=== PATIENT | female | born 1945 | race Caucasian/White ===

== ENCOUNTER 2016-01-20 15:14 | Outpatient (RCR) | payer BC, MEDICARE ==
--- OUTSIDE RECORDS SUMMARY | 2015-11-11 10:53 | XMS REPORT | Continuity of Care Document ---
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 Medications Medication Dose Route Sig Days/Qty Instructions Order Date Discontinued Date Status HCTZ/Lisinopril (Zestoretic) 1 Each PO DAILY 01/23/11 01/23/11 Discontinued [lisinopril] 01/23/11 01/23/11 Discontinued [lisinopril] 01/23/11 01/23/11 Discontinued Ranitidine Hcl 300 Mg PO TWICE A DAY 01/23/11 02/03/11 Discontinued Multivitamins 1 Each PO DAILY 01/23/11 Active [Calcium +D] DAILY 01/23/11 02/01/11 Discontinued [Vitamin B 6] 100 DAILY 01/23/11 02/01/11 Discontinued Aspirin 81 Mg PO DAILY 01/23/11 02/03/11 Discontinued Amlodipine Besylate (Norvasc 5 Mg) 5 Mg PO DAILY 01/23/11 11/16/11 Discontinued Meloxicam (Mobic) 15 Mg PO DAILY 01/23/11 11/16/11 Discontinued Azithromycin 200 Mg PO DAILY 4 Days 01/23/11 02/01/11 Discontinued HCTZ/Lisinopril (Zestoretic) 2 Each PO DAILY 01/23/11 11/16/11 Discontinued Calcium Carbonate/Vitamin D3 1 Each PO DAILY 02/01/11 Active Cholecalciferol (Vitamin D3) 2,000 Unit PO DAILY 02/01/11 02/03/11 Discontinued Pyridoxine HCl 100 Mg PO DAILY 02/01/11 02/03/11 Discontinued Pantoprazole Sodium 40 Mg PO DAILY 02/03/11 Active Atorvastatin Calcium 40 Mg PO DAILY 02/03/11 Active Clopidogrel Bisulfate 75 Mg PO DAILY 02/03/11 Active Aspirin 81 Mg PO DAILY 02/03/11 Active Meloxicam (Mobic) 15 Mg PO DAILY 11/16/11 Active Acetaminophen 325 Mg PO NEEDED 11/16/11 Active [retuxin infusion] Q8Week 11/16/11 Active Nebivolol Hcl 20 Mg PO DAILY 11/16/11 Active Levothyroxine Sodium 50 Mcg PO DAILY 11/16/11 Active Hydrochlorothiazide 25 Mg PO DAILY 11/16/11 Active Lisinopril 40 Mg PO DAILY 11/16/11 Active Amlodipine Besylate (Norvasc 10 Mg) 10 Mg PO DAILY 11/16/11 Discontinued Social History Social History Problem Response Recorded Date/Time Smoking Status Former Smoker 10/01/2013 6:52am Do you dip or chew tobacco? No 10/01/2013 6:52am Query Response Start Date Stop Date Smoking Status Former Smoker 10/06/2009 Hospital Discharge Instructions No hospital discharge instructions. Plan of Care No plan of care. Functional Status Query Response Date Recorded Patient Orientation Person Place Time Situation Normal For Age October 01, 2013 3:30pm Allergies, Adverse Reactions, Alerts Allergen Type Severity Reaction Status Last Updated Penicillins ([id number]) Allergy Unknown Active 09/16/08 Immunizations Name Given Type Date of Pneumonia Vaccine 10/12/04 Historical Date of Influenza Vaccine 11/05/10 Historical Vital Signs Acute Vital Signs Vital Response Date/Time Temperature (Fahrenheit) 96.3 degrees F (97.6 - 99.5) Temperature (Calculated Celsius) 35.47198 degrees C (36.4 - 37.5) Temperature Source Tympanic Pulse Rate (adult) 61 bpm (60 - 90) Respiratory Rate 18 bpm (12 - 24) O2 Sat by Pulse Oximetry 91 % (88 - 100) Blood Pressure 128/82 mm Hg Pain Pain Intensity 0 Height (Feet) 5 feet Height (Inches) 3.00 inches Height (Calculated Centimeters) 160.812277 cm Weight (Pounds) 216 pounds Weight (Calculated Grams) 48673.953 gm Weight (Calculated Kilograms) 97.995256 kilograms Calculated BMI 38.26 Results Test Source Date Result Interp. Ref. Range Comments Absolute Reticulocyte Count September 02, 2013 7:55am 52 10^3/uL N 22-82 SPE[facility]IMEN DRAWN AT [facility] Activated Partial Thromboplast Time November 28, 2011 11:20am 44 SEC H 24 -35 Alanine Aminotransferase (ALT/SGPT) September 02, 2013 7:55am 15 U/L N 0-55 SPE[facility]IMEN DRAWN AT [facility] Albumin September 02, 2013 7:55am 3.4 G/DL N 3.2-4.5 SPECIMEN DRAWN AT [facility] Alkaline Phosphatase September 02, 2013 7:55am 76 U/L N 40-136 SPECIMEN DRAWN AT [facility] Anti-Nuclear Antibody Screen September 02, 2008 2:40pm <1:80 - INTERPRETIVE DATAIF ABIGAIL SCREEN POSITIVE TITER AND PATTERN WILL FOLLOW. NORMAL RANGE FOR CHILDREN AGE 0 - 12 <1:20 NORMAL RANGE FOR ADULTS AGE 13 - 150 <1:80 Aspartate Amino Transf (AST/SGOT) September 02, 2013 7:55am 22 U/L N 5-34 SPECIMEN DRAWN AT [facility] BUN/Creatinine Ratio September 02, 2013 7:55am 25 - SPECIMEN DRAWN AT [facility] Basophils # (Auto) September 02, 2013 7:55am 0.0 10^3/uL N 0.0-0.1 SPECIMEN DRAWN AT [facility] Basophils (%) (Auto) September 02, 2013 7:55am 0 % N 0-10 SPE[facility]IMEN DRAWN AT [facility] Blood Urea Nitrogen September 02, 2013 7:55am 25 MG/DL H 7-18 SPECIMEN DRAWN AT [facility] Calcium Level September 02, 2013 7:55am 9.4 MG/DL N 8.5-10.1 SPECIMEN DRAWN AT [facility] Carbon Dioxide Level September 02, 2013 7:55am 29 MMOL/L N 21-32 SPE[facility]IMEN DRAWN AT [facility] Chloride Level September 02, 2013 7:55am 100 MMOL/L N 98-107 SPE[facility]IMEN DRAWN AT [facility] Cholesterol Level March 20, 2013 9:30am 139 MG/DL N -200 Creatinine September 02, 2013 7:55am 1.01 MG/DL N 0.60-1.30 SPECIMEN DRAWN AT [facility] Direct Bilirubin March 20, 2013 9:30am 0.1 MG/DL N 0.0-0.30 Eosinophils # (Auto) September 02, 2013 7:55am 0.4 10^3/uL H 0.0-0.3 SPE[facility]IMEN DRAWN AT [facility] Eosinophils (%) (Auto) September 02, 2013 7:55am 4 % N 0-10 SPE[facility]IMEN DRAWN AT [facility] Ferritin September 02, 2013 7:55am 50 NG/ML - SPECIMEN DRAWN AT [facility] Glucose Level September 02, 2013 7:55am 101 MG/DL N 70-105 SPECIMEN DRAWN AT [facility] HDL Cholesterol March 20, 2013 9:30am 54 MG/DL N 35-60 Hematocrit September 02, 2013 7:55am 38 % N 35-52 SPE[facility]IMEN DRAWN AT [facility] Hemoglobin September 02, 2013 7:55am 11.9 G/DL N 11.5-16.0 SPECIMEN DRAWN AT [facility] Hepatitis A IgM Antibody September 02, 2008 2:40pm NR - Hepatitis B Core IgM Antibody September 02, 2008 2:40pm NR - Hepatitis B Surface Antigen September 02, 2008 2:40pm NR - Hepatitis C Antibody September 02, 2008 2:40pm NR - Immunoglobulin A February 13, 2011 1:55pm 92 MG/DL - SPECIMEN DRAWN AT [facility] Immunoglobulin G February 13, 2011 1:55pm 682 MG/DL - SPECIMEN DRAWN AT [facility] Immunoglobulin M February 13, 2011 1:55pm 51 MG/DL - SPECIMEN DRAWN AT [facility] Indirect Bilirubin March 20, 2013 9:30am 0.2 MG/DL - Iron Level September 02, 2013 7:55am 86 UG/DL - SPECIMEN DRAWN AT [facility] LDL Cholesterol March 20, 2013 9:30am 72 MG/DL N 0-129 Lactate Dehydrogenase September 02, 2013 7:55am 257 U/L H 125-220 SPECIMEN DRAWN AT [facility] Lymphocytes # (Auto) September 02, 2013 7:55am 1.7 X 10^3 N 1.0-4.0 SPECIMEN DRAWN AT [facility] Lymphocytes (%) (Auto) September 02, 2013 7:55am 15 % N 12-44 SPE[facility]IMEN DRAWN AT [facility] Mean Corpuscular Hemoglobin September 02, 2013 7:55am 31 PG N 25-34 SPE[facility]IMEN DRAWN AT [facility] Mean Corpuscular Hemoglobin Concent September 02, 2013 7:55am 32 G/DL N 32- 36 SPE[facility]IMEN DRAWN AT [facility] Mean Corpuscular Volume September 02, 2013 7:55am 97 FL N 80-99 SPE[facility]IMEN DRAWN AT [facility] Mean Platelet Volume September 02, 2013 7:55am 11.0 FL H 7.4-10.4 SPECIMEN DRAWN AT [facility] Monocytes # (Auto) September 02, 2013 7:55am 1.5 X 10^3 H 0.0-1.0 SPECIMEN DRAWN AT [facility] Monocytes (%) (Auto) September 02, 2013 7:55am 14 % H 0-12 SPE[facility]IMEN DRAWN AT [facility] Neutrophils # (Auto) September 02, 2013 7:55am 7.2 X 10^3 N 1.8-7.8 SPECIMEN DRAWN AT [facility] Neutrophils (%) (Auto) September 02, 2013 7:55am 66 % N 42-75 SPECIMEN DRAWN AT [facility] Percent Reticulocyte Count September 02, 2013 7:55am 1.33 % N 0.50-2.40 SPECIMEN DRAWN AT [facility] Platelet Count September 02, 2013 7:55am 289 10^3/uL N 130-400 SPECIMEN DRAWN AT [facility] Potassium Level September 02, 2013 7:55am 3.9 MMOL/L N 3.6-5.0 SPECIMEN DRAWN AT [facility] Prothromb Time International Ratio November 28, 2011 11:20am 0.9 N 0.8- 1.4 INTERPRETIVE DATASUGGESTED THERAPEUTIC RANGE FOR INR'S : VENOUS THROMBOSIS, PULMONARY EMBOLISM, OR PREVENTION OF SYSTEMIC EMBOLISM (EG. IN ATRIAL FIBRILLATION): 2.0 - 3.0 MECHANICAL PROSTHETIC HEART VALVES: 2.5 - 3.5* *NOTE: INR'S UP TO 4.5 MAY BE NECESSARY IN SELECTED GROUPS OF HIGH RISK PATIENTS. [employer] CONSENSUS CONFERENCE ON ANTITHROMBOTIC THERAPY (2000). Prothrombin Time November 28, 2011 11:20am 12.1 SEC L 12.2-14.7 Red Blood Count September 02, 2013 7:55am 3.87 10^6/uL L 4.35-5.85 SPECIMEN DRAWN AT [facility] Red Cell Distribution Width September 02, 2013 7:55am 14.9 % H 10.0-14.5 SPECIMEN DRAWN AT [facility] Rheumatoid Factor September 02, 2008 2:40pm NEGATIVE - Sodium Level September 02, 2013 7:55am 140 MMOL/L N 135-145 SPECIMEN DRAWN AT [facility] TSH Vermilion Testing May 17, 2009 8:45am 4.03 UIU/ML N 0.34-5.60 SPECIMEN DRAWN AT [facility] Thyroid Stimulating Hormone (TSH) September 04, 2013 10:30am 1.40 UIU/ML N 0.35-4.94 SPECIMEN DRAWN AT [facility] Thyroxine (T4) March 14, 2012 10:08am 10.1 UG/DL - SPECIMEN DRAWN AT [facility] Total Bilirubin September 02, 2013 7:55am 0.3 MG/DL N 0.1-1.0 SPECIMEN DRAWN AT [facility] Total Iron Binding Capacity September 02, 2013 7:55am 349 UG/DL - TESTING PERFORMED BY:[facility] [id number] [place] [address] Total Protein September 02, 2013 7:55am 6.5 G/DL N 6.4-8.2 SPECIMEN DRAWN AT [facility] Transferrin % Saturation September 02, 2013 7:55am 25 % - SPECIMEN DRAWN AT [facility] Triglycerides Level March 20, 2013 9:30am 67 MG/DL N 30.0-150.0 Urine Bacteria May 27, 2009 11:45am TRACE - SPECIMEN COLLECTED AT [facility] Urine Bilirubin May 27, 2009 11:45am NEGATIVE - SPECIMEN COLLECTED AT [facility] Urine Casts May 27, 2009 11:45am NONE - SPECIMEN COLLECTED AT [facility] Urine Clarity May 27, 2009 11:45am SLIGHTLY CLOUDY - SPECIMEN COLLECTED AT [facility] Urine Color May 27, 2009 11:45am YELLOW - SPECIMEN COLLECTED AT [facility] Urine Crystals May 27, 2009 11:45am NONE - SPECIMEN COLLECTED AT [facility] Urine Culture Indicated May 27, 2009 11:45am NO - SPECIMEN COLLECTED AT [facility] Urine Glucose (UA) May 27, 2009 11:45am NEGATIVE - SPECIMEN COLLECTED AT [facility] Urine Ketones May 27, 2009 11:45am NEGATIVE - SPECIMEN COLLECTED AT [facility] Urine Leukocyte Esterase May 27, 2009 11:45am 1+ H - SPECIMEN COLLECTED AT [facility] Urine Mucus May 27, 2009 11:45am NEGATIVE - SPECIMEN COLLECTED AT [facility] Urine Nitrite May 27, 2009 11:45am NEGATIVE - SPECIMEN COLLECTED AT [facility] Urine Protein May 27, 2009 11:45am NEGATIVE - SPECIMEN COLLECTED AT [facility] Urine RBC May 27, 2009 11:45am 0-2 /HPF - SPECIMEN COLLECTED AT [facility] Urine Specific [place] May 27, 2009 11:45am 1.005 L - SPECIMEN COLLECTED AT [facility] Urine Squamous Epithelial Cells May 27, 2009 11:45am 2-5 - SPECIMEN COLLECTED AT [facility] Urine Urobilinogen May 27, 2009 11:45am NORMAL MG/DL - SPECIMEN COLLECTED AT [facility] Urine WBC May 27, 2009 11:45am 2-5 /HPF - SPECIMEN COLLECTED AT [facility] Urine pH May 27, 2009 11:45am 6.5 - SPECIMEN COLLECTED AT [facility] VLDL Cholesterol March 20, 2013 9:30am 13 MG/DL N 5-40 White Blood Count September 02, 2013 7:55am 10.8 10^3/uL N 4.3-11.0 SPECIMEN DRAWN AT [facility] Estimat Glomerular Filtration Rate September 02, 2013 7:55am 54 - GFR INTERPRETIVE DATA UNITS FOR ESTIMATED GFR (eGFR): mL/min/1.73 M2 REFERENCE RANGE FOR ESTIMATED GFR (eGFR) eGFR NORMAL eGFR >60 MODERATELY DECREASED eGFR 30-59 SEVERLY DECREASED eGFR 15-29 KIDNEY FAILURE <15 (OR DIALYSIS) Urine RBC (Auto) May 27, 2009 11:45am NEGATIVE - SPECIMEN COLLECTED AT [facility] MRSA Screen Nasal November 28, 2011 11:20am MRSA not isolated Procedures Procedure Status Date Provider(s) Color Doppler echocardiography completed 09/18/13 LENNY JEWELL MD Tracing only of electrocardiogram completed 10/01/13 LENNY JEWELL MD Encounters Encounter Location Date/Time Registered Clinic [facility] 09/24/13 7:53am Registered Clinic [facility] 09/18/13 10:00am Registered Recurring [facility] 09/04/13 9:39am
[2015-12-16 16:28] LABS: BASOPHILS # (AUTO) 0.1 10^3/uL (0.0-0.1); BASOPHILS % (AUTO) 1 % (0-10); EOSINOPHILS # (AUTO) 0.6 10^3/uL (0.0-0.3); EOSINOPHILS % (AUTO) 5 % (0-10); LYMPHOCYTES # (AUTO) 1.9 X 10^3 (1.0-4.0); LYMPHOCYTES % (AUTO) 17 % (12-44); MEAN CORPUSCULAR HEMOGLOBIN 32 PG (25-34); MEAN CORPUSCULAR HGB CONC 32 G/DL (32-36); MEAN CORPUSCULAR VOLUME 102 FL (80-99); MEAN PLATELET VOLUME 11.1 FL (7.4-10.4); MONOCYTES # (AUTO) 1.2 X 10^3 (0.0-1.0); MONOCYTES % (AUTO) 11 % (0-12); NEUTROPHILS % (AUTO) 65 % (42-75); PLATELET COUNT 328 10^3/uL (130-400); RED BLOOD COUNT 3.44 10^6/uL (4.35-5.85); RED CELL DISTRIBUTION WIDTH 13.9 % (10.0-14.5); WHITE BLOOD COUNT 10.7 10^3/uL (4.3-11.0)
[2015-12-16 17:02] LABS: ALANINE AMINOTRANSFERASE 43 U/L (0-55); ALBUMIN 3.8 G/DL (3.2-4.5); ANION GAP 8 MMOL/L (5-14); ASPARTATE AMINO TRANSFERASE 25 U/L (5-34); BILIRUBIN,TOTAL 0.3 MG/DL (0.1-1.0); BLOOD UREA NITROGEN 15 MG/DL (7-18); BUN/CREATININE RATIO 17; CALCIUM 9.3 MG/DL (8.5-10.1); CARBON DIOXIDE 30 MMOL/L (21-32); CHLORIDE 102 MMOL/L (98-107); CREATININE SERUM 0.88 MG/DL (0.60-1.30); GFR ESTIMATED > 60; GLUCOSE 97 MG/DL (70-105); POTASSIUM 4.4 MMOL/L (3.6-5.0); SODIUM 140 MMOL/L (135-145)
[2015-12-16 17:25] LABS: THYROID STIMULATING HORMONE 2.85 UIU/ML (0.35-4.94)
[2015-12-17 11:57] LABS: %SAT TOTAL IRON BINDING CAPIC 21 % (15-50); TIBC 310 ug/dL (280-380)
[2015-12-18 01:40] LABS: IMMUNOGLOBULIN IGA 61 mg/dL (71-263); IMMUNOGLOBULIN IGG 623 mg/dL (672-1680)
[2015-12-20 11:51] LABS: UIBC 245 ug/dL (55-450)
[2015-12-20 11:52] LABS: FERRITIN 133 ng/mL (15-150)
[2015-12-20 11:58] LABS: IMMUNOGLOBULIN IGM 27 mg/dL (47-209)
[~2016-01-20] VITALS: Ht 160 cm; Wt 106.6 kg
[~2016-01-20 15:14] MED LIST: AC325T PO; ACETAMINOPHEN 325 MG TABLET/CAPLET (TYLENOL) PO SCH; AMLO10TA82 PO; AMLO5TAB2 PO; ASP81CT PO; ASP81TEC PO; ATOR40TA70 PO; ATOR80TA PO; AZIT200S47 PO; CALC-656 PO; CALC-80 PO; CALCIUM +D; CHOL200018 PO; CLOP75TA28 PO; CLPD75T PO; CYAN100053 IJ; CYANOCOBALAMIN INJ 1000 MCG/ML INJ SCH; EZET10TA23 PO; FERR-57 PO; FLUT1DIS26 PO; HCT25T PO; HEParin (CENTRAL IV FLUSH) 500 UNIT/5 ML SYR INJ SCH; HYDR25TA4 PO; LISI1TAB10 PO; LISI40TA PO; LVT.05T PO; MELO-195 PO; MULT1CAP27 PO; NEBI5TAB8 PO; NFNEB10T PO; NS IV 500 ML 500 ML IV SCH; OLME20TA21 PO; PANT40TA PO; PNT40TEC PO; PYRI100T2 PO; RANI300T4 PO; RANO500T3 PO; VITAMIN B 6; [UNRECOGNIZED DRUG - OTHER]; [UNRECOGNIZED DRUG - OTHER] IV; diphenhydrAMINE 25 MG TAB (BENADRYL) PO SCH; lisinopril; riTUXimab 500 MG, riTUXimab FOR IV INJ CONC 200 MG in NS (IVPB) CANCER CENTER ONLY 150 ML IV SCH
== END 2016-02-09 | disposition home or self-care (01) ==
LOC: PAR 15:14
PROVIDERS: ATTEND Internal Medicine Hematology & Oncology
DX: C83.18 Mantle cell lymphoma, lymph nodes of multiple sites (principal); D50.9 Iron deficiency anemia, unspecified; I10 Essential (primary) hypertension; E78.5 Hyperlipidemia, unspecified; M89.9 Disorder of bone, unspecified; Z79.899 Other long term (current) drug therapy
CPT/HCPCS: 36591; 80053; 82728; 82784; 83540; 84443; 85025; 96372; 96413; 99213

== ENCOUNTER 2016-05-11 13:28 | Outpatient (RCR) | payer BC, MEDICARE ==
--- OUTSIDE RECORDS SUMMARY | 2016-02-17 14:32 | XMS REPORT | Continuity of Care Document ---
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 Name Role Phone BRITTANY CRAVEN MD PCP Insurance Providers Payer Name Policy Number Subscriber Name Relationship [facility] [id number] Rosey Gil C 01 Wps Medicare [id number] Kelsy Gil 18 Self / Same As Patient Advance Directives Directive Response Recorded Date/Time Advance Directives No 10/01/13 6:52am Health Care Power of Operations Manager/Coordinator No 10/01/13 6:52am Organ Donor No 10/01/13 [...] Type Severity Reaction Status Last Updated Penicillins ([id number]) Allergy Unknown Active 09/16/08 Immunizations Name Given Type Date of Pneumonia Vaccine 10/12/04 Historical Date of Influenza Vaccine 11/05/10 Historical Vital Signs Acute Vital Signs Vital Response Date/Time Temperature (Fahrenheit) 96.3 degrees F (97.6 - 99.5) Temperature (Calculated Celsius) 35.29587 degrees C (36.4 - 37.5) Temperature Source Tympanic Pulse Rate (adult) 61 bpm (60 - 90) Respiratory Rate 18 bpm (12 - 24) O2 Sat by Pulse Oximetry 91 % (88 - 100) Blood Pressure 128/82 mm Hg Pain Pain Intensity 0 Height (Feet) 5 feet Height (Inches) 3.00 inches Height (Calculated Centimeters) 160.091276 cm Weight (Pounds) 216 pounds Weight (Calculated Grams) 49027.953 gm Weight (Calculated Kilograms) 97.764018 kilograms Calculated BMI 38.26 Results Test Source Date Result Interp. Ref. Range Comments Absolute Reticulocyte Count September 02, 2013 7:55am 52 10^3/uL N 22-82 [facility] Activated Partial Thromboplast Time November 28, 2011 11:20am 44 SEC H 24 -35 Alanine Aminotransferase (ALT/SGPT) September 02, 2013 7:55am 15 U/L N 0-55 [facility] Albumin September 02, 2013 7:55am 3.4 G/DL N 3.2-4.5 [facility] Alkaline Phosphatase September 02, 2013 7:55am 76 U/L N 40-136 [facility] Anti-Nuclear Antibody Screen September 02, 2008 2:40pm <1:80 - INTERPRETIVE DATAIF ABIGAIL SCREEN POSITIVE TITER AND PATTERN WILL FOLLOW. NORMAL RANGE FOR CHILDREN AGE 0 - 12 <1:20 NORMAL RANGE FOR ADULTS AGE 13 - 150 <1:80 Aspartate Amino Transf (AST/SGOT) September 02, 2013 7:55am 22 U/L N 5-34 [facility] BUN/Creatinine Ratio September 02, 2013 7:55am 25 - [facility] Basophils # (Auto) September 02, 2013 7:55am 0.0 10^3/uL N 0.0-0.1 [facility] Basophils (%) (Auto) September 02, 2013 7:55am 0 % N 0-10 [facility] Blood Urea Nitrogen September 02, 2013 7:55am 25 MG/DL H 7-18 [facility] Calcium Level September 02, 2013 7:55am 9.4 MG/DL N 8.5-10.1 [facility] Carbon Dioxide Level September 02, 2013 7:55am 29 MMOL/L N 21-32 [facility] Chloride Level September 02, 2013 7:55am 100 MMOL/L N 98-107 [facility] Cholesterol Level March 20, 2013 9:30am 139 MG/DL N -200 Creatinine September 02, 2013 7:55am 1.01 MG/DL N 0.60-1.30 [facility] Direct Bilirubin March 20, 2013 9:30am 0.1 MG/DL N 0.0-0.30 Eosinophils # (Auto) September 02, 2013 7:55am 0.4 10^3/uL H 0.0-0.3 [facility] Eosinophils (%) (Auto) September 02, 2013 7:55am 4 % N 0-10 [facility] Ferritin September 02, 2013 7:55am 50 NG/ML - [facility] Glucose Level September 02, 2013 7:55am 101 MG/DL N 70-105 [facility] HDL Cholesterol March 20, 2013 9:30am 54 MG/DL N 35-60 Hematocrit September 02, 2013 7:55am 38 % N 35-52 [facility] Hemoglobin September 02, 2013 7:55am 11.9 G/DL N 11.5-16.0 [facility] Hepatitis A IgM Antibody September 02, 2008 2:40pm NR - Hepatitis B Core IgM Antibody September 02, 2008 2:40pm NR - Hepatitis B Surface Antigen September 02, 2008 2:40pm NR - Hepatitis C Antibody September 02, 2008 2:40pm NR - Immunoglobulin A February 13, 2011 1:55pm 92 MG/DL - [facility] Immunoglobulin G February 13, 2011 1:55pm 682 MG/DL - [facility] Immunoglobulin M February 13, 2011 1:55pm 51 MG/DL - [facility] Indirect Bilirubin March 20, 2013 9:30am 0.2 MG/DL - Iron Level September 02, 2013 7:55am 86 UG/DL - [facility] LDL Cholesterol March 20, 2013 9:30am 72 MG/DL N 0-129 Lactate Dehydrogenase September 02, 2013 7:55am 257 U/L H 125-220 [facility] Lymphocytes # (Auto) September 02, 2013 7:55am 1.7 X 10^3 N 1.0-4.0 [facility] Lymphocytes (%) (Auto) September 02, 2013 7:55am 15 % N 12-44 [facility] Mean Corpuscular Hemoglobin September 02, 2013 7:55am 31 PG N 25-34 [facility] Mean Corpuscular Hemoglobin Concent September 02, 2013 7:55am 32 G/DL N 32- 36 [facility] Mean Corpuscular Volume September 02, 2013 7:55am 97 FL N 80-99 [facility] Mean Platelet Volume September 02, 2013 7:55am 11.0 FL H 7.4-10.4 [facility] Monocytes # (Auto) September 02, 2013 7:55am 1.5 X 10^3 H 0.0-1.0 [facility] Monocytes (%) (Auto) September 02, 2013 7:55am 14 % H 0-12 [facility] Neutrophils # (Auto) September 02, 2013 7:55am 7.2 X 10^3 N 1.8-7.8 [facility] Neutrophils (%) (Auto) September 02, 2013 7:55am 66 % N 42-75 [facility] Percent Reticulocyte Count September 02, 2013 7:55am 1.33 % N 0.50-2.40 [facility] Platelet Count September 02, 2013 7:55am 289 10^3/uL N 130-400 [facility] Potassium Level September 02, 2013 7:55am 3.9 MMOL/L N 3.6-5.0 [facility] Prothromb Time International Ratio November 28, 2011 11:20am 0.9 N 0.8- 1.4 INTERPRETIVE DATASUGGESTED THERAPEUTIC RANGE FOR INR'S : VENOUS THROMBOSIS, PULMONARY EMBOLISM, OR PREVENTION OF SYSTEMIC EMBOLISM (EG. IN ATRIAL FIBRILLATION): 2.0 - 3.0 MECHANICAL PROSTHETIC HEART VALVES: 2.5 - 3.5* *NOTE: INR'S UP TO 4.5 MAY BE NECESSARY IN SELECTED GROUPS OF HIGH RISK PATIENTS. [employer] CONSENSUS CONFERENCE ON ANTITHROMBOTIC THERAPY (2000). Prothrombin Time November 28, 2011 11:20am 12.1 SEC L 12.2-14.7 Red Blood Count September 02, 2013 7:55am 3.87 10^6/uL L 4.35-5.85 [facility] Red Cell Distribution Width September 02, 2013 7:55am 14.9 % H 10.0-14.5 [facility] Rheumatoid Factor September 02, 2008 2:40pm NEGATIVE - Sodium Level September 02, 2013 7:55am 140 MMOL/L N 135-145 [facility] TSH [place] Testing May 17, 2009 8:45am 4.03 UIU/ML N 0.34-5.60 [facility] Thyroid Stimulating Hormone (TSH) September 04, 2013 10:30am 1.40 UIU/ML N 0.35-4.94 [facility] Thyroxine (T4) March 14, 2012 10:08am 10.1 UG/DL - [facility] Total Bilirubin September 02, 2013 7:55am 0.3 MG/DL N 0.1-1.0 [facility] Total Iron Binding Capacity September 02, 2013 7:55am 349 UG/DL - TESTING PERFORMED BY:[facility] [id number] [place] [address] Total Protein September 02, 2013 7:55am 6.5 G/DL N 6.4-8.2 [facility] Transferrin % Saturation September 02, 2013 7:55am 25 % - [facility] Triglycerides Level March 20, 2013 9:30am 67 MG/DL N 30.0-150.0 Urine Bacteria May 27, 2009 11:45am TRACE - [facility] Urine Bilirubin May 27, 2009 11:45am NEGATIVE - [facility] Urine Casts May 27, 2009 11:45am NONE - [facility] Urine Clarity May 27, 2009 11:45am SLIGHTLY CLOUDY - [facility] Urine Color May 27, 2009 11:45am YELLOW - [facility] Urine Crystals May 27, 2009 11:45am NONE - [facility] Urine Culture Indicated May 27, 2009 11:45am NO - [facility] Urine Glucose (UA) May 27, 2009 11:45am NEGATIVE - [facility] Urine Ketones May 27, 2009 11:45am NEGATIVE - [facility] Urine Leukocyte Esterase May 27, 2009 11:45am 1+ H - [facility] Urine Mucus May 27, 2009 11:45am NEGATIVE - [facility] Urine Nitrite May 27, 2009 11:45am NEGATIVE - [facility] Urine Protein May 27, 2009 11:45am NEGATIVE - [facility] Urine RBC May 27, 2009 11:45am 0-2 /HPF - [facility] Urine Specific [place] May 27, 2009 11:45am 1.005 L - [facility] Urine Squamous Epithelial Cells May 27, 2009 11:45am 2-5 - [facility] Urine Urobilinogen May 27, 2009 11:45am NORMAL MG/DL - [facility] Urine WBC May 27, 2009 11:45am 2-5 /HPF - [facility] Urine pH May 27, 2009 11:45am 6.5 - [facility] VLDL Cholesterol March 20, 2013 9:30am 13 MG/DL N 5-40 White Blood Count September 02, 2013 7:55am 10.8 10^3/uL N 4.3-11.0 [facility] Estimat Glomerular Filtration Rate September 02, 2013 7:55am 54 - GFR INTERPRETIVE DATA UNITS FOR ESTIMATED GFR (eGFR): mL/min/1.73 M2 REFERENCE RANGE FOR ESTIMATED GFR (eGFR) eGFR NORMAL eGFR >60 MODERATELY DECREASED eGFR 30-59 SEVERLY DECREASED eGFR 15-29 KIDNEY FAILURE <15 (OR DIALYSIS) Urine RBC (Auto) May 27, 2009 11:45am NEGATIVE - [facility] MRSA Screen Nasal November 28, 2011 11:20am MRSA not isolated Procedures Procedure Status Date Provider(s) Color Doppler echocardiography completed 09/18/13 LENNY JEWELL MD Tracing only of electrocardiogram completed 10/01/13 LENNY JEWELL MD Encounters Encounter Location Date/Time Registered Clinic Via [facility] 09/24/13 7:53am Registered Clinic [facility] 09/18/13 10:00am Registered Recurring [facility] 09/04/13 9:39am
[2016-03-09 15:57] LABS: BASOPHILS % (AUTO) 0 % (0-10); EOSINOPHILS # (AUTO) 0.5 10^3/uL (0.0-0.3); EOSINOPHILS % (AUTO) 4 % (0-10); LYMPHOCYTES # (AUTO) 1.9 X 10^3 (1.0-4.0); LYMPHOCYTES % (AUTO) 15 % (12-44); MEAN CORPUSCULAR HEMOGLOBIN 32 PG (25-34); MEAN CORPUSCULAR HGB CONC 32 G/DL (32-36); MEAN CORPUSCULAR VOLUME 102 FL (80-99); MEAN PLATELET VOLUME 10.9 FL (7.4-10.4); MONOCYTES # (AUTO) 1.3 X 10^3 (0.0-1.0); MONOCYTES % (AUTO) 10 % (0-12); NEUTROPHILS # (AUTO) 9.4 X 10^3 (1.8-7.8); NEUTROPHILS % (AUTO) 71 % (42-75); PLATELET COUNT 333 10^3/uL (130-400); RED BLOOD COUNT 3.39 10^6/uL (4.35-5.85); RED CELL DISTRIBUTION WIDTH 14.6 % (10.0-14.5); WHITE BLOOD COUNT 13.1 10^3/uL (4.3-11.0)
[2016-03-09 16:55] LABS: ALANINE AMINOTRANSFERASE 39 U/L (0-55); ALBUMIN 3.8 G/DL (3.2-4.5); ANION GAP 7 MMOL/L (5-14); ASPARTATE AMINO TRANSFERASE 30 U/L (5-34); BILIRUBIN,TOTAL 0.3 MG/DL (0.1-1.0); BLOOD UREA NITROGEN 20 MG/DL (7-18); BUN/CREATININE RATIO 23; CARBON DIOXIDE 30 MMOL/L (21-32); CHLORIDE 103 MMOL/L (98-107); CREATININE SERUM 0.87 MG/DL (0.60-1.30); GFR ESTIMATED > 60; GLUCOSE 88 MG/DL (70-105); LACTATE DEHYDROGENASE 272 U/L (125-220); POTASSIUM 4.2 MMOL/L (3.6-5.0); SODIUM 140 MMOL/L (135-145); TOTAL PROTEIN 6.1 G/DL (6.4-8.2)
[2016-03-09 17:16] LABS: THYROID STIMULATING HORMONE 5.39 UIU/ML (0.35-4.94)
[2016-04-06 16:20] LABS: BASOPHILS % (AUTO) 0 % (0-10); EOSINOPHILS # (AUTO) 0.6 10^3/uL (0.0-0.3); EOSINOPHILS % (AUTO) 5 % (0-10); LYMPHOCYTES # (AUTO) 1.7 X 10^3 (1.0-4.0); LYMPHOCYTES % (AUTO) 15 % (12-44); MEAN CORPUSCULAR HEMOGLOBIN 32 PG (25-34); MEAN CORPUSCULAR HGB CONC 31 G/DL (32-36); MEAN CORPUSCULAR VOLUME 103 FL (80-99); MONOCYTES # (AUTO) 1.3 X 10^3 (0.0-1.0); MONOCYTES % (AUTO) 11 % (0-12); NEUTROPHILS # (AUTO) 7.8 X 10^3 (1.8-7.8); NEUTROPHILS % (AUTO) 69 % (42-75); PLATELET COUNT 340 10^3/uL (130-400); RED BLOOD COUNT 3.35 10^6/uL (4.35-5.85); RED CELL DISTRIBUTION WIDTH 14.5 % (10.0-14.5); WHITE BLOOD COUNT 11.3 10^3/uL (4.3-11.0)
[2016-04-06 16:49] LABS: ALBUMIN 3.6 G/DL (3.2-4.5); BILIRUBIN,TOTAL 0.2 MG/DL (0.1-1.0); CALCIUM 8.9 MG/DL (8.5-10.1); CREATININE SERUM 1.02 MG/DL (0.60-1.30); TOTAL PROTEIN 5.8 G/DL (6.4-8.2)
[2016-04-06 17:16] LABS: THYROID STIMULATING HORMONE 2.45 UIU/ML (0.35-4.94)
[~2016-05-11] VITALS: Ht 160 cm; Wt 102.5 kg
[~2016-05-11 13:28] MED LIST changes: +ACETAMINOPHEN 325 MG TAB (TYLENOL) CANCER CTR PO SCH; -ACETAMINOPHEN 325 MG TABLET/CAPLET (TYLENOL) PO SCH; -HEParin (CENTRAL IV FLUSH) 500 UNIT/5 ML SYR INJ SCH; +NS IV 500 ML (CANCER CENTER) IV SCH; -NS IV 500 ML 500 ML IV SCH; +diphenhydrAMINE 25 MG TAB (BENADRYL) CANCER CENTER PO SCH; -diphenhydrAMINE 25 MG TAB (BENADRYL) PO SCH
== END 2016-05-17 | disposition home or self-care (01) ==
LOC: PAR 13:28
PROVIDERS: ATTEND Internal Medicine Hematology & Oncology
DX: C83.18 Mantle cell lymphoma, lymph nodes of multiple sites (principal); D50.9 Iron deficiency anemia, unspecified; I10 Essential (primary) hypertension; E78.5 Hyperlipidemia, unspecified; M89.9 Disorder of bone, unspecified; Z79.899 Other long term (current) drug therapy; Z45.2 Encounter for adjustment and management of vascular access device
CPT/HCPCS: 36591; 80053; 82728; 82784; 83540; 83615; 84443; 85025; 96372; 96413; 96523; 99213

== ENCOUNTER → 2016-05-29 | Outpatient (CLI) | payer BC, MEDICARE ==
[~2016-05-29] MED LIST changes: -ACETAMINOPHEN 325 MG TAB (TYLENOL) CANCER CTR PO SCH; +CATHETER FLUSH 10 ML SYR IV PRN; -CYANOCOBALAMIN INJ 1000 MCG/ML INJ SCH; +IOHEXOL 350 MG/ML 100 ML (OMNIPAQUE 350) VIAL IV ONE; +NS 100 ML (IVPB) BAG IV ONE; -NS IV 500 ML (CANCER CENTER) IV SCH; -diphenhydrAMINE 25 MG TAB (BENADRYL) CANCER CENTER PO SCH; -riTUXimab 500 MG, riTUXimab FOR IV INJ CONC 200 MG in NS (IVPB) CANCER CENTER ONLY 150 ML IV SCH
[2016-05-29 10:55] LABS: CREATININE SERUM 1.03 MG/DL (0.60-1.30)
--- NOTE | 2016-05-29 13:44 | Diagnostic Imaging Report ---
CLINICAL INDICATION: Followup aneurysm. EXAMS: 1: Head CT with and without IV contrast. 2: CT angiogram of the head and neck performed with 100 cc of Omnipaque 350 IV contrast. Sagittal and coronal MIP reformations were created for better visualization of vascular anatomy. COMPARISON: CT angiogram of the head/neck dated 05/17/2015. FINDINGS: Head CT: There is stable size and configuration of the area of high density within the posterior aspect of left thalamus which appears to have minimal adjacent enhancement. Remainder of the brain parenchyma is stable with patchy and confluent areas of low attenuation white matter changes throughout both cerebral hemispheres, likely representing chronic small vessel ischemic disease. The brain parenchymal volume appears appropriate for patient's age. There is no evidence of hydrocephalus. Besides the left thalamic lesion, there is no abnormal IV contrast enhancement. The extracranial soft tissue, skull, and orbits are unremarkable. There is a moderate to large size mucus retention cyst in left maxillary sinus which has slightly decreased. CT angiogram: Bovine arch is again seen. 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 This aneurysm is directed laterally and inferiorly. There is no other evidence of aneurysm or concern for dissection on this exam. There is stable severe, roughly 70% stenosis of the left ICA bulb. There is stable roughly 40% stenosis of the cavernous right ICA. There is dense atherosclerotic plaque involving the origin of the right subclavian artery with mild stenosis seen. Remainder of the [place] and neck vascular structures show no other significant abnormality and is stable. Dural venous sinuses show no significant abnormality. Cqupcu-t-[id number] is seen overlying the right chest. There is emphysematous lung disease seen bilaterally. There is cervical spine degenerative disease again seen. 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 2: Stable severe stenosis of the left ICA bulb. 3: The remainder of the [place] and neck arteriovascular structures have not significantly changed in the interim. 4: Stable age-related brain parenchymal changes. Dictated by: Dictated on workstation # [id number]
== END ==
LOC: RAD 10:10
PROVIDERS: ATTEND Internal Medicine Cardiovascular Disease
DX: I25.10 Atherosclerotic heart disease of native coronary artery without angina pectoris (principal); R07.9 Chest pain, unspecified; R06.00 Dyspnea, unspecified; E78.2 Mixed hyperlipidemia; I10 Essential (primary) hypertension; J44.9 Chronic obstructive pulmonary disease, unspecified
CPT/HCPCS: 36415; 70496; 70498; 82565; 84520

== ENCOUNTER → 2016-08-09 | Outpatient (CLI) | payer BC, MEDICARE ==
[~2016-08-09] MED LIST changes: +ATOR80TA76 PO; -CATHETER FLUSH 10 ML SYR IV PRN; +DICL75TA2 PO; -IOHEXOL 350 MG/ML 100 ML (OMNIPAQUE 350) VIAL IV ONE; +LEVO50TA6 PO; +MONT10TA24 PO; -NS 100 ML (IVPB) BAG IV ONE; +OLME20TA24 PO; +TIOT18CA2 IH
--- NOTE | 2016-08-09 15:27 | Diagnostic Imaging Report ---
PROCEDURE: Lung cancer screening CT chest without contrast. TECHNIQUE: Multiple contiguous axial images were obtained through the chest without the use of intravenous contrast. This is performed with a low-dose protocol. INDICATION: Currently asymptomatic patient with 50 pack years history of smoking COMPARISON: 07/08/2014. FINDINGS: There is a mild upper lobe predominant emphysema changes. There is no significant consolidation, mass or suspicious nodule seen. A 4 mm right upper lobe nodule stable from the 07/08/2014 exam is suggestive of a focal scar. There is interstitial scarring in the left lung base laterally along the region of prior thoracotomy and partial rib resection seen with the minimal bulge of the lung relative to the contour of the left hemithorax. The heart size is normal. Coronary artery calcifications are seen. The thoracic aorta is normal in caliber. The mediastinum demonstrate no mass or significantly enlarged lymph nodes. The axilla demonstrate no significantly enlarged nodes. There is right subclavian venous line with the tip at SVC level. IMPRESSION: Mild upper lobe predominant emphysema changes. Postoperative changes and areas of scarring seen as described. No suspicious lung nodule or mass. Lung Rads Category 2. Benign findings. Recommendations: Annual screening low-dose CT scan. Dictated by: Dictated on workstation # [id number]
== END ==
LOC: RAD 11:18
PROVIDERS: ATTEND Nurse Practitioner Family
DX: Z98.890 Other specified postprocedural states (principal); R09.02 Hypoxemia; Z87.891 Personal history of nicotine dependence

== ENCOUNTER 2016-08-24 11:59 | Outpatient (RCR) | payer BC, MEDICARE ==
[2016-06-01 16:11] LABS: BASOPHILS # (AUTO) 0.1 10^3/uL (0.0-0.1); BASOPHILS % (AUTO) 0 % (0-10); EOSINOPHILS # (AUTO) 0.7 10^3/uL (0.0-0.3); EOSINOPHILS % (AUTO) 5 % (0-10); LYMPHOCYTES # (AUTO) 1.7 X 10^3 (1.0-4.0); LYMPHOCYTES % (AUTO) 14 % (12-44); MEAN CORPUSCULAR HEMOGLOBIN 32 PG (25-34); MEAN CORPUSCULAR HGB CONC 31 G/DL (32-36); MEAN CORPUSCULAR VOLUME 101 FL (80-99); MEAN PLATELET VOLUME 11.2 FL (7.4-10.4); MONOCYTES # (AUTO) 1.4 X 10^3 (0.0-1.0); MONOCYTES % (AUTO) 11 % (0-12); NEUTROPHILS # (AUTO) 8.8 X 10^3 (1.8-7.8); NEUTROPHILS % (AUTO) 70 % (42-75); PLATELET COUNT 330 10^3/uL (130-400); RED BLOOD COUNT 3.34 10^6/uL (4.35-5.85); RED CELL DISTRIBUTION WIDTH 13.6 % (10.0-14.5); WHITE BLOOD COUNT 12.6 10^3/uL (4.3-11.0)
[2016-06-01 16:28] LABS: ALBUMIN 3.7 G/DL (3.2-4.5); BILIRUBIN,TOTAL 0.3 MG/DL (0.1-1.0); CALCIUM 9.2 MG/DL (8.5-10.1); CREATININE SERUM 0.93 MG/DL (0.60-1.30); POTASSIUM 4.3 MMOL/L (3.6-5.0); TOTAL PROTEIN 5.9 G/DL (6.4-8.2)
[2016-06-01 16:56] LABS: THYROID STIMULATING HORMONE 1.6 UIU/ML (0.35-4.94)
[2016-07-06 16:22] LABS: BASOPHILS % (AUTO) 0 % (0-10); EOSINOPHILS # (AUTO) 0.7 10^3/uL (0.0-0.3); EOSINOPHILS % (AUTO) 7 % (0-10); LYMPHOCYTES # (AUTO) 1.7 X 10^3 (1.0-4.0); LYMPHOCYTES % (AUTO) 16 % (12-44); MEAN CORPUSCULAR HEMOGLOBIN 31 PG (25-34); MEAN CORPUSCULAR HGB CONC 31 G/DL (32-36); MEAN CORPUSCULAR VOLUME 103 FL (80-99); MEAN PLATELET VOLUME 11.3 FL (7.4-10.4); MONOCYTES # (AUTO) 1.2 X 10^3 (0.0-1.0); MONOCYTES % (AUTO) 11 % (0-12); NEUTROPHILS # (AUTO) 6.8 X 10^3 (1.8-7.8); NEUTROPHILS % (AUTO) 65 % (42-75); PLATELET COUNT 289 10^3/uL (130-400); RED BLOOD COUNT 3.29 10^6/uL (4.35-5.85); RED CELL DISTRIBUTION WIDTH 13.6 % (10.0-14.5); WHITE BLOOD COUNT 10.4 10^3/uL (4.3-11.0)
[2016-07-06 17:05] LABS: ALANINE AMINOTRANSFERASE 21 U/L (0-55); ALBUMIN 3.6 G/DL (3.2-4.5); ANION GAP 10 MMOL/L (5-14); ASPARTATE AMINO TRANSFERASE 18 U/L (5-34); BILIRUBIN,TOTAL 0.3 MG/DL (0.1-1.0); BLOOD UREA NITROGEN 15 MG/DL (7-18); BUN/CREATININE RATIO 18; CARBON DIOXIDE 28 MMOL/L (21-32); CHLORIDE 102 MMOL/L (98-107); CREATININE SERUM 0.85 MG/DL (0.60-1.30); GFR ESTIMATED > 60; GLUCOSE 125 MG/DL (70-105); LACTATE DEHYDROGENASE 213 U/L (125-220); POTASSIUM 4.3 MMOL/L (3.6-5.0); SODIUM 140 MMOL/L (135-145); TOTAL PROTEIN 5.8 G/DL (6.4-8.2)
[2016-07-06 17:27] LABS: THYROID STIMULATING HORMONE 1.95 UIU/ML (0.35-4.94)
[~2016-08-24] VITALS: Ht 160 cm; Wt 104.8 kg
[~2016-08-24 11:59] MED LIST changes: +ACETAMINOPHEN 325 MG TAB (TYLENOL) CANCER CTR PO SCH; -ATOR80TA76 PO; +CYANOCOBALAMIN INJ 1000 MCG/ML INJ SCH; -DICL75TA2 PO; -LEVO50TA6 PO; -MONT10TA24 PO; +NS IV 500 ML (CANCER CENTER) IV SCH; -OLME20TA24 PO; -TIOT18CA2 IH; +diphenhydrAMINE 25 MG TAB (BENADRYL) CANCER CENTER PO SCH; +riTUXimab 500 MG, riTUXimab FOR IV INJ CONC 200 MG in NS (IVPB) CANCER CENTER ONLY 150 ML IV SCH
[2016-08-24 16:07] LABS: BASOPHILS % (AUTO) 0 % (0-10); EOSINOPHILS # (AUTO) 0.7 10^3/uL (0.0-0.3); EOSINOPHILS % (AUTO) 6 % (0-10); LYMPHOCYTES % (AUTO) 16 % (12-44); MEAN CORPUSCULAR HEMOGLOBIN 31 PG (25-34); MEAN CORPUSCULAR HGB CONC 31 G/DL (32-36); MEAN CORPUSCULAR VOLUME 102 FL (80-99); MONOCYTES # (AUTO) 1.3 X 10^3 (0.0-1.0); MONOCYTES % (AUTO) 11 % (0-12); NEUTROPHILS # (AUTO) 8.1 X 10^3 (1.8-7.8); NEUTROPHILS % (AUTO) 67 % (42-75); PLATELET COUNT 309 10^3/uL (130-400); RED CELL DISTRIBUTION WIDTH 14.9 % (10.0-14.5)
[2016-08-24 16:34] LABS: ALBUMIN 3.6 GM/DL (3.2-4.5); BILIRUBIN,TOTAL 0.4 MG/DL (0.1-1.0); CALCIUM 9.1 MG/DL (8.5-10.1); CREATININE SERUM 0.93 MG/DL (0.60-1.30); TOTAL PROTEIN 5.9 GM/DL (6.4-8.2)
[2016-08-24 16:56] LABS: THYROID STIMULATING HORMONE 1.72 UIU/ML (0.35-4.94)
[2016-08-30] MEDS ORDERED: ACETAMINOPHEN 500 MG TAB (TYLENOL) CANCER CTR PO PRN (14:30)
== END 2016-08-30 | disposition home or self-care (01) ==
LOC: PAR 11:59
PROVIDERS: ATTEND Internal Medicine Hematology & Oncology
DX: C83.18 Mantle cell lymphoma, lymph nodes of multiple sites (principal); D50.9 Iron deficiency anemia, unspecified; I10 Essential (primary) hypertension; E78.5 Hyperlipidemia, unspecified; M89.9 Disorder of bone, unspecified; Z79.899 Other long term (current) drug therapy; Z45.2 Encounter for adjustment and management of vascular access device
CPT/HCPCS: 36591; 80053; 82728; 82784; 83540; 83615; 84443; 85025; 96372; 96413; 96523; 99213

== ENCOUNTER 2016-09-28 10:27 | Outpatient (RCR) | payer BC, MEDICARE ==
[2016-08-31 16:23] LABS: BILIRUBIN,URINE NEGATIVE (NEGATIVE); KETONES,URINE NEGATIVE (NEGATIVE); LEUKOCYTE ESTERASE ,URINE 3+ (NEGATIVE); NITRITE,URINE NEGATIVE (NEGATIVE); PH,URINE 8 (5-9); PROTEIN,URINE NEGATIVE (NEGATIVE); UROBILINOGEN,URINE NORMAL (NORMAL)
[2016-08-31 16:32] LABS: WBC,URINE 25-50 /HPF
[~2016-09-28 10:27] MED LIST changes: -ACETAMINOPHEN 325 MG TAB (TYLENOL) CANCER CTR PO SCH; +ACETAMINOPHEN 500 MG TAB (TYLENOL) CANCER CTR PO PRN
== END 2016-10-17 15:12 | disposition home or self-care (01) ==
LOC: PAR 10:27
PROVIDERS: ATTEND Internal Medicine Hematology & Oncology
DX: Z51.11 Encounter for antineoplastic chemotherapy (principal); C83.18 Mantle cell lymphoma, lymph nodes of multiple sites; D50.9 Iron deficiency anemia, unspecified; R35.0 Frequency of micturition; I10 Essential (primary) hypertension; E78.5 Hyperlipidemia, unspecified; M89.9 Disorder of bone, unspecified; Z79.899 Other long term (current) drug therapy
CPT/HCPCS: 81000; 87088; 87186; 96372; 96413; 99213

== ENCOUNTER → 2016-10-10 | Outpatient (CLI) | payer BC, MEDICARE ==
[~2016-10-10] MED LIST changes: -ACETAMINOPHEN 500 MG TAB (TYLENOL) CANCER CTR PO PRN; -CYANOCOBALAMIN INJ 1000 MCG/ML INJ SCH; -NS IV 500 ML (CANCER CENTER) IV SCH; -diphenhydrAMINE 25 MG TAB (BENADRYL) CANCER CENTER PO SCH; -riTUXimab 500 MG, riTUXimab FOR IV INJ CONC 200 MG in NS (IVPB) CANCER CENTER ONLY 150 ML IV SCH
== END ==
LOC: CARD 08:45
PROVIDERS: ATTEND Physician Assistant
DX: I25.10 Atherosclerotic heart disease of native coronary artery without angina pectoris (principal); E78.2 Mixed hyperlipidemia; I10 Essential (primary) hypertension; C83.10 Mantle cell lymphoma, unspecified site
CPT/HCPCS: 93306

== ENCOUNTER 2016-10-26 11:10 | Outpatient (RCR) | payer BC, MEDICARE ==
[2016-10-26] MEDS ORDERED: CYANOCOBALAMIN INJ 1000 MCG/ML (CANCER CENTER) ONE (11:46)
== END 2016-11-04 | disposition home or self-care (01) ==
LOC: ONC 11:10
PROVIDERS: ATTEND Internal Medicine Hematology & Oncology
DX: C83.18 Mantle cell lymphoma, lymph nodes of multiple sites (principal); D50.9 Iron deficiency anemia, unspecified; I10 Essential (primary) hypertension; E78.5 Hyperlipidemia, unspecified; M89.9 Disorder of bone, unspecified; Z79.899 Other long term (current) drug therapy; Z45.2 Encounter for adjustment and management of vascular access device
CPT/HCPCS: 96372; 96523

== ENCOUNTER → 2016-11-08 | Outpatient (CLI) | payer BC, MEDICARE ==
[~2016-11-08] MED LIST changes: +REGADENOSON 0.4 MG/5 ML SYR (LEXISCAN) IV ONE
[2016-11-08] MEDS: CATHETER FLUSH 10 ML SYR IV PRN ×2 (08:10→08:11)
[2016-11-08 09:38] VITALS: BP 159/70
[2016-11-08 09:51] VITALS: BP 162/66
--- NOTE | 2016-11-09 09:20 | STRESS TEST ---
DATE OF SERVICE: 11/08/2016 LEXISCAN MYOVIEW REFERRING PHYSICIAN: PRERNA Razo Baseline heart rate is 70. Baseline blood pressure 155/70. Baseline EKG is sinus rhythm with no ischemic changes. IN SUMMARY: The patient was initially scheduled for an exercise stress test. She was unable to exercise beyond 3 minutes on standard Kai protocol. Test was terminated and converted to Lexiscan Myoview stress test. She received 0.4 mg of Lexiscan followed by 31.8 mCi of technetium-99 Myoview. Throughout the test, there were no EKG changes. The resting and stress images were reviewed and compared in the short axis, horizontal long axis, and vertical long axis views. Review of the images showed breast attenuation with reversible ischemia involving the whole inferior wall, inferolateral wall. SSS is 8, SDS 7, TID value 1.0. On the gated images, the left ventricle appeared to be normal size with normal contractility. Calculated ejection fraction 56% mild hypokinesia of the inferior wall. CONCLUSION: 1. The patient was unable to exercise, test was converted to Lexiscan Myoview stress test. 2. Breast attenuation affecting the quality of the anterior wall images, there is reversible ischemia involving the inferior wall and inferolateral wall. 3. Normal left ventricular size with mild hypokinesia at the inferior wall, calculated ejection fraction 56%. Job ID: [id number] DocumentID: [id number] Dictated Date: 11/08/2016 15:30:27 [employer] Date: 11/09/2016 07:59:49 Dictated By: LENNY JEWELL MD
== END ==
LOC: CARD 07:50
PROVIDERS: ATTEND Physician Assistant
DX: I10 Essential (primary) hypertension; E78.2 Mixed hyperlipidemia; C83.10 Mantle cell lymphoma, unspecified site; I25.10 Atherosclerotic heart disease of native coronary artery without angina pectoris
CPT/HCPCS: 78452; 93017

== ENCOUNTER 2016-11-22 06:50 | Day surgery (SDC) | payer BC, MEDICARE ==
[~2016-11-22] VITALS: Ht 162.6 cm; Wt 102.1 kg
[2016-11-22] VITALS (9 sets, daily range): BP systolic 119–169; BP diastolic 62–76
[~2016-11-22 06:50] MED LIST changes: +HEParin (CATH LAB) 2,000 ML IV ONE; +NS IV 1000 ML 1,000 ML ONE; -REGADENOSON 0.4 MG/5 ML SYR (LEXISCAN) IV ONE
--- OUTSIDE RECORDS SUMMARY | 2016-11-22 07:04 | XMS REPORT ---
Author Author [facility] Medical Staff Organization [facility] Address [address] [place] [id number] Phone [phone] Care Team Providers Care Gate Services Supervisor Name Role Phone STELLA MOSER, EDIE PP [phone] Summary purpose TRANSITION OF CARE AUTO GENERATION Chief Complaint and Reason for Visit No authorized Reason for Visit (Admitting Diagnosis) is available for this visit. Problem list No authorized problems tracked for continuity of care are available for this visit. Encounters No authorized problems tracked for encounter diagnoses are available for this visit. Medications No medications recorded for this patient visit Allergies, adverse reactions, alerts Allergen Category Ingredient Status Reaction Severity Onset Penicillins Drug Allergy Penicillins Confirmed or Verified Immunizations No immunizations recorded for this patient visit Relevant diagnostic tests and/or laboratory data RESULTS Radiology Results [id number] WRIST XRAY - 3 VIEW PACs Image DATE OF EXAM: Aug 16 2015 RAD 1704-WRIST XRAY-3 VIEWS- LEFT: RADIOLOGY REPORT DATE OF SERVICE: 08/16/15 HISTORY: Left wrist pain LEFT WRIST 3 [id number] HOURS There is no fracture or dislocation. The scapholunate space is mildly prominent measuring 3.5 mm. There is minimal narrowing and spurring at the first carpal-metacarpal joint. IMPRESSION: Mild CMC joint osteoarthritis. Borderline scapholunate widening. No acute abnormality. MD KATERIN Huang/sc08/16/2015 09:56:00 / 08/16/2015 09:59:51 cc:Edie Green APRN This document has been electronically Signed by: On: DATE OF EXAM: Aug 16 2015 RAD 1704-WRIST XRAY-3 VIEWS- LEFT: RADIOLOGY REPORT DATE OF SERVICE: 08/16/15 HISTORY: Left wrist pain LEFT WRIST 3 [id number] HOURS There is no fracture or dislocation. The scapholunate space is mildly prominent measuring 3.5 mm. There is minimal narrowing and spurring at the first carpal-metacarpal joint. IMPRESSION: Mild CMC joint osteoarthritis. Borderline scapholunate widening. No acute abnormality. Scott Warner MD MWD/nh08/16/2015 09:56:00 / 08/16/2015 09:59:51 cc:Edie Green APRN This document has been electronically Signed by: SCOTT WARNER MD On: Aug 16 20154:30P Result Amended on 2015-08-16 at 16:31:06. Previous status was [place]. History of procedures Procedure Code Code Type Description Date Performed Performing Physician [id number] CPT-4 X-RAY EXAM OF WRIST 08-16-2015 EDIE GREEN Functional status No functional or cognitive status observations are available for this visit. Vital signs No authorized vital signs are available for this visit. Social history No Social History or smoking status observations were recorded for this visit. ( Unknown if ever smoked.) Treatment Plan No treatment plan text is available for this visit. Hospital discharge instructions No discharge instruction text is available for this visit.
--- OUTSIDE RECORDS SUMMARY | 2016-11-22 07:04 | XMS REPORT ---
Author Author [facility] Medical Staff Organization [facility] Address [address] [place], [place] [address] Phone [phone] Summary purpose TRANSITION OF CARE AUTO GENERATION [...] visit Relevant diagnostic tests and/or laboratory data No authorized results are available for this patient visit History of procedures No procedures recorded for this patient visit. Functional status No functional or cognitive status [...]
--- OUTSIDE RECORDS SUMMARY | 2016-11-22 07:05 | XMS REPORT ---
Author Author [facility] Medical Staff Organization [place] [email or web address] [facility] Address [address] [place], [place] [address] Phone [phone] Summary purpose TRANSITION OF CARE AUTO GENERATION [...] tests and/or laboratory data RESULTS Radiology Results [id number] Bilateral Screen Digital Mammo PACs Image DATE OF EXAM: 2014 [facility] 0845-BILAT SCREEN DIG MAMMO : RADIOLOGY REPORT DATE OF SERVICE: December 11, 2014 HISTORY: Screening for possible malignant neoplasm. Patient states she has lymphoma BILATERAL SCREENING DIGITAL MAMMOGRAMOGRAPY WITH iCAD SecondLook 7.2-H+ 1508 HOURS Breast parenchyma is almost entirely fatty. However, there are scattered small benign minimal nodules in each breast. Minimal calcification of benign nature is seen in the left breast. There is no architecture distortion or mass. IMPRESSION:Benign BI-RADS II study. DO CHRISTY Lange/cdj102/13/2014 17:47:00 / 12/14/2014 17:52:03 cc:Edie Green APRN This document has been electronically Signed by: On: DATE OF EXAM: 2014 [facility] 0845-BILAT SCREEN DIG MAMMO : RADIOLOGY REPORT DATE OF SERVICE: December 11, 2014 HISTORY: Screening for possible malignant neoplasm. Patient states she has lymphoma BILATERAL SCREENING DIGITAL MAMMOGRAMOGRAPY WITH iCAD SecondLook 7.2-H+ 1508 HOURS Breast parenchyma is almost entirely fatty. However, there are scattered small benign minimal nodules in each breast. Minimal calcification of benign nature is seen in the left breast. There is no architecture distortion or mass. IMPRESSION:Benign BI-RADS II study. Donal Reyes DO MW/cdj102/13/2014 17:47:00 / 12/14/2014 17:52:03 cc:Edie Green APRN This document has been electronically Signed by: DONAL REYES DO On: Dec 16 2014 12:40P Result Amended on 2014-12-16 at 12:40:48. Previous status was [place]. History of procedures Procedure Code Code Type Description Date Performed Performing Physician [id number] CPT-4 MAMMOGRAM, SCREENING 12-11-2014 EDIE GREEN [id number] CPT-4 COMP SCREEN MAMMOGRAM ADD-ON 12-11-2014 EDIE GREEN Functional status No functional or [...]
--- OUTSIDE RECORDS SUMMARY | 2016-11-22 07:05 | XMS REPORT ---
Author Author [facility] Medical Staff Organization [facility] Address [address] [id number] Phone [phone] Care Team Providers Care Outpatient Program Coordinator Name Role Phone STELLA MOSER, EDIE PP [phone] Summary purpose TRANSITION OF CARE AUTO GENERATION [...] tests and/or laboratory data RESULTS Radiology Results [id number]:00 WRIST XRAY - 3 VIEW PACs Image DATE OF EXAM: Aug 16 2015 RAD 1704-WRIST XRAY-3 VIEWS- LEFT: RADIOLOGY REPORT DATE OF SERVICE: 08/16/15 HISTORY: Left wrist pain LEFT WRIST 3 [id number] HOURS There is no fracture or dislocation. The scapholunate space is mildly prominent measuring 3.5 mm. There is minimal narrowing and spurring at the first carpal-metacarpal joint. IMPRESSION: Mild CMC joint osteoarthritis. Borderline scapholunate widening. No acute abnormality. MD KATERIN Huang/ny08/16/2015 09:56:00 / 08/16/2015 09:59:51 cc:Edie Green APRN This document has been electronically Signed by: On: DATE OF EXAM: Aug 16 2015 RAD 1704-WRIST XRAY-3 VIEWS- LEFT: RADIOLOGY REPORT DATE OF SERVICE: 08/16/15 HISTORY: Left wrist pain LEFT WRIST 3 [id number] HOURS There is no fracture or dislocation. [...] on 2015-08-16 at 16:31:06. Previous status was [place]. History of procedures No procedures recorded for [...]
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
[2016-11-22] MEDS ORDERED: NS IV 1000 ML 1,000 ML IV SCH ×2 (07:30→09:14)
--- NOTE | 2016-11-22 07:39 | Diagnostic Imaging Report ---
EXAM: CHEST 1 VIEW, AP/PA ONLY INDICATION: ABN STRESS, CAD, HTN COMPARISON: CT chest without contrast 08/09/2016. FINDINGS: Normal heart size and pulmonary vascularity. Surgical clips overlying the left lung base. Tunneled port, right subclavian CVC tip mid SVC. No dense consolidation, pleural effusion or pneumothorax. Calcified aorta. Left thoracotomy. No acute osseous findings. IMPRESSION: No acute cardiopulmonary findings. Dictated by: Dictated on workstation # [id number]
[2016-11-22 07:48] LABS: MEAN PLATELET VOLUME 10.5 FL (7.4-10.4); RED BLOOD COUNT 3.36 10^6/uL (4.35-5.85); RED CELL DISTRIBUTION WIDTH 14.7 % (10.0-14.5); WHITE BLOOD COUNT 10.7 10^3/uL (4.3-11.0)
[2016-11-22 07:49] LABS: BILIRUBIN,URINE NEGATIVE (NEGATIVE); KETONES,URINE NEGATIVE (NEGATIVE); LEUKOCYTE ESTERASE ,URINE 1+ (NEGATIVE); NITRITE,URINE NEGATIVE (NEGATIVE); PH,URINE 7 (5-9); PROTEIN,URINE NEGATIVE (NEGATIVE); UROBILINOGEN,URINE NORMAL (NORMAL)
[2016-11-22 07:59] LABS: PROTHROMBIN TIME PATIENT 12.9 SEC (12.2-14.7)
[2016-11-22] MEDS ORDERED: INFLUENZA TRIvalent 2017-2018 0.5 ML/45 MCG SYR IM ONE (08:00)
--- NOTE | 2016-11-22 08:02 | Cardiac Procedure Note-CS/ASA ---
Pre-Procedure Note Pre-Op Procedure Note H&P Reviewed The H&P was reviewed, patient examined and no changes noted. Date H&P Reviewed: Nov 22, 2016 Time H&P Reviewed: 08:02 Conscious Sedation Pre-Proced Time Reviewed: 08:02 ASA Class: 3 Airway Mallampati Classification: (chicken ranch appropriate class) I. II. III, IV Lungs Heart ASA score ASA 1: a normal healthy patient ASA 2: a patient with a mild systemic disease (mid diabetes, controlled hypertension, obesity x ASA 3: a patient with a severe systemic disease that limits activity (angina , COPD, prior Myocardial infarction) ASA 4: a patient with an incapacitating disease that is a constant threat to life (CHF, renal failure) ASA 5: a moribund patient not expected to survive 24 hrs. (ruptured aneurysm) ASA 6: a declared brain patient whose organs are being harvested. For emergent operations, add the letter E after the classification Grade 3 Sedation Plan: Analgesia, Amnesia, Plan communicated to team members, Discussed options with patient/fam, Discussed risks with patient/fam Note The patient is an appropriate candidate to undergo the planned procedure, sedation, and anesthesia. The patient immediately re-assessed prior to indication. LENNY JEWELL MD Nov 22, 2016 08:02
[2016-11-22 08:03] LABS: WBC,URINE 0-2 /HPF
[2016-11-22 08:08] LABS: ALANINE AMINOTRANSFERASE 24 U/L (0-55); ALBUMIN 3.6 GM/DL (3.2-4.5); ANION GAP 9 MMOL/L (5-14); ASPARTATE AMINO TRANSFERASE 17 U/L (5-34); BILIRUBIN,TOTAL 0.5 MG/DL (0.1-1.0); BLOOD UREA NITROGEN 17 MG/DL (7-18); BUN/CREATININE RATIO 22; CARBON DIOXIDE 28 MMOL/L (21-32); CHLORIDE 102 MMOL/L (98-107); CREATININE SERUM 0.79 MG/DL (0.60-1.30); GFR ESTIMATED > 60; GLUCOSE 106 MG/DL (70-105); SODIUM 139 MMOL/L (135-145); TOTAL PROTEIN 5.9 GM/DL (6.4-8.2)
[2016-11-22] MEDS ORDERED: fentaNYL INJECTION 100 MCG/2 ML AMP ONE (08:30)
[2016-11-22] MEDS ORDERED: MIDAZOLAM 5 MG/5 ML (VERSED) VIAL ONE (08:30)
[2016-11-22] MEDS ORDERED: ATOR80TA76 PO (08:32)
[2016-11-22] MEDS ORDERED: LEVO50TA6 PO ×2 (08:34→08:35)
[2016-11-22] MEDS ORDERED: NFNEB10T PO (08:36)
[2016-11-22] MEDS ORDERED: TIOT18CA2 IH (08:41)
[2016-11-22] MEDS ORDERED: AMLO5TAB2 PO (08:41)
[2016-11-22] MEDS ORDERED: MONT10TA24 PO (08:41)
[2016-11-22] MEDS ORDERED: OLME20TA24 PO (08:42)
[2016-11-22] MEDS ORDERED: DICL75TA2 PO (08:42)
[2016-11-22] MEDS ORDERED: PATIENT MAY USE OWN MEDS, ALL PO SCH (09:15)
--- NOTE | 2016-11-22 09:17 | Discharge Inst-Post CATH ---
Discharge Inst-CATH Post Cardiac Cath D/C Inst Follow Up/Plan Appointment with Dr Rojas's office in 2-4 weeks CARDIAC CATH DISCHARGE INSTRUCTIONS *Hold Metformin for 48 hours post heart cath. ACTIVITY * Go Home directly and rest. * Limit activity of the leg (or wrist if it was used) for 7 days including aerobics, swimming, jogging, bicycling, etc. * Restrict stair-climbing for 7 days if possible, if not, climb up with your non -cath leg, then bring together on the same step. * Avoid lifting, pushing, pulling or excessive movement of the affected extremity for 7 days. * Customary sexual activity may be resumed after 2 days-use caution not to use a position that strains or causes pain to the affected extremity. * No driving for 24 hours. * NO SMOKING. * Avoid straining for bowel movements for 7 days. * Gentle walking on level ground is allowed. * Returning to work will depend on the type of procedure and the results. Your doctor will discuss this with you. CALL YOUR DOCTOR FOR ANY OF THE FOLLOWING: *If bleeding from the puncture site occurs- Apply gentle pressure to site with clean cloth and call your doctor or EMS. * If a knot or lump forms under the skin, increases in size, or causes pain. * If bruising appears to be worsening or moving further down your leg instead of disappearing. * Temperature above 101 F. CARE OF YOUR GROIN INCISION; * Bruising or purple discoloration of the skin near the puncture site is common. * You may shower only, no bathtub bathing for 5 days. Be careful to avoid slipping as your leg may feel stiff. * If a closure device was used on your femoral artery, please see the attached guide regarding care of the device and your leg. * REMOVE the dressing from your groin the next day after your procedure in the shower. CARE OF YOUR WRIST INCISION; * Bruising or purple discoloration of the skin near the puncture site is common. * You may shower. * DO NOT submerge wrist. * Remove dressing in 24 hours. LENNY ROJAS MD Nov 22, 2016 09:16
--- NOTE | 2016-11-22 09:20 | Cardiac Cath Report ---
Cardiac Cath Report Physician (s)/Log Data Technician (s) Physician LENNY JEWELL MD Pre-Procedure Diagnosis Pre-Procedure Diagnosis: coronary artery disease Post-Procedure Note Procedure Start Date: Nov 22, 2016 Procedure Start Time: 09:17 Name of Procedure: left heart catheterization Aortic arch angiogram Findings/Procedure Note PROCEDURE NOTE: After explaining the procedure to the patient, all pros and cons were explained, all questions were answered. The patient signed the consent and then she was placed on the cardiac catheterization laboratory. The patient was placed on the cardiac catheterization laboratory. Groin was prepped SL fashion local anesthesia was used. Sheath placed in the artery. Vicky right and left catheter were used to access the coronary system. Pigtail was used to access the left ventricular cavity. Left ventriculogram was not done Aortic arch angiogram was done At the end of the procedure the sheath was removed. Closure device was used FINDINGS: Hemodynamics LV 139/10, end-diastolic pressure of 10 Aorta 130/49 mean of 80 ANATOMY: Left Main history of obstructive disease Left Anterior Descending is calcified proximally with 40-50 percent stenosis, nonobstructive disease Left Circumflex has mild disease nonobstructive disease Right Coronory Artery has a patent stent proximally, the midportion has 40-50 percent stenosis nonobstructive disease LV Gram was not done Aorta evaluation done with aortic arch angiogram with 2 injection, patient has a bovine arch, common origin of the left carotid and right innominate artery, calcified artery with mild disease nonobstructive disease CONCLUSION: 1. Patent stent in the proximal right coronary artery with 40-50 percent stenosis in the midright coronary artery 2. Calcified ostial and proximal LAD with 40-50 percent stenosis nonobstructive disease 3. Bovine aortic arch, calcified origin of the innominate artery and right carotid artery, nonobstructive disease DISCUSSION AND RECOMMENDATION: medical therapy is recommended no intervention is warranted Anesthesia Type: Conscious Sedation Estimated blood loss (mL): 10 ml Contrast Amount: 80 ml Total Radiation Dose: 560 mGy Post-Procedure Diagnosis Post-operative diagnosis: Coronary artery disease Peripheral arterial disease Hypertension Hyperlipidemia LENYN JEWELL MD Nov 22, 2016 09:20
== END 2016-11-22 13:50 | disposition home or self-care (01) ==
LOC: CATH 06:50 → SURG 09:31 → CATH 13:50
PROVIDERS: ATTEND Internal Medicine Cardiovascular Disease
DX: R94.39 Abnormal result of other cardiovascular function study (principal); I25.10 Atherosclerotic heart disease of native coronary artery without angina pectoris; I25.84 Coronary atherosclerosis due to calcified coronary lesion; J44.9 Chronic obstructive pulmonary disease, unspecified; I10 Essential (primary) hypertension; C83.10 Mantle cell lymphoma, unspecified site; E78.2 Mixed hyperlipidemia; D50.9 Iron deficiency anemia, unspecified; E03.9 Hypothyroidism, unspecified; Z79.899 Other long term (current) drug therapy; Z87.891 Personal history of nicotine dependence; Z95.5 Presence of coronary angioplasty implant and graft; Z99.81 Dependence on supplemental oxygen; R60.9 Edema, unspecified; Z92.21 Personal history of antineoplastic chemotherapy
CPT/HCPCS: 36221; 36415; 71010; 80053; 81000; 85027; 85610; 85730; 87081; 93005; 93458

== ENCOUNTER → 2016-12-27 | Outpatient (CLI) | payer BC, MEDICARE ==
[~2016-12-27] MED LIST changes: +ATOR80TA76 PO; +DICL75TA2 PO; -HEParin (CATH LAB) 2,000 ML IV ONE; +LEVO50TA6 PO; +MONT10TA24 PO; -NS IV 1000 ML 1,000 ML ONE; +OLME20TA24 PO; +TIOT18CA2 IH
--- NOTE | 2016-12-27 19:13 | Diagnostic Imaging Report ---
EXAMINATION: Renal vascular duplex ultrasound. INDICATION: Hypertension. FINDINGS: The right kidney is 8.9 cm and the left kidney is 9.2 cm in length. No hydronephrosis or focal lesion. The right artery proximally is obscured by bowel gas. Velocity in the mid segment of the right renal artery is 94 cm/s and distally is 56 cm/s. Resistive index is in the range of 0.63-0.73. The left renal artery velocities are 65, 91, and 64 cm/s from proximal to distal. Resistive index is 0.70-0.76. IMPRESSION: The proximal right renal artery is obscured. Velocities distally in the right renal artery and left renal artery velocities are within normal limits. Dictated on workstation # [id number]
== END ==
LOC: RAD 10:32
PROVIDERS: ATTEND Physician Assistant
DX: I25.10 Atherosclerotic heart disease of native coronary artery without angina pectoris (principal); I10 Essential (primary) hypertension; E78.2 Mixed hyperlipidemia
CPT/HCPCS: 93975

== ENCOUNTER 2017-01-15 11:51 | Outpatient (RCR) | payer MEDICARE, OTHER ==
[2016-11-23 09:10] LABS: BASOPHILS % (AUTO) 0 % (0-10); EOSINOPHILS # (AUTO) 0.5 10^3/uL (0.0-0.3); EOSINOPHILS % (AUTO) 5 % (0-10); HEMATOCRIT 34 % (35-52); HEMOGLOBIN 10.3 G/DL (11.5-16.0); LYMPHOCYTES # (AUTO) 2.2 X 10^3 (1.0-4.0); LYMPHOCYTES % (AUTO) 23 % (12-44); MEAN CORPUSCULAR HEMOGLOBIN 31 PG (25-34); MEAN CORPUSCULAR HGB CONC 31 G/DL (32-36); MEAN CORPUSCULAR VOLUME 102 FL (80-99); MEAN PLATELET VOLUME 10.5 FL (7.4-10.4); MONOCYTES # (AUTO) 1.1 X 10^3 (0.0-1.0); MONOCYTES % (AUTO) 12 % (0-12); NEUTROPHILS % (AUTO) 61 % (42-75); PLATELET COUNT 343 10^3/uL (130-400); RED BLOOD COUNT 3.28 10^6/uL (4.35-5.85); RED CELL DISTRIBUTION WIDTH 14.9 % (10.0-14.5); WHITE BLOOD COUNT 9.8 10^3/uL (4.3-11.0)
[2016-11-23 09:32] LABS: ALANINE AMINOTRANSFERASE 23 U/L (0-55); ALBUMIN 3.6 GM/DL (3.2-4.5); ALKALINE PHOSPHATASE 87 U/L (40-136); BILIRUBIN,TOTAL 0.4 MG/DL (0.1-1.0); BUN/CREATININE RATIO 17; CALCIUM 9.2 MG/DL (8.5-10.1); CARBON DIOXIDE 31 MMOL/L (21-32); CHLORIDE 103 MMOL/L (98-107); CREATININE SERUM 0.75 MG/DL (0.60-1.30); GFR ESTIMATED > 60; GLUCOSE 103 MG/DL (70-105); SODIUM 140 MMOL/L (135-145)
[~2017-01-15 11:51] MED LIST changes: +ACETAMINOPHEN 500 MG TAB (TYLENOL) CANCER CTR PO PRN; +CYANOCOBALAMIN INJ 1000 MCG/ML (CANCER CENTER) ONE; +CYANOCOBALAMIN INJ 1000 MCG/ML INJ SCH; +NS IV 500 ML (CANCER CENTER) IV SCH; +diphenhydrAMINE 25 MG TAB (BENADRYL) CANCER CENTER PO SCH; +riTUXimab 500 MG, riTUXimab FOR IV INJ CONC 200 MG in NS (IVPB) CANCER CENTER ONLY 150 ML IV SCH
[2017-01-15] MEDS ORDERED: CYANOCOBALAMIN INJ 1000 MCG/ML (CANCER CENTER) ONE (11:58)
== END 2017-02-15 10:05 | disposition home or self-care (01) ==
LOC: ONC 11:51
PROVIDERS: ATTEND Internal Medicine Hematology & Oncology
DX: Z51.11 Encounter for antineoplastic chemotherapy (principal); C83.18 Mantle cell lymphoma, lymph nodes of multiple sites; D50.9 Iron deficiency anemia, unspecified; I10 Essential (primary) hypertension; E78.5 Hyperlipidemia, unspecified; M89.9 Disorder of bone, unspecified; Z79.899 Other long term (current) drug therapy
CPT/HCPCS: 36591; 80053; 82784; 83615; 85025; 96372; 96413; 96523

== ENCOUNTER 2017-05-10 12:14 | Outpatient (RCR) | payer OTHER, MEDICARE ==
[2017-02-15 10:11] LABS: BASOPHILS % (AUTO) 0 % (0-10); EOSINOPHILS # (AUTO) 0.5 10^3/uL (0.0-0.3); EOSINOPHILS % (AUTO) 4 % (0-10); HEMATOCRIT 34 % (35-52); HEMOGLOBIN 10.7 G/DL (11.5-16.0); LYMPHOCYTES # (AUTO) 2.2 X 10^3 (1.0-4.0); LYMPHOCYTES % (AUTO) 15 % (12-44); MEAN CORPUSCULAR HEMOGLOBIN 32 PG (25-34); MEAN CORPUSCULAR HGB CONC 32 G/DL (32-36); MEAN CORPUSCULAR VOLUME 102 FL (80-99); MEAN PLATELET VOLUME 10.6 FL (7.4-10.4); MONOCYTES # (AUTO) 1.4 X 10^3 (0.0-1.0); MONOCYTES % (AUTO) 10 % (0-12); NEUTROPHILS % (AUTO) 71 % (42-75); PLATELET COUNT 301 10^3/uL (130-400); RED CELL DISTRIBUTION WIDTH 14.1 % (10.0-14.5); WHITE BLOOD COUNT 14.1 10^3/uL (4.3-11.0)
[2017-02-15 10:30] LABS: ALANINE AMINOTRANSFERASE 23 U/L (0-55); ALBUMIN 3.7 GM/DL (3.2-4.5); ALKALINE PHOSPHATASE 75 U/L (40-136); BILIRUBIN,TOTAL 0.4 MG/DL (0.1-1.0); BUN/CREATININE RATIO 25; CALCIUM 9.2 MG/DL (8.5-10.1); CARBON DIOXIDE 29 MMOL/L (21-32); CHLORIDE 100 MMOL/L (98-107); CREATININE SERUM 0.81 MG/DL (0.60-1.30); GFR ESTIMATED > 60; GLUCOSE 93 MG/DL (70-105); POTASSIUM 4.1 MMOL/L (3.6-5.0); SODIUM 138 MMOL/L (135-145)
[~2017-05-10] VITALS: Ht 160 cm; Wt 104.8 kg
[~2017-05-10 12:14] MED LIST changes: +ACETAMINOPHEN 500 MG TAB (TYLENOL) CANCER CTR ONE; +CYANOCOBALAMIN INJ 1000 MCG/ML (CANCER CENTER) IM SCH; +diphenhydrAMINE 25 MG TAB (BENADRYL) CANCER CENTER PO ONE
[2017-05-10 12:50] LABS: BASOPHILS # (AUTO) 0.1 10^3/uL (0.0-0.1); BASOPHILS % (AUTO) 0 % (0-10); EOSINOPHILS # (AUTO) 0.6 10^3/uL (0.0-0.3); EOSINOPHILS % (AUTO) 5 % (0-10); HEMATOCRIT 33 % (35-52); HEMOGLOBIN 10.5 G/DL (11.5-16.0); LYMPHOCYTES # (AUTO) 1.8 X 10^3 (1.0-4.0); LYMPHOCYTES % (AUTO) 13 % (12-44); MEAN CORPUSCULAR HEMOGLOBIN 32 PG (25-34); MEAN CORPUSCULAR HGB CONC 32 G/DL (32-36); MEAN CORPUSCULAR VOLUME 102 FL (80-99); MEAN PLATELET VOLUME 10.7 FL (7.4-10.4); MONOCYTES # (AUTO) 1.3 X 10^3 (0.0-1.0); MONOCYTES % (AUTO) 10 % (0-12); NEUTROPHILS # (AUTO) 9.5 X 10^3 (1.8-7.8); NEUTROPHILS % (AUTO) 72 % (42-75); PLATELET COUNT 301 10^3/uL (130-400); RED BLOOD COUNT 3.27 10^6/uL (4.35-5.85); RED CELL DISTRIBUTION WIDTH 14.6 % (10.0-14.5); WHITE BLOOD COUNT 13.3 10^3/uL (4.3-11.0)
[2017-05-10 13:08] LABS: ALANINE AMINOTRANSFERASE 27 U/L (0-55); ALBUMIN 3.7 GM/DL (3.2-4.5); ALKALINE PHOSPHATASE 72 U/L (40-136); BILIRUBIN,TOTAL 0.4 MG/DL (0.1-1.0); BUN/CREATININE RATIO 20; CARBON DIOXIDE 28 MMOL/L (21-32); CHLORIDE 102 MMOL/L (98-107); CREATININE SERUM 0.85 MG/DL (0.60-1.30); GFR ESTIMATED > 60; GLUCOSE 96 MG/DL (70-105); POTASSIUM 4.3 MMOL/L (3.6-5.0); SODIUM 140 MMOL/L (135-145); TOTAL PROTEIN 5.8 GM/DL (6.4-8.2)
[2017-05-10] MEDS ORDERED: CYANOCOBALAMIN INJ 1000 MCG/ML (CANCER CENTER) ONE (14:43)
== END 2017-05-16 | disposition home or self-care (01) ==
LOC: ONC 12:14
PROVIDERS: ATTEND Internal Medicine Hematology & Oncology
DX: Z51.11 Encounter for antineoplastic chemotherapy (principal); C83.18 Mantle cell lymphoma, lymph nodes of multiple sites; D50.9 Iron deficiency anemia, unspecified; I10 Essential (primary) hypertension; E78.5 Hyperlipidemia, unspecified; M89.9 Disorder of bone, unspecified; Z79.899 Other long term (current) drug therapy
CPT/HCPCS: 36415; 36591; 80053; 82784; 85025; 96372; 96413; 96523

== ENCOUNTER → 2017-08-03 | Outpatient (CLI) | payer MEDICARE, OTHER ==
[~2017-08-03] MED LIST changes: -ACETAMINOPHEN 500 MG TAB (TYLENOL) CANCER CTR ONE; -ACETAMINOPHEN 500 MG TAB (TYLENOL) CANCER CTR PO PRN; +CATHETER FLUSH 10 ML SYR IV PRN; -CYANOCOBALAMIN INJ 1000 MCG/ML (CANCER CENTER) IM SCH; -CYANOCOBALAMIN INJ 1000 MCG/ML (CANCER CENTER) ONE; -CYANOCOBALAMIN INJ 1000 MCG/ML INJ SCH; +IOHEXOL 350 MG/ML 100 ML (OMNIPAQUE 350) VIAL IV ONE; +NS 250 ML (IVPB) BAG IV ONE; -NS IV 500 ML (CANCER CENTER) IV SCH; +RECEIVED CONTRAST (Hold Metformin) IV SCH; -diphenhydrAMINE 25 MG TAB (BENADRYL) CANCER CENTER PO ONE; -diphenhydrAMINE 25 MG TAB (BENADRYL) CANCER CENTER PO SCH; -riTUXimab 500 MG, riTUXimab FOR IV INJ CONC 200 MG in NS (IVPB) CANCER CENTER ONLY 150 ML IV SCH
--- NOTE | 2017-08-03 12:36 | Diagnostic Imaging Report ---
PROCEDURE: CT angiography of the head and CT angiography of the neck with and without contrast. TECHNIQUE: Contiguous noncontrast images were obtained from the skull base through the vertex. After intravenous contrast administration, helical CT angiography of the neck was performed. Source data was reformatted into multiple MIP projections. Delayed post contrast acquisition was also obtained. INDICATION: Intracranial aneurysm, followup. COMPARISON: Comparison is made with prior CT angiogram of the head and neck performed 05/29/2016. FINDINGS: The ventricular size and sulcal pattern are stable. Moderate periventricular hypodensity is noted consistent with chronic microvascular ischemia. The area of higher density in the posterior aspect of the left thalamus is stable. There is no midline shift. No acute intra-axial or extra-axial hemorrhage is seen. Postcontrast images are without evidence of abnormal enhancement. CT angiogram images of the brain again demonstrate previously noted saccular aneurysm arising from the distal right middle cerebral artery at the bifurcation. This is directed inferiorly and measures approximately 5 mm. This is stable. Left middle cerebral artery and right middle cerebral artery are widely patent. The anterior cerebral arteries are widely patent. Anterior to indicating basilar tip regions are unremarkable for aneurysm. Bilateral posterior cerebral arteries appear to be widely patent. Imaging through the neck again demonstrates common carotid arteries to be widely patent. There is some plaquing at the bifurcations bilaterally. Carotid bifurcations appear stable to the examination one year earlier. The internal carotid arteries are widely patent. There is a calcified plaque in the siphons bilaterally. Moderate narrowing of the right carotid siphon is similar to prior exam. Vertebral arteries are patent. Left vertebral artery is dominant. Large mucus retention cyst or polyp in the left maxillary sinus is again seen. IMPRESSION: 1. Stable CT angiogram of the head and neck when compared with prior examination from 05/29/2016. 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 No additional aneurysms or evidence of intracranial hemorrhage are seen. 2. Stable CT angiogram of the neck when compared with examination one year earlier. Dictated by: Dictated on workstation # [id number]
== END ==
LOC: RAD 10:24
PROVIDERS: ATTEND Internal Medicine Cardiovascular Disease
DX: I67.1 Cerebral aneurysm, nonruptured (principal); I25.10 Atherosclerotic heart disease of native coronary artery without angina pectoris; J44.9 Chronic obstructive pulmonary disease, unspecified; I10 Essential (primary) hypertension; Z82.49 Family history of ischemic heart disease and other diseases of the circulatory system
CPT/HCPCS: 70496; 70498

== ENCOUNTER 2017-08-10 12:54 | Outpatient (RCR) | payer OTHER, MEDICARE ==
[2017-06-07 13:15] LABS: BASOPHILS % (AUTO) 0 % (0-10); EOSINOPHILS # (AUTO) 0.6 10^3/uL (0.0-0.3); EOSINOPHILS % (AUTO) 5 % (0-10); HEMATOCRIT 34 % (35-52); HEMOGLOBIN 10.6 G/DL (11.5-16.0); LYMPHOCYTES # (AUTO) 1.7 X 10^3 (1.0-4.0); LYMPHOCYTES % (AUTO) 14 % (12-44); MEAN CORPUSCULAR HEMOGLOBIN 32 PG (25-34); MEAN CORPUSCULAR HGB CONC 32 G/DL (32-36); MEAN CORPUSCULAR VOLUME 102 FL (80-99); MEAN PLATELET VOLUME 10.7 FL (7.4-10.4); MONOCYTES # (AUTO) 1.4 X 10^3 (0.0-1.0); MONOCYTES % (AUTO) 11 % (0-12); NEUTROPHILS # (AUTO) 8.5 X 10^3 (1.8-7.8); NEUTROPHILS % (AUTO) 70 % (42-75); PLATELET COUNT 299 10^3/uL (130-400); RED CELL DISTRIBUTION WIDTH 14.3 % (10.0-14.5); WHITE BLOOD COUNT 12.2 10^3/uL (4.3-11.0)
[2017-06-07 13:41] LABS: ALANINE AMINOTRANSFERASE 29 U/L (0-55); ALBUMIN 3.6 GM/DL (3.2-4.5); ALKALINE PHOSPHATASE 68 U/L (40-136); BILIRUBIN,TOTAL 0.4 MG/DL (0.1-1.0); BUN/CREATININE RATIO 18; CALCIUM 8.6 MG/DL (8.5-10.1); CARBON DIOXIDE 29 MMOL/L (21-32); CHLORIDE 101 MMOL/L (98-107); CREATININE SERUM 0.83 MG/DL (0.60-1.30); GFR ESTIMATED > 60; GLUCOSE 93 MG/DL (70-105); POTASSIUM 4.1 MMOL/L (3.6-5.0); SODIUM 138 MMOL/L (135-145); TOTAL PROTEIN 5.6 GM/DL (6.4-8.2)
[2017-07-04 13:48] LABS: BASOPHILS % (AUTO) 0 % (0-10); EOSINOPHILS # (AUTO) 0.5 10^3/uL (0.0-0.3); EOSINOPHILS % (AUTO) 4 % (0-10); HEMATOCRIT 33 % (35-52); HEMOGLOBIN 10.4 G/DL (11.5-16.0); LYMPHOCYTES # (AUTO) 1.7 X 10^3 (1.0-4.0); LYMPHOCYTES % (AUTO) 17 % (12-44); MEAN CORPUSCULAR HEMOGLOBIN 32 PG (25-34); MEAN CORPUSCULAR HGB CONC 32 G/DL (32-36); MEAN CORPUSCULAR VOLUME 101 FL (80-99); MEAN PLATELET VOLUME 10.3 FL (7.4-10.4); MONOCYTES # (AUTO) 1.1 X 10^3 (0.0-1.0); MONOCYTES % (AUTO) 10 % (0-12); NEUTROPHILS # (AUTO) 7.1 X 10^3 (1.8-7.8); NEUTROPHILS % (AUTO) 68 % (42-75); PLATELET COUNT 319 10^3/uL (130-400); RED BLOOD COUNT 3.25 10^6/uL (4.35-5.85); RED CELL DISTRIBUTION WIDTH 14.3 % (10.0-14.5); WHITE BLOOD COUNT 10.4 10^3/uL (4.3-11.0)
[2017-07-04 14:07] LABS: ALANINE AMINOTRANSFERASE 26 U/L (0-55); ALBUMIN 3.7 GM/DL (3.2-4.5); ALKALINE PHOSPHATASE 68 U/L (40-136); BILIRUBIN,TOTAL 0.3 MG/DL (0.1-1.0); BUN/CREATININE RATIO 20; CALCIUM 8.9 MG/DL (8.5-10.1); CARBON DIOXIDE 29 MMOL/L (21-32); CHLORIDE 100 MMOL/L (98-107); CREATININE SERUM 0.82 MG/DL (0.60-1.30); GFR ESTIMATED > 60; GLUCOSE 98 MG/DL (70-105); SODIUM 136 MMOL/L (135-145); TOTAL PROTEIN 5.9 GM/DL (6.4-8.2)
[2017-08-02 13:07] LABS: BASOPHILS % (AUTO) 0 % (0-10); EOSINOPHILS # (AUTO) 0.5 10^3/uL (0.0-0.3); EOSINOPHILS % (AUTO) 5 % (0-10); HEMATOCRIT 32 % (35-52); HEMOGLOBIN 10.4 G/DL (11.5-16.0); LYMPHOCYTES # (AUTO) 1.8 X 10^3 (1.0-4.0); LYMPHOCYTES % (AUTO) 16 % (12-44); MEAN CORPUSCULAR HEMOGLOBIN 33 PG (25-34); MEAN CORPUSCULAR HGB CONC 33 G/DL (32-36); MEAN CORPUSCULAR VOLUME 101 FL (80-99); MEAN PLATELET VOLUME 10.7 FL (7.4-10.4); MONOCYTES # (AUTO) 1.1 X 10^3 (0.0-1.0); MONOCYTES % (AUTO) 10 % (0-12); NEUTROPHILS # (AUTO) 7.7 X 10^3 (1.8-7.8); NEUTROPHILS % (AUTO) 70 % (42-75); PLATELET COUNT 312 10^3/uL (130-400); RED BLOOD COUNT 3.18 10^6/uL (4.35-5.85); RED CELL DISTRIBUTION WIDTH 14.1 % (10.0-14.5); WHITE BLOOD COUNT 11.1 10^3/uL (4.3-11.0)
[2017-08-02 13:31] LABS: ALBUMIN 3.6 GM/DL (3.2-4.5); BILIRUBIN,TOTAL 0.2 MG/DL (0.1-1.0); CALCIUM 9.3 MG/DL (8.5-10.1); CREATININE SERUM 0.93 MG/DL (0.60-1.30); POTASSIUM 4.2 MMOL/L (3.6-5.0); TOTAL PROTEIN 5.9 GM/DL (6.4-8.2)
[~2017-08-10] VITALS: Ht 160 cm; Wt 105.2 kg
[~2017-08-10 12:54] MED LIST changes: +ACETAMINOPHEN 500 MG TAB (TYLENOL) CANCER CTR ONE; +ACETAMINOPHEN 500 MG TAB (TYLENOL) CANCER CTR PO PRN; -CATHETER FLUSH 10 ML SYR IV PRN; +CYANOCOBALAMIN INJ 1000 MCG/ML (CANCER CENTER) ONE; +IMMU GLOBULIN,GAMMA (IGG) 50 ML IV SCH; +IMMUNE GLOBULIN IV ONE; +IMMUNE GLOBULIN,GAMMA (IGG) 200 ML IV SCH; -IOHEXOL 350 MG/ML 100 ML (OMNIPAQUE 350) VIAL IV ONE; +IVIG 20 GM (PRIVIGEN) CANCER C 200 ML IV SCH; +IVIG 5 GM (PRIVIGEN) CANCER CT 50 ML IV SCH; -NS 250 ML (IVPB) BAG IV ONE; +NS IV 500 ML (CANCER CENTER) 500 ML IV SCH; -RECEIVED CONTRAST (Hold Metformin) IV SCH; +diphenhydrAMINE 25 MG TAB (BENADRYL) CANCER CENTER PO ONE; +diphenhydrAMINE 25 MG TAB (BENADRYL) CANCER CENTER PO SCH; +riTUXimab 500 MG, riTUXimab FOR IV INJ CONC 200 MG in NS (IVPB) CANCER CENTER ONLY 150 ML IV SCH
== END 2017-08-30 12:35 | disposition home or self-care (01) ==
LOC: ONC 12:54
PROVIDERS: ATTEND Internal Medicine Hematology & Oncology
DX: Z51.11 Encounter for antineoplastic chemotherapy (principal); C83.18 Mantle cell lymphoma, lymph nodes of multiple sites; D50.9 Iron deficiency anemia, unspecified; I10 Essential (primary) hypertension; E78.5 Hyperlipidemia, unspecified; M89.9 Disorder of bone, unspecified; Z79.899 Other long term (current) drug therapy
CPT/HCPCS: 36591; 80053; 82784; 83615; 85025; 96365; 96366; 96372; 96413

== ENCOUNTER → 2017-10-10 | Outpatient (CLI) | payer OTHER, MEDICARE ==
[~2017-10-10] MED LIST changes: -ACETAMINOPHEN 500 MG TAB (TYLENOL) CANCER CTR ONE; -ACETAMINOPHEN 500 MG TAB (TYLENOL) CANCER CTR PO PRN; +AMLO5TAB7 PO; -CYANOCOBALAMIN INJ 1000 MCG/ML (CANCER CENTER) ONE; +GADOBUTROL 10 MMOL/10 ML (GADAVIST) VIAL IV ONE; -IMMU GLOBULIN,GAMMA (IGG) 50 ML IV SCH; -IMMUNE GLOBULIN IV ONE; -IMMUNE GLOBULIN,GAMMA (IGG) 200 ML IV SCH; -IVIG 20 GM (PRIVIGEN) CANCER C 200 ML IV SCH; -IVIG 5 GM (PRIVIGEN) CANCER CT 50 ML IV SCH; -NS IV 500 ML (CANCER CENTER) 500 ML IV SCH; -diphenhydrAMINE 25 MG TAB (BENADRYL) CANCER CENTER PO ONE; -diphenhydrAMINE 25 MG TAB (BENADRYL) CANCER CENTER PO SCH; -riTUXimab 500 MG, riTUXimab FOR IV INJ CONC 200 MG in NS (IVPB) CANCER CENTER ONLY 150 ML IV SCH
--- NOTE | 2017-10-10 13:23 | Diagnostic Imaging Report ---
PROCEDURE: MRI lumbar spine with and without contrast. TECHNIQUE: Multiplanar, multisequence MRI of the lumbar spine was performed with and without contrast. DATE: October 10, 2017. COMPARISON: None. INDICATION: 72-year-old female, low back pain radiating down the left lower extremity. History of lymphoma diagnosed in 2008. FINDINGS: There is mild grade 1 retrolisthesis of L2 on L3 and minimal grade 1 retrolisthesis of L4 on L5. There is no evidence of diffuse marrow infiltrating or replacing process. There are multilevel thoracolumbar Schmorl's nodes. There is moderate disc height loss at L1-L2 and L2-L3. There is mild to moderate disc height loss at L3-L4. There is moderate to severe disc height loss at L4-L5. There are degenerative changes of the lower thoracic spine. There is no identified concerning focal bone lesion. There is no compression deformity or other fracture. The visualized cord and conus medullaris is unremarkable and terminates at the L1 level. L1-L2: There is no disc bulge. The facet joints and ligamentum flavum are unremarkable. There is no foraminal narrowing. There is no spinal canal stenosis. L2-L3: There is mild diffuse disc bulge. There are mild bilateral facet degenerative changes without ligamentum flavum hypertrophy. There is a trace right facet joint effusion. There is prominence of the posterior epidural fat at this level. There is very mild bilateral foraminal narrowing. There is mild spinal canal stenosis. L3-L4: There is diffuse disc bulge which is eccentric to the right. There are moderate bilateral facet degenerative changes without prominent ligamentum flavum hypertrophy. There is mild left greater than right foraminal narrowing. There is very mild spinal canal stenosis. L4-L5: There is diffuse disc bulge. There are severe facet degenerative changes with ligamentum flavum hypertrophy. There is severe bilateral foraminal narrowing. There is severe spinal canal stenosis. L5-S1: There is no disc bulge. There are mild facet degenerative changes without ligamentum flavum hypertrophy. There is a moderate right and a small left facet joint effusion. There is no foraminal narrowing. There is no spinal canal stenosis. There are subcentimeter T2 hyperintense nonenhancing left renal lesions likely reflecting renal cysts. IMPRESSION: 1. Multilevel disc and facet degenerative changes of the lumbar spine as detailed specifically level by level above. 2. No evidence of diffuse marrow infiltrating or replacing process or concerning focal bone lesion. Dictated by: Dictated on workstation # [id number]
== END ==
LOC: RAD 10:36
PROVIDERS: ATTEND Internal Medicine Hematology & Oncology
DX: M48.061 Spinal stenosis, lumbar region without neurogenic claudication (principal); M47.27 Other spondylosis with radiculopathy, lumbosacral region; M25.48 Effusion, other site; M51.16 Intervertebral disc disorders with radiculopathy, lumbar region; M99.73 Connective tissue and disc stenosis of intervertebral foramina of lumbar region; M43.16 Spondylolisthesis, lumbar region; M51.45 Schmorl's nodes, thoracolumbar region; M47.24 Other spondylosis with radiculopathy, thoracic region; Z85.72 Personal history of non-Hodgkin lymphomas
CPT/HCPCS: 72158

== ENCOUNTER 2017-10-15 12:11 | Outpatient (RCR) | payer OTHER, MEDICARE ==
[2017-10-04 13:08] LABS: BASOPHILS % (AUTO) 0 % (0-10); EOSINOPHILS # (AUTO) 0.9 10^3/uL (0.0-0.3); EOSINOPHILS % (AUTO) 8 % (0-10); HEMATOCRIT 31 % (35-52); HEMOGLOBIN 10.4 G/DL (11.5-16.0); LYMPHOCYTES # (AUTO) 2.1 X 10^3 (1.0-4.0); LYMPHOCYTES % (AUTO) 18 % (12-44); MEAN CORPUSCULAR HEMOGLOBIN 33 PG (25-34); MEAN CORPUSCULAR HGB CONC 33 G/DL (32-36); MEAN CORPUSCULAR VOLUME 98 FL (80-99); MEAN PLATELET VOLUME 9.9 FL (7.4-10.4); MONOCYTES # (AUTO) 1.3 X 10^3 (0.0-1.0); MONOCYTES % (AUTO) 11 % (0-12); NEUTROPHILS # (AUTO) 7.2 X 10^3 (1.8-7.8); NEUTROPHILS % (AUTO) 62 % (42-75); PLATELET COUNT 314 10^3/uL (130-400); RED BLOOD COUNT 3.19 10^6/uL (4.35-5.85); RED CELL DISTRIBUTION WIDTH 14.4 % (10.0-14.5); WHITE BLOOD COUNT 11.5 10^3/uL (4.3-11.0)
[2017-10-04 13:39] LABS: ALANINE AMINOTRANSFERASE 26 U/L (0-55); ALBUMIN 3.9 GM/DL (3.2-4.5); ALKALINE PHOSPHATASE 73 U/L (40-136); BILIRUBIN,TOTAL 0.4 MG/DL (0.1-1.0); BUN/CREATININE RATIO 21; CALCIUM 9.3 MG/DL (8.5-10.1); CARBON DIOXIDE 28 MMOL/L (21-32); CHLORIDE 96 MMOL/L (98-107); CREATININE SERUM 0.82 MG/DL (0.60-1.30); GFR ESTIMATED > 60; GLUCOSE 98 MG/DL (70-105); POTASSIUM 4.1 MMOL/L (3.6-5.0); SODIUM 134 MMOL/L (135-145); TOTAL PROTEIN 6.2 GM/DL (6.4-8.2)
[~2017-10-15 12:11] MED LIST changes: +ACETAMINOPHEN 500 MG TAB (TYLENOL) CANCER CTR PO PRN; +CYANOCOBALAMIN INJ 1000 MCG/ML (CANCER CENTER) ONE; -GADOBUTROL 10 MMOL/10 ML (GADAVIST) VIAL IV ONE; +IVIG 20 GM (PRIVIGEN) CANCER C 200 ML IV SCH; +IVIG 5 GM (PRIVIGEN) CANCER CT 50 ML IV SCH; +NS IV 500 ML (CANCER CENTER) 500 ML IV SCH; +diphenhydrAMINE 25 MG TAB (BENADRYL) CANCER CENTER PO SCH; +riTUXimab 500 MG, riTUXimab FOR IV INJ CONC 200 MG in NS (IVPB) CANCER CENTER ONLY 150 ML IV SCH
== END 2017-11-22 07:47 | disposition home or self-care (01) ==
LOC: ONC 12:11
PROVIDERS: ATTEND Internal Medicine Hematology & Oncology
DX: C83.18 Mantle cell lymphoma, lymph nodes of multiple sites (principal); D50.9 Iron deficiency anemia, unspecified; I10 Essential (primary) hypertension; E78.5 Hyperlipidemia, unspecified; M89.9 Disorder of bone, unspecified; Z79.899 Other long term (current) drug therapy; Z45.2 Encounter for adjustment and management of vascular access device
CPT/HCPCS: 36591; 80053; 82728; 82784; 83540; 83615; 85025; 96372; 96523; 99213

== ENCOUNTER 2018-02-14 13:32 | Outpatient (RCR) | payer OTHER, MEDICARE ==
[2017-11-22 14:30] LABS: BASOPHILS % (AUTO) 0 % (0-10); EOSINOPHILS # (AUTO) 0.5 10^3/uL (0.0-0.3); EOSINOPHILS % (AUTO) 5 % (0-10); HEMATOCRIT 33 % (35-52); HEMOGLOBIN 10.4 G/DL (11.5-16.0); LYMPHOCYTES # (AUTO) 1.8 X 10^3 (1.0-4.0); LYMPHOCYTES % (AUTO) 16 % (12-44); MEAN CORPUSCULAR HEMOGLOBIN 32 PG (25-34); MEAN CORPUSCULAR HGB CONC 32 G/DL (32-36); MEAN CORPUSCULAR VOLUME 100 FL (80-99); MEAN PLATELET VOLUME 10.4 FL (7.4-10.4); MONOCYTES # (AUTO) 1.4 X 10^3 (0.0-1.0); MONOCYTES % (AUTO) 12 % (0-12); NEUTROPHILS # (AUTO) 7.5 X 10^3 (1.8-7.8); NEUTROPHILS % (AUTO) 66 % (42-75); PLATELET COUNT 366 10^3/uL (130-400); RED BLOOD COUNT 3.28 10^6/uL (4.35-5.85); RED CELL DISTRIBUTION WIDTH 14.6 % (10.0-14.5); WHITE BLOOD COUNT 11.3 10^3/uL (4.3-11.0)
[2017-11-22 14:59] LABS: BILIRUBIN,TOTAL 0.2 MG/DL (0.1-1.0); CALCIUM 9.3 MG/DL (8.5-10.1); CREATININE SERUM 1.01 MG/DL (0.60-1.30); POTASSIUM 3.8 MMOL/L (3.6-5.0)
[2017-11-22 15:26] LABS: ALBUMIN 3.6 GM/DL (3.2-4.5)
[2018-02-14 14:10] LABS: BASOPHILS % (AUTO) 0 % (0-10); EOSINOPHILS # (AUTO) 0.5 10^3/uL (0.0-0.3); EOSINOPHILS % (AUTO) 4 % (0-10); HEMATOCRIT 37 % (35-52); HEMOGLOBIN 11.5 G/DL (11.5-16.0); LYMPHOCYTES # (AUTO) 2.1 X 10^3 (1.0-4.0); LYMPHOCYTES % (AUTO) 17 % (12-44); MEAN CORPUSCULAR HEMOGLOBIN 31 PG (25-34); MEAN CORPUSCULAR HGB CONC 31 G/DL (32-36); MEAN CORPUSCULAR VOLUME 100 FL (80-99); MEAN PLATELET VOLUME 10.9 FL (7.4-10.4); MONOCYTES # (AUTO) 1.2 X 10^3 (0.0-1.0); MONOCYTES % (AUTO) 10 % (0-12); NEUTROPHILS # (AUTO) 8.8 X 10^3 (1.8-7.8); NEUTROPHILS % (AUTO) 69 % (42-75); PLATELET COUNT 325 10^3/uL (130-400); RED BLOOD COUNT 3.67 10^6/uL (4.35-5.85); RED CELL DISTRIBUTION WIDTH 14.4 % (10.0-14.5); WHITE BLOOD COUNT 12.7 10^3/uL (4.3-11.0)
[2018-02-14 14:26] LABS: ALANINE AMINOTRANSFERASE 20 U/L (0-55); ALBUMIN 3.8 GM/DL (3.2-4.5); ALKALINE PHOSPHATASE 80 U/L (40-136); BILIRUBIN,TOTAL 0.4 MG/DL (0.1-1.0); BUN/CREATININE RATIO 17; CALCIUM 9.2 MG/DL (8.5-10.1); CARBON DIOXIDE 30 MMOL/L (21-32); CHLORIDE 99 MMOL/L (98-107); CREATININE SERUM 0.89 MG/DL (0.60-1.30); GFR ESTIMATED > 60; GLUCOSE 102 MG/DL (70-105); POTASSIUM 4.1 MMOL/L (3.6-5.0); SODIUM 137 MMOL/L (135-145); TOTAL PROTEIN 6.1 GM/DL (6.4-8.2)
== END 2018-02-20 | disposition home or self-care (01) ==
LOC: ONC 13:32
PROVIDERS: ATTEND Internal Medicine Hematology & Oncology
DX: D50.9 Iron deficiency anemia, unspecified (principal); I10 Essential (primary) hypertension; E78.5 Hyperlipidemia, unspecified; M89.9 Disorder of bone, unspecified; Z79.899 Other long term (current) drug therapy
CPT/HCPCS: 36591; 80053; 80061; 83615; 85025; 96523

== ENCOUNTER → 2018-02-14 | Outpatient (CLI) | payer OTHER, MEDICARE ==
[~2018-02-14] MED LIST changes: -ACETAMINOPHEN 500 MG TAB (TYLENOL) CANCER CTR PO PRN; -CYANOCOBALAMIN INJ 1000 MCG/ML (CANCER CENTER) ONE; -IVIG 20 GM (PRIVIGEN) CANCER C 200 ML IV SCH; -IVIG 5 GM (PRIVIGEN) CANCER CT 50 ML IV SCH; -NS IV 500 ML (CANCER CENTER) 500 ML IV SCH; -diphenhydrAMINE 25 MG TAB (BENADRYL) CANCER CENTER PO SCH; -riTUXimab 500 MG, riTUXimab FOR IV INJ CONC 200 MG in NS (IVPB) CANCER CENTER ONLY 150 ML IV SCH
== END ==
LOC: LAB 14:11
PROVIDERS: ATTEND Internal Medicine Cardiovascular Disease
DX: I25.10 Atherosclerotic heart disease of native coronary artery without angina pectoris (principal); R07.9 Chest pain, unspecified; J44.9 Chronic obstructive pulmonary disease, unspecified; R06.00 Dyspnea, unspecified; E78.5 Hyperlipidemia, unspecified; I10 Essential (primary) hypertension; K27.9 Peptic ulcer, site unspecified, unspecified as acute or chronic, without hemorrhage or perforation

== ENCOUNTER → 2018-04-16 | Outpatient (CLI) | payer MEDICARE, OTHER ==
[~2018-04-16] MED LIST changes: -AMLO5TAB7 PO; +AMLO5TAB9 PO
--- NOTE | 2018-04-17 12:32 | Diagnostic Imaging Report ---
EXAM: CT CHEST SCREENING WO INDICATION: 50 pack year smoking history. Quit smoking 10 years ago. COMPARISON: Low-dose chest screening CT 08/09/2016. FINDINGS: Advanced centrilobular emphysema. Fibrotic interstitial changes in the lung bases have progressed since the prior exam. There is a new irregular semisolid opacity in the right lower lobe which measures approximately 2.2 x 1.0 cm. The solid portion measures approximately 0.7 cm. No endobronchial lesions. No mediastinal, hilar or axillary lymphadenopathy. Heart size upper limits of normal. Advanced atherosclerotic calcifications including coronary. No pericardial or pleural effusion. No pneumothorax. Prominent caliber central pulmonary arteries. The visualized upper abdominal contents are unremarkable. No acute osseous findings. IMPRESSION: 1. New semisolid pulmonary nodule right lower lobe measuring up to 2.2 cm with a solid component measuring up to 0.7 cm. Recommend followup low dose chest CT in 3 months. 2. Advanced centrilobular emphysema. Increasing fibrotic interstitial opacities in the peripheral lung bases. 3. Prominent central pulmonary artery caliber may represent a degree of pulmonary artery hypertension. LungRads category: 4A. Modifier: S. Please note that the low-dose technique of this chest CT is of non-diagnostic quality. This study is only intended for lung cancer screening of high risk patients. Dictated by: Dictated on workstation # [id number]
== END ==
LOC: RAD 12:16
PROVIDERS: ATTEND Nurse Practitioner Family
DX: Z12.2 Encounter for screening for malignant neoplasm of respiratory organs (principal); J43.2 Centrilobular emphysema; R91.1 Solitary pulmonary nodule; Z87.891 Personal history of nicotine dependence

== ENCOUNTER → 2018-05-07 | Outpatient (CLI) | payer MEDICARE, OTHER ==
--- NOTE | 2018-05-07 14:24 | Diagnostic Imaging Report ---
INDICATION: Right lower lobe semisolid nodular density on recent CT chest screening study from 04/16/2018. The study is performed for further evaluation. TECHNIQUE: Patient was administered 12.0 mCi F-18 FDG intravenously and PET imaging from the top of the skull through the mid thighs was performed. Noncontrast CT was also performed for attenuation correction and anatomic correlation. COMPARISON: Correlation is made with recent CT chest screening study from 04/16/2018. Correlation is also made with prior PET/CT study from 03/19/2012. FINDINGS: There is symmetric activity throughout the brain. Soft tissues of the neck are unremarkable. No mediastinal or hilar hypermetabolism is seen. No significant pulmonary parenchymal hypermetabolism is seen. There is very minimal low-level activity in regions of the right upper and right lower lobe which corresponds to minimal patchy airspace infiltrates that have developed since prior CT. The area of semisolid opacity in the superior segment of the right lower lobe on screening CT is not appreciated on today's CT. No suspicious abnormalities are seen. There is physiologic activity in the GI and tracts. IMPRESSION: No suspicious hypermetabolism is identified. The patient has developed some minimal patchy infiltrates in the upper and lower lobes, likely on an infectious/inflammatory basis. No discrete mass is identified. Previously noted region of semisolid opacity in the superior segment of the right lower lobe on screening CT is no longer present. Dictated by: Dictated on workstation # [id number]
== END ==
LOC: RAD 08:50
PROVIDERS: ATTEND Nurse Practitioner Family
DX: J44.9 Chronic obstructive pulmonary disease, unspecified (principal); R91.1 Solitary pulmonary nodule; Z87.891 Personal history of nicotine dependence

== ENCOUNTER 2018-05-13 07:28 | Outpatient (CLI) | payer MEDICARE, OTHER ==
[~2018-05-13] VITALS: Ht 162.6 cm; Wt 99.3 kg
[2018-05-13] MEDS ORDERED: PANT40TA3 PO (10:40)
[2018-05-13] MEDS ORDERED: HYDR25TA4 PO (10:40)
[2018-05-13] MEDS ORDERED: ASPI-999 PO (10:40)
[2018-05-13] MEDS ORDERED: CALC-694 PO (10:40)
[2018-05-13] MEDS ORDERED: HYDR50TA76 PO (10:40)
[2018-05-13] MEDS ORDERED: FLUT1DIS26 IH (10:40)
[2018-05-13] MEDS ORDERED: MULT1TAB69 PO (10:40)
[2018-05-13] MEDS ORDERED: EZET10TA27 PO (10:40)
[2018-05-13] MEDS ORDERED: LISI40TA PO (10:40)
[2018-05-13] MEDS ORDERED: METO-370 PO (10:40)
[2018-05-13] MEDS ORDERED: CLOP75TA69 PO (10:40)
== END 2018-05-13 11:00 | disposition home or self-care (01) ==
LOC: PREOP 07:28
PROVIDERS: ATTEND Internal Medicine Critical Care Medicine
DX: Z01.818 Encounter for other preprocedural examination (principal)

== ENCOUNTER 2018-05-15 06:49 | Day surgery (SDC) | payer MEDICARE, OTHER ==
[~2018-05-15] VITALS: Ht 162.6 cm; Wt 99.3 kg
[~2018-05-15 06:49] MED LIST changes: +ASPI-999 PO; +CALC-694 PO; +CLOP75TA69 PO; +EZET10TA27 PO; +FLUT1DIS26 IH; +HYDR50TA76 PO; +METO-370 PO; +MULT1TAB69 PO; +PANT40TA3 PO
[2018-05-15] MEDS ORDERED: LIDOCAINE PF 2% 5 ML (XYLOCAINE) VIAL INJ ONE (06:50)
[2018-05-15] MEDS ORDERED: LIDOCAINE PF 1% 2 ML VIAL (OR ONLY) IJ ONE (06:50)
[2018-05-15] MEDS ORDERED: NS IV 500 ML 500 ML ONE (06:55)
--- OUTSIDE RECORDS SUMMARY | 2018-05-15 07:03 | XMS REPORT | Continuity of Care Document ---
Demographics x Preferred Language Unknown Marital Status Unknown Gnosticist Affiliation Unknown Race Unknown Ethnic Group Unknown Author Organization Unknown Address Unknown Allergies Active Description Code Type Severity Reaction Onset Reported/Identified Relationship to Patient Clinical Status Yes Penicillins 476 Drug Allergy N/ A N/A Confirmed or Verified Yes PCN (penicillin) [id number] CLASS N/A N/A Yes penicillin 3 Drug N/A N/A Yes Penicillins [id number] Drug Allergy Unknown N/A 09/16/2008 Medications There is no data. 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, LYMPH NODES OF MUL 01/04/1234 BRITTANY CRAVEN MD, Ot D50.9 IRON DEFICIENCY ANEMIA, UNSPECIFIED 01/04/1234 BRITTANY CRAVEN MD, Ot E78.5 HYPERLIPIDEMIA, UNSPECIFIED 01/04/1234 BRITTANY CRAVEN MD, Ot I10 ESSENTIAL (PRIMARY) HYPERTENSION 01/04/1234 BRITTANY CRAVEN MD, Ot M89.9 DISORDER OF BONE, UNSPECIFIED 01/04/1234 BRITTANY CRAVEN MD, Ot Z51.11 ENCOUNTER FOR ANTINEOPLASTIC CHEMOTHERAP 01/04/1234 BRITTANY CRAVEN MD, Ot Z79.899 OTHER PILLOWCASE CLEANER (CURRENT) DRUG THERAPY 01/04/1511 BRITTANY CRAVEN MD Ot 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, LYMPH NODES OF MUL 01/04/1511 BRITTANY CRAVEN MD Ot D50.9 IRON DEFICIENCY ANEMIA, UNSPECIFIED 01/04/1511 BRITTANY CRAVEN MD Ot E78.5 HYPERLIPIDEMIA, UNSPECIFIED 01/04/1511 BRITTANY CRAVEN MD Ot I10 ESSENTIAL (PRIMARY) HYPERTENSION 01/04/1511 BRITTANY CRAVEN MD Ot M89.9 DISORDER OF BONE, UNSPECIFIED 01/04/1511 BRITTANY CRAVEN MD Ot R35.0 FREQUENCY OF MICTURITION 01/04/1511 BRITTANY CRAVEN MD Ot Z51.11 ENCOUNTER FOR ANTINEOPLASTIC CHEMOTHERAP 01/04/1511 BRITTANY CRAVEN MD Ot Z79.899 OTHER PILLOWCASE CLEANER (CURRENT) DRUG THERAPY 09/12/2008 Ot 200.48 09/12/2008 Ot 793.89 09/17/2008 Ot 200.48 09/17/2008 Ot V58.11 12/06/2008 Ot 200.40 12/06/2008 Ot 272.4 12/06/2008 Ot 305.1 12/06/2008 Ot 401.9 12/06/2008 Ot 533.90 12/06/2008 Ot 714.0 12/06/2008 Ot 793.89 12/06/2008 Ot V58.69 01/05/2009 Ot 200.48 01/05/2009 Ot V58.11 01/02/2010 Ot 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, LYMPH NODES OF MUL 01/02/2010 Ot 272.4 HYPERLIPIDEMIA NEC/NOS 01/02/2010 Ot 401.9 HYPERTENSION NOS 01/02/2010 Ot 733.90 BONE CARTILAGE DIS NOS 01/02/2010 Ot V12.71 PERSONAL HISTORY OF PEPTIC ULCER DISEASE 01/02/2010 Ot V58.69 OTH MED,LT, CURRENT USE 01/02/2010 Ot V58.81 FIT/ADJ VASCULAR CATHETER 01/02/2010 Ot V87.41 PERSONAL HISTORY OF ANTINEOPLASTIC CHEMO 04/06/2010 Ot 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, LYMPH NODES OF MUL 04/06/2010 Ot 272.4 HYPERLIPIDEMIA NEC/NOS 04/06/2010 Ot 401.9 HYPERTENSION NOS 04/06/2010 Ot 733.90 BONE CARTILAGE DIS NOS 04/06/2010 Ot V12.71 PERSONAL HISTORY OF PEPTIC ULCER DISEASE 04/06/2010 Ot V58.11 ENCOUNTER FOR ANTINEOPLASTIC CHEMOTHERAP 04/06/2010 Ot V58.69 OTH MED,LT, CURRENT USE 04/06/2010 Ot V87.41 PERSONAL HISTORY OF ANTINEOPLASTIC CHEMO 08/07/2010 Ot 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, LYMPH NODES OF MUL 08/07/2010 Ot 272.4 HYPERLIPIDEMIA NEC/NOS 08/07/2010 Ot 401.9 HYPERTENSION NOS 08/07/2010 Ot 733.90 BONE CARTILAGE DIS NOS 08/07/2010 Ot V12.71 PERSONAL HISTORY OF PEPTIC ULCER DISEASE 08/07/2010 Ot V58.69 OTH MED,LT, CURRENT USE 08/07/2010 Ot V87.41 PERSONAL HISTORY OF ANTINEOPLASTIC CHEMO 11/09/2010 Ot 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, LYMPH NODES OF MUL 11/09/2010 Ot 272.4 HYPERLIPIDEMIA NEC/NOS 11/09/2010 Ot 401.9 HYPERTENSION NOS 11/09/2010 Ot 733.90 BONE CARTILAGE DIS NOS 11/09/2010 Ot V12.71 PERSONAL HISTORY OF PEPTIC ULCER DISEASE 11/09/2010 Ot V58.11 ENCOUNTER FOR ANTINEOPLASTIC CHEMOTHERAP 11/09/2010 Ot V58.69 OTH MED,LT, CURRENT USE 02/03/2011 Ot 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, UNSP SITE, EXTRANO 02/03/2011 Ot 272.4 HYPERLIPIDEMIA NEC/NOS 02/03/2011 Ot 401.9 HYPERTENSION NOS 02/03/2011 Ot 411.1 INTERMED CORONARY SYND 02/03/2011 Ot 414.01 CORONARY ATHEROSCLEROSIS OF [place] CORON 02/03/2011 Ot 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 02/03/2011 Ot 440.21 ATHEROSCL [place] ARTER EXTREM W INTERMIT 02/03/2011 Ot 533.90 PEPTIC ULCER NOS 02/03/2011 Ot V17.49 FAMILY HISTORY OF OTHER CARDIOVASCULAR D 02/08/2011 Ot 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, LYMPH NODES OF MUL 02/08/2011 Ot 272.4 HYPERLIPIDEMIA NEC/NOS 02/08/2011 Ot 401.9 HYPERTENSION NOS 02/08/2011 Ot 733.90 BONE CARTILAGE DIS NOS 02/08/2011 Ot V12.71 PERSONAL HISTORY OF PEPTIC ULCER DISEASE 02/08/2011 Ot V58.69 OTH MED,LT, CURRENT USE 02/08/2011 Ot V87.41 PERSONAL HISTORY OF ANTINEOPLASTIC CHEMO 05/14/2011 Ot 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, LYMPH NODES OF MUL 05/14/2011 Ot 272.4 HYPERLIPIDEMIA NEC/NOS 05/14/2011 Ot 401.9 HYPERTENSION NOS 05/14/2011 Ot 733.90 BONE CARTILAGE DIS NOS 05/14/2011 Ot V12.71 PERSONAL HISTORY OF PEPTIC ULCER DISEASE 05/14/2011 Ot V58.11 ENCOUNTER FOR ANTINEOPLASTIC CHEMOTHERAP 05/14/2011 Ot V58.69 OTH MED,LT, CURRENT USE 05/14/2011 Ot V87.41 PERSONAL HISTORY OF ANTINEOPLASTIC CHEMO 09/03/2011 Ot 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, LYMPH NODES OF MUL 09/03/2011 Ot 272.4 HYPERLIPIDEMIA NEC/NOS 09/03/2011 Ot 401.9 HYPERTENSION NOS 09/03/2011 Ot 733.90 BONE CARTILAGE DIS NOS 09/03/2011 Ot V12.71 PERSONAL HISTORY OF PEPTIC ULCER DISEASE 09/03/2011 Ot V58.11 ENCOUNTER FOR ANTINEOPLASTIC CHEMOTHERAP 09/03/2011 Ot V58.69 OTH MED,LT, CURRENT USE 09/03/2011 Ot V87.41 PERSONAL HISTORY OF ANTINEOPLASTIC CHEMO 11/29/2011 Ot 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, UNSP SITE, EXTRANO 11/29/2011 Ot 272.4 HYPERLIPIDEMIA NEC/NOS 11/29/2011 Ot 401.9 HYPERTENSION NOS 11/29/2011 Ot 414.01 CORONARY ATHEROSCLEROSIS OF [place] CORON 11/29/2011 Ot 794.30 ABN CARDIOVASC STUDY NOS 11/29/2011 Ot V12.71 PERSONAL HISTORY OF PEPTIC ULCER DISEASE 11/29/2011 Ot V15.82 HISTORY OF TOBACCO USE 11/29/2011 Ot V17.49 FAMILY HISTORY OF OTHER CARDIOVASCULAR D 11/29/2011 Ot V45.82 PERCUTANEOUS TRANSLUM CORON ANGIOPLASTY 11/29/2011 Ot V58.63 LONG-TERM( CURRENT)USE OF ANTIPLATELET/AN 11/29/2011 Ot V58.69 OTH MED,LT, CURRENT USE 12/24/2011 Ot 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, LYMPH NODES OF MUL 12/24/2011 Ot 272.4 HYPERLIPIDEMIA NEC/NOS 12/24/2011 Ot 401.9 HYPERTENSION NOS 12/24/2011 Ot 733.90 BONE CARTILAGE DIS NOS 12/24/2011 Ot V12.71 PERSONAL HISTORY OF PEPTIC ULCER DISEASE 12/24/2011 Ot V58.69 OTH MED,LT, CURRENT USE 12/24/2011 Ot V87.41 PERSONAL HISTORY OF ANTINEOPLASTIC CHEMO 04/14/2012 Ot 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, LYMPH NODES OF MUL 04/14/2012 Ot 272.4 HYPERLIPIDEMIA NEC/NOS 04/14/2012 Ot 285.9 ANEMIA NOS 04/14/2012 Ot 401.9 HYPERTENSION NOS 04/14/2012 Ot 414.00 CORON ATHEROSCLER NOS TYPE VESSEL, NATIV 04/14/2012 Ot 716.90 ARTHROPATHY NOS-UNSPEC 04/14/2012 Ot 733.90 BONE CARTILAGE DIS NOS 04/14/2012 Ot V12.71 PERSONAL HISTORY OF PEPTIC ULCER DISEASE 04/14/2012 Ot V15.3 HX OF IRRADIATION 04/14/2012 Ot V45.82 PERCUTANEOUS TRANSLUM CORON ANGIOPLASTY 04/14/2012 Ot V58.11 ENCOUNTER FOR ANTINEOPLASTIC CHEMOTHERAP 04/14/2012 Ot V58.69 OTH MED,LT, CURRENT USE 07/21/2012 BRITTANY CRAVEN MD Ot 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, LYMPH NODES OF MUL 07/21/2012 BRITTANY CRAVNE MD Ot 272.4 HYPERLIPIDEMIA NEC/NOS 07/21/2012 BRITTANY CRAVEN MD Ot 285.9 ANEMIA NOS 07/21/2012 BRITTANY CRAVEN MD Ot 401.9 HYPERTENSION NOS 07/21/2012 BRITTANY CRAVEN MD Ot 733.90 BONE CARTILAGE DIS NOS 07/21/2012 BRITTANY CRAVEN MD Ot V12.71 PERSONAL HISTORY OF PEPTIC ULCER DISEASE 07/21/2012 BRITTANY CRAVEN MD Ot V58.11 ENCOUNTER FOR ANTINEOPLASTIC CHEMOTHERAP 07/21/2012 BRITTANY CRAVEN MD Ot V58.69 OTH MED,LT,CURRENT USE 10/20/2012 BRITTANY CRAVEN MD Ot 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, LYMPH NODES OF MUL 10/20/2012 BRITTANY CRAVEN MD Ot 272.4 HYPERLIPIDEMIA NEC/NOS 10/20/2012 BRITTANY CRAVEN MD Ot 285.9 ANEMIA NOS 10/20/2012 BRITTANY CRAVEN MD Ot 401.9 HYPERTENSION NOS 10/20/2012 BRITTANY CRAVEN MD Ot 733.90 BONE CARTILAGE DIS NOS 10/20/2012 BRITTANY CRAVEN MD Ot V12.71 PERSONAL HISTORY OF PEPTIC ULCER DISEASE 10/20/2012 BRITTANY CRAVEN MD Ot V58.69 OTH MED,LT,CURRENT USE 10/20/2012 BRITTANY CRAVEN MD Ot V87.41 PERSONAL HISTORY OF ANTINEOPLASTIC CHEMO 02/12/2013 BRITTANY CRAVEN MD Ot 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, LYMPH NODES OF MUL 02/12/2013 BRITTANY CRAVEN MD Ot 272.4 HYPERLIPIDEMIA NEC/NOS 02/12/2013 BRITTANY CRAVEN MD Ot 285.9 ANEMIA NOS 02/12/2013 BRITTANY CRAVEN MD Ot 401.9 HYPERTENSION NOS 02/12/2013 BRITTANY CRAVEN MD Ot 733.90 BONE CARTILAGE DIS NOS 02/12/2013 BRITTANY CRAVEN MD Ot V12.71 PERSONAL HISTORY OF PEPTIC ULCER DISEASE 02/12/2013 BRITTANY CRAVEN MD Ot V58.11 ENCOUNTER FOR ANTINEOPLASTIC CHEMOTHERAP 02/12/2013 BRITTANY CRAVEN MD, Ot V58.69 OTH MED,LT,CURRENT USE 02/19/2013 BRITTANY CRAVEN MD Ot 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, LYMPH NODES OF MUL 02/19/2013 BRITTANY CRAVEN MD Ot 244.9 HYPOTHYROIDISM NOS 02/19/2013 BRITTANY CRAVEN MD Ot 272.4 HYPERLIPIDEMIA NEC/NOS 02/19/2013 BRITTANY CRAVEN MD Ot 280.9 IRON DEFIC ANEMIA NOS 02/19/2013 BRITTANY CRAVEN MD Ot 401.9 HYPERTENSION NOS 02/19/2013 BRITTANY CRAVEN MD Ot 733.90 BONE CARTILAGE DIS NOS 02/19/2013 BRITTANY CRAVEN MD Ot V12.71 PERSONAL HISTORY OF PEPTIC ULCER DISEASE 02/19/2013 BRITTANY CRAVEN MD Ot V58.11 ENCOUNTER FOR ANTINEOPLASTIC CHEMOTHERAP 02/19/2013 BRITTANY CRAVEN MD Ot V58.69 OTH MED,LT,CURRENT USE 06/14/2013 DONAL NESBITT 924.11 CONTUSION OF KNEE 06/14/2013 DONAL NESBITT 924.11 CONTUSION OF KNEE 06/14/2013 DONAL NESBITT A 959.7 LOWER LEG INJURY NOS 06/14/2013 DONAL NESBITT E880.9 FALL ON STAIR/STEP NEC 06/15/2013 BRITTANY CRAVEN MD Ot 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, LYMPH NODES OF MUL 06/15/2013 BRITTANY CRAVEN MD Ot 272.4 HYPERLIPIDEMIA NEC/NOS 06/15/2013 BRITTANY CRAVEN MD Ot 401.9 HYPERTENSION NOS 06/15/2013 BRITTANY CRAVEN MD Ot 733.90 BONE CARTILAGE DIS NOS 06/15/2013 BRITTANY CRAVEN MD Ot V12.71 PERSONAL HISTORY OF PEPTIC ULCER DISEASE 06/15/2013 BRITTANY CRAVEN MD Ot V58.11 ENCOUNTER FOR ANTINEOPLASTIC CHEMOTHERAP 06/15/2013 BRITTANY CRAVEN MD, Ot V58.69 OTH MED,LT,CURRENT USE 06/15/2013 BRITTANY CRAVEN MD Ot V87.41 PERSONAL HISTORY OF ANTINEOPLASTIC CHEMO 06/17/2013 ZAINA COCHRAN 719.06 JOINT EFFUSION-L/LEG 06/17/2013 ZAINA COCHRAN 719.46 JOINT PAIN-L/LEG 06/17/2013 ZAINA COCHRAN V15.88 PERSONAL HIST OF FALL 10/01/2013 LENNY JEWELL MD Ot 244.9 HYPOTHYROIDISM NOS 10/01/2013 LENNY JEWELL MD Ot 272.4 HYPERLIPIDEMIA NEC/NOS 10/01/2013 LENNY JEWELL MD Ot 401.9 HYPERTENSION NOS 10/01/2013 LENNY JEWELL MD Ot 414.01 CORONARY ATHEROSCLEROSIS OF [place] CORON 10/01/2013 LENNY JEWELL MD Ot 414.4 CORONARY ATHEROSCLEROSIS DUE TO [place] 10/01/2013 LENNY JEWELL MD Ot 443.9 PERIPH VASCULAR DIS NOS 10/01/2013 LENNY JEWELL MD Ot 794.30 ABN CARDIOVASC STUDY NOS 10/01/2013 LENNY JEWELL MD Ot V15.82 HISTORY OF TOBACCO USE 10/01/2013 LENNY JEWELL MD Ot V45.82 PERCUTANEOUS TRANSLUM CORON ANGIOPLASTY 10/01/2013 LENNY JEWELL MD Ot V58.69 OTH MED,LT,CURRENT USE 10/05/2013 BRITTANY CRAVEN MD Ot 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, LYMPH NODES OF MUL 10/05/2013 BRITTANY CRAVEN MD Ot 244.9 HYPOTHYROIDISM NOS 10/05/2013 BRITTANY CRAVEN MD Ot 272.4 HYPERLIPIDEMIA NEC/NOS 10/05/2013 BRITTANY CRAVEN MD Ot 280.9 IRON DEFIC ANEMIA NOS 10/05/2013 BRITTANY CRAVEN MD Ot 401.9 HYPERTENSION NOS 10/05/2013 BRITTANY CRAVEN MD Ot 733.90 BONE CARTILAGE DIS NOS 10/05/2013 BRITTANY CRAVEN MD Ot V12.71 PERSONAL HISTORY OF PEPTIC ULCER DISEASE 10/05/2013 BRITTANY CRAVEN MD Ot V58.11 ENCOUNTER FOR ANTINEOPLASTIC CHEMOTHERAP 10/05/2013 BRITTANY CRAVEN MD Ot V58.69 OTH MED,LT,CURRENT USE 12/22/2013 Ot 200.40 12/22/2013 Ot 200.48 12/22/2013 Ot V58.69 12/22/2013 Ot V58.83 12/22/2013 Ot 200.40 12/22/2013 Ot 202.80 12/22/2013 Ot 200.40 12/22/2013 Ot 200.48 12/22/2013 Ot 200.48 12/22/2013 Ot 786.50 12/22/2013 Ot 786.09 12/22/2013 Ot 786.50 12/22/2013 Ot 272.4 12/22/2013 Ot 401.9 12/22/2013 Ot 414.01 12/22/2013 Ot 272.4 12/22/2013 Ot 414.00 12/22/2013 Ot 786.09 12/22/2013 Ot 202.80 12/22/2013 Ot 202.80 12/22/2013 Ot 272.4 12/22/2013 Ot 401.9 12/22/2013 Ot 414.01 12/22/2013 Ot 200.48 12/22/2013 LENNY JEWELL MD Ot 272.4 12/22/2013 LENNY JEWELL MD Ot 414.01 12/22/2013 Ot 200.48 12/22/2013 Ot 272.4 12/22/2013 Ot 285.9 12/22/2013 Ot 401.9 12/22/2013 Ot 733.90 12/22/2013 Ot V12.71 12/22/2013 Ot V58.11 12/22/2013 Ot V58.69 12/22/2013 LENNY JEWELL MD Ot 272.4 12/22/2013 HAZEL JEWELL MDHAR J Ot 414.01 12/22/2013 VAUGHAN-ASHWIN PA, GABRIELLA K Ot 401.9 12/22/2013 VAUGHAN-ASHWIN PA, GABRIELLA K Ot 414.00 12/22/2013 VAUGHAN-ASHWIN PA, GABRIELLA K Ot 786.09 12/22/2013 VAUGHAN-ASHWNI PA, GABRIELLA K Ot 272.4 12/22/2013 VAUGHAN-ASHWIN PA, GABRIELLA K Ot 278.00 12/22/2013 VAUGHAN-ASHWIN PA, GABRIELLA K Ot 401.9 12/22/2013 VAUGHAN-ASHWIN PA, GABRIELLA K Ot 414.00 12/22/2013 VAUGHAN-ASHWIN PA, GABRIELLA K Ot 496 12/22/2013 VAUGHAN-ASHWIN PA, GABRIELLA K Ot 786.09 12/22/2013 VAUGAHN-ASHWIN PA, GABRIELLA K Ot V85.36 12/22/2013 MERISSA PISANO, [facility] Ot 200.48 12/22/2013 MERISSA PISANO, [facility] Ot 272.4 12/22/2013 MERISSA PISANO, [facility] Ot 401.9 12/22/2013 MERISSA PISANO, [facility] Ot 733.90 12/22/2013 MERISSA PISANO, [facility] Ot V12.71 12/22/2013 [facility] V58.69 12/22/2013 [facility] Ot V87.41 12/22/2013 GEETA HATHAWAY DO Ot 496 12/22/2013 GEETA HATHAWAY DO Ot 786.09 12/22/2013 FANTA PISANO, LENNY Cain Ot 272.4 12/22/2013 FANTA PISANO, LENNY J Ot 401.9 12/22/2013 FANTA PISANO, LENNY J Ot 414.00 12/22/2013 FANTA PISANO, LENNY J Ot 496 12/25/2013 GEETA HATHAWAY DO Ot 496 12/25/2013 GEETA HATHAWAY DO Ot 786.09 12/25/2013 [facility]ISAN[facility] Ot 200.48 12/25/2013 MERISSA PISANO, BERUMENGWEN Ot 272.4 12/25/2013 [facility]ISANO, [facility] Ot 401.9 12/25/2013 MERISSA PISANO, [place]AG[place] Ot 733.90 12/25/2013 MERISSA PISANO, BERUMENGWEN Ot V12.71 12/25/2013 MERISSA PISANO, [facility]ERUMENGWEN Ot V58.69 12/25/2013 MREISSA PISANO, BERUMENGWEN Ot V87.41 01/03/2014 GEETA HATHAWAY DO Ot 327.23 OBSTRUCTIVE SLEEP APNEA (ADULT) (PEDIATR 01/06/2014 Ot 200.40 01/06/2014 Ot 200.48 01/06/2014 Ot V58.69 01/06/2014 Ot V58.83 01/06/2014 Ot 200.40 01/06/2014 Ot 202.80 01/06/2014 Ot 200.40 01/06/2014 Ot 200.48 01/06/2014 Ot 200.48 01/06/2014 Ot 786.50 01/06/2014 Ot 786.09 01/06/2014 Ot 786.50 01/06/2014 Ot 272.4 01/06/2014 Ot 401.9 01/06/2014 Ot 414.01 01/06/2014 Ot 272.4 01/06/2014 Ot 414.00 01/06/2014 Ot 786.09 01/06/2014 Ot 202.80 01/06/2014 Ot 202.80 01/06/2014 Ot 272.4 01/06/2014 Ot 401.9 01/06/2014 Ot 414.01 01/06/2014 Ot 200.48 01/06/2014 LENNY JEWELL MD Ot 272.4 01/06/2014 LENNY JEWELL MD Ot 414.01 01/06/2014 Ot 200.48 01/06/2014 Ot 272.4 01/06/2014 Ot 285.9 01/06/2014 Ot 401.9 01/06/2014 Ot 733.90 01/06/2014 Ot V12.71 01/06/2014 Ot V58.11 01/06/2014 Ot V58.69 01/06/2014 LENNY JEWELL MD Ot 272.4 01/06/2014 LENNY JEWELL MD Ot 414.01 01/06/2014 GABRIELLA AMARO Ot 401.9 01/06/2014 GABRIELLA AMARO Ot 414.00 01/06/2014 GABRIELLA AMARO Ot 786.09 01/06/2014 CHELY PA, GABRIELLA K Ot 272.4 01/06/2014 CHELY PA, GABRIELLA Rosa Elena Ot 278.00 01/06/2014 CHELY PA, GABRIELLA K Ot 401.9 01/06/2014 CHELY PA, GABRIELLA [place] Ot 414.00 01/06/2014 CHELY PA, GABRIELLA K Ot 496 01/06/2014 CHELY PA, GABRIELLA K Ot 786.09 01/06/2014 CHELY PA, GABRIELLA [place] Ot V85.36 01/06/2014 MERISSA PISANO, BIRTTANY Ot 200.48 01/06/2014 MERISSA PISANO, BRITTANY Ot 272.4 01/06/2014 BRITTANY CRAVEN MD Ot 401.9 01/06/2014 BRITTANY CRAVEN MD Ot 733.90 01/06/2014 BRITTANY CRAVEN MD Ot V12.71 01/06/2014 BRITTANY CRAVEN MD Ot V58.69 01/06/2014 BRITTANY CRAVEN MD Ot V87.41 01/06/2014 GEETA HATHAWAY DO Ot 496 01/06/2014 GEETA HATHAWAY DO Ot 786.09 01/06/2014 FANTA PISANO, LENNY Cain Ot 272.4 01/06/2014 FANTA PISANO, LENNY Cain Ot 401.9 01/06/2014 FANTA PISANO, LENNY Cain Ot 414.00 01/06/2014 FANTA PISANO, LENNY Cain Ot 496 01/25/2014 MERISSA PISANO, BRITTANY Ot 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, LYMPH NODES OF MUL 01/25/2014 BRITTANY CRAVEN MD Ot 272.4 HYPERLIPIDEMIA NEC/NOS 01/25/2014 BRITTANY CRAVEN MD Ot 401.9 HYPERTENSION NOS 01/25/2014 BRITTANY CRAVEN MD Ot 733.90 BONE CARTILAGE DIS NOS 01/25/2014 BRITTANY CRAVEN MD Ot V12.71 PERSONAL HISTORY OF PEPTIC ULCER DISEASE 01/25/2014 BRITTANY CRAVEN MD Ot V58.11 ENCOUNTER FOR ANTINEOPLASTIC CHEMOTHERAP 01/25/2014 BRITTANY CRAVEN MD, Ot V58.[address] [facility] MED,LT,CURRENT USE 01/25/2014 [place] CRAVEN MD-GWEN Ot V87.41 PERSONAL HISTORY OF ANTINEOPLASTIC CHEMO 02/11/2014 GEETA HATHAWAY DO Ot 278.00 02/11/2014 GEETA HATHAWAY DO Ot 496 02/12/2014 MERISSA PISANO, [place]-GWEN Ot 200.48 02/12/2014 MERISSA PISANO, BERUMEN-GWEN Ot 272.4 02/12/2014 MERISSA PISANO, [place] Ot 401.9 02/12/2014 MERISSA PISANO, [place] Ot 733.90 02/12/2014 MERISSA PISANO, BERUMEN-GWEN Ot V12.71 02/12/2014 MERISSA PISANO, [place] Ot V58.69 02/12/2014 MERISSA PISANO, BRITTANY Ot V87.41 02/12/2014 MERISSA PISANO, [place]-[facility] Ot 200.48 02/12/2014 MERISSA PISANO, [place] Ot 272.4 02/12/2014 MERISSA PISANO, [place] Ot 401.9 02/12/2014 MERISSA PISANO, [place] Ot 733.90 02/12/2014 MERISSA PISANO, [place] Ot V12.71 02/12/2014 MERISSA PISANO, [place] Ot V58.69 02/12/2014 MERISSA PISANO, BRITTANY Ot V87.41 02/12/2014 MERISSA PISANO, [place] Ot 200.48 02/12/2014 MERISSA PISANO, [place] Ot 272.4 02/12/2014 MERISSA PISANO, [place] Ot 401.9 02/12/2014 MERISSA PISANO, BRITTANY Ot 733.90 02/12/2014 MERISSA PISANO, [place] Ot V12.71 02/12/2014 MERISSA PISANO, [place] Ot V58.69 02/12/2014 MERISSA PISANO, [place] Ot V87.41 02/13/2014 MERISSA PISANO, [place] Ot 200.48 02/13/2014 MERISSA PISANO, BERUMEN-GWEN Ot 272.4 02/13/2014 MERISSA PISANO, BERUMEN-GWEN Ot 401.9 02/13/2014 MERISSA PISANO, [place] Ot 733.90 02/13/2014 MERISSA PISANO, [place]-GWEN Ot V12.71 02/13/2014 MERISSA PISANO, [place] Ot V58.69 02/13/2014 MERISSA PISANO, BRITTANY Ot V87.41 2014 Ot 200.48 2014 Ot V58.69 2014 Ot V58.83 2014 Ot 200.40 2014 Ot 202.80 2014 Ot 200.40 2014 Ot 200.48 2014 Ot 200.48 2014 Ot 786.50 2014 Ot 786.09 2014 Ot 786.50 2014 Ot 272.4 2014 Ot 401.9 2014 Ot 414.01 2014 Ot 272.4 2014 Ot 414.00 2014 Ot 786.09 2014 Ot 202.80 2014 Ot 202.80 2014 Ot 272.4 2014 Ot 401.9 2014 Ot 414.01 2014 Ot 200.48 2014 FANTA PISANO, LENNY Cain Ot 272.4 2014 FANTA PISANO, LENNY Cain Ot 414.01 2014 Ot 200.48 2014 Ot 272.4 2014 Ot 285.9 2014 Ot 401.9 2014 Ot 733.90 2014 Ot V12.71 2014 Ot V58.11 2014 Ot V58.69 2014 FANTA PISANO, LENNY Cain Ot 272.4 2014 FANTA PISANO, LENNY Cain Ot 414.01 2014 GABRIELLA AMARO Ot 401.9 2014 GABRIELLA AMARO Ot 414.00 2014 GABRIELLA AMARO Ot 786.09 2014 GABRIELLA AMARO Ot 272.4 2014 GABRIELLA AMARO Ot 278.00 2014 GABRIELLA AMARO Ot 401.9 2014 GABRIELLA AMARO Ot 414.00 2014 GABRIELLA AMARO Ot 496 2014 GABRIELLA AMARO Ot 786.09 2014 GABRIELLA AMARO Ot V85.36 2014 GEETA HATHAWAY DO Ot 496 2014 GEETA HATHAWAY DO Ot 786.09 2014 FANTA PISANO, LENNY Cain Ot 272.4 2014 FANTA PISANO, LENNY Cain Ot 401.9 2014 FANTA PISANO, LENNY Cain Ot 414.00 2014 FANTA PISANO, LENNY Cain Ot 496 2014 GEETA HATHAWAY DO Ot 278.00 2014 GEETA HATHAWAY DO Ot 496 2014 MERISSA PISANO, BRITTANY Ot 200.48 2014 MERISSA PISANO, BRITTANY Ot 272.4 2014 MERISSA PISANO, BERUMENGWEN Ot 401.9 2014 MERISSA PISANO, [facility] Ot 733.90 2014 [facility]12.71 2014 MERISSA PISANO, [facility] Ot V58.69 2014 MERISSA PISANO, [facility] Ot V87.41 2014 FANTA PISANO, LENNY Cain Ot 272.4 2014 FANTA PISANO, LENNY Cain Ot 401.9 2014 FANTA PISANO, LENNY Cain Ot 414.00 2014 FANTA PISANO, LENNY J Ot 496 03/06/2014 FANTA PISANO, LENNY J Ot 272.4 03/06/2014 FANTA PISANO, LENNY J Ot 401.9 03/06/2014 FANTA PISANO, LENNY J Ot 414.00 03/06/2014 FANTA PISANO, LENNY Cain Ot 496 04/02/2014 GEETA HATHAWAY DO Ot 278.00 04/02/2014 GEETA HATHAWAY DO Ot 496 05/11/2014 GEETA HATHAWAY DO Ot 278.00 OBESITY, NOS 05/11/2014 GEETA HATHAWAY DO Ot 496 CHR AIRWAY OBSTRUCT NEC 05/13/2014 MERISSA PISANO, BRITTANY Ot 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, LYMPH NODES OF MUL 05/13/2014 MERISSA PISANO, BRITTANY Ot 272.4 HYPERLIPIDEMIA NEC/NOS 05/13/2014 MERISSA PISANO, BRITTANY Ot 401.9 HYPERTENSION NOS 05/13/2014 MERISSA PISANO, BRITTANY Ot 733.90 BONE CARTILAGE DIS NOS 05/13/2014 MERISSA PISANO, BRITTANY Ot V12.71 PERSONAL HISTORY OF PEPTIC ULCER DISEASE 05/13/2014 MERISSA PISANO, BRITTANY Ot V58.11 ENCOUNTER FOR ANTINEOPLASTIC CHEMOTHERAP 05/13/2014 MERISSA PISANO, BRITTANY Ot V58.69 OT MED,LT,CURRENT USE 05/13/2014 MERISSA PISANO, BRITTANY Ot V87.41 PERSONAL HISTORY OF ANTINEOPLASTIC CHEMO 05/14/2014 MERISSA PISANO, BRITTANY Ot 200.48 05/14/2014 MERISSA PISANO, BRITTANY Ot 272.4 05/14/2014 MERISSA PISANO, BRITTANY Ot 401.9 05/14/2014 MERISSA PISANO, BRITTANY Ot 733.90 05/14/2014 MERISSA PISANO, BRITTANY Ot V12.71 05/14/2014 MERISSA PISANO, BRITTANY Ot V58.69 05/14/2014 MERISSA PISANO, BRITTANY Ot V87.41 05/14/2014 MERISSA PISANO, BRITTANY Ot 200.48 05/14/2014 MERISSA PISANO, BRITTANY Ot 272.4 05/14/2014 MERISSA PISANO, BRITTANY Ot 401.9 05/14/2014 MERISSA PISANO, BRITTANY Ot 733.90 05/14/2014 MERISSA PISANO, BRITTANY Ot V12.71 05/14/2014 MERISSA PISANO, BRITTANY Ot V58.69 05/14/2014 MERISSA PISANO, BRITTANY Ot V87.41 05/15/2014 MERISSA PISANO, BRITTANY Ot 200.48 05/15/2014 MERISSA PISANO, BRITTANY Ot 272.4 05/15/2014 MERISSA PISANO, BRITTANY Ot 401.9 05/15/2014 MERISSA PISANO, BRITTANY Ot 733.90 05/15/2014 MERISSA PISANO, BRITTANY Ot V12.71 05/15/2014 MERISSA PISANO, BRITTANY Ot V58.69 05/15/2014 MERISSA PISANO, [facility] Ot V87.41 05/26/2014 RIVAS DO, GEETA M Ot 278.00 05/26/2014 RIVAS DO, GEETA M Ot 496 05/26/2014 RIVAS DO, GEETA M Ot 278.00 05/26/2014 RIVAS DO, GEETA M Ot 496 05/26/2014 RIVAS DO, GEETA M Ot 278.00 05/26/2014 RIVAS DO, GEETA M Ot 496 05/26/2014 RIVAS DO, GEETA M Ot 278.00 05/26/2014 RIVAS DO, GEETA M Ot 496 05/27/2014 RIVAS DO, GEETA M Ot 278.00 05/27/2014 RIVAS DO, GEETA M Ot 496 05/27/2014 RIVAS DO, GEETA M Ot 278.00 05/27/2014 RIVAS DO, GEETA M Ot 496 06/10/2014 MERISSA PISANO, [facility] Ot 200.48 06/10/2014 MERISSA PISANO, [facility] Ot 272.4 06/10/2014 MERISSA PISANO, [facility] Ot 401.9 06/10/2014 MERISSA PISANO, [facility] Ot 733.90 06/10/2014 MERISSA PISANO, [facility] Ot V12.71 06/10/2014 MERISSA PISANO, [facility] Ot V58.69 06/10/2014 MERISSA PISANO, [facility] Ot V87.41 06/26/2014 FANTA PISANO, LENNY Cain Ot 272.4 06/26/2014 FANTA PISANO, LENNY Cain Ot 401.9 06/26/2014 LENNY JEWELL MD Ot 414.00 06/26/2014 FANTA PISANO, LENNY Cain Ot 496 07/10/2014 FANTA PISANO, LENNY Cain Ot 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, LYMPH NODES OF MUL 07/10/2014 LENNY JEWELL MD Ot 272.4 HYPERLIPIDEMIA NEC/NOS 07/10/2014 LENNY JEWELL MD Ot 285.9 ANEMIA NOS 07/10/2014 LENNY JEWELL MD Ot 401.9 HYPERTENSION NOS 07/10/2014 LENNY JEWELL MD Ot 413.9 ANGINA PECTORIS NEC/NOS 07/10/2014 LENNY JEWELL MD Ot 414.01 CORONARY ATHEROSCLEROSIS OF [place] CORON 07/10/2014 LENNY JEWELL MD Ot 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 07/10/2014 LENNY JEWELL MD Ot 496 CHR AIRWAY OBSTRUCT NEC 07/10/2014 LENNY JEWELL MD Ot 553.3 DIAPHRAGMATIC HERNIA 07/10/2014 LENNY JEWELL MD Ot V15.3 HX OF IRRADIATION 07/10/2014 LENNY JEWELL MD Ot V45.82 PERCUTANEOUS TRANSLUM CORON ANGIOPLASTY 07/10/2014 LENNY JEWELL MD Ot V46.2 SUPPLEMENTAL OXYGEN 07/10/2014 LENNY JEWELL MD, Ot V58.69 OT MED,LT,CURRENT USE 07/10/2014 LENNY JEWELL MD Ot V87.41 PERSONAL HISTORY OF ANTINEOPLASTIC CHEMO 07/22/2014 MERISSA PISANO, BRITTANY Ot 200.48 07/22/2014 MERISSA PISANO, BRITTANY Ot 272.4 07/22/2014 MERISSA PISANO, BRITTANY Ot 401.9 07/22/2014 MERISSA PISANO, BRITTANY Ot 733.90 07/22/2014 MERISSA PISANO, BRITTANY Ot V12.71 07/22/2014 MERISSA PISANO, BRITTANY Ot V58.69 07/22/2014 MERISSA PISANO, BRITTANY Ot V87.41 07/24/2014 GEETA HATHAWAY DO Ot 278.00 07/24/2014 GEETA HATHAWAY DO Ot 496 08/10/2014 MERISSA PISANO, BRITTANY Ot 200.48 08/10/2014 MERISSA PISANO, BRITTANY Ot 272.4 08/10/2014 MERISSA PISANO, BRITTANY Ot 401.9 08/10/2014 MERISSA PISANO, BRITTANY Ot 733.90 08/10/2014 MERISSA PISANO, BRITTANY Ot V12.71 08/10/2014 MERISSA PISANO, BRITTANY Ot V58.69 08/10/2014 MERISSA PISANO, BRITTANY Ot V87.41 08/10/2014 MERISSA PISANO, BRITTANY Ot 200.48 08/10/2014 MERISSA PISANO, BRITTANY Ot 272.4 08/10/2014 MERISSA PISANO, BRITTANY Ot 401.9 08/10/2014 MERISSA PISANO, BRITTANY Ot 733.90 08/10/2014 BRITTANY CRAVEN MD Ot V12.71 08/10/2014 BRITTANY CRAVEN MD Ot V58.69 08/10/2014 BRITTANY CRAVEN MD Ot V87.41 08/12/2014 BRITTANY CRAVEN MD Ot 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, LYMPH NODES OF MUL 08/12/2014 BRITTANY CRAVEN MD Ot 272.4 HYPERLIPIDEMIA NEC/NOS 08/12/2014 BRITTANY CRAVEN MD Ot 401.9 HYPERTENSION NOS 08/12/2014 BRITTANY CRAVEN MD Ot 733.90 BONE CARTILAGE DIS NOS 08/12/2014 BRITTANY CRAVEN MD Ot V12.71 PERSONAL HISTORY OF PEPTIC ULCER DISEASE 08/12/2014 BRITTANY CRAVEN MD Ot V58.11 ENCOUNTER FOR ANTINEOPLASTIC CHEMOTHERAP 08/12/2014 BRITTANY CRAVEN MD Ot V58.69 OTH MED,LT,CURRENT USE 08/12/2014 BRITTANY CRAVEN MD Ot V87.41 PERSONAL HISTORY OF ANTINEOPLASTIC CHEMO 08/17/2014 Ot 200.40 08/17/2014 Ot 202.80 08/17/2014 Ot 200.40 08/17/2014 Ot 200.48 08/17/2014 Ot 200.48 08/17/2014 Ot 786.50 08/17/2014 Ot 786.09 08/17/2014 Ot 786.50 08/17/2014 Ot 272.4 08/17/2014 Ot 401.9 08/17/2014 Ot 414.01 08/17/2014 Ot 272.4 08/17/2014 Ot 414.00 08/17/2014 Ot 786.09 08/17/2014 Ot 202.80 08/17/2014 Ot 202.80 08/17/2014 Ot 272.4 08/17/2014 Ot 401.9 08/17/2014 Ot 414.01 08/17/2014 Ot 200.48 08/17/2014 FANTA PISANO, LENNY Cain Ot 272.4 08/17/2014 FANTA PISANO, LENNY Cain Ot 414.01 08/17/2014 Ot 200.48 08/17/2014 Ot 272.4 08/17/2014 Ot 285.9 08/17/2014 Ot 401.9 08/17/2014 Ot 733.90 08/17/2014 Ot V12.71 08/17/2014 Ot V58.11 08/17/2014 Ot V58.69 08/17/2014 FANTA PISANO, LENNY Cain Ot 272.4 08/17/2014 FANTA PISANO, BASHAR J Ot 414.01 08/17/2014 VAUGHANEnikos PA, GABRIELLA K Ot 401.9 08/17/2014 Ensygnia PA, GABRIELLA K Ot 414.00 08/17/2014 Ensygnia PA, GABRIELLA K Ot 786.09 08/17/2014 Ensygnia PA, GABRIELLA K Ot 272.4 08/17/2014 Ensygnia PA, GABRIELLA K Ot 278.00 08/17/2014 Ensygnia PA, GABRIELLA K Ot 401.9 08/17/2014 Ensygnia PA, GABRIELLA K Ot 414.00 08/17/2014 Ensygnia PA, GABRIELLA K Ot 496 08/17/2014 Ensygnia PA, GABRIELLA K Ot 786.09 08/17/2014 Ensygnia PA, GABRIELLA K Ot V85.36 08/17/2014 GEETA HATHAWAY DO M Ot 496 08/17/2014 ZENIA HATHAWAY DOSON M Ot 786.09 08/17/2014 FANTA PISANO, LENNY J Ot 272.4 08/17/2014 FANTA PISANO, LENNY J Ot 401.9 08/17/2014 FANTA PISANO, LENNY J Ot 414.00 08/17/2014 FANTA PISANO, BASHAR J Ot 496 08/17/2014 FANTA PISANO, LENNY J Ot 272.4 08/17/2014 FANTA PISANO, LENNY J Ot 401.9 08/17/2014 FANTA PISANO, HAZELHAR J Ot 414.00 08/17/2014 FANTA PISANO, HAZELHAR J Ot 496 08/17/2014 ZENIA HATHAWAY DOSON M Ot 278.00 08/17/2014 RIVAS BARNES GEETA M Ot 496 08/17/2014 MERISSA PISANO, BERUMENGWEN Ot 200.48 08/17/2014 [facility].4 08/17/2014 MERISSA PISANO, [facility] Ot 401.9 08/17/2014 MERISSA PISANO, [facility] Ot 733.90 08/17/2014 MERISSA PISANO, BERUMEN-GWEN Ot V12.71 08/17/2014 MERISSA PISANO, BERUMEN-GWEN Ot V58.69 08/17/2014 MERISSA PISANO, BERUMEN-GWEN Ot V87.41 08/24/2014 GEETA HATHAWAY DO Ot 278.00 OBESITY, NOS 08/24/2014 GEETA HATHAWAY DO Ot 496 CHR AIRWAY OBSTRUCT NEC 09/03/2014 MERISSA PISANO, BRITTANY Ot 200.48 09/03/2014 MERISSA PISANO, BERUMEN-GWEN Ot 272.4 09/03/2014 MERISSA PISANO, BERUMEN-GWEN Ot 401.9 09/03/2014 MERISSA PISANO, [place] Ot 733.90 09/03/2014 MERISSA PISANO, [place] Ot V12.71 09/03/2014 MERISSA PISANO, [place] Ot V58.69 09/03/2014 MERISSA PISANO, [place] Ot V87.41 09/03/2014 MERISSA PISANO, BRITTANY Ot 200.48 09/03/2014 MERISSA PISANO, [place] Ot 272.4 09/03/2014 MERISSA PISANO, [place] Ot 401.9 09/03/2014 MERISSA PISANO, [place] Ot 733.90 09/03/2014 MERISSA PISANO, [place] Ot V12.71 09/03/2014 MERISSA PISANO, [place] Ot V58.69 09/03/2014 MERISSA PISANO, [place] Ot V87.41 09/03/2014 MERISSA PISANO, [place] Ot 200.48 09/03/2014 MERISSA PISANO, BERUMEN-GWEN Ot 272.4 09/03/2014 MERISSA PISANO, BERUMEN-GWEN Ot 401.9 09/03/2014 MERISSA PISANO, BERUMEN-GWEN Ot 733.90 09/03/2014 MERISSA PISANO, BERUMEN-GWEN Ot V12.71 09/03/2014 MERISSA PISANO, [place] Ot V58.69 09/03/2014 MERISSA PISANO, [place] Ot V87.41 09/04/2014 MERISSA PISANO, [place] Ot 200.48 09/04/2014 MERISSA PISANO, BERUMEN-GWEN Ot 272.4 09/04/2014 MERISSA PISANO, BERUMEN-GWEN Ot 401.9 09/04/2014 MERISSA PISANO, BERUMEN-GWEN Ot 733.90 09/04/2014 MERISSA PISANO, BERUMEN-GWEN Ot V12.71 09/04/2014 MERISSA PISANO, BERUMEN-GWEN Ot V58.69 09/04/2014 MERISSA PISANO, BERUMEN-GWEN Ot V87.41 09/04/2014 MERISSA PISANO, BERUMEN-GWEN Ot 200.48 09/04/2014 MERISSA PISANO, BERUMEN-GWEN Ot 272.4 09/04/2014 MERISSA PISANO, BERUMEN-GWEN Ot 280.9 09/04/2014 MERISSA PISANO, BERUMEN-GWEN Ot 401.9 09/04/2014 MERISSA PISANO, BERUMEN-GWEN Ot 733.90 09/04/2014 MERISSA PISANO, BERUMEN-GWEN Ot V12.71 09/04/2014 MERISSA PISANO, BERUMEN-GWEN Ot V58.69 09/04/2014 MERISSA PISANO, BERUMEN-GWEN Ot V87.41 09/04/2014 MERISSA PISANO, BERUMEN-GWEN Ot 200.48 09/04/2014 MERISSA PISANO, BERUMEN-GWEN Ot 272.4 09/04/2014 MERISSA PISANO, BERUMEN-GWEN Ot 280.9 09/04/2014 MERISSA PISANO, BERUMEN-GWEN Ot 401.9 09/04/2014 MERISSA PISANO, BERUMEN-GWEN Ot 733.90 09/04/2014 MERISSA PISANO, BERUMEN-GWEN Ot V12.71 09/04/2014 MERISSA PISANO, BERUMEN-GWEN Ot V58.69 09/04/2014 MERISSA PISANO, BERUMEN-GWEN Ot V87.41 09/28/2014 MERISSA PISANO, BERUMEN-GWEN Ot 200.48 09/28/2014 MERISSA PISANO, BERUMEN-GWEN Ot 272.4 09/28/2014 MERISSA PISANO, BERUMEN-GWEN Ot 280.9 09/28/2014 MERISSA PISANO, BERUMEN-GWEN Ot 401.9 09/28/2014 MERISSA PISANO, BERUMEN-GWEN Ot 733.90 09/28/2014 MERISSA PISANO, BERUMEN-GWEN Ot V12.71 09/28/2014 MERISSA PISANO, BERUMEN-GWEN Ot V58.69 09/28/2014 MERISSA PISANO, BERUMEN-GWEN Ot V87.41 10/01/2014 MERISSA PISANO, BERUMEN-GWEN Ot 200.48 10/01/2014 MERISSA PISANO, BERUMEN-GWEN Ot 272.4 10/01/2014 MERISSA PISANO, BERUMEN-GWEN Ot 280.9 10/01/2014 MERISSA PISANO, BERUMEN-GWEN Ot 401.9 10/01/2014 MERISSA PISANO, J[place]AG[place]EN Ot 733.90 10/01/2014 MERISSA PISANO, BRITTANY Ot V12.71 10/01/2014 MERISSA PISANO, BRITTANY Ot V58.69 10/01/2014 MERISSA PISANO, BRITTANY Ot V87.41 10/01/2014 Ot 200.40 10/01/2014 Ot 202.80 10/01/2014 Ot 200.40 10/01/2014 Ot 200.48 10/01/2014 Ot 200.48 10/01/2014 Ot 786.50 10/01/2014 Ot 786.09 10/01/2014 Ot 786.50 10/01/2014 Ot 272.4 10/01/2014 Ot 401.9 10/01/2014 Ot 414.01 10/01/2014 Ot 272.4 10/01/2014 Ot 414.00 10/01/2014 Ot 786.09 10/01/2014 Ot 202.80 10/01/2014 Ot 202.80 10/01/2014 Ot 272.4 10/01/2014 Ot 401.9 10/01/2014 Ot 414.01 10/01/2014 Ot 200.48 10/01/2014 FANTA PISANO, LENNY Cain Ot 272.4 10/01/2014 FANTA PISANO, LENNY Cain Ot 414.01 10/01/2014 Ot 200.48 10/01/2014 Ot 272.4 10/01/2014 Ot 285.9 10/01/2014 Ot 401.9 10/01/2014 Ot 733.90 10/01/2014 Ot V12.71 10/01/2014 Ot V58.11 10/01/2014 Ot V58.69 10/01/2014 FANTA PISANO, LENNY Cain Ot 272.4 10/01/2014 FANTA PISANO, LENNY Cain Ot 414.01 10/01/2014 GABRIELLA AMARO Ot 401.9 10/01/2014 GABRIELLA AMARO Ot 414.00 10/01/2014 GABRIELLA AMARO Ot 786.09 10/01/2014 GABRIELLA AMARO Ot 272.4 10/01/2014 GABRIELLA AMARO Ot 278.00 10/01/2014 GABRIELLA AMARO Ot 401.9 10/01/2014 CHELY PA, GABRIELLA K Ot 414.00 10/01/2014 CHELY PA, GABRIELLA K Ot 496 10/01/2014 CHELY PA, GABRIELLA K Ot 786.09 10/01/2014 CHELY PA, GABRIELLA K Ot V85.36 10/01/2014 GEETA HATHAWAY DO M Ot 496 10/01/2014 RIVAS BARNES, GEETA M Ot 786.09 10/01/2014 FANTA PISANO, BASHAR J Ot 272.4 10/01/2014 FANTA PISANO, BASHAR J Ot 401.9 10/01/2014 FANTA PISANO, BASHAR J Ot 414.00 10/01/2014 FANTA PISANO, BASHAR J Ot 496 10/01/2014 FANTA PISANO, BASHAR J Ot 272.4 10/01/2014 FANTA PISANO, BASHAR J Ot 401.9 10/01/2014 FANTA PISANO, BASHAR J Ot 414.00 10/01/2014 FANTA PISANO, BASHAR J Ot 496 10/01/2014 MERISSA PISANO, BRITTANY Ot 200.48 10/01/2014 MERISSA PISANO, [place] Ot 272.4 10/01/2014 MERISSA PISANO, [place] Ot 280.9 10/01/2014 MERISSA PISANO, [place] Ot 401.9 10/01/2014 MERISSA PISANO, [place] Ot 733.90 10/01/2014 MERISSA PISANO, [place] Ot V12.71 10/01/2014 MERISSA PISANO, BERUMEN-GWEN Ot V58.69 10/01/2014 MERISSA PISANO, BERUMEN-GWEN Ot V87.41 10/01/2014 GEETA HATHAWAY DO M Ot 278.00 10/01/2014 RIVAS BARNES, GEETA M Ot 496 10/02/2014 MERISSA PISANO, [place] Ot 200.48 10/02/2014 MERISSA PISANO, [place] Ot 272.4 10/02/2014 MERISSA PISANO, [place] Ot 280.9 10/02/2014 MERISSA PISANO, [place] Ot 401.9 10/02/2014 MERISSA PISANO, [place] Ot 733.90 10/02/2014 MERISSA PISANO, BRITTANY Ot V12.71 10/02/2014 BRITTANY CRAVEN MD Ot V58.69 10/02/2014 BRITTANY CRAVEN MD Ot V87.41 10/23/2014 FANTA PISANO, BASHAR J Ot 200.40 10/23/2014 FANTA PISANO, BASHAR J Ot 272.4 10/23/2014 FANTA PISANO, BASHAR J Ot 401.9 10/23/2014 FANTA PISANO, BASHAR J Ot 414.9 10/23/2014 FANTA PISANO, BASHAR J Ot 200.40 10/23/2014 FANTA PISANO, BASHAR J Ot 272.4 10/23/2014 FANTA PISANO, BASHAR J Ot 401.9 10/23/2014 FANTA PISANO, BASHAR J Ot 414.9 10/23/2014 FANTA PISANO, BASHAR J Ot 200.40 10/23/2014 FANTA PISANO, BASHAR J Ot 272.4 10/23/2014 FANTA PISANO, BASHAR J Ot 401.9 10/23/2014 FANTA PISANO, BASHAR J Ot 414.9 10/29/2014 FANTA PISANO, BASHAR J Ot 200.40 10/29/2014 FANTA PISANO, BASHAR J Ot 272.4 10/29/2014 FANTA PISANO, BASHAR J Ot 401.9 10/29/2014 FANTA PISANO, BASHAR J Ot 414.9 10/29/2014 FANTA PISANO, BASHAR J Ot 200.40 10/29/2014 FANTA PISANO, BASHAR J Ot 272.4 10/29/2014 FANTA PISANO, BASHAR J Ot 401.9 10/29/2014 FANTA PISANO, BASHAR J Ot 414.9 11/04/2014 BRITTANY CRAVEN MD Ot 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4 11/06/2014 FANTA PISANO, BASHAR J Ot 401.9 11/06/2014 FANTA PISANO, BASAGUSTINA J Ot 414.9 11/25/2014 MERISSA PISANO, [place]-GEWN Ot 200.48 11/25/2014 MERISSA PISANO, [place]-GWEN Ot 272.4 11/25/2014 MERISSA PISANO, [place] Ot 280.9 11/25/2014 MERISSA PISANO, BRITTANY Ot 401.9 11/25/2014 MERISSA PISANO, BRITTANY Ot 733.90 11/25/2014 MERISSA PISANO, BRITTANY Ot V12.71 11/25/2014 MERISSA PISANO, BRITTANY Ot V58.69 11/25/2014 MERISSA PISANO, BRITTANY Ot V87.41 01/23/2015 MERISSA PISANO, BRITTANY Ot 200.48 01/23/2015 MERISSA PISANO, [place] Ot 272.4 01/23/2015 MERISSA PISANO, [place] Ot 280.9 01/23/2015 MERISSA PISANO, BRITTANY Ot 401.9 01/23/2015 MERISSA PISANO, BRITTANY Ot 733.90 01/23/2015 MERISSA PISANO, BRITTANY Ot V12.71 01/23/2015 MERISSA PISANO, BRITTANY Ot V58.69 01/23/2015 MERISSA PISANO, BRITTANY Ot V87.41 02/09/2015 MERISSA PISANO, BRITTANY Ot C83.18 02/09/2015 MERISSA PISANO, BRITTANY Ot D50.9 02/09/2015 MERISSA PISANO, BRITTANY Ot E78.5 02/09/2015 MERISSA PISANO, BRITTANY Ot I10 02/09/2015 MERISSA PISANO, BRITTANY Ot M89.9 02/09/2015 MERISSA PISANO, BRITTANY Ot Z79.899 02/17/2015 MERISSA PISANO, BRITTANY Ot 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, LYMPH NODES OF MUL 02/17/2015 MERISSA PISANO, BRITTANY Ot D50.9 IRON DEFICIENCY ANEMIA, UNSPECIFIED 02/17/2015 MERISSA PISANO, BRITTANY Ot E78.5 HYPERLIPIDEMIA, UNSPECIFIED 02/17/2015 MERISSA PISANO, BRITTANY Ot I10 ESSENTIAL (PRIMARY) HYPERTENSION 02/17/2015 MERISSA PISANO, BRITTANY Ot M89.9 DISORDER OF BONE, UNSPECIFIED 02/17/2015 MERISSA PISANO, BRITTANY Ot Z51.11 ENCOUNTER FOR ANTINEOPLASTIC CHEMOTHERAP 02/17/2015 MERISSA PISANO, BRITTANY Ot Z79.899 OTHER PILLOWCASE CLEANER (CURRENT) DRUG THERAPY 02/18/2015 Ot 200.40 02/18/2015 Ot 202.80 02/18/2015 Ot 200.40 02/18/2015 Ot 200.48 02/18/2015 Ot 200.48 02/18/2015 Ot 786.50 02/18/2015 Ot 786.09 02/18/2015 Ot 786.50 02/18/2015 Ot 272.4 02/18/2015 Ot 401.9 02/18/2015 Ot 414.01 02/18/2015 Ot 272.4 02/18/2015 Ot 414.00 02/18/2015 Ot 786.09 02/18/2015 Ot 202.80 02/18/2015 Ot 202.80 02/18/2015 Ot 272.4 02/18/2015 Ot 401.9 02/18/2015 Ot 414.01 02/18/2015 Ot 200.48 02/18/2015 FANTA PISANO, LENNY Cain Ot 272.4 02/18/2015 FANTA PISANO, LENNY Cain Ot 414.01 02/18/2015 Ot 200.48 02/18/2015 Ot 272.4 02/18/2015 Ot 285.9 02/18/2015 Ot 401.9 02/18/2015 Ot 733.90 02/18/2015 Ot V12.71 02/18/2015 Ot V58.11 02/18/2015 Ot V58.69 02/18/2015 LENNY JEWELL MD Ot 272.4 02/18/2015 LENNY JEWELL MD Ot 414.01 02/18/2015 GABRIELLA AMARO Ot 401.9 02/18/2015 GABRIELLA AMARO Ot 414.00 02/18/2015 GABRIELLA AMARO Ot 786.09 02/18/2015 CHELY PA, GABRIELLA K Ot 272.4 02/18/2015 VAUGHAN-ASHWIN PA, GABRIELLA K Ot 278.00 02/18/2015 VAUGHAN-ASHWIN PA, GABRIELLA K Ot 401.9 02/18/2015 VAUGHAN-ASHWIN PA, GABRIELLA K Ot 414.00 02/18/2015 VAUGHAN-ASHWIN PA, GABRIELLA K Ot 496 02/18/2015 VAUGHAN-ASHWIN PA, GABRIELLA K Ot 786.09 02/18/2015 VAUGHAN-ASHWIN PA, GABRIELLA K Ot V85.36 02/18/2015 GEETA HATHAWAY DO M Ot 496 02/18/2015 RIVAS BARNES, GEETA M Ot 786.09 02/18/2015 FANTA PISANO, BASHAR J Ot 272.4 02/18/2015 FANTA PISANO, BASHAR J Ot 401.9 02/18/2015 FANTA PISANO, BASHAR J Ot 414.00 02/18/2015 FANTA PISANO, BASHAR J Ot 496 02/18/2015 FANTA PISANO, BASHAR J Ot 272.4 02/18/2015 FANTA PISANO, BASHAR J Ot 401.9 02/18/2015 FANTA PISANO, BASHAR J Ot 414.00 02/18/2015 FANTA PISANO, BASHAR J Ot 496 02/18/2015 RIVAS BARNES GEETA M Ot 278.00 02/18/2015 RIVAS BARNES, GEETA M Ot 496 02/18/2015 FANTA PISANO, BASHAR J Ot 200.40 02/18/2015 FANTA PISANO, BASHAR J Ot 272.4 02/18/2015 FANTA PISANO, BASHAR J Ot 401.9 02/18/2015 FANTA PISANO, BASHAR J Ot 414.9 02/18/2015 MERISSA PISANO, BRITTANY Ot C83.18 02/18/2015 MERISSA PISANO, BRITTANY Ot D50.9 02/18/2015 MERISSA PISANO, BRITTANY Ot E78.5 02/18/2015 MERISSA PISANO, BRITTANY Ot I10 02/18/2015 MERISSA PISANO, BRITTANY Ot M89.9 02/18/2015 MERISSA PISANO, BRITTANY Ot Z79.899 02/22/2015 MERISSA PISANO, BERUMEN-GWEN Ot C83.18 02/22/2015 MERISSA PISANO, [place] Ot D50.9 02/22/2015 MERISSA PISANO, [place] Ot E78.5 02/22/2015 MERISSA PISANO, [place] Ot I10 02/22/2015 MERISSA PISANO, [place] Ot M89.9 02/22/2015 MERISSA PISANO, [place] Ot Z79.899 03/17/2015 MERISSA PISANO, [place] Ot C83.18 03/17/2015 MERISSA PISANO, [place] Ot D50.9 03/17/2015 MERISSA PISANO, [place] Ot E78.5 03/17/2015 MERISSA PISANO, [place] Ot I10 03/17/2015 MERISSA PISANO, [place] Ot M89.9 03/17/2015 MERISSA PISANO, [place] Ot Z79.899 04/05/2015 MERISSA PISANO, [place] Ot C83.18 04/05/2015 MERISSA PISANO, [place] Ot D50.9 04/05/2015 MERISSA PISANO, [place] Ot E78.5 04/05/2015 MERISSA PISANO, [place] Ot I10 04/05/2015 MERISSA PISANO, [place] Ot M89.9 04/05/2015 MERISSA PISANO, [place] Ot Z79.899 04/15/2015 Ot 200.40 04/15/2015 Ot 200.48 04/15/2015 Ot 200.48 04/15/2015 Ot 786.50 04/15/2015 Ot 786.09 04/15/2015 Ot 786.50 04/15/2015 Ot 272.4 04/15/2015 Ot 401.9 04/15/2015 Ot 414.01 04/15/2015 Ot 272.4 04/15/2015 Ot 414.00 04/15/2015 Ot 786.09 04/15/2015 Ot 202.80 04/15/2015 Ot 202.80 04/15/2015 Ot 272.4 04/15/2015 Ot 401.9 04/15/2015 Ot 414.01 04/15/2015 Ot 200.48 04/15/2015 FANTA PISANO, LENNY Cain Ot 272.4 04/15/2015 FANTA PISANO, LENNY Cain Ot 414.01 04/15/2015 Ot 200.48 04/15/2015 Ot 272.4 04/15/2015 Ot 285.9 04/15/2015 Ot 401.9 04/15/2015 Ot 733.90 04/15/2015 Ot V12.71 04/15/2015 Ot V58.11 04/15/2015 Ot V58.69 04/15/2015 FANTA PISANO, LENNY Cain Ot 272.4 04/15/2015 FANTA PISANO, LENNY Cain Ot 414.01 04/15/2015 VAUGHAN-ASHWIN PA, GABRIELLA K Ot 401.9 04/15/2015 VAUGHAN-ASHWIN PA, GABRIELLA K Ot 414.00 04/15/2015 VAUGHAN-ASHWIN PA, GABRIELLA K Ot 786.09 04/15/2015 VAUGHAN-ASHWIN PA, GABRIELLA K Ot 272.4 04/15/2015 [facility] PA, GABRIELLA K Ot 278.00 04/15/2015 VAUGHAN-ASHWIN PA, GABRIELLA K Ot 401.9 04/15/2015 [facility] PA, GABRIELLA K Ot 414.00 04/15/2015 [employer] PA, GABRIELLA K Ot 496 04/15/2015 VAUGHAN-ASHWIN PA, GABRIELLA K Ot 786.09 04/15/2015 VAUGHAN-ASHWIN PA, GABRIELLA K Ot V85.36 04/15/2015 GEETA HATHAWAY DO Ot 496 04/15/2015 GEETA HATHAWAY DO Ot 786.09 04/15/2015 FANTA PISANO, LENNY Cain Ot 272.4 04/15/2015 FANTA PISANO, LENNY Cain Ot 401.9 04/15/2015 FANTA PISANO, LENNY Cain Ot 414.00 04/15/2015 FANTA PISANO, LENNY Cain Ot 496 04/15/2015 FANTA PISANO, LENNY Cain Ot 272.4 04/15/2015 FANTA PISANO, LENNY Cain Ot 401.9 04/15/2015 FANTA PISANO, LENNY Cain Ot 414.00 04/15/2015 FANTA PISANO, LENNY Cain Ot 496 04/15/2015 GEETA HATHAWAY DO Ot 278.00 04/15/2015 GEETA HATHAWAY DO Ot 496 04/15/2015 FANTA PISANO, LENNY Cain Ot 200.40 04/15/2015 FANTA PISANO, BASHAR J Ot 272.4 04/15/2015 FANTA PISANO, LENNY J Ot 401.9 04/15/2015 FANTA PISANO, LENNY J Ot 414.9 04/15/2015 MERISSA PISANO, [place] Ot C83.18 04/15/2015 MERISSA PISANO, [place] Ot D50.9 04/15/2015 MERISSA PISANO, [place] Ot E78.5 04/15/2015 MERISSA PISANO, [place] Ot I10 04/15/2015 MERISSA PISANO, BERUMEN-GWEN Ot M89.9 04/15/2015 MERISSA PISANO, BERUMEN-GWEN Ot Z79.899 04/20/2015 MERISSA PISANO, [place] Ot C83.18 04/20/2015 MERISSA PISANO, [place] Ot D50.9 04/20/2015 MERISSA PISANO, [place] Ot E78.5 04/20/2015 MERISSA PISANO, [place] Ot I10 04/20/2015 MERISSA PISANO, [place] Ot M89.9 04/20/2015 MERISSA PISANO, [place] Ot Z79.899 05/03/2015 MERISSA PISANO, [place] Ot C83.18 05/03/2015 MERISSA PISANO, [place] Ot D50.9 05/03/2015 MERISSA PISANO, [place] Ot E78.5 05/03/2015 MERISSA PISANO, [place] Ot I10 05/03/2015 MERISSA PISANO, [place] Ot M89.9 05/03/2015 MERISSA PISANO, [place] Ot Z79.899 05/04/2015 Ot 200.40 05/04/2015 Ot 200.48 05/04/2015 Ot 200.48 05/04/2015 Ot 786.50 05/04/2015 Ot 786.09 05/04/2015 Ot 786.50 05/04/2015 Ot 272.4 05/04/2015 Ot 401.9 05/04/2015 Ot 414.01 05/04/2015 Ot 272.4 05/04/2015 Ot 414.00 05/04/2015 Ot 786.09 05/04/2015 Ot 202.80 05/04/2015 Ot 202.80 05/04/2015 Ot 272.4 05/04/2015 Ot 401.9 05/04/2015 Ot 414.01 05/04/2015 Ot 200.48 05/04/2015 FANTA PISANO, LENNY Cain Ot 272.4 05/04/2015 FANTA PISANO, LENNY Cain Ot 414.01 05/04/2015 Ot 200.48 05/04/2015 Ot 272.4 05/04/2015 Ot 285.9 05/04/2015 Ot 401.9 05/04/2015 Ot 733.90 05/04/2015 Ot V12.71 05/04/2015 Ot V58.11 05/04/2015 Ot V58.69 05/04/2015 FANTA PISANO, LENNY Cain Ot 272.4 05/04/2015 FANTA PISANO, LENNY Cain Ot 414.01 05/04/2015 VAUGHAN-ASHWIN PA, GABRIELLA K Ot 401.9 05/04/2015 VAUGHAN-ASHWIN PA, GABRIELLA K Ot 414.00 05/04/2015 VAUGHAN-ASHWIN PA, GABRIELLA K Ot 786.09 05/04/2015 VAUGHAN-ASHWIN PA, GABRIELLA K Ot 272.4 05/04/2015 VAUGHAN-ASHWIN PA, GABRIELLA K Ot 278.00 05/04/2015 VAUGHAN-ASHWIN PA, GABRIELLA K Ot 401.9 05/04/2015 VAUGHAN-ASHWIN PA, GABRIELLA K Ot 414.00 05/04/2015 VAUGHAN-ASHWIN PA, GABRIELLA K Ot 496 05/04/2015 VAUGHAN-ASHWIN PA, GABRIELLA K Ot 786.09 05/04/2015 VAUGHAN-ASHWIN PA, GABRIELLA K Ot V85.36 05/04/2015 GEETA HATHAWAY DO Ot 496 05/04/2015 GEETA HATHAWAY DO Ot 786.09 05/04/2015 FANTA PISANO, LENNY Cain Ot 272.4 05/04/2015 FANTA PISANO, LENNY Cain Ot 401.9 05/04/2015 FANTA PISANO, LENNY Cain Ot 414.00 05/04/2015 FANTA PISANO, LENNY Cain Ot 496 05/04/2015 FANTA PISANO, LENNY Cain Ot 272.4 05/04/2015 FANTA PISANO, LENNY Cain Ot 401.9 05/04/2015 FANTA PISANO, LENNY Cain Ot 414.00 05/04/2015 FANTA PISANO, LENNY Cain Ot 496 05/04/2015 GEETA HATHAWAY DO Ot 278.00 05/04/2015 RIVAS GEETA BARNES M Ot 496 05/04/2015 FANTA PISANO, LENNY Cain Ot 200.40 05/04/2015 FANTA PISANO, LENNY aCin Ot 272.4 05/04/2015 FANTA PISANO, LENNY Cain Ot 401.9 05/04/2015 FANTA PISANO, LENNY Cain Ot 414.9 05/04/2015 MERISSA PISANO, [facility] Ot C83.18 05/04/2015 MERISSA PISANO, [facility] Ot D50.9 05/04/2015 MERISSA PISANO, [facility] Ot E78.5 05/04/2015 MERISSA PISANO, [facility] Ot I10 05/04/2015 MERISSA PISANO, [facility] Ot M89.9 05/04/2015 MERISSA PISANO, [facility] Ot Z79.899 05/17/2015 Ot 200.40 05/17/2015 Ot 200.48 05/17/2015 Ot 200.48 05/17/2015 Ot 786.50 05/17/2015 Ot 786.09 05/17/2015 Ot 786.50 05/17/2015 Ot 272.4 05/17/2015 Ot 401.9 05/17/2015 Ot 414.01 05/17/2015 Ot 272.4 05/17/2015 Ot 414.00 05/17/2015 Ot 786.09 05/17/2015 Ot 202.80 05/17/2015 Ot 202.80 05/17/2015 Ot 272.4 05/17/2015 Ot 401.9 05/17/2015 Ot 414.01 05/17/2015 Ot 200.48 05/17/2015 FANTA PISANO, LENNY Cain Ot 272.4 05/17/2015 FANTA PISANO, LENNY Cain Ot 414.01 05/17/2015 Ot 200.48 05/17/2015 Ot 272.4 05/17/2015 Ot 285.9 05/17/2015 Ot 401.9 05/17/2015 Ot 733.90 05/17/2015 Ot V12.71 05/17/2015 Ot V58.11 05/17/2015 Ot V58.69 05/17/2015 FANTA PISANO, LENNY Cain Ot 272.4 05/17/2015 FANTA PISANO, LENNY Cain Ot 414.01 05/17/2015 GABRIELLA AMARO Ot 401.9 05/17/2015 VAUGHAN-ASHWIN PA, GABRIELLA K Ot 414.00 05/17/2015 VAUGHAN-AHSWIN PA, GABRIELLA K Ot 786.09 05/17/2015 VAUGHAN-ASHWIN PA, GABRIELLA K Ot 272.4 05/17/2015 VAUGHAN-ASHWIN PA, GABRIELLA K Ot 278.00 05/17/2015 VAUGHAN-ASHWIN PA, GABRIELLA K Ot 401.9 05/17/2015 VAUGHAN-ASHWIN PA, GABRIELLA K Ot 414.00 05/17/2015 VAUGHAN-ASHWIN PA, GABRIELLA K Ot 496 05/17/2015 VAUGHAN-ASHWIN PA, GABRIELLA K Ot 786.09 05/17/2015 VAUGHAN-ASHWIN PA, GABRIELLA K Ot V85.36 05/17/2015 GEETA HATHAWAY DO Ot 496 05/17/2015 GEETA HATHAWAY DO Ot 786.09 05/17/2015 FANTA PISANO, LENNY Cain Ot 272.4 05/17/2015 FANTA PISANO, LENNY J Ot 401.9 05/17/2015 FANTA PISANO, LENNY J Ot 414.00 05/17/2015 FANTA PISANO, LENNY J Ot 496 05/17/2015 FANTA PISANO, LENNY J Ot 272.4 05/17/2015 FANTA PISANO, HAZELHAR J Ot 401.9 05/17/2015 FANTA PISANO, BASHAR J Ot 414.00 05/17/2015 FANTA PISANO, LENNY J Ot 496 05/17/2015 GEETA HATHAWAY DO M Ot 278.00 05/17/2015 GEETA HATHAWAY DO M Ot 496 05/17/2015 FANTA PISANO, LENNY J Ot 200.40 05/17/2015 FANTA PISANO, BASAGUSTINA J Ot 272.4 05/17/2015 FANTA PISANO, HAZELHAR J Ot 401.9 05/17/2015 FANTA PISANO, HAZELHAR J Ot 414.9 05/17/2015 MERISSA PISANO, BRITTANY Ot C83.18 05/17/2015 MERISSA PISANO, BRITTANY Ot D50.9 05/17/2015 MERISSA PISANO, BRITTANY Ot E78.5 05/17/2015 MERISSA PISANO, BRITTANY Ot I10 05/17/2015 MERISSA PISANO, BRITTANY Ot M89.9 05/17/2015 BRITTANY CRAVEN MD Ot Z79.899 05/18/2015 CHELY BERRY, GABRIELLA [place] Ot E66.9 05/18/2015 CHELY BERRY, GABRIELLA [place] Ot E78.2 05/18/2015 CHELY PA, GABRIELLA [place] Ot I10 05/18/2015 CHELY PA, GABRIELLA [place] Ot I25.10 05/18/2015 CHELY PA, GABRIELLA [place] Ot I65.22 05/18/2015 CHELY BERRY, GABRIELLA [place] Ot I67.1 05/19/2015 BRITTANY CRAVEN MD Ot 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, LYMPH NODES OF MUL 05/19/2015 BRITTANY CRAVEN MD Ot D50.9 IRON DEFICIENCY ANEMIA, UNSPECIFIED 05/19/2015 BRITTANY CRAVEN MD Ot E78.5 HYPERLIPIDEMIA, UNSPECIFIED 05/19/2015 BRITTANY CRAVEN MD Ot I10 ESSENTIAL (PRIMARY) HYPERTENSION 05/19/2015 BRITTANY CRAVEN MD Ot M89.9 DISORDER OF BONE, UNSPECIFIED 05/19/2015 BRITTANY CRAVEN MD Ot Z51.11 ENCOUNTER FOR ANTINEOPLASTIC CHEMOTHERAP 05/19/2015 BRITTANY CRAVEN MD Ot Z79.899 OTHER PILLOWCASE CLEANER (CURRENT) DRUG THERAPY 05/19/2015 Ot 200.40 05/19/2015 Ot 200.48 05/19/2015 Ot 200.48 05/19/2015 Ot 786.50 05/19/2015 Ot 786.09 05/19/2015 Ot 786.50 05/19/2015 Ot 272.4 05/19/2015 Ot 401.9 05/19/2015 Ot 414.01 05/19/2015 Ot 272.4 05/19/2015 Ot 414.00 05/19/2015 Ot 786.09 05/19/2015 Ot 202.80 05/19/2015 Ot 202.80 05/19/2015 Ot 272.4 05/19/2015 Ot 401.9 05/19/2015 Ot 414.01 05/19/2015 Ot 200.48 05/19/2015 LENNY JEWELL MD Ot 272.4 05/19/2015 LENNY JEWELL MD Ot 414.01 05/19/2015 Ot 200.48 05/19/2015 Ot 272.4 05/19/2015 Ot 285.9 05/19/2015 Ot 401.9 05/19/2015 Ot 733.90 05/19/2015 Ot V12.71 05/19/2015 Ot V58.11 05/19/2015 Ot V58.69 05/19/2015 FANTA PISANO, LENNY Cain Ot 272.4 05/19/2015 FANTA PISANO, LENNY Cain Ot 414.01 05/19/2015 CHELY PA, GABRIELLA K Ot 401.9 05/19/2015 VAUGHAN-ASHWIN PA, GABRIELLA K Ot 414.00 05/19/2015 VAUGHAN-ASHWIN PA, GABRIELLA K Ot 786.09 05/19/2015 VAUGHAN-ASHWIN PA, GABRIELLA K Ot 272.4 05/19/2015 ALEXUS-ASHWIN PA, GABRIELLA K Ot 278.00 05/19/2015 CHELY PA, GABRIELLA K Ot 401.9 05/19/2015 VAUGHANInceptus MedicalASHWIN PA, GABRIELLA K Ot 414.00 05/19/2015 [facility]AUGHANInceptus MedicalASHWIN PA, GABRIELLA K Ot 496 05/19/2015 VAUGHAN-ASHWIN PA, GABRIELLA K Ot 786.09 05/19/2015 VAUGHAN-ASHWIN PA, GABRIELLA K Ot V85.36 05/19/2015 GEETA HATHAWAY DO Ot 496 05/19/2015 GEETA HATHAWAY DO Ot 786.09 05/19/2015 FANTA PISANO, LENNY Cain Ot 272.4 05/19/2015 FANTA PISANO, LENNY Cain Ot 401.9 05/19/2015 FANTA PISANO, LENNY Cain Ot 414.00 05/19/2015 FANTA PISANO, LENNY J Ot 496 05/19/2015 FANTA PISANO, LENNY Cain Ot 272.4 05/19/2015 FANTA PISANO, LENNY Cain Ot 401.9 05/19/2015 FANTA PISANO, LENNY Cain Ot 414.00 05/19/2015 FANTA PISANO, LENNY Cain Ot 496 05/19/2015 GEETA HATHAWAY DO Ot 278.00 05/19/2015 GEETA HATHAWAY DO M Ot 496 05/19/2015 FANTA PISANO, BASHAR J Ot 200.40 05/19/2015 FANTA PISANO, LENNY J Ot 272.4 05/19/2015 FANTA PISANO, BASHAR J Ot 401.9 05/19/2015 FANTA PISANO, LENNY J Ot 414.9 05/19/2015 MERISSA PISANO, BRITTANY Ot C83.18 05/19/2015 MERISSA PISANO, BRITTANY Ot D50.9 05/19/2015 MERISSA PISANO, BRITTANY Ot E78.5 05/19/2015 MERISSA PISANO, BRITTANY Ot I10 05/19/2015 MERISSA PISANO, BRITTANY Ot M89.9 05/19/2015 MERISSA PISANO, BRITTANY Ot Z79.899 05/19/2015 GABRIELLA AMARO Ot E66.9 05/19/2015 CHELY BERRY, GABRIELLA [place] Ot E78.2 05/19/2015 CHELY BERRY, GABRIELLA [place] Ot I10 05/19/2015 CHELY BERRY, GABRIELLA [place] Ot I25.10 05/19/2015 CHELY BERRY, GABRIELLA [place] Ot I65.22 05/19/2015 CHELY BERRY, GABRIELLA [place] Ot I67.1 05/21/2015 MERISSA PISANO, BRITTANY Ot 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, LYMPH NODES OF MUL 05/21/2015 MERISSA PISANO, BRITTANY Ot D50.9 IRON DEFICIENCY ANEMIA, UNSPECIFIED 05/21/2015 MERISSA PISANO, BRITTANY Ot E78.5 HYPERLIPIDEMIA, UNSPECIFIED 05/21/2015 MERISSA PISANO, BRITTANY Ot I10 ESSENTIAL (PRIMARY) HYPERTENSION 05/21/2015 MERISSA PISANO, BRITTANY Ot M89.9 DISORDER OF BONE, UNSPECIFIED 05/21/2015 MERISSA PISANO, BRITTANY Ot Z51.11 ENCOUNTER FOR ANTINEOPLASTIC CHEMOTHERAP 05/21/2015 MERISSA PISANO, BRITTANY Ot Z79.899 OTHER CUSTODIAL (CURRENT) DRUG THERAPY 06/03/2015 GABRIELLA AMARO Ot E66.9 OBESITY, UNSPECIFIED 06/03/2015 GABRIELLA AMARO Ot E78.2 MIXED HYPERLIPIDEMIA 06/03/2015 GABRIELLA AMARO Ot I10 ESSENTIAL (PRIMARY) HYPERTENSION 06/03/2015 GABRIELLA AMARO Ot I25.10 ATHSCL HEART DISEASE OF [place] CORONARY 06/03/2015 GABRIELLA AMARO Ot I65.22 OCCLUSION AND STENOSIS OF LEFT CAROTID A 06/03/2015 GABRIELLA AMARO Ot I67.1 CEREBRAL ANEURYSM, NONRUPTURED 06/09/2015 BRITTANY CRAVEN MD, Ot 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, LYMPH NODES OF MUL 06/09/2015 BRITTANY CRAVEN MD Ot D50.9 IRON DEFICIENCY ANEMIA, UNSPECIFIED 06/09/2015 BRITTANY CRAVEN MD Ot E78.5 HYPERLIPIDEMIA, UNSPECIFIED 06/09/2015 BRITTANY CRAVEN MD Ot I10 ESSENTIAL (PRIMARY) HYPERTENSION 06/09/2015 BRITTANY CRAVEN MD Ot M89.9 DISORDER OF BONE, UNSPECIFIED 06/09/2015 BRITTANY CRAVEN MD Ot Z79.899 OTHER PILLOWCASE CLEANER (CURRENT) DRUG THERAPY 06/11/2015 BRITTANY CRAVEN MD, Ot 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, LYMPH NODES OF MUL 06/11/2015 BRITTANY CRAVEN MD Ot D50.9 IRON DEFICIENCY ANEMIA, UNSPECIFIED 06/11/2015 BRITTANY CRAVEN MD Ot E78.5 HYPERLIPIDEMIA, UNSPECIFIED 06/11/2015 BRITTANY CRAVEN MD Ot I10 ESSENTIAL (PRIMARY) HYPERTENSION 06/11/2015 BRITTANY CRAVEN MD Ot M89.9 DISORDER OF BONE, UNSPECIFIED 06/11/2015 BRITTANY CRAVEN MD Ot Z79.899 OTHER CUSTODIAL (CURRENT) DRUG THERAPY 06/15/2015 GABRIELLA AMARO Ot E66.9 OBESITY, UNSPECIFIED 06/15/2015 GABRIELLA AMARO Ot E78.2 MIXED HYPERLIPIDEMIA 06/15/2015 GABRIELLA AMARO Ot I10 ESSENTIAL (PRIMARY) HYPERTENSION 06/15/2015 GABRIELLA AMARO Ot I25.10 ATHSCL HEART DISEASE OF [place] CORONARY 06/15/2015 GABRIELLA AMARO Ot I65.22 OCCLUSION AND STENOSIS OF LEFT CAROTID A 06/15/2015 GABRIELLA AMARO Ot I67.1 CEREBRAL ANEURYSM, NONRUPTURED 06/16/2015 Ot 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, UNSP SITE, EXTRANO 06/16/2015 Ot 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, LYMPH NODES OF MUL 06/16/2015 Ot 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, LYMPH NODES OF MUL 06/16/2015 Ot 786.50 CHEST PAIN NOS 06/16/2015 Ot 786.09 RESPIRATORY ABNORM NEC 06/16/2015 Ot 786.50 CHEST PAIN NOS 06/16/2015 Ot 272.4 HYPERLIPIDEMIA NEC/NOS 06/16/2015 Ot 401.9 HYPERTENSION NOS 06/16/2015 Ot 414.01 CORONARY ATHEROSCLEROSIS OF [place] CORON 06/16/2015 Ot 272.4 HYPERLIPIDEMIA NEC/NOS 06/16/2015 Ot 414.00 CORON ATHEROSCLER NOS TYPE VESSEL, NATIV 06/16/2015 Ot 786.09 RESPIRATORY ABNORM NEC 06/16/2015 Ot 202.80 OTH LYMPHOMAS EXTRANODAL SOLID ORGAN U 06/16/2015 Ot 202.80 OTH LYMPHOMAS EXTRANODAL SOLID ORGAN U 06/16/2015 Ot 272.4 HYPERLIPIDEMIA NEC/NOS 06/16/2015 Ot 401.9 HYPERTENSION NOS 06/16/2015 Ot 414.01 CORONARY ATHEROSCLEROSIS OF [place] CORON 06/16/2015 Ot 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, LYMPH NODES OF MUL 06/16/2015 LENNY JEWELL MD Ot 272.4 HYPERLIPIDEMIA NEC/NOS 06/16/2015 LENNY JEWELL MD Ot 414.01 CORONARY ATHEROSCLEROSIS OF [place] CORON 06/16/2015 Ot 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, LYMPH NODES OF MUL 06/16/2015 Ot 272.4 HYPERLIPIDEMIA NEC/NOS 06/16/2015 Ot 285.9 ANEMIA NOS 06/16/2015 Ot 401.9 HYPERTENSION NOS 06/16/2015 Ot 733.90 BONE CARTILAGE DIS NOS 06/16/2015 Ot V12.71 PERSONAL HISTORY OF PEPTIC ULCER DISEASE 06/16/2015 Ot V58.11 ENCOUNTER FOR ANTINEOPLASTIC CHEMOTHERAP 06/16/2015 Ot V58.69 OT MED,LT, CURRENT USE 06/16/2015 LENNY JEWELL MD Ot 272.4 HYPERLIPIDEMIA NEC/NOS 06/16/2015 LENNY JEWELL MD Ot 414.01 CORONARY ATHEROSCLEROSIS OF [place] CORON 06/16/2015 GABRIELLA AMARO Ot 401.9 HYPERTENSION NOS 06/16/2015 GABRIELLA AMARO Ot 414.00 CORON ATHEROSCLER NOS TYPE VESSEL, NATIV 06/16/2015 GABRIELLA AMARO Ot 786.09 RESPIRATORY ABNORM NEC 06/16/2015 GABRIELLA AMARO Ot 272.4 HYPERLIPIDEMIA NEC/NOS 06/16/2015 GABRIELLA AMARO Ot 278.00 OBESITY, NOS 06/16/2015 GABRIELLA AMARO Ot 401.9 HYPERTENSION NOS 06/16/2015 GABRIELLA AMARO Ot 414.00 CORON ATHEROSCLER NOS TYPE VESSEL, NATIV 06/16/2015 GABRIELLA AMARO Ot 496 CHR AIRWAY OBSTRUCT NEC 06/16/2015 GABRIELLA AMARO Ot 786.09 RESPIRATORY ABNORM NEC 06/16/2015 GABRIELLA AMARO Ot V85.36 BODY MASS INDEX 36.0-36.9, ADULT 06/16/2015 GEETA HATHAWAY DO Ot 496 CHR AIRWAY OBSTRUCT NEC 06/16/2015 GEETA HATHAWAY DO Ot 786.09 RESPIRATORY ABNORM NEC 06/16/2015 LENNY JEWELL MD Ot 272.4 HYPERLIPIDEMIA NEC/NOS 06/16/2015 LENNY JEWELL MD Ot 401.9 HYPERTENSION NOS 06/16/2015 FANTA PISANO, LENNY Cain Ot 414.00 CORON ATHEROSCLER NOS TYPE VESSEL, NATIV 06/16/2015 LENNY JEWELL MD Ot 496 CHR AIRWAY OBSTRUCT NEC 06/16/2015 LENNY JEWELL MD Ot 272.4 HYPERLIPIDEMIA NEC/NOS 06/16/2015 LENNY JEWELL MD J Ot 401.9 HYPERTENSION NOS 06/16/2015 FANTA PISANO, LENNY J Ot 414.00 CORON ATHEROSCLER NOS TYPE VESSEL, NATIV 06/16/2015 LENNY JEWELL MD Ot 496 CHR AIRWAY OBSTRUCT NEC 06/16/2015 GEETA HATHAWAY DO Ot 278.00 OBESITY, NOS 06/16/2015 GEETA HATHAWAY DO Ot 496 CHR AIRWAY OBSTRUCT NEC 06/16/2015 LENNY JEWELL MD Ot 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, UNSP SITE, EXTRANO 06/16/2015 LENNY JEWELL MD Ot 272.4 HYPERLIPIDEMIA NEC/NOS 06/16/2015 LENNY JEWELL MD Ot 401.9 HYPERTENSION NOS 06/16/2015 LENNY JEWELL MD Ot 414.9 CHR ISCHEMIC HRT DIS NOS 06/16/2015 GABRIELLA AMARO Ot E66.9 OBESITY, UNSPECIFIED 06/16/2015 GABRIELLA AMARO Ot E78.2 MIXED HYPERLIPIDEMIA 06/16/2015 GABRIELLA AMARO Ot I10 ESSENTIAL (PRIMARY) HYPERTENSION 06/16/2015 GABRIELLA AMARO Ot I25.10 ATHSCL HEART DISEASE OF [place] CORONARY 06/16/2015 GABRIELLA AMARO Ot I65.22 OCCLUSION AND STENOSIS OF LEFT CAROTID A 06/16/2015 GABRIELLA AMARO Ot I67.1 CEREBRAL ANEURYSM, NONRUPTURED 06/16/2015 BRITTANY CRAVEN MD, Ot 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, LYMPH NODES OF MUL 06/16/2015 BRITTANY CRAVEN MD Ot D50.9 IRON DEFICIENCY ANEMIA, UNSPECIFIED 06/16/2015 BRITTANY CRAVEN MD Ot E78.5 HYPERLIPIDEMIA, UNSPECIFIED 06/16/2015 BRITTANY CRAVEN MD Ot I10 ESSENTIAL (PRIMARY) HYPERTENSION 06/16/2015 BRITTANY CRAVEN MD Ot M89.9 DISORDER OF BONE, UNSPECIFIED 06/16/2015 BRITTANY CRAVEN MD Ot Z79.899 OTHER PILLOWCASE CLEANER (CURRENT) DRUG THERAPY 07/23/2015 BRITTANY CRAVEN MD Ot 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, LYMPH NODES OF MUL 07/23/2015 BRITTANY CRAVEN MD Ot D50.9 IRON DEFICIENCY ANEMIA, UNSPECIFIED 07/23/2015 BRITTANY CRAVEN MD Ot E78.5 HYPERLIPIDEMIA, UNSPECIFIED 07/23/2015 BRITTANY CRAVEN MD Ot I10 ESSENTIAL (PRIMARY) HYPERTENSION 07/23/2015 BRITTANY CRAVEN MD Ot M89.9 DISORDER OF BONE, UNSPECIFIED 07/23/2015 BRITTANY CRAVEN MD Ot Z79.899 OTHER CUSTODIAL (CURRENT) DRUG THERAPY 08/19/2015 Ot 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, LYMPH NODES OF MUL 08/19/2015 Ot 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, LYMPH NODES OF MUL 08/19/2015 Ot 786.50 CHEST PAIN NOS 08/19/2015 Ot 786.09 RESPIRATORY ABNORM NEC 08/19/2015 Ot 786.50 CHEST PAIN NOS 08/19/2015 Ot 272.4 HYPERLIPIDEMIA NEC/NOS 08/19/2015 Ot 401.9 HYPERTENSION NOS 08/19/2015 Ot 414.01 CORONARY ATHEROSCLEROSIS OF [place] CORON 08/19/2015 Ot 272.4 HYPERLIPIDEMIA NEC/NOS 08/19/2015 Ot 414.00 CORON ATHEROSCLER NOS TYPE VESSEL, NATIV 08/19/2015 Ot 786.09 RESPIRATORY ABNORM NEC 08/19/2015 Ot 202.80 OTH LYMPHOMAS EXTRANODAL SOLID ORGAN U 08/19/2015 Ot 202.80 OTH LYMPHOMAS EXTRANODAL SOLID ORGAN U 08/19/2015 Ot 272.4 HYPERLIPIDEMIA NEC/NOS 08/19/2015 Ot 401.9 HYPERTENSION NOS 08/19/2015 Ot 414.01 CORONARY ATHEROSCLEROSIS OF [place] CORON 08/19/2015 Ot 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, LYMPH NODES OF MUL 08/19/2015 LENNY JEEWLL MD Ot 272.4 HYPERLIPIDEMIA NEC/NOS 08/19/2015 LENNY JEWELL MD Ot 414.01 CORONARY ATHEROSCLEROSIS OF [place] CORON 08/19/2015 Ot 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, LYMPH NODES OF MUL 08/19/2015 Ot 272.4 HYPERLIPIDEMIA NEC/NOS 08/19/2015 Ot 285.9 ANEMIA NOS 08/19/2015 Ot 401.9 HYPERTENSION NOS 08/19/2015 Ot 733.90 BONE CARTILAGE DIS NOS 08/19/2015 Ot V12.71 PERSONAL HISTORY OF PEPTIC ULCER DISEASE 08/19/2015 Ot V58.11 ENCOUNTER FOR ANTINEOPLASTIC CHEMOTHERAP 08/19/2015 Ot V58.69 OTH MED,LT, CURRENT USE 08/19/2015 LENNY JEWELL MD Ot 272.4 HYPERLIPIDEMIA NEC/NOS 08/19/2015 LENNY JEWELL MD Ot 414.01 CORONARY ATHEROSCLEROSIS OF [place] CORON 08/19/2015 GABRIELLA AMARO Ot 401.9 HYPERTENSION NOS 08/19/2015 GABRIELLA AMARO Ot 414.00 CORON ATHEROSCLER NOS TYPE VESSEL, NATIV 08/19/2015 GABRIELLA AMARO Ot 786.09 RESPIRATORY ABNORM NEC 08/19/2015 GABRIELLA AMARO Ot 272.4 HYPERLIPIDEMIA NEC/NOS 08/19/2015 GABRIELLA AMARO Ot 278.00 OBESITY, NOS 08/19/2015 GABRIELLA AMARO Ot 401.9 HYPERTENSION NOS 08/19/2015 GABRIELLA AMARO Ot 414.00 CORON ATHEROSCLER NOS TYPE VESSEL, NATIV 08/19/2015 GABRIELLA AMARO Ot 496 CHR AIRWAY OBSTRUCT NEC 08/19/2015 GABRIELLA AMARO Ot 786.09 RESPIRATORY ABNORM NEC 08/19/2015 GABRIELLA AMARO Ot V85.36 BODY MASS INDEX 36.0-36.9, ADULT 08/19/2015 GEETA HATHAWAY DO Ot 496 CHR AIRWAY OBSTRUCT NEC 08/19/2015 GEETA HATHAWAY DO Ot 786.09 RESPIRATORY ABNORM NEC 08/19/2015 LENNY JEWELL MD Ot 272.4 HYPERLIPIDEMIA NEC/NOS 08/19/2015 LENNY JEWELL MD Ot 401.9 HYPERTENSION NOS 08/19/2015 FANTA PISANO, LENNY Cain Ot 414.00 CORON ATHEROSCLER NOS TYPE VESSEL, NATIV 08/19/2015 LENNY JEWELL MD Ot 496 CHR AIRWAY OBSTRUCT NEC 08/19/2015 LENNY JEWELL MD Ot 272.4 HYPERLIPIDEMIA NEC/NOS 08/19/2015 LENNY JEWELL MD Ot 401.9 HYPERTENSION NOS 08/19/2015 FANTA PISANO, LENNY J Ot 414.00 CORON ATHEROSCLER NOS TYPE VESSEL, NATIV 08/19/2015 LENNY JEWELL MD Ot 496 CHR AIRWAY OBSTRUCT NEC 08/19/2015 GEETA HATHAWAY DO Ot 278.00 OBESITY, NOS 08/19/2015 GEETA HATHAWAY DO Ot 496 CHR AIRWAY OBSTRUCT NEC 08/19/2015 FANTA PISANO, LENNY Cain Ot 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, UNSP SITE, EXTRANO 08/19/2015 LENNY JEWELL MD Ot 272.4 HYPERLIPIDEMIA NEC/NOS 08/19/2015 LENNY JEWELL MD J Ot 401.9 HYPERTENSION NOS 08/19/2015 LENNY JEWELL MD Ot 414.9 CHR ISCHEMIC HRT DIS NOS 08/19/2015 GABRIELLA AMARO Ot E66.9 OBESITY, UNSPECIFIED 08/19/2015 GABRIELLA AMARO Ot E78.2 MIXED HYPERLIPIDEMIA 08/19/2015 GABRIELLA AMARO Ot I10 ESSENTIAL (PRIMARY) HYPERTENSION 08/19/2015 GABRIELLA AMARO Ot I25.10 ATHSCL HEART DISEASE OF [place] CORONARY 08/19/2015 GABRIELLA AMARO Ot I65.22 OCCLUSION AND STENOSIS OF LEFT CAROTID A 08/19/2015 GABRIELLA AMARO Ot I67.1 CEREBRAL ANEURYSM, NONRUPTURED 08/19/2015 BRITTANY CRAVEN MD, Ot 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, LYMPH NODES OF MUL 08/19/2015 BRITTANY CRAVEN MD, Ot D50.9 IRON DEFICIENCY ANEMIA, UNSPECIFIED 08/19/2015 BRITTANY CRAVEN MD, Ot E78.5 HYPERLIPIDEMIA, UNSPECIFIED 08/19/2015 BRITTANY CRAVEN MD, Ot I10 ESSENTIAL (PRIMARY) HYPERTENSION 08/19/2015 BRITTANY CRAVEN MD, Ot M89.9 DISORDER OF BONE, UNSPECIFIED 08/19/2015 BRITTANY CRAVEN MD Ot Z79.899 OTHER CUSTODIAL (CURRENT) DRUG THERAPY 09/08/2015 BRITTANY CRAVEN MD, Ot 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, LYMPH NODES OF MUL 09/08/2015 BRITTANY CRAVEN MD, Ot D50.9 IRON DEFICIENCY ANEMIA, UNSPECIFIED 09/08/2015 BRITTANY CRAVEN MD Ot E78.5 HYPERLIPIDEMIA, UNSPECIFIED 09/08/2015 BRITTANY CRAVEN MD Ot I10 ESSENTIAL (PRIMARY) HYPERTENSION 09/08/2015 BRITTANY CRAVEN MD Ot M89.9 DISORDER OF BONE, UNSPECIFIED 09/08/2015 BRITTANY CRAVEN MD Ot Z79.899 OTHER CUSTODIAL (CURRENT) DRUG THERAPY 09/22/2015 BRITTANY CRAVEN MD, Ot 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, LYMPH NODES OF MUL 09/22/2015 BRITTANY CRAVEN MD, Ot D50.9 IRON DEFICIENCY ANEMIA, UNSPECIFIED 09/22/2015 BRITTANY CRAVEN MD Ot E78.5 HYPERLIPIDEMIA, UNSPECIFIED 09/22/2015 BRITTANY CRAVEN MD Ot I10 ESSENTIAL (PRIMARY) HYPERTENSION 09/22/2015 BRITTANY CRAVEN MD Ot M89.9 DISORDER OF BONE, UNSPECIFIED 09/22/2015 BRITTANY CRAVEN MD Ot Z79.899 OTHER PILLOWCASE CLEANER (CURRENT) DRUG THERAPY 09/24/2015 BRITTANY CRAVEN MD Ot 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, LYMPH NODES OF MUL 09/24/2015 BRITTANY CRAVEN MD Ot D50.9 IRON DEFICIENCY ANEMIA, UNSPECIFIED 09/24/2015 BRITTANY CRAVEN MD Ot E78.5 HYPERLIPIDEMIA, UNSPECIFIED 09/24/2015 BRITTANY CRAVEN MD Ot I10 ESSENTIAL (PRIMARY) HYPERTENSION 09/24/2015 BRITTANY CRAVEN MD Ot M89.9 DISORDER OF BONE, UNSPECIFIED 09/24/2015 BRITTANY CRAVEN MD Ot Z79.899 OTHER CUSTODIAL (CURRENT) DRUG THERAPY 10/26/2015 BRITTANY CRAVEN MD Ot 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, LYMPH NODES OF MUL 10/26/2015 BRITTANY CRAVEN MD Ot D50.9 IRON DEFICIENCY ANEMIA, UNSPECIFIED 10/26/2015 BRITTANY CRAVEN MD Ot E78.5 HYPERLIPIDEMIA, UNSPECIFIED 10/26/2015 BRITTANY CRAVEN MD Ot I10 ESSENTIAL (PRIMARY) HYPERTENSION 10/26/2015 BRITTANY CRAVEN MD Ot M89.9 DISORDER OF BONE, UNSPECIFIED 10/26/2015 BRITTANY CRAVEN MD Ot Z79.899 OTHER CUSTODIAL (CURRENT) DRUG THERAPY 10/29/2015 GABRIELLA AMARO Ot E78.5 HYPERLIPIDEMIA, UNSPECIFIED 10/29/2015 GABRIELLA AMARO K Ot I10 ESSENTIAL (PRIMARY) HYPERTENSION 10/29/2015 GABRIELLA AMARO Ot I25.10 ATHSCL HEART DISEASE OF [place] CORONARY 11/02/2015 GABRIELLA AMARO Ot E78.5 HYPERLIPIDEMIA, UNSPECIFIED 11/02/2015 GABRIELLA AMARO K Ot I10 ESSENTIAL (PRIMARY) HYPERTENSION 11/02/2015 GABRIELLA AMARO K Ot I25.10 ATHSCL HEART DISEASE OF [place] CORONARY 11/03/2015 GABRIELLA AMARO Ot E78.5 HYPERLIPIDEMIA, UNSPECIFIED 11/03/2015 VAUGHAN-ASHWIN PA, GABRIELLA K Ot I10 ESSENTIAL (PRIMARY) HYPERTENSION 11/03/2015 CHELY BERRY, GABRIELLA K Ot I25.10 ATHSCL HEART DISEASE OF [place] CORONARY 11/03/2015 CHELY BERRY, GABRIELLA K Ot E78.5 HYPERLIPIDEMIA, UNSPECIFIED 11/03/2015 CHELY BERRY, GABRIELLA K Ot I10 ESSENTIAL (PRIMARY) HYPERTENSION 11/03/2015 CHELY BERRY, GABRIELLA K Ot I25.10 ATHSCL HEART DISEASE OF [place] CORONARY 11/03/2015 CHELY BERRY, GABRIELLA K Ot E78.5 HYPERLIPIDEMIA, UNSPECIFIED 11/03/2015 CHELY BERRY, GABRIELLA K Ot I10 ESSENTIAL (PRIMARY) HYPERTENSION 11/03/2015 CHELY BERRY, GABRIELLA K Ot I25.10 ATHSCL HEART DISEASE OF [place] CORONARY 11/03/2015 CHELY BERRY, GABRIELLA K Ot E78.5 HYPERLIPIDEMIA, UNSPECIFIED 11/03/2015 CHELY BERRY, GABRIELLA K Ot I10 ESSENTIAL (PRIMARY) HYPERTENSION 11/03/2015 CHELY BERRY, GABRIELLA K Ot I25.10 ATHSCL HEART DISEASE OF [place] CORONARY 11/05/2015 BRITTANY CRAVEN MD, Ot 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, LYMPH NODES OF MUL 11/05/2015 BRITTANY CRAVEN MD Ot D50.9 IRON DEFICIENCY ANEMIA, UNSPECIFIED 11/05/2015 BRITTANY CRAVEN MD, Ot E78.5 HYPERLIPIDEMIA, UNSPECIFIED 11/05/2015 BRITTANY CRAVEN MD, Ot I10 ESSENTIAL (PRIMARY) HYPERTENSION 11/05/2015 BRITTANY CRAVEN MD Ot M89.9 DISORDER OF BONE, UNSPECIFIED 11/05/2015 BRITTANY CRAVEN MD Ot Z79.899 OTHER CUSTODIAL (CURRENT) DRUG THERAPY 11/09/2015 BRITTANY CRAVEN MD, Ot 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, LYMPH NODES OF MUL 11/09/2015 BRITTANY CRAVEN MD Ot D50.9 IRON DEFICIENCY ANEMIA, UNSPECIFIED 11/09/2015 BRITTANY CRAVEN MD Ot E78.5 HYPERLIPIDEMIA, UNSPECIFIED 11/09/2015 BRITTANY CRAVEN MD Ot I10 ESSENTIAL (PRIMARY) HYPERTENSION 11/09/2015 BRITTANY CRAVEN MD Ot M89.9 DISORDER OF BONE, UNSPECIFIED 11/09/2015 MERISSA PISANO, BRITTANY Ot Z51.11 ENCOUNTER FOR ANTINEOPLASTIC CHEMOTHERAP 11/09/2015 MERISSA PISANO, BRITTANY Ot Z79.899 OTHER CUSTODIAL (CURRENT) DRUG THERAPY 11/09/2015 GABRIELLA AMARO Ot E78.5 HYPERLIPIDEMIA, UNSPECIFIED 11/09/2015 GABRIELLA AMARO Ot I10 ESSENTIAL (PRIMARY) HYPERTENSION 11/09/2015 GABRIELLA AMARO Ot I25.10 ATHSCL HEART DISEASE OF [place] CORONARY 11/10/2015 Ot 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, LYMPH NODES OF MUL 11/10/2015 Ot 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, LYMPH NODES OF MUL 11/10/2015 Ot 786.50 CHEST PAIN NOS 11/10/2015 Ot 786.09 RESPIRATORY ABNORM NEC 11/10/2015 Ot 786.50 CHEST PAIN NOS 11/10/2015 Ot 272.4 HYPERLIPIDEMIA NEC/NOS 11/10/2015 Ot 401.9 HYPERTENSION NOS 11/10/2015 Ot 414.01 CORONARY ATHEROSCLEROSIS OF [place] CORON 11/10/2015 Ot 272.4 HYPERLIPIDEMIA NEC/NOS 11/10/2015 Ot 414.00 CORON ATHEROSCLER NOS TYPE VESSEL, NATIV 11/10/2015 Ot 786.09 RESPIRATORY ABNORM NEC 11/10/2015 Ot 202.80 OTH LYMPHOMAS EXTRANODAL SOLID ORGAN U 11/10/2015 Ot 202.80 OTH LYMPHOMAS EXTRANODAL SOLID ORGAN U 11/10/2015 Ot 272.4 HYPERLIPIDEMIA NEC/NOS 11/10/2015 Ot 401.9 HYPERTENSION NOS 11/10/2015 Ot 414.01 CORONARY ATHEROSCLEROSIS OF [place] CORON 11/10/2015 Ot 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, LYMPH NODES OF MUL 11/10/2015 LENNY JEWELL MD Ot 272.4 HYPERLIPIDEMIA NEC/NOS 11/10/2015 LENNY JEWELL MD Ot 414.01 CORONARY ATHEROSCLEROSIS OF [place] CORON 11/10/2015 Ot 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, LYMPH NODES OF MUL 11/10/2015 Ot 272.4 HYPERLIPIDEMIA NEC/NOS 11/10/2015 Ot 285.9 ANEMIA NOS 11/10/2015 Ot 401.9 HYPERTENSION NOS 11/10/2015 Ot 733.90 BONE CARTILAGE DIS NOS 11/10/2015 Ot V12.71 PERSONAL HISTORY OF PEPTIC ULCER DISEASE 11/10/2015 Ot V58.11 ENCOUNTER FOR ANTINEOPLASTIC CHEMOTHERAP 11/10/2015 Ot V58.69 OTH MED,LT, CURRENT USE 11/10/2015 FANTA PISANO, LENNY Cain Ot 272.4 HYPERLIPIDEMIA NEC/NOS 11/10/2015 FANTA PISANO, LENNY Cain Ot 414.01 CORONARY ATHEROSCLEROSIS OF [place] CORON 11/10/2015 GABRIELLA AMARO Ot 401.9 HYPERTENSION NOS 11/10/2015 GABRIELLA AMARO Ot 414.00 CORON ATHEROSCLER NOS TYPE VESSEL, NATIV 11/10/2015 GABRIELLA AMARO Ot 786.09 RESPIRATORY ABNORM NEC 11/10/2015 GABRIELLA AMARO Ot 272.4 HYPERLIPIDEMIA NEC/NOS 11/10/2015 GABRIELLA AMARO Ot 278.00 OBESITY, NOS 11/10/2015 GABRIELLA AMARO Ot 401.9 HYPERTENSION NOS 11/10/2015 GABRIELLA AMARO Ot 414.00 CORON ATHEROSCLER NOS TYPE VESSEL, NATIV 11/10/2015 GABRIELLA AMARO Ot 496 CHR AIRWAY OBSTRUCT NEC 11/10/2015 GABRIELLA AMARO Ot 786.09 RESPIRATORY ABNORM NEC 11/10/2015 GABRIELLA AMARO Ot V85.36 BODY MASS INDEX 36.0-36.9, ADULT 11/10/2015 GEETA HATHAWAY DO Ot 496 CHR AIRWAY OBSTRUCT NEC 11/10/2015 GEETA HATHAWAY DO Ot 786.09 RESPIRATORY ABNORM NEC 11/10/2015 LENNY JEWELL MD Ot 272.4 HYPERLIPIDEMIA NEC/NOS 11/10/2015 LENNY JEWELL MD Ot 401.9 HYPERTENSION NOS 11/10/2015 FANTA PISANO, LENNY Cain Ot 414.00 CORON ATHEROSCLER NOS TYPE VESSEL, NATIV 11/10/2015 LENNY JEWELL MD Ot 496 CHR AIRWAY OBSTRUCT NEC 11/10/2015 LENNY JEWELL MD Ot 272.4 HYPERLIPIDEMIA NEC/NOS 11/10/2015 FANTA PISANO, LENNY J Ot 401.9 HYPERTENSION NOS 11/10/2015 FANTA PISANO, LENNY Cain Ot 414.00 CORON ATHEROSCLER NOS TYPE VESSEL, NATIV 11/10/2015 LENNY JEWELL MD Ot 496 CHR AIRWAY OBSTRUCT NEC 11/10/2015 GEETA HATHAWAY DO Ot 278.00 OBESITY, NOS 11/10/2015 GEETA HATHAWAY DO Ot 496 CHR AIRWAY OBSTRUCT NEC 11/10/2015 LENNY JEWELL MD Ot 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, UNSP SITE, EXTRANO 11/10/2015 LENNY JEWLEL MD Ot 272.4 HYPERLIPIDEMIA NEC/NOS 11/10/2015 LENNY JEWELL MD Ot 401.9 HYPERTENSION NOS 11/10/2015 LENNY JEWELL MD Ot 414.9 CHR ISCHEMIC HRT DIS NOS 11/10/2015 GABRIELLA AMARO Ot E66.9 OBESITY, UNSPECIFIED 11/10/2015 GABRIELLA AMARO Ot E78.2 MIXED HYPERLIPIDEMIA 11/10/2015 GABRIELLA AMARO Ot I10 ESSENTIAL (PRIMARY) HYPERTENSION 11/10/2015 GABRIELLA AMARO Ot I25.10 ATHSCL HEART DISEASE OF [place] CORONARY 11/10/2015 GABRIELLA AMARO Ot I65.22 OCCLUSION AND STENOSIS OF LEFT CAROTID A 11/10/2015 GABRIELLA AMARO Ot I67.1 CEREBRAL ANEURYSM, NONRUPTURED 11/10/2015 GABRIELLA AMARO Ot E78.5 HYPERLIPIDEMIA, UNSPECIFIED 11/10/2015 GABRIELLA AMARO Ot I10 ESSENTIAL (PRIMARY) HYPERTENSION 11/10/2015 GABRIELLA AMARO Ot I25.10 ATHSCL HEART DISEASE OF [place] CORONARY 11/10/2015 BRITTANY CRAVEN MD, Ot 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, LYMPH NODES OF [place] 11/10/2015 BRITTANY CRAVEN MD Ot D50.9 IRON DEFICIENCY ANEMIA, UNSPECIFIED 11/10/2015 BRITTANY CRAVEN MD, Ot E78.5 HYPERLIPIDEMIA, UNSPECIFIED 11/10/2015 BRITTANY CRAVEN MD Ot I10 ESSENTIAL (PRIMARY) HYPERTENSION 11/10/2015 BRITTANY CRAVEN MD Ot M89.9 DISORDER OF BONE, UNSPECIFIED 11/10/2015 BRITTANY CRAVEN MD Ot Z79.899 OTHER PILLOWCASE CLEANER (CURRENT) DRUG THERAPY 11/12/2015 BRITTANY CRAVEN MD Ot 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, LYMPH NODES OF [place] 11/12/2015 BRITTANY CRAVEN MD Ot D50.9 IRON DEFICIENCY ANEMIA, UNSPECIFIED 11/12/2015 BRITTANY CRAVEN MD Ot E78.5 HYPERLIPIDEMIA, UNSPECIFIED 11/12/2015 BRITTANY CRAVEN MD Ot I10 ESSENTIAL (PRIMARY) HYPERTENSION 11/12/2015 BRITTANY CRAVEN MD Ot M89.9 DISORDER OF BONE, UNSPECIFIED 11/12/2015 BRITTANY CRAVEN MD Ot Z79.899 OTHER PILLOWCASE CLEANER (CURRENT) DRUG THERAPY 11/18/2015 Ot 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, LYMPH NODES OF [place] 11/18/2015 Ot 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, LYMPH NODES OF [place] 11/18/2015 Ot 786.50 CHEST PAIN NOS 11/18/2015 Ot 786.09 RESPIRATORY ABNORM NEC 11/18/2015 Ot 786.50 CHEST PAIN NOS 11/18/2015 Ot 272.4 HYPERLIPIDEMIA NEC/NOS 11/18/2015 Ot 401.9 HYPERTENSION NOS 11/18/2015 Ot 414.01 CORONARY ATHEROSCLEROSIS OF [place] CORON 11/18/2015 Ot 272.4 HYPERLIPIDEMIA NEC/NOS 11/18/2015 Ot 414.00 CORON ATHEROSCLER NOS TYPE VESSEL, NATIV 11/18/2015 Ot 786.09 RESPIRATORY ABNORM NEC 11/18/2015 Ot 202.80 OTH LYMPHOMAS EXTRANODAL SOLID ORGAN U 11/18/2015 Ot 202.80 OTH LYMPHOMAS EXTRANODAL SOLID ORGAN U 11/18/2015 Ot 272.4 HYPERLIPIDEMIA NEC/NOS 11/18/2015 Ot 401.9 HYPERTENSION NOS 11/18/2015 Ot 414.01 CORONARY ATHEROSCLEROSIS OF [place] CORON 11/18/2015 Ot 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, LYMPH NODES OF [place] 11/18/2015 LENNY JEWELL MD Ot 272.4 HYPERLIPIDEMIA NEC/NOS 11/18/2015 LENNY JEWELL MD Ot 414.01 CORONARY ATHEROSCLEROSIS OF [place] CORON 11/18/2015 Ot 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, LYMPH NODES OF [place] 11/18/2015 Ot 272.4 HYPERLIPIDEMIA NEC/NOS 11/18/2015 Ot 285.9 ANEMIA NOS 11/18/2015 Ot 401.9 HYPERTENSION NOS 11/18/2015 Ot 733.90 BONE CARTILAGE DIS NOS 11/18/2015 Ot V12.71 PERSONAL HISTORY OF PEPTIC ULCER DISEASE 11/18/2015 Ot V58.11 ENCOUNTER FOR ANTINEOPLASTIC CHEMOTHERAP 11/18/2015 Ot V58.69 OT MED,LT, CURRENT USE 11/18/2015 FANTA PISANO, LENNY Cain Ot 272.4 HYPERLIPIDEMIA NEC/NOS 11/18/2015 LENNY JEWELL MD Ot 414.01 CORONARY ATHEROSCLEROSIS OF [place] CORON 11/18/2015 GABRIELLA AMARO Ot 401.9 HYPERTENSION NOS 11/18/2015 GABRIELLA AMARO Ot 414.00 CORON ATHEROSCLER NOS TYPE VESSEL, NATIV 11/18/2015 GABRIELLA AMARO Ot 786.09 RESPIRATORY ABNORM NEC 11/18/2015 GABRIELLA AMARO Ot 272.4 HYPERLIPIDEMIA NEC/NOS 11/18/2015 GABRIELLA AMARO Ot 278.00 OBESITY, NOS 11/18/2015 GABRIELLA AMARO Ot 401.9 HYPERTENSION NOS 11/18/2015 GABRIELLA AMARO Ot 414.00 CORON ATHEROSCLER NOS TYPE VESSEL, NATIV 11/18/2015 GABRIELLA AMARO Ot 496 CHR AIRWAY OBSTRUCT NEC 11/18/2015 GABRIELLA AMARO Ot 786.09 RESPIRATORY ABNORM NEC 11/18/2015 GABRIELLA AMARO Ot V85.36 BODY MASS INDEX 36.0-36.9, ADULT 11/18/2015 GEETA HATHAWAY DO Ot 496 CHR AIRWAY OBSTRUCT NEC 11/18/2015 GEETA HATHAWAY DO Ot 786.09 RESPIRATORY ABNORM NEC 11/18/2015 FANTA PISANO, LENNY Cain Ot 272.4 HYPERLIPIDEMIA NEC/NOS 11/18/2015 FANTA PISANO, LENNY Cain Ot 401.9 HYPERTENSION NOS 11/18/2015 FANTA PISANO, LENNY Cain Ot 414.00 CORON ATHEROSCLER NOS TYPE VESSEL, NATIV 11/18/2015 FANTA PISANO, LENNY Cain Ot 496 CHR AIRWAY OBSTRUCT NEC 11/18/2015 LENNY JEWELL MD Ot 272.4 HYPERLIPIDEMIA NEC/NOS 11/18/2015 LENNY JEWELL MD Ot 401.9 HYPERTENSION NOS 11/18/2015 LENNY JEWELL MD Ot 414.00 CORON ATHEROSCLER NOS TYPE VESSEL, NATIV 11/18/2015 LENNY JEWELL MD Ot 496 CHR AIRWAY OBSTRUCT NEC 11/18/2015 GEETA HATHAWAY DO Ot 278.00 OBESITY, NOS 11/18/2015 GEETA HATHAWAY DO Ot 496 CHR AIRWAY OBSTRUCT NEC 11/18/2015 LENNY JEWELL MD Ot 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, UNSP SITE, EXTRANO 11/18/2015 LENNY JEWELL MD Ot 272.4 HYPERLIPIDEMIA NEC/NOS 11/18/2015 LENNY JEWELL MD Ot 401.9 HYPERTENSION NOS 11/18/2015 LENNY JEWELL MD Ot 414.9 CHR ISCHEMIC HRT DIS NOS 11/18/2015 GABRIELLA AMARO Ot E66.9 OBESITY, UNSPECIFIED 11/18/2015 GABRIELLA AMARO Ot E78.2 MIXED HYPERLIPIDEMIA 11/18/2015 GABRIELLA AMARO Ot I10 ESSENTIAL (PRIMARY) HYPERTENSION 11/18/2015 GABRIELLA AMARO Ot I25.10 ATHSCL HEART DISEASE OF [place] CORONARY 11/18/2015 GABRIELLA AMARO Ot I65.22 OCCLUSION AND STENOSIS OF LEFT CAROTID A 11/18/2015 GABRIELLA AMARO Ot I67.1 CEREBRAL ANEURYSM, NONRUPTURED 11/18/2015 GABRIELLA AMARO Ot E78.5 HYPERLIPIDEMIA, UNSPECIFIED 11/18/2015 GABRIELLA AMARO Ot I10 ESSENTIAL (PRIMARY) HYPERTENSION 11/18/2015 GABRIELLA AMARO Ot I25.10 ATHSCL HEART DISEASE OF [place] CORONARY 11/18/2015 BRITTANY CRAVEN MD Ot 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, LYMPH NODES OF MUL 11/18/2015 BRITTANY CRAVEN MD Ot D50.9 IRON DEFICIENCY ANEMIA, UNSPECIFIED 11/18/2015 BRITTANY CRAVEN MD Ot E78.5 HYPERLIPIDEMIA, UNSPECIFIED 11/18/2015 BRITTANY CRAVEN MD Ot I10 ESSENTIAL (PRIMARY) HYPERTENSION 11/18/2015 BRITTANY CRAVEN MD Ot M89.9 DISORDER OF BONE, UNSPECIFIED 11/18/2015 BRITTANY CRAVEN MD Ot Z79.899 OTHER CUSTODIAL (CURRENT) DRUG THERAPY 12/16/2015 BRITTANY CRAVEN MD, Ot 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, LYMPH NODES OF MUL 12/16/2015 BRITTANY CRAVEN MD Ot D50.9 IRON DEFICIENCY ANEMIA, UNSPECIFIED 12/16/2015 BRITTANY CRAVEN MD Ot E78.5 HYPERLIPIDEMIA, UNSPECIFIED 12/16/2015 BRITTANY CRAVEN MD Ot I10 ESSENTIAL (PRIMARY) HYPERTENSION 12/16/2015 BRITTANY CRAVEN MD Ot M89.9 DISORDER OF BONE, UNSPECIFIED 12/16/2015 BRITTANY CRAVEN MD Ot Z79.899 OTHER CUSTODIAL (CURRENT) DRUG THERAPY 12/22/2015 BRITTANY CRAVEN MD, Ot 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, LYMPH NODES OF MUL 12/22/2015 BRITTANY CRAVEN MD, Ot D50.9 IRON DEFICIENCY ANEMIA, UNSPECIFIED 12/22/2015 BRITTANY CRAVEN MD Ot E78.5 HYPERLIPIDEMIA, UNSPECIFIED 12/22/2015 BRITTANY CRAVEN MD Ot I10 ESSENTIAL (PRIMARY) HYPERTENSION 12/22/2015 BRITTANY CRAVEN MD Ot M89.9 DISORDER OF BONE, UNSPECIFIED 12/22/2015 BRITTANY CRAVEN MD Ot Z79.899 OTHER CUSTODIAL (CURRENT) DRUG THERAPY 01/25/2016 BENNETT AMAROTH K Ot E78.2 MIXED HYPERLIPIDEMIA 01/25/2016 BENNETT AMAROTH K Ot E78.2 MIXED HYPERLIPIDEMIA 01/25/2016 BENNETT AMAROTH K Ot E78.2 MIXED HYPERLIPIDEMIA 01/25/2016 BENNETT AMAROTH K Ot E78.2 MIXED HYPERLIPIDEMIA 01/25/2016 BENNETT AMAROTH K Ot E78.2 MIXED HYPERLIPIDEMIA 02/02/2016 BENNETT AMAROTH K Ot E78.2 MIXED HYPERLIPIDEMIA 02/09/2016 BRITTANY CRAVEN MD, Ot 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, LYMPH NODES OF MUL 02/09/2016 BRITTANY CRAVEN MD Ot D50.9 IRON DEFICIENCY ANEMIA, UNSPECIFIED 02/09/2016 BRITTANY CRAVEN MD, Ot E78.5 HYPERLIPIDEMIA, UNSPECIFIED 02/09/2016 BRITTANY CRAVEN MD Ot I10 ESSENTIAL (PRIMARY) HYPERTENSION 02/09/2016 BRITTANY CRAVEN MD Ot M89.9 DISORDER OF BONE, UNSPECIFIED 02/09/2016 BRITTANY CRAVEN MD Ot Z79.899 OTHER PILLOWCASE CLEANER (CURRENT) DRUG THERAPY 02/10/2016 Ot 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, LYMPH NODES OF MUL 02/10/2016 Ot 786.50 CHEST PAIN NOS 02/10/2016 Ot 786.09 RESPIRATORY ABNORM NEC 02/10/2016 Ot 786.50 CHEST PAIN NOS 02/10/2016 Ot 272.4 HYPERLIPIDEMIA NEC/NOS 02/10/2016 Ot 401.9 HYPERTENSION NOS 02/10/2016 Ot 414.01 CORONARY ATHEROSCLEROSIS OF [place] CORON 02/10/2016 Ot 272.4 HYPERLIPIDEMIA NEC/NOS 02/10/2016 Ot 414.00 CORON ATHEROSCLER NOS TYPE VESSEL, NATIV 02/10/2016 Ot 786.09 RESPIRATORY ABNORM NEC 02/10/2016 Ot 202.80 OTH LYMPHOMAS EXTRANODAL SOLID ORGAN U 02/10/2016 Ot 202.80 OTH LYMPHOMAS EXTRANODAL SOLID ORGAN U 02/10/2016 Ot 272.4 HYPERLIPIDEMIA NEC/NOS 02/10/2016 Ot 401.9 HYPERTENSION NOS 02/10/2016 Ot 414.01 CORONARY ATHEROSCLEROSIS OF [place] CORON 02/10/2016 Ot 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, LYMPH NODES OF MUL 02/10/2016 LENNY JEWELL MD Ot 272.4 HYPERLIPIDEMIA NEC/NOS 02/10/2016 LENNY JEWELL MD Ot 414.01 CORONARY ATHEROSCLEROSIS OF [place] CORON 02/10/2016 Ot 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, LYMPH NODES OF MUL 02/10/2016 Ot 272.4 HYPERLIPIDEMIA NEC/NOS 02/10/2016 Ot 285.9 ANEMIA NOS 02/10/2016 Ot 401.9 HYPERTENSION NOS 02/10/2016 Ot 733.90 BONE CARTILAGE DIS NOS 02/10/2016 Ot V12.71 PERSONAL HISTORY OF PEPTIC ULCER DISEASE 02/10/2016 Ot V58.11 ENCOUNTER FOR ANTINEOPLASTIC CHEMOTHERAP 02/10/2016 Ot V58.69 OTH MED,LT, CURRENT USE 02/10/2016 LENNY JEWELL MD Ot 272.4 HYPERLIPIDEMIA NEC/NOS 02/10/2016 LENNY JEWELL MD Ot 414.01 CORONARY ATHEROSCLEROSIS OF [place] CORON 02/10/2016 GABRIELLA AMARO Ot 401.9 HYPERTENSION NOS 02/10/2016 CHELY BERRY, GABRIELLA [place] Ot 414.00 CORON ATHEROSCLER NOS TYPE VESSEL, NATIV 02/10/2016 GABRIELLA AMARO Ot 786.09 RESPIRATORY ABNORM NEC 02/10/2016 GABRIELLA AMARO Ot 272.4 HYPERLIPIDEMIA NEC/NOS 02/10/2016 GABRIELLA AMARO Ot 278.00 OBESITY, NOS 02/10/2016 GABRIELLA AMARO Ot 401.9 HYPERTENSION NOS 02/10/2016 GABRIELLA AMARO Ot 414.00 CORON ATHEROSCLER NOS TYPE VESSEL, NATIV 02/10/2016 GABRIELLA AMARO Ot 496 CHR AIRWAY OBSTRUCT NEC 02/10/2016 GABRIELLA AMARO Ot 786.09 RESPIRATORY ABNORM NEC 02/10/2016 GABRIELLA AMARO Ot V85.36 BODY MASS INDEX 36.0-36.9, ADULT 02/10/2016 GEETA HATHAWAY DO Ot 496 CHR AIRWAY OBSTRUCT NEC 02/10/2016 GEETA HATHAWAY DO Ot 786.09 RESPIRATORY ABNORM NEC 02/10/2016 LENNY JEWELL MD Ot 272.4 HYPERLIPIDEMIA NEC/NOS 02/10/2016 LENNY JEWELL MD Ot 401.9 HYPERTENSION NOS 02/10/2016 LENNY JEWELL MD Ot 414.00 CORON ATHEROSCLER NOS TYPE VESSEL, NATIV 02/10/2016 LENNY JEWELL MD Ot 496 CHR AIRWAY OBSTRUCT NEC 02/10/2016 LENNY JEWELL MD Ot 272.4 HYPERLIPIDEMIA NEC/NOS 02/10/2016 FANTA PISANO, LENNY J Ot 401.9 HYPERTENSION NOS 02/10/2016 FANTA PISANO, LENNY J Ot 414.00 CORON ATHEROSCLER NOS TYPE VESSEL, NATIV 02/10/2016 LENNY JEWELL MD Ot 496 CHR AIRWAY OBSTRUCT NEC 02/10/2016 GEETA HATHAWAY DO Ot 278.00 OBESITY, NOS 02/10/2016 GEETA HATHAWAY DO Ot 496 CHR AIRWAY OBSTRUCT NEC 02/10/2016 LENNY JEWELL MD Ot 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, UNSP SITE, EXTRANO 02/10/2016 LENNY JEWELL MD Ot 272.4 HYPERLIPIDEMIA NEC/NOS 02/10/2016 LENNY JEWELL MD Ot 401.9 HYPERTENSION NOS 02/10/2016 LENNY JEWELL MD Ot 414.9 CHR ISCHEMIC HRT DIS NOS 02/10/2016 GABRIELLA AMARO Ot E66.9 OBESITY, UNSPECIFIED 02/10/2016 GABRIELLA AMARO Ot E78.2 MIXED HYPERLIPIDEMIA 02/10/2016 GABRIELLA AMARO Ot I10 ESSENTIAL (PRIMARY) HYPERTENSION 02/10/2016 GABRIELLA AMARO Ot I25.10 ATHSCL HEART DISEASE OF [place] CORONARY 02/10/2016 GABRIELLA AMARO Ot I65.22 OCCLUSION AND STENOSIS OF LEFT CAROTID A 02/10/2016 GABRIELLA AMARO Ot I67.1 CEREBRAL ANEURYSM, NONRUPTURED 02/10/2016 GABRIELLA AMARO Ot E78.5 HYPERLIPIDEMIA, UNSPECIFIED 02/10/2016 GABRIELLA AMARO Ot I10 ESSENTIAL (PRIMARY) HYPERTENSION 02/10/2016 GABRIELLA AMARO Ot I25.10 ATHSCL HEART DISEASE OF [place] CORONARY 02/10/2016 GABRIELLA AMARO Ot E78.2 MIXED HYPERLIPIDEMIA 02/10/2016 BRITTANY CRAVEN MD, Ot 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, LYMPH NODES OF MUL 02/10/2016 BRTITANY CRAVEN MD, Ot D50.9 IRON DEFICIENCY ANEMIA, UNSPECIFIED 02/10/2016 BRITTANY CRAVEN MD, Ot E78.5 HYPERLIPIDEMIA, UNSPECIFIED 02/10/2016 BRITTANY CRAVEN MD, Ot I10 ESSENTIAL (PRIMARY) HYPERTENSION 02/10/2016 BRITTANY CRAVEN MD, Ot M89.9 DISORDER OF BONE, UNSPECIFIED 02/10/2016 BRITTANY CRAVEN MD, Ot Z79.899 OTHER CUSTODIAL (CURRENT) DRUG THERAPY 02/12/2016 BRITTANY CRAVEN MD, Ot 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, LYMPH NODES OF MUL 02/12/2016 BRITTANY CRAVEN MD, Ot D50.9 IRON DEFICIENCY ANEMIA, UNSPECIFIED 02/12/2016 XUN MD, BERUMEN-GWEN Ot E78.5 HYPERLIPIDEMIA, UNSPECIFIED 02/12/2016 MERISSA PISANO, BRITTANY Ot I10 ESSENTIAL (PRIMARY) HYPERTENSION 02/12/2016 MERISSA PISANO, BRITTANY Ot M89.9 DISORDER OF BONE, UNSPECIFIED 02/12/2016 MERISSA PISANO, BRITTANY Ot Z79.899 OTHER CUSTODIAL (CURRENT) DRUG THERAPY 02/17/2016 Ot 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, LYMPH NODES OF MUL 02/17/2016 Ot 786.50 CHEST PAIN NOS 02/17/2016 Ot 786.09 RESPIRATORY ABNORM NEC 02/17/2016 Ot 786.50 CHEST PAIN NOS 02/17/2016 Ot 272.4 HYPERLIPIDEMIA NEC/NOS 02/17/2016 Ot 401.9 HYPERTENSION NOS 02/17/2016 Ot 414.01 CORONARY ATHEROSCLEROSIS OF [place] CORON 02/17/2016 Ot 272.4 HYPERLIPIDEMIA NEC/NOS 02/17/2016 Ot 414.00 CORON ATHEROSCLER NOS TYPE VESSEL, NATIV 02/17/2016 Ot 786.09 RESPIRATORY ABNORM NEC 02/17/2016 Ot 202.80 OTH LYMPHOMAS EXTRANODAL SOLID ORGAN U 02/17/2016 Ot 202.80 OTH LYMPHOMAS EXTRANODAL SOLID ORGAN U 02/17/2016 Ot 272.4 HYPERLIPIDEMIA NEC/NOS 02/17/2016 Ot 401.9 HYPERTENSION NOS 02/17/2016 Ot 414.01 CORONARY ATHEROSCLEROSIS OF [place] CORON 02/17/2016 Ot 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, LYMPH NODES OF MUL 02/17/2016 LENNY JEWELL MD Ot 272.4 HYPERLIPIDEMIA NEC/NOS 02/17/2016 LENNY JEWELL MD Ot 414.01 CORONARY ATHEROSCLEROSIS OF [place] CORON 02/17/2016 Ot 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, LYMPH NODES OF MUL 02/17/2016 Ot 272.4 HYPERLIPIDEMIA NEC/NOS 02/17/2016 Ot 285.9 ANEMIA NOS 02/17/2016 Ot 401.9 HYPERTENSION NOS 02/17/2016 Ot 733.90 BONE CARTILAGE DIS NOS 02/17/2016 Ot V12.71 PERSONAL HISTORY OF PEPTIC ULCER DISEASE 02/17/2016 Ot V58.11 ENCOUNTER FOR ANTINEOPLASTIC CHEMOTHERAP 02/17/2016 Ot V58.69 OTH MED,LT, CURRENT USE 02/17/2016 LENNY JEWELL MD Ot 272.4 HYPERLIPIDEMIA NEC/NOS 02/17/2016 LENNY JEWELL MD Ot 414.01 CORONARY ATHEROSCLEROSIS OF [place] CORON 02/17/2016 GABRIELLA AMARO Ot 401.9 HYPERTENSION NOS 02/17/2016 GABRIELLA AMARO Ot 414.00 CORON ATHEROSCLER NOS TYPE VESSEL, NATIV 02/17/2016 GABRIELLA AMARO Ot 786.09 RESPIRATORY ABNORM NEC 02/17/2016 GABRIELLA AMARO Ot 272.4 HYPERLIPIDEMIA NEC/NOS 02/17/2016 CHELY BERRY GABRIELLA K Ot 278.00 OBESITY, NOS 02/17/2016 CHELY BERRY GABRIELLA K Ot 401.9 HYPERTENSION NOS 02/17/2016 CHELY BERRY GABRIELLA K Ot 414.00 CORON ATHEROSCLER NOS TYPE VESSEL, NATIV 02/17/2016 GABRIELLA AMARO Ot 496 CHR AIRWAY OBSTRUCT NEC 02/17/2016 GABRIELLA AMARO Ot 786.09 RESPIRATORY ABNORM NEC 02/17/2016 GABRIELLA AMAOR Ot V85.36 BODY MASS INDEX 36.0-36.9, ADULT 02/17/2016 GEETA HATHAWAY DO Ot 496 CHR AIRWAY OBSTRUCT NEC 02/17/2016 GEETA HATHAWAY DO Ot 786.09 RESPIRATORY ABNORM NEC 02/17/2016 FANTA PISANO, LENNY Cain Ot 272.4 HYPERLIPIDEMIA NEC/NOS 02/17/2016 FANTA PISANO, LENNY Cain Ot 401.9 HYPERTENSION NOS 02/17/2016 FANTA PISANO, LENNY Cain Ot 414.00 CORON ATHEROSCLER NOS TYPE VESSEL, NATIV 02/17/2016 LENNY JEWELL MD Ot 496 CHR AIRWAY OBSTRUCT NEC 02/17/2016 FANTA PISANO, LENNY J Ot 272.4 HYPERLIPIDEMIA NEC/NOS 02/17/2016 FANTA PISANO, LENNY J Ot 401.9 HYPERTENSION NOS 02/17/2016 FANTA PISANO, LENNY J Ot 414.00 CORON ATHEROSCLER NOS TYPE VESSEL, NATIV 02/17/2016 LENNY JEWELL MD Ot 496 CHR AIRWAY OBSTRUCT NEC 02/17/2016 GEETA HATHAWAY DO Ot 278.00 OBESITY, NOS 02/17/2016 GEETA HATHAWAY DO Ot 496 CHR AIRWAY OBSTRUCT NEC 02/17/2016 LENNY JEWELL MD Ot 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, UNSP SITE, EXTRANO 02/17/2016 LENNY JEWELL MD Ot 272.4 HYPERLIPIDEMIA NEC/NOS 02/17/2016 LENNY JEWELL MD Ot 401.9 HYPERTENSION NOS 02/17/2016 LENNY JEWELL MD Ot 414.9 CHR ISCHEMIC HRT DIS NOS 02/17/2016 GABRIELLA AMARO Ot E66.9 OBESITY, UNSPECIFIED 02/17/2016 GABRIELLA AMARO Ot E78.2 MIXED HYPERLIPIDEMIA 02/17/2016 GABRIELLA AMARO Ot I10 ESSENTIAL (PRIMARY) HYPERTENSION 02/17/2016 GABRIELLA AMARO Ot I25.10 ATHSCL HEART DISEASE OF [place] CORONARY 02/17/2016 GABRIELLA AMARO Ot I65.22 OCCLUSION AND STENOSIS OF LEFT CAROTID A 02/17/2016 GABRIELLA AMARO Ot I67.1 CEREBRAL ANEURYSM, NONRUPTURED 02/17/2016 GABRIELLA AMARO Ot E78.5 HYPERLIPIDEMIA, UNSPECIFIED 02/17/2016 GABRIELLA AMARO Ot I10 ESSENTIAL (PRIMARY) HYPERTENSION 02/17/2016 GABRIELLA AMARO Ot I25.10 ATHSCL HEART DISEASE OF [place] CORONARY 02/17/2016 GABRIELLA AMARO Ot E78.2 MIXED HYPERLIPIDEMIA 02/17/2016 BRITTANY CRAVEN MD, Ot 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, LYMPH NODES OF MUL 02/17/2016 BRITTANY CRAVEN MD Ot D50.9 IRON DEFICIENCY ANEMIA, UNSPECIFIED 02/17/2016 BRITTANY CRAVEN MD Ot E78.5 HYPERLIPIDEMIA, UNSPECIFIED 02/17/2016 BRITTANY CRAVEN MD Ot I10 ESSENTIAL (PRIMARY) HYPERTENSION 02/17/2016 BRITTANY CRAVEN MD Ot M89.9 DISORDER OF BONE, UNSPECIFIED 02/17/2016 BRITTANY CRAVEN MD, Ot Z79.899 OTHER PILLOWCASE CLEANER (CURRENT) DRUG THERAPY 02/18/2016 BRITTANY CRAVEN MD, Ot 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, LYMPH NODES OF MUL 02/18/2016 BRITTANY CRAVEN MD, Ot D50.9 IRON DEFICIENCY ANEMIA, UNSPECIFIED 02/18/2016 BRITTANY CRAVEN MD Ot E78.5 HYPERLIPIDEMIA, UNSPECIFIED 02/18/2016 BRITTANY CRAVEN MD Ot I10 ESSENTIAL (PRIMARY) HYPERTENSION 02/18/2016 BRITTANY CRAVEN MD Ot M89.9 DISORDER OF BONE, UNSPECIFIED 02/18/2016 BRITTANY CRAVEN MD Ot Z79.899 OTHER PILLOWCASE CLEANER (CURRENT) DRUG THERAPY 03/15/2016 BRITTANY CRAVEN MD Ot 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, LYMPH NODES OF MUL 03/15/2016 BRITTANY CRAVEN MD Ot D50.9 IRON DEFICIENCY ANEMIA, UNSPECIFIED 03/15/2016 BRITTANY CRAVEN MD Ot E78.5 HYPERLIPIDEMIA, UNSPECIFIED 03/15/2016 BRITTANY CRAVEN MD Ot I10 ESSENTIAL (PRIMARY) HYPERTENSION 03/15/2016 BRITTANY CRAVEN MD Ot M89.9 DISORDER OF BONE, UNSPECIFIED 03/15/2016 BRITTANY CRAVEN MD Ot Z45.2 ENCOUNTER FOR ADJUSTMENT AND MANAGEMENT 03/15/2016 BRITTANY CRAVEN MD, Ot Z79.899 OTHER CUSTODIAL (CURRENT) DRUG THERAPY 03/22/2016 Ot 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, LYMPH NODES OF MUL 03/22/2016 Ot 786.50 CHEST PAIN NOS 03/22/2016 Ot 786.09 RESPIRATORY ABNORM NEC 03/22/2016 Ot 786.50 CHEST PAIN NOS 03/22/2016 Ot 272.4 HYPERLIPIDEMIA NEC/NOS 03/22/2016 Ot 401.9 HYPERTENSION NOS 03/22/2016 Ot 414.01 CORONARY ATHEROSCLEROSIS OF [place] CORON 03/22/2016 Ot 272.4 HYPERLIPIDEMIA NEC/NOS 03/22/2016 Ot 414.00 CORON ATHEROSCLER NOS TYPE VESSEL, NATIV 03/22/2016 Ot 786.09 RESPIRATORY ABNORM NEC 03/22/2016 Ot 202.80 OTH LYMPHOMAS EXTRANODAL SOLID ORGAN U 03/22/2016 Ot 202.80 OTH LYMPHOMAS EXTRANODAL SOLID ORGAN U 03/22/2016 Ot 272.4 HYPERLIPIDEMIA NEC/NOS 03/22/2016 Ot 401.9 HYPERTENSION NOS 03/22/2016 Ot 414.01 CORONARY ATHEROSCLEROSIS OF [place] CORON 03/22/2016 Ot 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, LYMPH NODES OF MUL 03/22/2016 LENNY JEWELL MD Ot 272.4 HYPERLIPIDEMIA NEC/NOS 03/22/2016 LENNY JEWELL MD Ot 414.01 CORONARY ATHEROSCLEROSIS OF [place] CORON 03/22/2016 Ot 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, LYMPH NODES OF MUL 03/22/2016 Ot 272.4 HYPERLIPIDEMIA NEC/NOS 03/22/2016 Ot 285.9 ANEMIA NOS 03/22/2016 Ot 401.9 HYPERTENSION NOS 03/22/2016 Ot 733.90 BONE CARTILAGE DIS NOS 03/22/2016 Ot V12.71 PERSONAL HISTORY OF PEPTIC ULCER DISEASE 03/22/2016 Ot V58.11 ENCOUNTER FOR ANTINEOPLASTIC CHEMOTHERAP 03/22/2016 Ot V58.69 OT MED,LT, CURRENT USE 03/22/2016 LENNY JEWELL MD Ot 272.4 HYPERLIPIDEMIA NEC/NOS 03/22/2016 LENNY JEWELL MD Ot 414.01 CORONARY ATHEROSCLEROSIS OF [place] CORON 03/22/2016 GABRIELLA AMARO Ot 401.9 HYPERTENSION NOS 03/22/2016 GABRIELLA AMARO Ot 414.00 CORON ATHEROSCLER NOS TYPE VESSEL, NATIV 03/22/2016 GABRIELLA AMARO Ot 786.09 RESPIRATORY ABNORM NEC 03/22/2016 GABRIELLA AMARO Ot 272.4 HYPERLIPIDEMIA NEC/NOS 03/22/2016 GABRIELLA AMARO Ot 278.00 OBESITY, NOS 03/22/2016 GABRIELLA AMARO Ot 401.9 HYPERTENSION NOS 03/22/2016 GABRIELLA AMARO Ot 414.00 CORON ATHEROSCLER NOS TYPE VESSEL, NATIV 03/22/2016 GABRIELLA AMARO Ot 496 CHR AIRWAY OBSTRUCT NEC 03/22/2016 GABRIELLA AMARO Ot 786.09 RESPIRATORY ABNORM NEC 03/22/2016 GABRIELLA AMARO Ot V85.36 BODY MASS INDEX 36.0-36.9, ADULT 03/22/2016 GEETA HATHAWAY DO Ot 496 CHR AIRWAY OBSTRUCT NEC 03/22/2016 GEETA HATHAWAY DO Ot 786.09 RESPIRATORY ABNORM NEC 03/22/2016 LENNY JEWELL MD Ot 272.4 HYPERLIPIDEMIA NEC/NOS 03/22/2016 LENNY JEWELL MD Ot 401.9 HYPERTENSION NOS 03/22/2016 LENNY JEWELL MD Ot 414.00 CORON ATHEROSCLER NOS TYPE VESSEL, NATIV 03/22/2016 LENNY JEWELL MD Ot 496 CHR AIRWAY OBSTRUCT NEC 03/22/2016 LENNY JEWELL MD Ot 272.4 HYPERLIPIDEMIA NEC/NOS 03/22/2016 LENNY JEWELL MD Ot 401.9 HYPERTENSION NOS 03/22/2016 LENNY JEWELL MD Ot 414.00 CORON ATHEROSCLER NOS TYPE VESSEL, NATIV 03/22/2016 LENNY JEWELL MD Ot 496 CHR AIRWAY OBSTRUCT NEC 03/22/2016 GEETA HATHAWAY DO Ot 278.00 OBESITY, NOS 03/22/2016 GEETA HATHAWAY DO Ot 496 CHR AIRWAY OBSTRUCT NEC 03/22/2016 LENNY JEWELL MD Ot 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, UNSP SITE, EXTRANO 03/22/2016 LENNY JEWELL MD Ot 272.4 HYPERLIPIDEMIA NEC/NOS 03/22/2016 LENNY JEWELL MD Ot 401.9 HYPERTENSION NOS 03/22/2016 LENNY JEWELL MD Ot 414.9 CHR ISCHEMIC HRT DIS NOS 03/22/2016 GABRIELLA AMARO Ot E66.9 OBESITY, UNSPECIFIED 03/22/2016 GABRIELLA AMARO Ot E78.2 MIXED HYPERLIPIDEMIA 03/22/2016 GABRIELLA AMARO Ot I10 ESSENTIAL (PRIMARY) HYPERTENSION 03/22/2016 GABRIELLA AMARO Ot I25.10 ATHSCL HEART DISEASE OF [place] CORONARY 03/22/2016 GABRIELLA AMARO Ot I65.22 OCCLUSION AND STENOSIS OF LEFT CAROTID A 03/22/2016 GABRIELLA AMARO Ot I67.1 CEREBRAL ANEURYSM, NONRUPTURED 03/22/2016 GABRIELLA AMARO Ot E78.5 HYPERLIPIDEMIA, UNSPECIFIED 03/22/2016 GABRIELLA AMARO Ot I10 ESSENTIAL (PRIMARY) HYPERTENSION 03/22/2016 GABRIELLA AMARO Ot I25.10 ATHSCL HEART DISEASE OF [place] CORONARY 03/22/2016 GABRIELLA AMARO Ot E78.2 MIXED HYPERLIPIDEMIA 03/22/2016 BRITTANY CRAVEN MD, Ot 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, LYMPH NODES OF MUL 03/22/2016 BRITTANY CRAVEN MD Ot D50.9 IRON DEFICIENCY ANEMIA, UNSPECIFIED 03/22/2016 BRITTANY CRAVEN MD Ot E78.5 HYPERLIPIDEMIA, UNSPECIFIED 03/22/2016 BRITTANY CRAVEN MD Ot I10 ESSENTIAL (PRIMARY) HYPERTENSION 03/22/2016 BRITTANY CRAVEN MD Ot M89.9 DISORDER OF BONE, UNSPECIFIED 03/22/2016 BRITTANY CRAVEN MD Ot Z45.2 ENCOUNTER FOR ADJUSTMENT AND MANAGEMENT 03/22/2016 BRITTANY CRAVEN MD Ot Z79.899 OTHER PILLOWCASE CLEANER (CURRENT) DRUG THERAPY 04/21/2016 BRITTANY CRAVEN MD, Ot 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, LYMPH NODES OF MUL 04/21/2016 BRITTANY CRAVEN MD Ot D50.9 IRON DEFICIENCY ANEMIA, UNSPECIFIED 04/21/2016 BRITTANY CRAVEN MD Ot E78.5 HYPERLIPIDEMIA, UNSPECIFIED 04/21/2016 BRITTANY CRAVEN MD Ot I10 ESSENTIAL (PRIMARY) HYPERTENSION 04/21/2016 BRITTANY CRAVEN MD Ot M89.9 DISORDER OF BONE, UNSPECIFIED 04/21/2016 BRITTANY CRAVEN MD Ot Z45.2 ENCOUNTER FOR ADJUSTMENT AND MANAGEMENT 04/21/2016 BRITTANY CRAVEN MD Ot Z79.899 OTHER PILLOWCASE CLEANER (CURRENT) DRUG THERAPY 04/21/2016 Ot 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, LYMPH NODES OF MUL 04/21/2016 Ot 786.50 CHEST PAIN NOS 04/21/2016 Ot 786.09 RESPIRATORY ABNORM NEC 04/21/2016 Ot 786.50 CHEST PAIN NOS 04/21/2016 Ot 272.4 HYPERLIPIDEMIA NEC/NOS 04/21/2016 Ot 401.9 HYPERTENSION NOS 04/21/2016 Ot 414.01 CORONARY ATHEROSCLEROSIS OF [place] CORON 04/21/2016 Ot 272.4 HYPERLIPIDEMIA NEC/NOS 04/21/2016 Ot 414.00 CORON ATHEROSCLER NOS TYPE VESSEL, NATIV 04/21/2016 Ot 786.09 RESPIRATORY ABNORM NEC 04/21/2016 Ot 202.80 OTH LYMPHOMAS EXTRANODAL SOLID ORGAN U 04/21/2016 Ot 202.80 OTH LYMPHOMAS EXTRANODAL SOLID ORGAN U 04/21/2016 Ot 272.4 HYPERLIPIDEMIA NEC/NOS 04/21/2016 Ot 401.9 HYPERTENSION NOS 04/21/2016 Ot 414.01 CORONARY ATHEROSCLEROSIS OF [place] CORON 04/21/2016 Ot 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, LYMPH NODES OF MUL 04/21/2016 LENNY JEWELL MD Ot 272.4 HYPERLIPIDEMIA NEC/NOS 04/21/2016 LENNY JEWELL MD Ot 414.01 CORONARY ATHEROSCLEROSIS OF [place] CORON 04/21/2016 Ot 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, LYMPH NODES OF MUL 04/21/2016 Ot 272.4 HYPERLIPIDEMIA NEC/NOS 04/21/2016 Ot 285.9 ANEMIA NOS 04/21/2016 Ot 401.9 HYPERTENSION NOS 04/21/2016 Ot 733.90 BONE CARTILAGE DIS NOS 04/21/2016 Ot V12.71 PERSONAL HISTORY OF PEPTIC ULCER DISEASE 04/21/2016 Ot V58.11 ENCOUNTER FOR ANTINEOPLASTIC CHEMOTHERAP 04/21/2016 Ot V58.69 OTH MED,LT, CURRENT USE 04/21/2016 LENNY JEWELL MD Ot 272.4 HYPERLIPIDEMIA NEC/NOS 04/21/2016 LENNY JEWELL MD Ot 414.01 CORONARY ATHEROSCLEROSIS OF [place] CORON 04/21/2016 GABRIELLA AMARO Ot 401.9 HYPERTENSION NOS 04/21/2016 GABRIELLA AMARO Ot 414.00 CORON ATHEROSCLER NOS TYPE VESSEL, NATIV 04/21/2016 GABRIELLA AMARO Ot 786.09 RESPIRATORY ABNORM NEC 04/21/2016 GABRIELLA AMARO Ot 272.4 HYPERLIPIDEMIA NEC/NOS 04/21/2016 GABRIELLA AMARO Ot 278.00 OBESITY, NOS 04/21/2016 GABRIELLA AMARO Ot 401.9 HYPERTENSION NOS 04/21/2016 GABRIELLA AMARO Ot 414.00 CORON ATHEROSCLER NOS TYPE VESSEL, NATIV 04/21/2016 GABRIELLA AMARO Ot 496 CHR AIRWAY OBSTRUCT NEC 04/21/2016 GABRIELLA AMARO Ot 786.09 RESPIRATORY ABNORM NEC 04/21/2016 GABRIELLA AMARO Ot V85.36 BODY MASS INDEX 36.0-36.9, ADULT 04/21/2016 GEETA HATHAWAY DO Ot 496 CHR AIRWAY OBSTRUCT NEC 04/21/2016 GEETA HATHAWAY DO Ot 786.09 RESPIRATORY ABNORM NEC 04/21/2016 LENNY JEWELL MD Ot 272.4 HYPERLIPIDEMIA NEC/NOS 04/21/2016 LENNY JEWELL MD J Ot 401.9 HYPERTENSION NOS 04/21/2016 [place]O, LENNY J Ot 414.00 CORON ATHEROSCLER NOS TYPE VESSEL, NATIV 04/21/2016 LENNY JEWELL MD Ot 496 CHR AIRWAY OBSTRUCT NEC 04/21/2016 LENNY JEWELL MD Ot 272.4 HYPERLIPIDEMIA NEC/NOS 04/21/2016 [place], LENNY J Ot 401.9 HYPERTENSION NOS 04/21/2016 LENNY JEWELL MD Ot 414.00 CORON ATHEROSCLER NOS TYPE VESSEL, NATIV 04/21/2016 LENNY JEWELL MD Ot 496 CHR AIRWAY OBSTRUCT NEC 04/21/2016 GEETA HATHAWAY DO Ot 278.00 OBESITY, NOS 04/21/2016 GEETA HATHAWAY DO Ot 496 CHR AIRWAY OBSTRUCT NEC 04/21/2016 LENNY JEWELL MD Ot 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, UNSP SITE, EXTRANO 04/21/2016 LENNY JEWELL MD Ot 272.4 HYPERLIPIDEMIA NEC/NOS 04/21/2016 LENNY JEWELL MD Ot 401.9 HYPERTENSION NOS 04/21/2016 LENNY JEWELL MD Ot 414.9 CHR ISCHEMIC HRT DIS NOS 04/21/2016 GABRIELLA AMARO Ot E66.9 OBESITY, UNSPECIFIED 04/21/2016 GABRIELLA AMARO Ot E78.2 MIXED HYPERLIPIDEMIA 04/21/2016 GABRIELLA MAARO Ot I10 ESSENTIAL (PRIMARY) HYPERTENSION 04/21/2016 GABRIELLA AMARO Ot I25.10 ATHSCL HEART DISEASE OF [place] CORONARY 04/21/2016 GABRIELLA AMARO Ot I65.22 OCCLUSION AND STENOSIS OF LEFT CAROTID A 04/21/2016 GABRIELLA AMARO Ot I67.1 CEREBRAL ANEURYSM, NONRUPTURED 04/21/2016 GABRIELLA AMARO Ot E78.5 HYPERLIPIDEMIA, UNSPECIFIED 04/21/2016 GABRIELLA AMARO Ot I10 ESSENTIAL (PRIMARY) HYPERTENSION 04/21/2016 GABRIELLA AMARO Ot I25.10 ATHSCL HEART DISEASE OF [place] CORONARY 04/21/2016 GABRIELLA AMARO Ot E78.2 MIXED HYPERLIPIDEMIA 04/21/2016 BRITTANY CRAVEN MD, Ot 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, LYMPH NODES OF MUL 04/21/2016 BRITTANY CRAVEN MD Ot D50.9 IRON DEFICIENCY ANEMIA, UNSPECIFIED 04/21/2016 BRITTANY CRAVEN MD Ot E78.5 HYPERLIPIDEMIA, UNSPECIFIED 04/21/2016 BRITTANY CRAVEN MD Ot I10 ESSENTIAL (PRIMARY) HYPERTENSION 04/21/2016 BRITTANY CRAVEN MD Ot M89.9 DISORDER OF BONE, UNSPECIFIED 04/21/2016 BRITTANY CRAVEN MD Ot Z45.2 ENCOUNTER FOR ADJUSTMENT AND MANAGEMENT 04/21/2016 BRITTANY CRAVEN MD Ot Z79.899 OTHER PILLOWCASE CLEANER (CURRENT) DRUG THERAPY 05/17/2016 BRITTANY CRAVEN MD, Ot 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, LYMPH NODES OF MUL 05/17/2016 BRITTANY CRAVEN MD Ot D50.9 IRON DEFICIENCY ANEMIA, UNSPECIFIED 05/17/2016 BRITTANY CRAVEN MD Ot E78.5 HYPERLIPIDEMIA, UNSPECIFIED 05/17/2016 BRITTANY CRAVEN MD Ot I10 ESSENTIAL (PRIMARY) HYPERTENSION 05/17/2016 BRITTANY CRAVEN MD Ot M89.9 DISORDER OF BONE, UNSPECIFIED 05/17/2016 BRITTANY CRAVEN MD Ot Z45.2 ENCOUNTER FOR ADJUSTMENT AND MANAGEMENT 05/17/2016 BRITTANY CRAVEN MD Ot Z79.899 OTHER PILLOWCASE CLEANER (CURRENT) DRUG THERAPY 05/29/2016 Ot 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, LYMPH NODES OF MUL 05/29/2016 Ot 786.50 CHEST PAIN NOS 05/29/2016 Ot 786.09 RESPIRATORY ABNORM NEC 05/29/2016 Ot 786.50 CHEST PAIN NOS 05/29/2016 Ot 272.4 HYPERLIPIDEMIA NEC/NOS 05/29/2016 Ot 401.9 HYPERTENSION NOS 05/29/2016 Ot 414.01 CORONARY ATHEROSCLEROSIS OF [place] CORON 05/29/2016 Ot 272.4 HYPERLIPIDEMIA NEC/NOS 05/29/2016 Ot 414.00 CORON ATHEROSCLER NOS TYPE VESSEL, NATIV 05/29/2016 Ot 786.09 RESPIRATORY ABNORM NEC 05/29/2016 Ot 202.80 OTH LYMPHOMAS EXTRANODAL SOLID ORGAN U 05/29/2016 Ot 202.80 OTH LYMPHOMAS EXTRANODAL SOLID ORGAN U 05/29/2016 Ot 272.4 HYPERLIPIDEMIA NEC/NOS 05/29/2016 Ot 401.9 HYPERTENSION NOS 05/29/2016 Ot 414.01 CORONARY ATHEROSCLEROSIS OF [place] CORON 05/29/2016 Ot 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, LYMPH NODES OF MUL 05/29/2016 LENNY JEWELL MD Ot 272.4 HYPERLIPIDEMIA NEC/NOS 05/29/2016 LENNY JEWELL MD Ot 414.01 CORONARY ATHEROSCLEROSIS OF [place] CORON 05/29/2016 Ot 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, LYMPH NODES OF MUL 05/29/2016 Ot 272.4 HYPERLIPIDEMIA NEC/NOS 05/29/2016 Ot 285.9 ANEMIA NOS 05/29/2016 Ot 401.9 HYPERTENSION NOS 05/29/2016 Ot 733.90 BONE CARTILAGE DIS NOS 05/29/2016 Ot V12.71 PERSONAL HISTORY OF PEPTIC ULCER DISEASE 05/29/2016 Ot V58.11 ENCOUNTER FOR ANTINEOPLASTIC CHEMOTHERAP 05/29/2016 Ot V58.69 OTH MED,LT, CURRENT USE 05/29/2016 LENNY JEWELL MD Ot 272.4 HYPERLIPIDEMIA NEC/NOS 05/29/2016 LENNY JEWELL MD Ot 414.01 CORONARY ATHEROSCLEROSIS OF [place] CORON 05/29/2016 GABRIELLA AMARO Ot 401.9 HYPERTENSION NOS 05/29/2016 GABRIELLA AMARO Ot 414.00 CORON ATHEROSCLER NOS TYPE VESSEL, NATIV 05/29/2016 GABRIELLA AMARO Ot 786.09 RESPIRATORY ABNORM NEC 05/29/2016 GABRIELLA AMARO Ot 272.4 HYPERLIPIDEMIA NEC/NOS 05/29/2016 GABRIELLA AMARO Ot 278.00 OBESITY, NOS 05/29/2016 GABRIELLA AMARO Ot 401.9 HYPERTENSION NOS 05/29/2016 GABRIELLA AMARO Ot 414.00 CORON ATHEROSCLER NOS TYPE VESSEL, NATIV 05/29/2016 GABRIELLA AMARO Ot 496 CHR AIRWAY OBSTRUCT NEC 05/29/2016 GABRIELLA AMARO Ot 786.09 RESPIRATORY ABNORM NEC 05/29/2016 GABRIELLA AMARO Ot V85.36 BODY MASS INDEX 36.0-36.9, ADULT 05/29/2016 GEETA HATHAWAY DO Ot 496 CHR AIRWAY OBSTRUCT NEC 05/29/2016 GEETA HATHAWAY DO Ot 786.09 RESPIRATORY ABNORM NEC 05/29/2016 LENNY JEWELL MD Ot 272.4 HYPERLIPIDEMIA NEC/NOS 05/29/2016 LENNY JEWELL MD Ot 401.9 HYPERTENSION NOS 05/29/2016 [place], LENNY J Ot 414.00 CORON ATHEROSCLER NOS TYPE VESSEL, NATIV 05/29/2016 LENNY JEWELL MD Ot 496 CHR AIRWAY OBSTRUCT NEC 05/29/2016 LENNY JEWELL MD Ot 272.4 HYPERLIPIDEMIA NEC/NOS 05/29/2016 LENNY JEWELL MD J Ot 401.9 HYPERTENSION NOS 05/29/2016 LENNY JEWELL MD Ot 414.00 CORON ATHEROSCLER NOS TYPE VESSEL, NATIV 05/29/2016 LENNY JEWELL MD Ot 496 CHR AIRWAY OBSTRUCT NEC 05/29/2016 GEETA HATHAWAY DO Ot 278.00 OBESITY, NOS 05/29/2016 GEETA HATHAWAY DO Ot 496 CHR AIRWAY OBSTRUCT NEC 05/29/2016 LENNY JEWELL MD Ot 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, UNSP SITE, EXTRANO 05/29/2016 LENNY JEWELL MD Ot 272.4 HYPERLIPIDEMIA NEC/NOS 05/29/2016 LENNY JEWELL MD Ot 401.9 HYPERTENSION NOS 05/29/2016 LENNY JEWELL MD Ot 414.9 CHR ISCHEMIC HRT DIS NOS 05/29/2016 GABRIELLA AMARO Ot E66.9 OBESITY, UNSPECIFIED 05/29/2016 GABRIELLA AMARO Ot E78.2 MIXED HYPERLIPIDEMIA 05/29/2016 GABRIELLA AMARO Ot I10 ESSENTIAL (PRIMARY) HYPERTENSION 05/29/2016 GABRIELLA AMARO Ot I25.10 ATHSCL HEART DISEASE OF [place] CORONARY 05/29/2016 GABRIELLA AMARO Ot I65.22 OCCLUSION AND STENOSIS OF LEFT CAROTID A 05/29/2016 GABRIELLA AMARO Ot I67.1 CEREBRAL ANEURYSM, NONRUPTURED 05/29/2016 GABRIELLA AMARO Ot E78.5 HYPERLIPIDEMIA, UNSPECIFIED 05/29/2016 GABRIELLA AMARO Ot I10 ESSENTIAL (PRIMARY) HYPERTENSION 05/29/2016 GABRIELLA AMARO Ot I25.10 ATHSCL HEART DISEASE OF [place] CORONARY 05/29/2016 GABRIELLA AMARO Ot E78.2 MIXED HYPERLIPIDEMIA 05/31/2016 BRITTANY CRAVEN MD Ot 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, LYMPH NODES OF MUL 05/31/2016 BRITTANY CRAVEN MD Ot D50.9 IRON DEFICIENCY ANEMIA, UNSPECIFIED 05/31/2016 BRITTANY CRAVEN MD Ot E78.5 HYPERLIPIDEMIA, UNSPECIFIED 05/31/2016 BRITTANY CRAVEN MD Ot I10 ESSENTIAL (PRIMARY) HYPERTENSION 05/31/2016 BRITTANY CRAVEN MD Ot M89.9 DISORDER OF BONE, UNSPECIFIED 05/31/2016 BRITTANY CRAVEN MD Ot Z45.2 ENCOUNTER FOR ADJUSTMENT AND MANAGEMENT 05/31/2016 BRITTANY CRAVEN MD Ot Z79.899 OTHER CUSTODIAL (CURRENT) DRUG THERAPY 06/01/2016 Ot 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, LYMPH NODES OF MUL 06/01/2016 Ot 786.50 CHEST PAIN NOS 06/01/2016 Ot 786.09 RESPIRATORY ABNORM NEC 06/01/2016 Ot 786.50 CHEST PAIN NOS 06/01/2016 Ot 272.4 HYPERLIPIDEMIA NEC/NOS 06/01/2016 Ot 401.9 HYPERTENSION NOS 06/01/2016 Ot 414.01 CORONARY ATHEROSCLEROSIS OF [place] CORON 06/01/2016 Ot 272.4 HYPERLIPIDEMIA NEC/NOS 06/01/2016 Ot 414.00 CORON ATHEROSCLER NOS TYPE VESSEL, NATIV 06/01/2016 Ot 786.09 RESPIRATORY ABNORM NEC 06/01/2016 Ot 202.80 OTH LYMPHOMAS EXTRANODAL SOLID ORGAN U 06/01/2016 Ot 202.80 OTH LYMPHOMAS EXTRANODAL SOLID ORGAN U 06/01/2016 Ot 272.4 HYPERLIPIDEMIA NEC/NOS 06/01/2016 Ot 401.9 HYPERTENSION NOS 06/01/2016 Ot 414.01 CORONARY ATHEROSCLEROSIS OF [place] CORON 06/01/2016 Ot 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, LYMPH NODES OF MUL 06/01/2016 LENNY JEWELL MD Ot 272.4 HYPERLIPIDEMIA NEC/NOS 06/01/2016 LENNY JEWELL MD Ot 414.01 CORONARY ATHEROSCLEROSIS OF [place] CORON 06/01/2016 Ot 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, LYMPH NODES OF MUL 06/01/2016 Ot 272.4 HYPERLIPIDEMIA NEC/NOS 06/01/2016 Ot 285.9 ANEMIA NOS 06/01/2016 Ot 401.9 HYPERTENSION NOS 06/01/2016 Ot 733.90 BONE CARTILAGE DIS NOS 06/01/2016 Ot V12.71 PERSONAL HISTORY OF PEPTIC ULCER DISEASE 06/01/2016 Ot V58.11 ENCOUNTER FOR ANTINEOPLASTIC CHEMOTHERAP 06/01/2016 Ot V58.69 OTH MED,LT, CURRENT USE 06/01/2016 LENNY JEWELL MD Ot 272.4 HYPERLIPIDEMIA NEC/NOS 06/01/2016 LENNY JEWELL MD Ot 414.01 CORONARY ATHEROSCLEROSIS OF [place] CORON 06/01/2016 GABRIELLA AMARO Ot 401.9 HYPERTENSION NOS 06/01/2016 GABRIELLA AMARO Ot 414.00 CORON ATHEROSCLER NOS TYPE VESSEL, NATIV 06/01/2016 GABRIELLA AMARO Ot 786.09 RESPIRATORY ABNORM NEC 06/01/2016 GABRIELLA AMARO Ot 272.4 HYPERLIPIDEMIA NEC/NOS 06/01/2016 GABRIELLA AMARO Ot 278.00 OBESITY, NOS 06/01/2016 GABRIELLA AMARO Ot 401.9 HYPERTENSION NOS 06/01/2016 GABRIELLA AMARO Ot 414.00 CORON ATHEROSCLER NOS TYPE VESSEL, NATIV 06/01/2016 GABRIELLA AMARO Ot 496 CHR AIRWAY OBSTRUCT NEC 06/01/2016 GABRIELLA AMARO Ot 786.09 RESPIRATORY ABNORM NEC 06/01/2016 GABRIELLA AMARO Ot V85.36 BODY MASS INDEX 36.0-36.9, ADULT 06/01/2016 GEETA HATHAWAY DO Ot 496 CHR AIRWAY OBSTRUCT NEC 06/01/2016 GEETA HATHAWAY DO Ot 786.09 RESPIRATORY ABNORM NEC 06/01/2016 LENNY JEWELL MD Ot 272.4 HYPERLIPIDEMIA NEC/NOS 06/01/2016 LENNY JEWELL MD Ot 401.9 HYPERTENSION NOS 06/01/2016 LENNY JEWELL MD Ot 414.00 CORON ATHEROSCLER NOS TYPE VESSEL, NATIV 06/01/2016 LENNY JEWELL MD Ot 496 CHR AIRWAY OBSTRUCT NEC 06/01/2016 LENNY JEWELL MD Ot 272.4 HYPERLIPIDEMIA NEC/NOS 06/01/2016 LENNY JEWELL MD Ot 401.9 HYPERTENSION NOS 06/01/2016 LENNY JEWELL MD Ot 414.00 CORON ATHEROSCLER NOS TYPE VESSEL, NATIV 06/01/2016 LENNY JEWELL MD Ot 496 CHR AIRWAY OBSTRUCT NEC 06/01/2016 GEETA HATHAWAY DO Ot 278.00 OBESITY, NOS 06/01/2016 GEETA HATHAWAY DO Ot 496 CHR AIRWAY OBSTRUCT NEC 06/01/2016 LENNY JEWELL MD Ot 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, UNSP SITE, EXTRANO 06/01/2016 LENNY JEWELL MD Ot 272.4 HYPERLIPIDEMIA NEC/NOS 06/01/2016 LENNY JEWELL MD Ot 401.9 HYPERTENSION NOS 06/01/2016 LENNY JEWELL MD Ot 414.9 CHR ISCHEMIC HRT DIS NOS 06/01/2016 GABRIELLA AMARO Ot E66.9 OBESITY, UNSPECIFIED 06/01/2016 GABRIELLA AMARO Ot E78.2 MIXED HYPERLIPIDEMIA 06/01/2016 GABRIELLA AMARO Ot I10 ESSENTIAL (PRIMARY) HYPERTENSION 06/01/2016 GABRIELLA AMARO Ot I25.10 ATHSCL HEART DISEASE OF [place] CORONARY 06/01/2016 GABRIELLA AMARO Ot I65.22 OCCLUSION AND STENOSIS OF LEFT CAROTID A 06/01/2016 GABRIELLA AMARO Ot I67.1 CEREBRAL ANEURYSM, NONRUPTURED 06/01/2016 GABRIELLA AMARO Ot E78.5 HYPERLIPIDEMIA, UNSPECIFIED 06/01/2016 GABRIELLA AMARO Ot I10 ESSENTIAL (PRIMARY) HYPERTENSION 06/01/2016 GABRIELLA AMARO Ot I25.10 ATHSCL HEART DISEASE OF [place] CORONARY 06/01/2016 GABRIELLA AMARO Ot E78.2 MIXED HYPERLIPIDEMIA 06/01/2016 BRITTANY CRAVEN MD, Ot 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, LYMPH NODES OF MUL 06/01/2016 BRITTANY CRAVEN MD Ot D50.9 IRON DEFICIENCY ANEMIA, UNSPECIFIED 06/01/2016 BRITTANY CRAVEN MD Ot E78.5 HYPERLIPIDEMIA, UNSPECIFIED 06/01/2016 BRITTANY CRAVEN MD Ot I10 ESSENTIAL (PRIMARY) HYPERTENSION 06/01/2016 BRITTANY CRAVEN MD, Ot M89.9 DISORDER OF BONE, UNSPECIFIED 06/01/2016 BRITTANY CRAVEN MD, Ot Z45.2 ENCOUNTER FOR ADJUSTMENT AND MANAGEMENT 06/01/2016 BRITTANY CRAVEN MD, Ot Z79.899 OTHER CUSTODIAL (CURRENT) DRUG THERAPY 06/01/2016 LENNY JEWELL MD Ot E78.2 MIXED HYPERLIPIDEMIA 06/01/2016 LENNY JEWELL MD, Ot I10 ESSENTIAL (PRIMARY) HYPERTENSION 06/01/2016 LENNY JEWELL MD Ot I25.10 ATHSCL HEART DISEASE OF [place] CORONARY 06/01/2016 LENNY JEWELL MD Ot J44.9 CHRONIC OBSTRUCTIVE PULMONARY DISEASE, U 06/01/2016 LENNY JEWELL MD Ot R06.00 DYSPNEA, UNSPECIFIED 06/01/2016 LENNY JEWELL MD Ot R07.9 CHEST PAIN, UNSPECIFIED 06/02/2016 BRITTNAY CRAVEN MD, Ot 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, LYMPH NODES OF MUL 06/02/2016 BRITTANY CRAVEN MD, Ot D50.9 IRON DEFICIENCY ANEMIA, UNSPECIFIED 06/02/2016 BRITTANY CRAVEN MD Ot E78.5 HYPERLIPIDEMIA, UNSPECIFIED 06/02/2016 BRITTANY CRAVEN MD, Ot I10 ESSENTIAL (PRIMARY) HYPERTENSION 06/02/2016 BRITTANY CRAVEN MD Ot M89.9 DISORDER OF BONE, UNSPECIFIED 06/02/2016 BRITTANY CRAVEN MD, Ot Z45.2 ENCOUNTER FOR ADJUSTMENT AND MANAGEMENT 06/02/2016 BRITTANY CRAVEN MD Ot Z79.899 OTHER CUSTODIAL (CURRENT) DRUG THERAPY 06/07/2016 LENNY JEWELL MD Ot E78.2 MIXED HYPERLIPIDEMIA 06/07/2016 LENNY JEWELL MD Ot I10 ESSENTIAL (PRIMARY) HYPERTENSION 06/07/2016 LENNY JEWELL MD Ot I25.10 ATHSCL HEART DISEASE OF [place] CORONARY 06/07/2016 LENNY JEWELL MD, Ot J44.9 CHRONIC OBSTRUCTIVE PULMONARY DISEASE, U 06/07/2016 LENNY JEWELL MD Ot R06.00 DYSPNEA, UNSPECIFIED 06/07/2016 LENNY JEWELL MD Ot R07.9 CHEST PAIN, UNSPECIFIED 06/07/2016 BRITTANY CRAVEN MD Ot 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, LYMPH NODES OF MUL 06/07/2016 BRITTANY CRAVEN MD Ot D50.9 IRON DEFICIENCY ANEMIA, UNSPECIFIED 06/07/2016 BRITTANY CRAVEN MD Ot E78.5 HYPERLIPIDEMIA, UNSPECIFIED 06/07/2016 BRITTANY CRAVEN MD, Ot I10 ESSENTIAL (PRIMARY) HYPERTENSION 06/07/2016 BRITTANY CRAVEN MD, Ot M89.9 DISORDER OF BONE, UNSPECIFIED 06/07/2016 BRITTANY CRAVEN MD, Ot Z45.2 ENCOUNTER FOR ADJUSTMENT AND MANAGEMENT 06/07/2016 BRITTANY CRAVEN MD, Ot Z79.899 OTHER PILLOWCASE CLEANER (CURRENT) DRUG THERAPY 06/21/2016 LENNY JEWELL MD Ot E78.2 MIXED HYPERLIPIDEMIA 06/21/2016 LENNY JEWELL MD, Ot I10 ESSENTIAL (PRIMARY) HYPERTENSION 06/21/2016 LENNY JEWELL MD Ot I25.10 ATHSCL HEART DISEASE OF [place] CORONARY 06/21/2016 LENNY JEWELL MD, Ot J44.9 CHRONIC OBSTRUCTIVE PULMONARY DISEASE, U 06/21/2016 LENNY JEWELL MD Ot R06.00 DYSPNEA, UNSPECIFIED 06/21/2016 LENNY JEWELL MD Ot R07.9 CHEST PAIN, UNSPECIFIED 06/22/2016 BRITTANY CRAVEN MD, Ot 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, LYMPH NODES OF MUL 06/22/2016 BRITTANY CRAVEN MD, Ot D50.9 IRON DEFICIENCY ANEMIA, UNSPECIFIED 06/22/2016 BRITTANY CRAVEN MD, Ot E78.5 HYPERLIPIDEMIA, UNSPECIFIED 06/22/2016 BRITTANY CRAVEN MD Ot I10 ESSENTIAL (PRIMARY) HYPERTENSION 06/22/2016 BRITTANY CRAVEN MD Ot M89.9 DISORDER OF BONE, UNSPECIFIED 06/22/2016 BRITTANY CRAVEN MD, Ot Z45.2 ENCOUNTER FOR ADJUSTMENT AND MANAGEMENT 06/22/2016 BRITTANY CRAVEN MD Ot Z79.899 OTHER CUSTODIAL (CURRENT) DRUG THERAPY 07/25/2016 BRITTANY CRAVEN MD, Ot 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, LYMPH NODES OF MUL 07/25/2016 BRITTANY CRAVEN MD Ot D50.9 IRON DEFICIENCY ANEMIA, UNSPECIFIED 07/25/2016 BRITTANY CRAVEN MD Ot E78.5 HYPERLIPIDEMIA, UNSPECIFIED 07/25/2016 BRITTANY CRAVEN MD Ot I10 ESSENTIAL (PRIMARY) HYPERTENSION 07/25/2016 BRITTANY CRAVEN MD Ot M89.9 DISORDER OF BONE, UNSPECIFIED 07/25/2016 BRITTANY CRAVEN MD, Ot Z45.2 ENCOUNTER FOR ADJUSTMENT AND MANAGEMENT 07/25/2016 BRITTANY CRAVEN MD Ot Z79.899 OTHER PILLOWCASE CLEANER (CURRENT) DRUG THERAPY 08/10/2016 BROOKE CHRISTINE APRN Ot R09.02 HYPOXEMIA 08/10/2016 BROKOE CHRISTINE APRN Ot Z87.891 PERSONAL HISTORY OF NICOTINE DEPENDENCE 08/10/2016 BROOKE CHRISTINE APRN Ot Z98.890 OTHER SPECIFIED POSTPROCEDURAL STATES 08/30/2016 BRITTANY CRAVEN MD, Ot 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, LYMPH NODES OF MUL 08/30/2016 BRITTANY CRAVEN MD, Ot D50.9 IRON DEFICIENCY ANEMIA, UNSPECIFIED 08/30/2016 BRITTANY CRAVEN MD Ot E78.5 HYPERLIPIDEMIA, UNSPECIFIED 08/30/2016 BRITTANY CRAVEN MD, Ot I10 ESSENTIAL (PRIMARY) HYPERTENSION 08/30/2016 BRITTANY CRAVEN MD, Ot M89.9 DISORDER OF BONE, UNSPECIFIED 08/30/2016 BRITTANY CRAVEN MD Ot Z45.2 ENCOUNTER FOR ADJUSTMENT AND MANAGEMENT 08/30/2016 BRITTANY CRAVEN MD Ot Z79.899 OTHER CUSTODIAL (CURRENT) DRUG THERAPY 08/31/2016 BRITTANY CRAVEN MD, Ot 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, LYMPH NODES OF MUL 08/31/2016 BRITTANY CRAVEN MD Ot D50.9 IRON DEFICIENCY ANEMIA, UNSPECIFIED 08/31/2016 BRITTANY CRAVEN MD, Ot E78.5 HYPERLIPIDEMIA, UNSPECIFIED 08/31/2016 BRITTANY CRAVEN MD Ot I10 ESSENTIAL (PRIMARY) HYPERTENSION 08/31/2016 BRITTANY CRAVEN MD, Ot M89.9 DISORDER OF BONE, UNSPECIFIED 08/31/2016 BRITTANY CRAVEN MD, Ot Z45.2 ENCOUNTER FOR ADJUSTMENT AND MANAGEMENT 08/31/2016 BRITTANY CRAVEN MD, Ot Z79.899 OTHER CUSTODIAL (CURRENT) DRUG THERAPY 09/01/2016 BRITTANY CRAVEN MD, Ot 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, LYMPH NODES OF MUL 09/01/2016 BRITTANY CRAVEN MD, Ot D50.9 IRON DEFICIENCY ANEMIA, UNSPECIFIED 09/01/2016 BRITTANY CRAVEN MD, Ot E78.5 HYPERLIPIDEMIA, UNSPECIFIED 09/01/2016 BRITTANY CRAVEN MD, Ot I10 ESSENTIAL (PRIMARY) HYPERTENSION 09/01/2016 BRITTANY CRAVEN MD, Ot M89.9 DISORDER OF BONE, UNSPECIFIED 09/01/2016 BRITTANY CRAVEN MD Ot R35.0 FREQUENCY OF MICTURITION 09/01/2016 BRITTANY CRAVEN MD, Ot Z51.11 ENCOUNTER FOR ANTINEOPLASTIC CHEMOTHERAP 09/01/2016 BRITTANY CRAVEN MD, Ot Z79.899 OTHER PILLOWCASE CLEANER (CURRENT) DRUG THERAPY 09/01/2016 BROOKE CHRISTINE APRN Ot R09.02 HYPOXEMIA 09/01/2016 BROOKE CHRISTINE APRN Ot Z87.891 PERSONAL HISTORY OF NICOTINE DEPENDENCE 09/01/2016 BROOKE CHRISTINE APRN Ot Z98.890 OTHER SPECIFIED POSTPROCEDURAL STATES 09/30/2016 BRITTANY CRAVEN MD, Ot 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, LYMPH NODES OF MUL 09/30/2016 BRITTANY CRAVEN MD, Ot D50.9 IRON DEFICIENCY ANEMIA, UNSPECIFIED 09/30/2016 BRITTANY CRAVEN MD, Ot E78.5 HYPERLIPIDEMIA, UNSPECIFIED 09/30/2016 BRITTANY CRAVEN MD, Ot I10 ESSENTIAL (PRIMARY) HYPERTENSION 09/30/2016 BRITTANY CRAVEN MD, Ot M89.9 DISORDER OF BONE, UNSPECIFIED 09/30/2016 BRITTANY CRAVEN MD Ot R35.0 FREQUENCY OF MICTURITION 09/30/2016 BRITTANY CRAVEN MD, Ot Z51.11 ENCOUNTER FOR ANTINEOPLASTIC CHEMOTHERAP 09/30/2016 BRITTANY CRAVEN MD Ot Z79.899 OTHER CUSTODIAL (CURRENT) DRUG THERAPY 10/02/2016 BROOKE CHRISTINE APRN Ot R09.02 HYPOXEMIA 10/02/2016 BROOKE CHRISTINE MANAGER TRANSMISSION Ot Z87.891 PERSONAL HISTORY OF NICOTINE DEPENDENCE 10/02/2016 BROOKE CHRISTINE MANAGER TRANSMISSION Ot Z98.890 OTHER SPECIFIED POSTPROCEDURAL STATES 10/03/2016 BROOKE CHRISTINE APRN Ot R09.02 HYPOXEMIA 10/03/2016 BROOKE CHRISTINE MANAGER TRANSMISSION Ot Z87.891 PERSONAL HISTORY OF NICOTINE DEPENDENCE 10/03/2016 BROOKE CHRISTINE MANAGER TRANSMISSION Ot Z98.890 OTHER SPECIFIED POSTPROCEDURAL STATES 10/04/2016 BRITTANY CRAVEN MD Ot 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, LYMPH NODES OF MUL 10/04/2016 BRITTANY CRAVEN MD Ot D50.9 IRON DEFICIENCY ANEMIA, UNSPECIFIED 10/04/2016 BRITTANY CRAVEN MD Ot E78.5 HYPERLIPIDEMIA, UNSPECIFIED 10/04/2016 BRITTANY CRAVEN MD Ot I10 ESSENTIAL (PRIMARY) HYPERTENSION 10/04/2016 BRITTANY CRAVEN MD Ot M89.9 DISORDER OF BONE, UNSPECIFIED 10/04/2016 BRITTANY CRAVEN MD Ot R35.0 FREQUENCY OF MICTURITION 10/04/2016 BRITTANY CRAVEN MD Ot Z51.11 ENCOUNTER FOR ANTINEOPLASTIC CHEMOTHERAP 10/04/2016 BRITTANY CRAVEN MD Ot Z79.899 OTHER CUSTODIAL (CURRENT) DRUG THERAPY 10/17/2016 BRITTANY CRAVEN MD, Ot 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, LYMPH NODES OF MUL 10/17/2016 BRITTANY CRAVEN MD Ot D50.9 IRON DEFICIENCY ANEMIA, UNSPECIFIED 10/17/2016 BRITTANY CRAVEN MD Ot E78.5 HYPERLIPIDEMIA, UNSPECIFIED 10/17/2016 BRITTANY CRAVEN MD Ot I10 ESSENTIAL (PRIMARY) HYPERTENSION 10/17/2016 BRITTANY CRAVEN MD Ot M89.9 DISORDER OF BONE, UNSPECIFIED 10/17/2016 BRITTANY CRAVEN MD Ot R35.0 FREQUENCY OF MICTURITION 10/17/2016 BRITTANY CRAVEN MD Ot Z51.11 ENCOUNTER FOR ANTINEOPLASTIC CHEMOTHERAP 10/17/2016 BRITTANY CRAVEN MD Ot Z79.899 OTHER PILLOWCASE CLEANER (CURRENT) DRUG THERAPY 10/18/2016 BROOKE CHRISTINE APRN Ot R09.02 HYPOXEMIA 10/18/2016 BROOKE CHRISTINE APRN Ot Z87.891 PERSONAL HISTORY OF NICOTINE DEPENDENCE 10/18/2016 BROOKE CHRISTINE APRN Ot Z98.890 OTHER SPECIFIED POSTPROCEDURAL STATES 10/18/2016 GABRIELLA AMARO Ot C83.10 MANTLE CELL LYMPHOMA, UNSPECIFIED SITE 10/18/2016 GABRIELLA AMARO Ot E78.2 MIXED HYPERLIPIDEMIA 10/18/2016 GABRIELLA AMARO Ot I10 ESSENTIAL (PRIMARY) HYPERTENSION 10/18/2016 GABRIELLA AMARO Ot I25.10 ATHSCL HEART DISEASE OF [place] CORONARY 10/30/2016 BRITTANY CRAVEN MD, Ot 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, LYMPH NODES OF MUL 10/30/2016 BRITTANY CRAVEN MD, Ot D50.9 IRON DEFICIENCY ANEMIA, UNSPECIFIED 10/30/2016 BRITTANY CRAVEN MD Ot E78.5 HYPERLIPIDEMIA, UNSPECIFIED 10/30/2016 BRITTANY CRAVEN MD, Ot I10 ESSENTIAL (PRIMARY) HYPERTENSION 10/30/2016 BRITTANY CRAVEN MD, Ot M89.9 DISORDER OF BONE, UNSPECIFIED 10/30/2016 BRITTANY CRAVEN MD Ot Z45.2 ENCOUNTER FOR ADJUSTMENT AND MANAGEMENT 10/30/2016 BRITTANY CRAVEN MD Ot Z79.899 OTHER CUSTODIAL (CURRENT) DRUG THERAPY 11/04/2016 BRITTANY CRAVEN MD, Ot 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, LYMPH NODES OF MUL 11/04/2016 BRITTANY CRAVEN MD Ot D50.9 IRON DEFICIENCY ANEMIA, UNSPECIFIED 11/04/2016 BRITTANY CRAVEN MD Ot E78.5 HYPERLIPIDEMIA, UNSPECIFIED 11/04/2016 BRITTANY CRAVEN MD Ot I10 ESSENTIAL (PRIMARY) HYPERTENSION 11/04/2016 BRITTANY CRAVEN MD Ot M89.9 DISORDER OF BONE, UNSPECIFIED 11/04/2016 BRITTANY CRAVEN MD Ot Z45.2 ENCOUNTER FOR ADJUSTMENT AND MANAGEMENT 11/04/2016 BRITTANY CRAVEN MD, Ot Z79.899 OTHER CUSTODIAL (CURRENT) DRUG THERAPY 11/10/2016 BRITTANY CRAVEN MD, Ot 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, LYMPH NODES OF MUL 11/10/2016 BRITTANY CRAVEN MD, Ot D50.9 IRON DEFICIENCY ANEMIA, UNSPECIFIED 11/10/2016 BRITTANY CRAVEN MD Ot E78.5 HYPERLIPIDEMIA, UNSPECIFIED 11/10/2016 BRITTANY CRAVEN MD Ot I10 ESSENTIAL (PRIMARY) HYPERTENSION 11/10/2016 BRITTANY CRAVEN MD, Ot M89.9 DISORDER OF BONE, UNSPECIFIED 11/10/2016 BRITTANY CRAVEN MD Ot Z45.2 ENCOUNTER FOR ADJUSTMENT AND MANAGEMENT 11/10/2016 BRITTANY CRAVEN MD, Ot Z79.899 OTHER PILLOWCASE CLEANER (CURRENT) DRUG THERAPY 11/22/2016 LENNY JEWELL MD, Ot C83.10 MANTLE CELL LYMPHOMA, UNSPECIFIED SITE 11/22/2016 LENNY JEWELL MD Ot D50.9 IRON DEFICIENCY ANEMIA, UNSPECIFIED 11/22/2016 LENNY JEWELL MD Ot E03.9 HYPOTHYROIDISM, UNSPECIFIED 11/22/2016 LENNY JEWELL MD Ot E78.2 MIXED HYPERLIPIDEMIA 11/22/2016 LENNY JEWELL MD Ot I10 ESSENTIAL (PRIMARY) HYPERTENSION 11/22/2016 LENNY JEWELL MD Ot I25.10 ATHSCL HEART DISEASE OF [place] CORONARY 11/22/2016 LENNY JEWELL MD Ot I25.84 CORONARY ATHEROSCLEROSIS DUE TO [place] 11/22/2016 LENNY JEWELL MD, Ot J44.9 CHRONIC OBSTRUCTIVE PULMONARY DISEASE, U 11/22/2016 LENNY JEWELL MD Ot R60.9 EDEMA, UNSPECIFIED 11/22/2016 LENNY JEWELL MD Ot R94.39 ABNORMAL RESULT OF OTHER CARDIOVASCULAR 11/22/2016 LENNY JEWELL MD Ot Z79.899 OTHER PILLOWCASE CLEANER (CURRENT) DRUG THERAPY 11/22/2016 LENNY JEWELL MD, Ot Z87.891 PERSONAL HISTORY OF NICOTINE DEPENDENCE 11/22/2016 LENNY JEWELL MD Ot Z92.21 PERSONAL HISTORY OF ANTINEOPLASTIC CHEMO 11/22/2016 LENNY JEWELL MD Ot Z95.5 PRESENCE OF CORONARY ANGIOPLASTY IMPLANT 11/22/2016 LENNY JEWELL MD Ot Z99.81 DEPENDENCE ON SUPPLEMENTAL OXYGEN 11/22/2016 GABRIELLA AMARO Ot C83.10 MANTLE CELL LYMPHOMA, UNSPECIFIED SITE 11/22/2016 GABRIELLA AMARO Ot E78.2 MIXED HYPERLIPIDEMIA 11/22/2016 GABRIELLA AMARO Ot I10 ESSENTIAL (PRIMARY) HYPERTENSION 11/22/2016 GABRIELLA AMARO Ot I25.10 ATHSCL HEART DISEASE OF [place] CORONARY 11/24/2016 BRITTANY CRAVEN MD, Ot 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, LYMPH NODES OF [place] 11/24/2016 BRITTANY CRAVEN MD, Ot D50.9 IRON DEFICIENCY ANEMIA, UNSPECIFIED 11/24/2016 BRITTANY CRAVEN MD, Ot E78.5 HYPERLIPIDEMIA, UNSPECIFIED 11/24/2016 BRITTANY CRAVEN MD, Ot I10 ESSENTIAL (PRIMARY) HYPERTENSION 11/24/2016 BRITTANY CRAVEN MD, Ot M89.9 DISORDER OF BONE, UNSPECIFIED 11/24/2016 BRITTANY CRAVEN MD Ot Z51.11 ENCOUNTER FOR ANTINEOPLASTIC CHEMOTHERAP 11/24/2016 BRITTANY CRAVEN MD, Ot Z79.899 OTHER CUSTODIAL (CURRENT) DRUG THERAPY 11/29/2016 LENNY JEWELL MD, Ot C83.10 MANTLE CELL LYMPHOMA, UNSPECIFIED SITE 11/29/2016 LENNY JEWELL MD, Ot D50.9 IRON DEFICIENCY ANEMIA, UNSPECIFIED 11/29/2016 LENNY JEWELL MD Ot E03.9 HYPOTHYROIDISM, UNSPECIFIED 11/29/2016 LENNY JEWELL MD Ot E78.2 MIXED HYPERLIPIDEMIA 11/29/2016 LENNY JEWELL MD Ot I10 ESSENTIAL (PRIMARY) HYPERTENSION 11/29/2016 LENNY JEWELL MD Ot I25.10 ATHSCL HEART DISEASE OF [place] CORONARY 11/29/2016 LENNY JEWELL MD Ot I25.84 CORONARY ATHEROSCLEROSIS DUE TO [place] 11/29/2016 LENNY JEWELL MD, Ot J44.9 CHRONIC OBSTRUCTIVE PULMONARY DISEASE, U 11/29/2016 LENNY JEWELL MD Ot R60.9 EDEMA, UNSPECIFIED 11/29/2016 LENNY JEWELL MD Ot R94.39 ABNORMAL RESULT OF OTHER CARDIOVASCULAR 11/29/2016 LENNY JEWELL MD Ot Z79.899 OTHER CUSTODIAL (CURRENT) DRUG THERAPY 11/29/2016 LENNY JEWELL MD Ot Z87.891 PERSONAL HISTORY OF NICOTINE DEPENDENCE 11/29/2016 LENNY JEWELL MD Ot Z92.21 PERSONAL HISTORY OF ANTINEOPLASTIC CHEMO 11/29/2016 LENNY JEWELL MD Ot Z95.5 PRESENCE OF CORONARY ANGIOPLASTY IMPLANT 11/29/2016 LENNY JEWELL MD Ot Z99.81 DEPENDENCE ON SUPPLEMENTAL OXYGEN 11/29/2016 LENNY JEWELL MD Ot C83.10 MANTLE CELL LYMPHOMA, UNSPECIFIED SITE 11/29/2016 LENNY JEWELL MD Ot D50.9 IRON DEFICIENCY ANEMIA, UNSPECIFIED 11/29/2016 LENNY JEWELL MD Ot E03.9 HYPOTHYROIDISM, UNSPECIFIED 11/29/2016 LENNY JEWELL MD Ot E78.2 MIXED HYPERLIPIDEMIA 11/29/2016 LENNY JEWELL MD Ot I10 ESSENTIAL (PRIMARY) HYPERTENSION 11/29/2016 LENNY JEWELL MD Ot I25.10 ATHSCL HEART DISEASE OF [place] CORONARY 11/29/2016 LENNY JEWELL MD Ot I25.84 CORONARY ATHEROSCLEROSIS DUE TO [place] 11/29/2016 LENNY JEWELL MD Ot J44.9 CHRONIC OBSTRUCTIVE PULMONARY DISEASE, U 11/29/2016 LENNY JEWELL MD Ot R60.9 EDEMA, UNSPECIFIED 11/29/2016 LENNY JEWELL MD Ot R94.39 ABNORMAL RESULT OF OTHER CARDIOVASCULAR 11/29/2016 LENNY JEWELL MD Ot Z79.899 OTHER CUSTODIAL (CURRENT) DRUG THERAPY 11/29/2016 LENNY JEWELL MD Ot Z87.891 PERSONAL HISTORY OF NICOTINE DEPENDENCE 11/29/2016 LENNY JEWELL MD Ot Z92.21 PERSONAL HISTORY OF ANTINEOPLASTIC CHEMO 11/29/2016 LENNY JEWELL MD Ot Z95.5 PRESENCE OF CORONARY ANGIOPLASTY IMPLANT 11/29/2016 LENNY JEWELL MD Ot Z99.81 DEPENDENCE ON SUPPLEMENTAL OXYGEN 12/26/2016 BRITTANY CRAVEN MD Ot 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, LYMPH NODES OF M[place] 12/26/2016 BRITTANY CRAVEN MD Ot D50.9 IRON DEFICIENCY ANEMIA, UNSPECIFIED 12/26/2016 BRITTANY CRAVEN MD Ot E78.5 HYPERLIPIDEMIA, UNSPECIFIED 12/26/2016 BRITTANY CRAVEN MD Ot I10 ESSENTIAL (PRIMARY) HYPERTENSION 12/26/2016 BRITTANY CRAVEN MD Ot M89.9 DISORDER OF BONE, UNSPECIFIED 12/26/2016 BRITTANY CRAVEN MD Ot Z51.11 ENCOUNTER FOR ANTINEOPLASTIC CHEMOTHERAP 12/26/2016 BRITTANY CRAVEN MD Ot Z79.899 OTHER PILLOWCASE CLEANER (CURRENT) DRUG THERAPY 01/08/2017 CHELY BERRY GABRIELLA K Ot E78.2 MIXED HYPERLIPIDEMIA 01/08/2017 CHELY BERRY, GABRIELLA K Ot I10 ESSENTIAL (PRIMARY) HYPERTENSION 01/08/2017 CHELY BERRY GABRIELLA K Ot I25.10 ATHSCL HEART DISEASE OF [place] CORONARY 02/07/2017 GABRIELLA AMARO K Ot C83.10 MANTLE CELL LYMPHOMA, UNSPECIFIED SITE 02/07/2017 BENNETT AMAROTH K Ot E78.2 MIXED HYPERLIPIDEMIA 02/07/2017 CHELY BERRY GABRIELLA K Ot I10 ESSENTIAL (PRIMARY) HYPERTENSION 02/07/2017 CHELY BERRY GABRIELLA K Ot I25.10 ATHSCL HEART DISEASE OF [place] CORONARY 02/15/2017 BRITTANY CRAVEN MD Ot 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, LYMPH NODES OF [place] 02/15/2017 BRITTANY CRAVEN MD Ot D50.9 IRON DEFICIENCY ANEMIA, UNSPECIFIED 02/15/2017 BRITTANY CRAVEN MD Ot E78.5 HYPERLIPIDEMIA, UNSPECIFIED 02/15/2017 BRITTANY CRAVEN MD Ot I10 ESSENTIAL (PRIMARY) HYPERTENSION 02/15/2017 BRITTANY CRAVEN MD Ot M89.9 DISORDER OF BONE, UNSPECIFIED 02/15/2017 BRITTANY CRAVEN MD Ot Z51.11 ENCOUNTER FOR ANTINEOPLASTIC CHEMOTHERAP 02/15/2017 BRITTANY CRAVEN MD Ot Z79.899 OTHER CUSTODIAL (CURRENT) DRUG THERAPY 02/15/2017 BRITTANY CRAVEN MD Ot 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, LYMPH NODES OF [place] 02/15/2017 BRITTANY CRAVEN MD Ot D50.9 IRON DEFICIENCY ANEMIA, UNSPECIFIED 02/15/2017 BRITTANY CRAVEN MD Ot E78.5 HYPERLIPIDEMIA, UNSPECIFIED 02/15/2017 BRITTANY CRAVEN MD Ot I10 ESSENTIAL (PRIMARY) HYPERTENSION 02/15/2017 BRITTANY CRAVEN MD Ot M89.9 DISORDER OF BONE, UNSPECIFIED 02/15/2017 BRITTANY CRAVEN MD Ot Z51.11 ENCOUNTER FOR ANTINEOPLASTIC CHEMOTHERAP 02/15/2017 BRITTANY CRAVEN MD Ot Z79.899 OTHER CUSTODIAL (CURRENT) DRUG THERAPY 02/15/2017 Ot 272.4 HYPERLIPIDEMIA NEC/NOS 02/15/2017 Ot 414.00 CORON ATHEROSCLER NOS TYPE VESSEL, NATIV 02/15/2017 Ot 786.09 RESPIRATORY ABNORM NEC 02/15/2017 Ot 202.80 OTH LYMPHOMAS EXTRANODAL SOLID ORGAN U 02/15/2017 Ot 202.80 OTH LYMPHOMAS EXTRANODAL SOLID ORGAN U 02/15/2017 Ot 272.4 HYPERLIPIDEMIA NEC/NOS 02/15/2017 Ot 401.9 HYPERTENSION NOS 02/15/2017 Ot 414.01 CORONARY ATHEROSCLEROSIS OF [place] CORON 02/15/2017 Ot 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, LYMPH NODES OF [place] 02/15/2017 LENNY JEWELL MD Ot 272.4 HYPERLIPIDEMIA NEC/NOS 02/15/2017 LENNY JEWELL MD Ot 414.01 CORONARY ATHEROSCLEROSIS OF [place] CORON 02/15/2017 Ot 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, LYMPH NODES OF M[place] 02/15/2017 Ot 272.4 HYPERLIPIDEMIA NEC/NOS 02/15/2017 Ot 285.9 ANEMIA NOS 02/15/2017 Ot 401.9 HYPERTENSION NOS 02/15/2017 Ot 733.90 BONE CARTILAGE DIS NOS 02/15/2017 Ot V12.71 PERSONAL HISTORY OF PEPTIC ULCER DISEASE 02/15/2017 Ot V58.11 ENCOUNTER FOR ANTINEOPLASTIC CHEMOTHERAP 02/15/2017 Ot V58.69 OTH MED,LT, CURRENT USE 02/15/2017 LENNY JEWELL MD Ot 272.4 HYPERLIPIDEMIA NEC/NOS 02/15/2017 LENNY JEWELL MD Ot 414.01 CORONARY ATHEROSCLEROSIS OF [place] CORON 02/15/2017 GABRIELLA AMARO Ot 401.9 HYPERTENSION NOS 02/15/2017 GABRIELLA AMARO Ot 414.00 CORON ATHEROSCLER NOS TYPE VESSEL, NATIV 02/15/2017 RODERICK AMAROALBIN [place] Ot 786.09 RESPIRATORY ABNORM NEC 02/15/2017 CHELY BERRY GABRIELLA K Ot 272.4 HYPERLIPIDEMIA NEC/NOS 02/15/2017 CHELY BERRY, GABRIELLA K Ot 278.00 OBESITY, NOS 02/15/2017 CHELY BERRY, GABRIELLA K Ot 401.9 HYPERTENSION NOS 02/15/2017 CHLEY BERRY GABRIELLA K Ot 414.00 CORON ATHEROSCLER NOS TYPE VESSEL, NATIV 02/15/2017 CHELY BERRY GABRIELLA K Ot 496 CHR AIRWAY OBSTRUCT NEC 02/15/2017 CHELY BERRY, GABRIELLA K Ot 786.09 RESPIRATORY ABNORM NEC 02/15/2017 CHELY BERRY GABRIELLA K Ot V85.36 BODY MASS INDEX 36.0-36.9, ADULT 02/15/2017 GEETA HATHAWAY DO Ot 496 CHR AIRWAY OBSTRUCT NEC 02/15/2017 GEETA HATHAWAY DO Ot 786.09 RESPIRATORY ABNORM NEC 02/15/2017 LENNY JEWELL MD Ot 272.4 HYPERLIPIDEMIA NEC/NOS 02/15/2017 LENNY JEWELL MD Ot 401.9 HYPERTENSION NOS 02/15/2017 FANTA PISANO, LENNY Cain Ot 414.00 CORON ATHEROSCLER NOS TYPE VESSEL, NATIV 02/15/2017 LENNY JEWELL MD Ot 496 CHR AIRWAY OBSTRUCT NEC 02/15/2017 LENNY JEWELL MD Ot 272.4 HYPERLIPIDEMIA NEC/NOS 02/15/2017 LENNY JEWELL MD Ot 401.9 HYPERTENSION NOS 02/15/2017 FANTA PISANO, LENNY J Ot 414.00 CORON ATHEROSCLER NOS TYPE VESSEL, NATIV 02/15/2017 LENNY JEWELL MD Ot 496 CHR AIRWAY OBSTRUCT NEC 02/15/2017 GEETA HATHAWAY DO Ot 278.00 OBESITY, NOS 02/15/2017 GEETA HATHAWAY DO Ot 496 CHR AIRWAY OBSTRUCT NEC 02/15/2017 LENNY JEWELL MD Ot 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, UNSP SITE, EXTRANO 02/15/2017 LENNY JEWELL MD Ot 272.4 HYPERLIPIDEMIA NEC/NOS 02/15/2017 LENNY JEWELL MD J Ot 401.9 HYPERTENSION NOS 02/15/2017 LENNY JEWELL MD J Ot 414.9 CHR ISCHEMIC HRT DIS NOS 02/15/2017 GABRIELLA AMARO Ot E66.9 OBESITY, UNSPECIFIED 02/15/2017 GABRIELLA AMARO Ot E78.2 MIXED HYPERLIPIDEMIA 02/15/2017 GABRIELLA AMARO Ot I10 ESSENTIAL (PRIMARY) HYPERTENSION 02/15/2017 GABRIELLA AMARO Ot I25.10 ATHSCL HEART DISEASE OF [place] CORONARY 02/15/2017 GABRIELLA AMARO Ot I65.22 OCCLUSION AND STENOSIS OF LEFT CAROTID A 02/15/2017 GABRIELLA AMARO Ot I67.1 CEREBRAL ANEURYSM, NONRUPTURED 02/15/2017 GABRIELLA AMARO Ot E78.5 HYPERLIPIDEMIA, UNSPECIFIED 02/15/2017 GABRIELLA AMARO Ot I10 ESSENTIAL (PRIMARY) HYPERTENSION 02/15/2017 GABRIELLA AMARO Ot I25.10 ATHSCL HEART DISEASE OF [place] CORONARY 02/15/2017 GABRIELLA AMARO Ot E78.2 MIXED HYPERLIPIDEMIA 02/15/2017 LENNY JEWELL MD Ot E78.2 MIXED HYPERLIPIDEMIA 02/15/2017 LENNY JEWELL MD Ot I10 ESSENTIAL (PRIMARY) HYPERTENSION 02/15/2017 LENNY JEWELL MD Ot I25.10 ATHSCL HEART DISEASE OF [place] CORONARY 02/15/2017 LENNY JEWELL MD Ot J44.9 CHRONIC OBSTRUCTIVE PULMONARY DISEASE, U 02/15/2017 LENNY JEWELL MD Ot R06.00 DYSPNEA, UNSPECIFIED 02/15/2017 LENNY JEWELL MD Ot R07.9 CHEST PAIN, UNSPECIFIED 02/15/2017 BROOKE CHRISTINE APRN Ot R09.02 HYPOXEMIA 02/15/2017 BROOKE CHRISTINE MANAGER TRANSMISSION Ot Z87.891 PERSONAL HISTORY OF NICOTINE DEPENDENCE 02/15/2017 BROOKE CHRISTINE APRN Ot Z98.890 OTHER SPECIFIED POSTPROCEDURAL STATES 02/15/2017 GABRIELLA AMARO Ot C83.10 MANTLE CELL LYMPHOMA, UNSPECIFIED SITE 02/15/2017 GABRIELLA AMARO Ot E78.2 MIXED HYPERLIPIDEMIA 02/15/2017 GABRIELLA AMARO Ot I10 ESSENTIAL (PRIMARY) HYPERTENSION 02/15/2017 GABRIELLA AMARO Ot I25.10 ATHSCL HEART DISEASE OF [place] CORONARY 02/15/2017 GABRIELLA AMARO Ot C83.10 MANTLE CELL LYMPHOMA, UNSPECIFIED SITE 02/15/2017 GABRIELLA AMARO Ot E78.2 MIXED HYPERLIPIDEMIA 02/15/2017 GABRIELLA AMARO Ot I10 ESSENTIAL (PRIMARY) HYPERTENSION 02/15/2017 GABRIELLA AMARO Ot I25.10 ATHSCL HEART DISEASE OF [place] CORONARY 02/15/2017 GABRIELLA AMARO Ot E78.2 MIXED HYPERLIPIDEMIA 02/15/2017 GABRIELLA AMARO Ot I10 ESSENTIAL (PRIMARY) HYPERTENSION 02/15/2017 GABRIELLA AMARO Ot I25.10 ATHSCL HEART DISEASE OF [place] CORONARY 02/16/2017 BRITTANY CRAVEN MD Ot 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, LYMPH NODES OF [place] 02/16/2017 BRITTANY CRAVEN MD Ot D50.9 IRON DEFICIENCY ANEMIA, UNSPECIFIED 02/16/2017 RBITTANY CRAVEN MD Ot E78.5 HYPERLIPIDEMIA, UNSPECIFIED 02/16/2017 BRITTANY CRAVEN MD Ot I10 ESSENTIAL (PRIMARY) HYPERTENSION 02/16/2017 BRITTANY CRAVEN MD Ot M89.9 DISORDER OF BONE, UNSPECIFIED 02/16/2017 BRITTANY CRAVEN MD Ot Z79.899 OTHER PILLOWCASE CLEANER (CURRENT) DRUG THERAPY 02/26/2017 GABRIELLA AMARO Ot C83.10 MANTLE CELL LYMPHOMA, UNSPECIFIED SITE 02/26/2017 GABRIELLA AMARO Ot E78.2 MIXED HYPERLIPIDEMIA 02/26/2017 GABRIELLA AMARO Ot I10 ESSENTIAL (PRIMARY) HYPERTENSION 02/26/2017 GABRIELLA AMARO Ot I25.10 ATHSCL HEART DISEASE OF [place] CORONARY 04/03/2017 Ot 414.00 CORON ATHEROSCLER NOS TYPE VESSEL, NATIV 04/03/2017 Ot 786.09 RESPIRATORY ABNORM NEC 04/03/2017 Ot 202.80 OTH LYMPHOMAS EXTRANODAL SOLID ORGAN U 04/03/2017 Ot 202.80 OTH LYMPHOMAS EXTRANODAL SOLID ORGAN U 04/03/2017 Ot 272.4 HYPERLIPIDEMIA NEC/NOS 04/03/2017 Ot 401.9 HYPERTENSION NOS 04/03/2017 Ot 414.01 CORONARY ATHEROSCLEROSIS OF [place] CORON 04/03/2017 Ot 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, LYMPH NODES OF [place] 04/03/2017 LENNY JEWELL MD Ot 272.4 HYPERLIPIDEMIA NEC/NOS 04/03/2017 LENNY JEWELL MD Ot 414.01 CORONARY ATHEROSCLEROSIS OF [place] CORON 04/03/2017 Ot 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, LYMPH NODES OF [place] 04/03/2017 Ot 272.4 HYPERLIPIDEMIA NEC/NOS 04/03/2017 Ot 285.9 ANEMIA NOS 04/03/2017 Ot 401.9 HYPERTENSION NOS 04/03/2017 Ot 733.90 BONE CARTILAGE DIS NOS 04/03/2017 Ot V12.71 PERSONAL HISTORY OF PEPTIC ULCER DISEASE 04/03/2017 Ot V58.11 ENCOUNTER FOR ANTINEOPLASTIC CHEMOTHERAP 04/03/2017 Ot V58.69 OTH MED,LT, CURRENT USE 04/03/2017 FANTA PISANO, LENNY Cain Ot 272.4 HYPERLIPIDEMIA NEC/NOS 04/03/2017 LENNY JEWELL MD Ot 414.01 CORONARY ATHEROSCLEROSIS OF [place] CORON 04/03/2017 GABRIELLA AMARO Ot 401.9 HYPERTENSION NOS 04/03/2017 GABRIELLA AMARO Ot 414.00 CORON ATHEROSCLER NOS TYPE VESSEL, NATIV 04/03/2017 GABRIELLA AMARO Ot 786.09 RESPIRATORY ABNORM NEC 04/03/2017 GABRIELLA AMARO Ot 272.4 HYPERLIPIDEMIA NEC/NOS 04/03/2017 GABRIELLA AMARO Ot 278.00 OBESITY, NOS 04/03/2017 GABRIELLA AMARO Ot 401.9 HYPERTENSION NOS 04/03/2017 GABRIELLA AMARO Ot 414.00 CORON ATHEROSCLER NOS TYPE VESSEL, NATIV 04/03/2017 GABRIELLA AMARO Ot 496 CHR AIRWAY OBSTRUCT NEC 04/03/2017 GABRIELLA AMARO Ot 786.09 RESPIRATORY ABNORM NEC 04/03/2017 GABRIELLA AMARO Ot V85.36 BODY MASS INDEX 36.0-36.9, ADULT 04/03/2017 GEETA HATHAWAY DO Ot 496 CHR AIRWAY OBSTRUCT NEC 04/03/2017 GEETA HATHAWAY DO Ot 786.09 RESPIRATORY ABNORM NEC 04/03/2017 FANTA PISANO, LENNY Cain Ot 272.4 HYPERLIPIDEMIA NEC/NOS 04/03/2017 LENNY JEWELL MD Ot 401.9 HYPERTENSION NOS 04/03/2017 AFNTA PISANO, LENNY Cain Ot 414.00 CORON ATHEROSCLER NOS TYPE VESSEL, NATIV 04/03/2017 FANTA PISANO, LENNY Cain Ot 496 CHR AIRWAY OBSTRUCT NEC 04/03/2017 LENNY JEWELL MD Ot 272.4 HYPERLIPIDEMIA NEC/NOS 04/03/2017 LENNY JEWELL MD Ot 401.9 HYPERTENSION NOS 04/03/2017 FANTA PISANO, ELNNY Cain Ot 414.00 CORON ATHEROSCLER NOS TYPE VESSEL, NATIV 04/03/2017 LENNY JEWELL MD Ot 496 CHR AIRWAY OBSTRUCT NEC 04/03/2017 GEETA HATHAWAY DO Ot 278.00 OBESITY, NOS 04/03/2017 GEETA HATHAWAY DO Ot 496 CHR AIRWAY OBSTRUCT NEC 04/03/2017 FANTA PISANO, LENNY Cain Ot 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, UNSP SITE, EXTRANO 04/03/2017 FANTA PISANO, LENNY Cain Ot 272.4 HYPERLIPIDEMIA NEC/NOS 04/03/2017 LENNY JEWELL MD Ot 401.9 HYPERTENSION NOS 04/03/2017 LENNY JEWELL MD Ot 414.9 CHR ISCHEMIC HRT DIS NOS 04/03/2017 GABRIELLA AMARO Ot E66.9 OBESITY, UNSPECIFIED 04/03/2017 GABRIELLA AMARO Ot E78.2 MIXED HYPERLIPIDEMIA 04/03/2017 GABRIELLA AMARO Ot I10 ESSENTIAL (PRIMARY) HYPERTENSION 04/03/2017 GABRIELLA AMARO Ot I25.10 ATHSCL HEART DISEASE OF [place] CORONARY 04/03/2017 GABRIELLA AMARO Ot I65.22 OCCLUSION AND STENOSIS OF LEFT CAROTID A 04/03/2017 GABRIELLA AMARO Ot I67.1 CEREBRAL ANEURYSM, NONRUPTURED 04/03/2017 GABRIELLA AMARO Ot E78.5 HYPERLIPIDEMIA, UNSPECIFIED 04/03/2017 GABRIELLA AMARO Ot I10 ESSENTIAL (PRIMARY) HYPERTENSION 04/03/2017 GABRIELLA AMARO Ot I25.10 ATHSCL HEART DISEASE OF [place] CORONARY 04/03/2017 GABRIELLA AMARO Ot E78.2 MIXED HYPERLIPIDEMIA 04/03/2017 LENNY JEWELL MD Ot E78.2 MIXED HYPERLIPIDEMIA 04/03/2017 LENNY JEWELL MD Ot I10 ESSENTIAL (PRIMARY) HYPERTENSION 04/03/2017 LENNY JEWELL MD Ot I25.10 ATHSCL HEART DISEASE OF [place] CORONARY 04/03/2017 LENNY JEWELL MD Ot J44.9 CHRONIC OBSTRUCTIVE PULMONARY DISEASE, U 04/03/2017 FANTA PISANO, LENNY Cain Ot R06.00 DYSPNEA, UNSPECIFIED 04/03/2017 LENNY JEWELL MD Ot R07.9 CHEST PAIN, UNSPECIFIED 04/03/2017 BROOKE CHRISTINE MANAGER TRANSMISSION Ot R09.02 HYPOXEMIA 04/03/2017 BROOKE CHRISTINE MANAGER TRANSMISSION Ot Z87.891 PERSONAL HISTORY OF NICOTINE DEPENDENCE 04/03/2017 BROOKE CHRISTINE MANAGER TRANSMISSION Ot Z98.890 OTHER SPECIFIED POSTPROCEDURAL STATES 04/03/2017 GABRIELLA AMARO Ot C83.10 MANTLE CELL LYMPHOMA, UNSPECIFIED SITE 04/03/2017 GABRIELLA AMARO Ot E78.2 MIXED HYPERLIPIDEMIA 04/03/2017 GABRIELLA AMARO Ot I10 ESSENTIAL (PRIMARY) HYPERTENSION 04/03/2017 GABRIELLA AMARO Ot I25.10 ATHSCL HEART DISEASE OF [place] CORONARY 04/03/2017 GABRIELLA AMARO Ot C83.10 MANTLE CELL LYMPHOMA, UNSPECIFIED SITE 04/03/2017 GABRIELLA AMARO Ot E78.2 MIXED HYPERLIPIDEMIA 04/03/2017 GABRIELLA AMARO Ot I10 ESSENTIAL (PRIMARY) HYPERTENSION 04/03/2017 GABRIELLA AMARO Ot I25.10 ATHSCL HEART DISEASE OF [place] CORONARY 04/03/2017 GABRIELLA AMARO Ot E78.2 MIXED HYPERLIPIDEMIA 04/03/2017 GABRIELLA AMARO Ot I10 ESSENTIAL (PRIMARY) HYPERTENSION 04/03/2017 GABRIELLA AMARO Ot I25.10 ATHSCL HEART DISEASE OF [place] CORONARY 04/03/2017 BRITTANY CRAVEN MD Ot 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, LYMPH NODES OF [place] 04/03/2017 BRITTANY CRAVEN MD Ot D50.9 IRON DEFICIENCY ANEMIA, UNSPECIFIED 04/03/2017 BRITTANY CRAVEN MD Ot E78.5 HYPERLIPIDEMIA, UNSPECIFIED 04/03/2017 BRITTANY CRAVEN MD Ot I10 ESSENTIAL (PRIMARY) HYPERTENSION 04/03/2017 BRITTANY CRAVEN MD Ot M89.9 DISORDER OF BONE, UNSPECIFIED 04/03/2017 BRITTANY CRAVEN MD Ot Z79.899 OTHER CUSTODIAL (CURRENT) DRUG THERAPY 04/10/2017 GABRIELLA AMARO Ot C83.10 MANTLE CELL LYMPHOMA, UNSPECIFIED SITE 04/10/2017 GABRIELLA AMARO Ot E78.2 MIXED HYPERLIPIDEMIA 04/10/2017 GABRIELLA AMARO Ot I10 ESSENTIAL (PRIMARY) HYPERTENSION 04/10/2017 GABRIELLA AMARO Ot I25.10 ATHSCL HEART DISEASE OF [place] CORONARY 04/10/2017 BRITTANY CRAVEN MD Ot 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, LYMPH NODES OF [place] 04/10/2017 BRITTANY CRAVEN MD Ot D50.9 IRON DEFICIENCY ANEMIA, UNSPECIFIED 04/10/2017 BRITTANY CRAVEN MD Ot E78.5 HYPERLIPIDEMIA, UNSPECIFIED 04/10/2017 BRITTANY CRAVEN MD Ot I10 ESSENTIAL (PRIMARY) HYPERTENSION 04/10/2017 BRITTANY CRAVEN MD Ot M89.9 DISORDER OF BONE, UNSPECIFIED 04/10/2017 BRITTANY CRAVEN MD Ot Z79.899 OTHER CUSTODIAL (CURRENT) DRUG THERAPY 05/10/2017 BRITTANY CRAVEN MD Ot 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, LYMPH NODES OF MUL 05/10/2017 BRITTANY CARVEN MD Ot D50.9 IRON DEFICIENCY ANEMIA, UNSPECIFIED 05/10/2017 BRITTANY CRAVEN MD Ot E78.5 HYPERLIPIDEMIA, UNSPECIFIED 05/10/2017 BRITTANY CRAVEN MD Ot I10 ESSENTIAL (PRIMARY) HYPERTENSION 05/10/2017 BRITTANY CRAVEN MD Ot M89.9 DISORDER OF BONE, UNSPECIFIED 05/10/2017 BRITTANY CRAVEN MD Ot Z79.899 OTHER PILLOWCASE CLEANER (CURRENT) DRUG THERAPY 05/16/2017 BRITTANY CRAVEN MD Ot 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, LYMPH NODES OF [place] 05/16/2017 BRITTANY CRAVEN MD Ot D50.9 IRON DEFICIENCY ANEMIA, UNSPECIFIED 05/16/2017 BRITTANY CRAVEN MD Ot E78.5 HYPERLIPIDEMIA, UNSPECIFIED 05/16/2017 BRITTANY CRAVEN MD Ot I10 ESSENTIAL (PRIMARY) HYPERTENSION 05/16/2017 BRITTANY CRAVEN MD Ot M89.9 DISORDER OF BONE, UNSPECIFIED 05/16/2017 BRITTANY CRAVEN MD Ot Z51.11 ENCOUNTER FOR ANTINEOPLASTIC CHEMOTHERAP 05/16/2017 BRITTANY CRAVEN MD Ot Z79.899 OTHER CUSTODIAL (CURRENT) DRUG THERAPY 05/17/2017 BRITTANY CRAVEN MD Ot 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, LYMPH NODES OF MUL 05/17/2017 BRITTANY CRAVEN MD Ot D50.9 IRON DEFICIENCY ANEMIA, UNSPECIFIED 05/17/2017 BRITTANY CRAVEN MD Ot E78.5 HYPERLIPIDEMIA, UNSPECIFIED 05/17/2017 BRITTANY CRAVEN MD Ot I10 ESSENTIAL (PRIMARY) HYPERTENSION 05/17/2017 BRITTANY CRAVEN MD Ot M89.9 DISORDER OF BONE, UNSPECIFIED 05/17/2017 BRITTANY CRAVEN MD Ot Z51.11 ENCOUNTER FOR ANTINEOPLASTIC CHEMOTHERAP 05/17/2017 BRITTANY CRAVEN MD Ot Z79.899 OTHER PILLOWCASE CLEANER (CURRENT) DRUG THERAPY 05/17/2017 BRITTANY CRAVEN MD Ot 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, LYMPH NODES OF MUL 05/17/2017 BRITTANY CRAVEN MD Ot D50.9 IRON DEFICIENCY ANEMIA, UNSPECIFIED 05/17/2017 BRITTANY CRAVEN MD Ot E78.5 HYPERLIPIDEMIA, UNSPECIFIED 05/17/2017 BRITTANY CRAVEN MD Ot I10 ESSENTIAL (PRIMARY) HYPERTENSION 05/17/2017 MERISSA PISANO, BRITTANY Ot M89.9 DISORDER OF BONE, UNSPECIFIED 05/17/2017 BRITTANY CRAVEN MD Ot Z51.11 ENCOUNTER FOR ANTINEOPLASTIC CHEMOTHERAP 05/17/2017 BRITTANY CRAVEN MD Ot Z79.899 OTHER CUSTODIAL (CURRENT) DRUG THERAPY 05/18/2017 Ot 272.4 HYPERLIPIDEMIA NEC/NOS 05/18/2017 Ot 401.9 HYPERTENSION NOS 05/18/2017 Ot 414.01 CORONARY ATHEROSCLEROSIS OF [place] CORON 05/18/2017 Ot 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, LYMPH NODES OF MUL 05/18/2017 LENNY JEWELL MD Ot 272.4 HYPERLIPIDEMIA NEC/NOS 05/18/2017 LENNY JEWELL MD Ot 414.01 CORONARY ATHEROSCLEROSIS OF [place] CORON 05/18/2017 Ot 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, LYMPH NODES OF MUL 05/18/2017 Ot 272.4 HYPERLIPIDEMIA NEC/NOS 05/18/2017 Ot 285.9 ANEMIA NOS 05/18/2017 Ot 401.9 HYPERTENSION NOS 05/18/2017 Ot 733.90 BONE CARTILAGE DIS NOS 05/18/2017 Ot V12.71 PERSONAL HISTORY OF PEPTIC ULCER DISEASE 05/18/2017 Ot V58.11 ENCOUNTER FOR ANTINEOPLASTIC CHEMOTHERAP 05/18/2017 Ot V58.69 OTH MED,LT, CURRENT USE 05/18/2017 LENNY JEWELL MD Ot 272.4 HYPERLIPIDEMIA NEC/NOS 05/18/2017 LENNY JEWELL MD Ot 414.01 CORONARY ATHEROSCLEROSIS OF [place] CORON 05/18/2017 GABRIELLA AMARO Ot 401.9 HYPERTENSION NOS 05/18/2017 GABRIELLA AMARO Ot 414.00 CORON ATHEROSCLER NOS TYPE VESSEL, NATIV 05/18/2017 GARBIELLA AMARO Ot 786.09 RESPIRATORY ABNORM NEC 05/18/2017 GABRIELLA AMARO Ot 272.4 HYPERLIPIDEMIA NEC/NOS 05/18/2017 GABRIELLA AMARO Ot 278.00 OBESITY, NOS 05/18/2017 GABRIELLA AMARO Ot 401.9 HYPERTENSION NOS 05/18/2017 GABRIELLA AMARO Ot 414.00 CORON ATHEROSCLER NOS TYPE VESSEL, NATIV 05/18/2017 GABRIELLA AMARO Ot 496 CHR AIRWAY OBSTRUCT NEC 05/18/2017 GABRIELLA AMARO Ot 786.09 RESPIRATORY ABNORM NEC 05/18/2017 GABRIELLA AMARO Ot V85.36 BODY MASS INDEX 36.0-36.9, ADULT 05/18/2017 GEETA HATHAWAY DO Ot 496 CHR AIRWAY OBSTRUCT NEC 05/18/2017 GEETA HATHAWAY DO Ot 786.09 RESPIRATORY ABNORM NEC 05/18/2017 LENNY JEWELL MD Ot 272.4 HYPERLIPIDEMIA NEC/NOS 05/18/2017 FANTA PISANO, LENYN J Ot 401.9 HYPERTENSION NOS 05/18/2017 FANTA PISANO, LENNY J Ot 414.00 CORON ATHEROSCLER NOS TYPE VESSEL, NATIV 05/18/2017 LENNY JEWELL MD Ot 496 CHR AIRWAY OBSTRUCT NEC 05/18/2017 LENNY JEWELL MD J Ot 272.4 HYPERLIPIDEMIA NEC/NOS 05/18/2017 LENNY JEWELL MD J Ot 401.9 HYPERTENSION NOS 05/18/2017 FANTA PISANO, LENNY J Ot 414.00 CORON ATHEROSCLER NOS TYPE VESSEL, NATIV 05/18/2017 FANTA PISANO, LENNY Cain Ot 496 CHR AIRWAY OBSTRUCT NEC 05/18/2017 GEETA HATHAWAY DO Ot 278.00 OBESITY, NOS 05/18/2017 GEETA HATHAWAY DO Ot 496 CHR AIRWAY OBSTRUCT NEC 05/18/2017 FANTA PISANO, LENNY Cain Ot 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, UNSP SITE, EXTRANO 05/18/2017 ELNNY JEWELL MD Ot 272.4 HYPERLIPIDEMIA NEC/NOS 05/18/2017 LENNY JEWELL MD J Ot 401.9 HYPERTENSION NOS 05/18/2017 FANTA PISANO, LENNY J Ot 414.9 CHR ISCHEMIC HRT DIS NOS 05/18/2017 GABRIELLA AMARO Ot E66.9 OBESITY, UNSPECIFIED 05/18/2017 GABRIELLA AMARO Ot E78.2 MIXED HYPERLIPIDEMIA 05/18/2017 GABRIELLA AMARO Ot I10 ESSENTIAL (PRIMARY) HYPERTENSION 05/18/2017 GABRIELLA AMARO Ot I25.10 ATHSCL HEART DISEASE OF [place] CORONARY 05/18/2017 GABRIELLA AMARO Ot I65.22 OCCLUSION AND STENOSIS OF LEFT CAROTID A 05/18/2017 GABRIELLA AMARO Ot I67.1 CEREBRAL ANEURYSM, NONRUPTURED 05/18/2017 GABRIELLA AMARO Ot E78.5 HYPERLIPIDEMIA, UNSPECIFIED 05/18/2017 GABRIELLA AMARO Ot I10 ESSENTIAL (PRIMARY) HYPERTENSION 05/18/2017 GABRIELLA AMARO Ot I25.10 ATHSCL HEART DISEASE OF [place] CORONARY 05/18/2017 GABRIELLA AMARO Ot E78.2 MIXED HYPERLIPIDEMIA 05/18/2017 LENNY JEWELL MD Ot E78.2 MIXED HYPERLIPIDEMIA 05/18/2017 FANTA PISANO, LENNY Cain Ot I10 ESSENTIAL (PRIMARY) HYPERTENSION 05/18/2017 LENNY JEWELL MD Ot I25.10 ATHSCL HEART DISEASE OF [place] CORONARY 05/18/2017 FANTA PISANO, LENNY Cain Ot J44.9 CHRONIC OBSTRUCTIVE PULMONARY DISEASE, U 05/18/2017 FANTA PISANO, LENNY Cain Ot R06.00 DYSPNEA, UNSPECIFIED 05/18/2017 FANTA PISANO, LENNY Cain Ot R07.9 CHEST PAIN, UNSPECIFIED 05/18/2017 BROOKE CHRISTINE MANAGER TRANSMISSION Ot R09.02 HYPOXEMIA 05/18/2017 BROOKE CHRISTINE MANAGER TRANSMISSION Ot Z87.891 PERSONAL HISTORY OF NICOTINE DEPENDENCE 05/18/2017 BROOKE CHRISTINE MANAGER TRANSMISSION Ot Z98.890 OTHER SPECIFIED POSTPROCEDURAL STATES 05/18/2017 GABRIELLA AMARO Ot C83.10 MANTLE CELL LYMPHOMA, UNSPECIFIED SITE 05/18/2017 GARBIELLA AMARO Ot E78.2 MIXED HYPERLIPIDEMIA 05/18/2017 GABRIELLA AMARO Ot I10 ESSENTIAL (PRIMARY) HYPERTENSION 05/18/2017 GABRIELLA AMARO Ot I25.10 ATHSCL HEART DISEASE OF [place] CORONARY 05/18/2017 GABRIELLA AMARO Ot C83.10 MANTLE CELL LYMPHOMA, UNSPECIFIED SITE 05/18/2017 GABRIELLA AMARO Ot E78.2 MIXED HYPERLIPIDEMIA 05/18/2017 GABRIELLA AMARO Ot I10 ESSENTIAL (PRIMARY) HYPERTENSION 05/18/2017 GABRIELLA AMARO Ot I25.10 ATHSCL HEART DISEASE OF [place] CORONARY 05/18/2017 GABRIELLA AMARO Ot E78.2 MIXED HYPERLIPIDEMIA 05/18/2017 GABRIELLA AMARO Ot I10 ESSENTIAL (PRIMARY) HYPERTENSION 05/18/2017 GABRIELLA AMARO Ot I25.10 ATHSCL HEART DISEASE OF [place] CORONARY 05/18/2017 BRITTANY CRAVEN MD Ot 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, LYMPH NODES OF MUL 05/18/2017 BRITTANY CRAVEN MD Ot D50.9 IRON DEFICIENCY ANEMIA, UNSPECIFIED 05/18/2017 BRITTANY CRAVEN MD Ot E78.5 HYPERLIPIDEMIA, UNSPECIFIED 05/18/2017 BRITTANY CRAVEN MD Ot I10 ESSENTIAL (PRIMARY) HYPERTENSION 05/18/2017 BRITTANY CRAVEN MD Ot M89.9 DISORDER OF BONE, UNSPECIFIED 05/18/2017 BRITTANY CRAVEN MD Ot Z79.899 OTHER CUSTODIAL (CURRENT) DRUG THERAPY 06/08/2017 BRITTANY CRAVEN MD Ot 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, LYMPH NODES OF MUL 06/08/2017 BRITTANY CRAVEN MD Ot D50.9 IRON DEFICIENCY ANEMIA, UNSPECIFIED 06/08/2017 BRITTANY CRAVEN MD Ot E78.5 HYPERLIPIDEMIA, UNSPECIFIED 06/08/2017 BRITTANY CRAVEN MD Ot I10 ESSENTIAL (PRIMARY) HYPERTENSION 06/08/2017 BRITTANY CRAVEN MD Ot M89.9 DISORDER OF BONE, UNSPECIFIED 06/08/2017 BRITTANY CARVEN MD Ot Z79.899 OTHER PILLOWCASE CLEANER (CURRENT) DRUG THERAPY 08/02/2017 BRITTANY CRAVEN MD Ot 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, LYMPH NODES OF MUL 08/02/2017 BRITTANY CRAVEN MD Ot D50.9 IRON DEFICIENCY ANEMIA, UNSPECIFIED 08/02/2017 BRITTANY CRAVEN MD Ot E78.5 HYPERLIPIDEMIA, UNSPECIFIED 08/02/2017 BRITTANY CRAVEN MD Ot I10 ESSENTIAL (PRIMARY) HYPERTENSION 08/02/2017 BRITTANY CRAVEN MD Ot M89.9 DISORDER OF BONE, UNSPECIFIED 08/02/2017 BRITTANY CRAVEN MD Ot Z79.899 OTHER CUSTODIAL (CURRENT) DRUG THERAPY 08/06/2017 LENNY JEWELL MD Ot I10 ESSENTIAL (PRIMARY) HYPERTENSION 08/06/2017 LENNY JEWELL MD Ot I25.10 ATHSCL HEART DISEASE OF [place] CORONARY 08/06/2017 LENNY JEWELL MD Ot I67.1 CEREBRAL ANEURYSM, NONRUPTURED 08/06/2017 LENNY JEWELL MD Ot J44.9 CHRONIC OBSTRUCTIVE PULMONARY DISEASE, U 08/06/2017 LENNY JEWELL MD Ot Z82.49 FAMILY HX OF ISCHE[place] HEART DIS AND OTH DI 08/27/2017 LENNY JEWELL MD, Ot I10 ESSENTIAL (PRIMARY) HYPERTENSION 08/27/2017 LENNY JEWELL MD Ot I25.10 ATHSCL HEART DISEASE OF [place] CORONARY 08/27/2017 LENNY JEWELL MD Ot I67.1 CEREBRAL ANEURYSM, NONRUPTURED 08/27/2017 LENNY JEWELL MD, Ot J44.9 CHRONIC OBSTRUCTIVE PULMONARY DISEASE, U 08/27/2017 LENNY JEWELL MD Ot Z82.49 FAMILY HX OF ISCHE[place] HEART DIS AND OTH DI 08/30/2017 BRITTANY CRAVEN MD Ot 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, LYMPH NODES OF MUL 08/30/2017 BRITTANY CRAVEN MD Ot D50.9 IRON DEFICIENCY ANEMIA, UNSPECIFIED 08/30/2017 BRITTANY CRAVEN MD Ot E78.5 HYPERLIPIDEMIA, UNSPECIFIED 08/30/2017 BRITTANY CRAVEN MD Ot I10 ESSENTIAL (PRIMARY) HYPERTENSION 08/30/2017 BRITTANY CRAVEN MD Ot M89.9 DISORDER OF BONE, UNSPECIFIED 08/30/2017 BRITTANY CRAVEN MD Ot Z51.11 ENCOUNTER FOR ANTINEOPLASTIC CHEMOTHERAP 08/30/2017 BRITTANY CRAVEN MD Ot Z79.899 OTHER PILLOWCASE CLEANER (CURRENT) DRUG THERAPY 08/30/2017 Ot 272.4 HYPERLIPIDEMIA NEC/NOS 08/30/2017 Ot 401.9 HYPERTENSION NOS 08/30/2017 Ot 414.01 CORONARY ATHEROSCLEROSIS OF [place] CORON 08/30/2017 Ot 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, LYMPH NODES OF MUL 08/30/2017 LENNY JEWELL MD Ot 272.4 HYPERLIPIDEMIA NEC/NOS 08/30/2017 LENNY JEWELL MD Ot 414.01 CORONARY ATHEROSCLEROSIS OF [place] CORON 08/30/2017 Ot 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, LYMPH NODES OF MUL 08/30/2017 Ot 272.4 HYPERLIPIDEMIA NEC/NOS 08/30/2017 Ot 285.9 ANEMIA NOS 08/30/2017 Ot 401.9 HYPERTENSION NOS 08/30/2017 Ot 733.90 BONE CARTILAGE DIS NOS 08/30/2017 Ot V12.71 PERSONAL HISTORY OF PEPTIC ULCER DISEASE 08/30/2017 Ot V58.11 ENCOUNTER FOR ANTINEOPLASTIC CHEMOTHERAP 08/30/2017 Ot V58.69 OTH MED,LT, CURRENT USE 08/30/2017 [place]O, LENNY Cain Ot 272.4 HYPERLIPIDEMIA NEC/NOS 08/30/2017 LENNY JEWELL MD Ot 414.01 CORONARY ATHEROSCLEROSIS OF [place] CORON 08/30/2017 GABRIELLA AMARO Ot 401.9 HYPERTENSION NOS 08/30/2017 GABRIELLA AMARO Ot 414.00 CORON ATHEROSCLER NOS TYPE VESSEL, NATIV 08/30/2017 GABRIELLA AMARO Ot 786.09 RESPIRATORY ABNORM NEC 08/30/2017 GABRIELLA AMARO Ot 272.4 HYPERLIPIDEMIA NEC/NOS 08/30/2017 GABRIELLA AMARO Ot 278.00 OBESITY, NOS 08/30/2017 GABRIELLA AMARO Ot 401.9 HYPERTENSION NOS 08/30/2017 GABRIELLA AMARO Ot 414.00 CORON ATHEROSCLER NOS TYPE VESSEL, NATIV 08/30/2017 GABRIELLA AMARO Ot 496 CHR AIRWAY OBSTRUCT NEC 08/30/2017 GABRIELLA AMARO Ot 786.09 RESPIRATORY ABNORM NEC 08/30/2017 GABRIELLA AMARO Ot V85.36 BODY MASS INDEX 36.0-36.9, ADULT 08/30/2017 GEETA HATHAWAY DO Ot 496 CHR AIRWAY OBSTRUCT NEC 08/30/2017 GEETA HATHAWAY DO Ot 786.09 RESPIRATORY ABNORM NEC 08/30/2017 LENNY JEWELL MD Ot 272.4 HYPERLIPIDEMIA NEC/NOS 08/30/2017 LENNY JEWELL MD Ot 401.9 HYPERTENSION NOS 08/30/2017 LENNY JEWELL MD Ot 414.00 CORON ATHEROSCLER NOS TYPE VESSEL, NATIV 08/30/2017 LENNY JEWELL MD Ot 496 CHR AIRWAY OBSTRUCT NEC 08/30/2017 LENNY JEWELL MD Ot 272.4 HYPERLIPIDEMIA NEC/NOS 08/30/2017 LENNY JEWELL MD Ot 401.9 HYPERTENSION NOS 08/30/2017 LENNY JEWELL MD Ot 414.00 CORON ATHEROSCLER NOS TYPE VESSEL, NATIV 08/30/2017 LENNY JEWELL MD Ot 496 CHR AIRWAY OBSTRUCT NEC 08/30/2017 GEETA HATHAWAY DO Ot 278.00 OBESITY, NOS 08/30/2017 GEETA HATHAWAY DO Ot 496 CHR AIRWAY OBSTRUCT NEC 08/30/2017 LENNY JEWELL MD Ot 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, RUST SITE, EXTRANO 08/30/2017 LENNY JEWELL MD Ot 272.4 HYPERLIPIDEMIA NEC/NOS 08/30/2017 LENNY JEWELL MD Ot 401.9 HYPERTENSION NOS 08/30/2017 LENNY JEWELL MD Ot 414.9 CHR ISCHEMIC HRT DIS NOS 08/30/2017 GABRIELLA AMARO Ot E66.9 OBESITY, UNSPECIFIED 08/30/2017 GABRIELLA AMARO Ot E78.2 MIXED HYPERLIPIDEMIA 08/30/2017 GABRIELLA AMARO Ot I10 ESSENTIAL (PRIMARY) HYPERTENSION 08/30/2017 GABRIELLA AMARO Ot I25.10 ATHSCL HEART DISEASE OF [place] CORONARY 08/30/2017 GABRIELLA AMARO Ot I65.22 OCCLUSION AND STENOSIS OF LEFT CAROTID A 08/30/2017 GABRIELLA AMARO Ot I67.1 CEREBRAL ANEURYSM, NONRUPTURED 08/30/2017 GABRIELLA AMARO Ot E78.5 HYPERLIPIDEMIA, UNSPECIFIED 08/30/2017 GABRIELLA AMARO Ot I10 ESSENTIAL (PRIMARY) HYPERTENSION 08/30/2017 GABRIELLA AMARO Ot I25.10 ATHSCL HEART DISEASE OF [place] CORONARY 08/30/2017 GABRIELLA AMARO Ot E78.2 MIXED HYPERLIPIDEMIA 08/30/2017 LENNY JEWELL MD Ot E78.2 MIXED HYPERLIPIDEMIA 08/30/2017 LENNY JEWELL MD Ot I10 ESSENTIAL (PRIMARY) HYPERTENSION 08/30/2017 LENNY JEWELL MD Ot I25.10 ATHSCL HEART DISEASE OF [place] CORONARY 08/30/2017 LENNY JEWELL MD Ot J44.9 CHRONIC OBSTRUCTIVE PULMONARY DISEASE, U 08/30/2017 LENNY JEWELL MD Ot R06.00 DYSPNEA, UNSPECIFIED 08/30/2017 LENNY JEWELL MD Ot R07.9 CHEST PAIN, UNSPECIFIED 08/30/2017 BROOKE CHRISTINE MANAGER TRANSMISSION Ot R09.02 HYPOXEMIA 08/30/2017 BROOKE CHRISTINE MANAGER TRANSMISSION Ot Z87.891 PERSONAL HISTORY OF NICOTINE DEPENDENCE 08/30/2017 BROOKE CHRISTINE MANAGER TRANSMISSION Ot Z98.890 OTHER SPECIFIED POSTPROCEDURAL STATES 08/30/2017 GABRIELLA AMARO Ot C83.10 MANTLE CELL LYMPHOMA, UNSPECIFIED SITE 08/30/2017 GABRIELLA AMARO Ot E78.2 MIXED HYPERLIPIDEMIA 08/30/2017 GABRIELLA AMARO Ot I10 ESSENTIAL (PRIMARY) HYPERTENSION 08/30/2017 GABRIELLA AMARO Ot I25.10 ATHSCL HEART DISEASE OF [place] CORONARY 08/30/2017 GABRIELLA AMARO Ot C83.10 MANTLE CELL LYMPHOMA, UNSPECIFIED SITE 08/30/2017 GABRIELLA AMARO Ot E78.2 MIXED HYPERLIPIDEMIA 08/30/2017 GABRIELLA AMARO Ot I10 ESSENTIAL (PRIMARY) HYPERTENSION 08/30/2017 GABRIELLA AMARO Ot I25.10 ATHSCL HEART DISEASE OF [place] CORONARY 08/30/2017 GABRIELLA AMARO Ot E78.2 MIXED HYPERLIPIDEMIA 08/30/2017 GABRIELLA AMARO Ot I10 ESSENTIAL (PRIMARY) HYPERTENSION 08/30/2017 GABRIELLA AMARO Ot I25.10 ATHSCL HEART DISEASE OF [place] CORONARY 08/30/2017 LENNY JEWELL MD Ot I10 ESSENTIAL (PRIMARY) HYPERTENSION 08/30/2017 LENNY JEWELL MD Ot I25.10 ATHSCL HEART DISEASE OF [place] CORONARY 08/30/2017 LENNY JEWELL MD Ot I67.1 CEREBRAL ANEURYSM, NONRUPTURED 08/30/2017 LENNY JEWELL MD Ot J44.9 CHRONIC OBSTRUCTIVE PULMONARY DISEASE, U 08/30/2017 LENNY JEWELL MD Ot Z82.49 FAMILY HX OF ISCHEM HEART DIS AND OTH DI 08/30/2017 BRITTANY CRAVEN MD Ot 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, LYMPH NODES OF MUL 08/30/2017 BRITTANY CRAVEN MD Ot D50.9 IRON DEFICIENCY ANEMIA, UNSPECIFIED 08/30/2017 BRITTANY CRAVEN MD Ot E78.5 HYPERLIPIDEMIA, UNSPECIFIED 08/30/2017 BRITTANY CRAVEN MD Ot I10 ESSENTIAL (PRIMARY) HYPERTENSION 08/30/2017 BRITTANY CRAVEN MD Ot M89.9 DISORDER OF BONE, UNSPECIFIED 08/30/2017 BRITTANY CRAVEN MD Ot Z79.899 OTHER CUSTODIAL (CURRENT) DRUG THERAPY 08/30/2017 Ot 272.4 HYPERLIPIDEMIA NEC/NOS 08/30/2017 Ot 401.9 HYPERTENSION NOS 08/30/2017 Ot 414.01 CORONARY ATHEROSCLEROSIS OF [place] CORON 08/30/2017 Ot 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, LYMPH NODES OF MUL 08/30/2017 LENNY JEWELL MD Ot 272.4 HYPERLIPIDEMIA NEC/NOS 08/30/2017 LENNY JEWELL MD Ot 414.01 CORONARY ATHEROSCLEROSIS OF [place] CORON 08/30/2017 Ot 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, LYMPH NODES OF MUL 08/30/2017 Ot 272.4 HYPERLIPIDEMIA NEC/NOS 08/30/2017 Ot 285.9 ANEMIA NOS 08/30/2017 Ot 401.9 HYPERTENSION NOS 08/30/2017 Ot 733.90 BONE CARTILAGE DIS NOS 08/30/2017 Ot V12.71 PERSONAL HISTORY OF PEPTIC ULCER DISEASE 08/30/2017 Ot V58.11 ENCOUNTER FOR ANTINEOPLASTIC CHEMOTHERAP 08/30/2017 Ot V58.69 OTH MED,LT, CURRENT USE 08/30/2017 LENNY JEWELL MD Ot 272.4 HYPERLIPIDEMIA NEC/NOS 08/30/2017 LENNY JEWELL MD Ot 414.01 CORONARY ATHEROSCLEROSIS OF [place] CORON 08/30/2017 GABRIELLA AMARO Ot 401.9 HYPERTENSION NOS 08/30/2017 CHELY BERRY, GABRIELLA K Ot 414.00 CORON ATHEROSCLER NOS TYPE VESSEL, NATIV 08/30/2017 CHELY BERRY GABRIELLA K Ot 786.09 RESPIRATORY ABNORM NEC 08/30/2017 CHELY BERRY GABRIELLA K Ot 272.4 HYPERLIPIDEMIA NEC/NOS 08/30/2017 CHELY BERRY, GABRIELLA K Ot 278.00 OBESITY, NOS 08/30/2017 CHELY BERRY, GABRIELLA K Ot 401.9 HYPERTENSION NOS 08/30/2017 CHELY BERRY, GABRIELLA K Ot 414.00 CORON ATHEROSCLER NOS TYPE VESSEL, NATIV 08/30/2017 CHELY BERRY GABRIELLA K Ot 496 CHR AIRWAY OBSTRUCT NEC 08/30/2017 CHELY BERRY GABRIELLA K Ot 786.09 RESPIRATORY ABNORM NEC 08/30/2017 CHELY BERRY GABRIELLA K Ot V85.36 BODY MASS INDEX 36.0-36.9, ADULT 08/30/2017 GEETA HATHAWAY DO Ot 496 CHR AIRWAY OBSTRUCT NEC 08/30/2017 GEETA HATHAWAY DO Ot 786.09 RESPIRATORY ABNORM NEC 08/30/2017 LENNY JEWELL MD Ot 272.4 HYPERLIPIDEMIA NEC/NOS 08/30/2017 FANTA PISANO, LENNY Cain Ot 401.9 HYPERTENSION NOS 08/30/2017 FANTA PISANO, LENNY J Ot 414.00 CORON ATHEROSCLER NOS TYPE VESSEL, NATIV 08/30/2017 FANTA PISANO, LENNY Cain Ot 496 CHR AIRWAY OBSTRUCT NEC 08/30/2017 LENNY JEWELL MD Ot 272.4 HYPERLIPIDEMIA NEC/NOS 08/30/2017 FANTA PISANO, LENNY J Ot 401.9 HYPERTENSION NOS 08/30/2017 FANTA PISANO, LENNY J Ot 414.00 CORON ATHEROSCLER NOS TYPE VESSEL, NATIV 08/30/2017 LENNY JEWELL MD Ot 496 CHR AIRWAY OBSTRUCT NEC 08/30/2017 GEETA HATHAWAY DO Ot 278.00 OBESITY, NOS 08/30/2017 GEETA HATHAWAY DO Ot 496 CHR AIRWAY OBSTRUCT NEC 08/30/2017 LENNY JEWELL MD Ot 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, UNSP SITE, EXTRANO 08/30/2017 LENNY JEWELL MD Ot 272.4 HYPERLIPIDEMIA NEC/NOS 08/30/2017 FANTA PISANO, LENNY Cain Ot 401.9 HYPERTENSION NOS 08/30/2017 LENNY JEWELL MD Ot 414.9 CHR ISCHEMIC HRT DIS NOS 08/30/2017 GABRIELLA AMARO Ot E66.9 OBESITY, UNSPECIFIED 08/30/2017 GABRIELLA AMARO Ot E78.2 MIXED HYPERLIPIDEMIA 08/30/2017 GABRIELLA AMARO Ot I10 ESSENTIAL (PRIMARY) HYPERTENSION 08/30/2017 GABRIELLA AMARO Ot I25.10 ATHSCL HEART DISEASE OF [place] CORONARY 08/30/2017 GABRIELLA AMARO Ot I65.22 OCCLUSION AND STENOSIS OF LEFT CAROTID A 08/30/2017 GABRIELLA AMARO Ot I67.1 CEREBRAL ANEURYSM, NONRUPTURED 08/30/2017 GABRIELLA AMARO Ot E78.5 HYPERLIPIDEMIA, UNSPECIFIED 08/30/2017 GABRIELLA AMARO Ot I10 ESSENTIAL (PRIMARY) HYPERTENSION 08/30/2017 GABRIELLA AMARO Ot I25.10 ATHSCL HEART DISEASE OF [place] CORONARY 08/30/2017 GABRIELLA AMARO Ot E78.2 MIXED HYPERLIPIDEMIA 08/30/2017 LENNY JEWELL MD Ot E78.2 MIXED HYPERLIPIDEMIA 08/30/2017 LENNY JEWELL MD Ot I10 ESSENTIAL (PRIMARY) HYPERTENSION 08/30/2017 LENNY JEWELL MD Ot I25.10 ATHSCL HEART DISEASE OF [place] CORONARY 08/30/2017 LENNY JEWELL MD Ot J44.9 CHRONIC OBSTRUCTIVE PULMONARY DISEASE, U 08/30/2017 LNENY JEWELL MD Ot R06.00 DYSPNEA, UNSPECIFIED 08/30/2017 LENNY JEWELL MD Ot R07.9 CHEST PAIN, UNSPECIFIED 08/30/2017 BROOKE CHRISTINE APRN Ot R09.02 HYPOXEMIA 08/30/2017 BROOKE CHRISTINE APRN Ot Z87.891 PERSONAL HISTORY OF NICOTINE DEPENDENCE 08/30/2017 BROOKE CHRISTINE APRN Ot Z98.890 OTHER SPECIFIED POSTPROCEDURAL STATES 08/30/2017 GABRIELLA AMARO Ot C83.10 MANTLE CELL LYMPHOMA, UNSPECIFIED SITE 08/30/2017 GABRIELLA AMARO Ot E78.2 MIXED HYPERLIPIDEMIA 08/30/2017 GABRIELLA AMARO Ot I10 ESSENTIAL (PRIMARY) HYPERTENSION 08/30/2017 GABRIELLA AMARO Ot I25.10 ATHSCL HEART DISEASE OF [place] CORONARY 08/30/2017 GABRIELLA AMARO Ot C83.10 MANTLE CELL LYMPHOMA, UNSPECIFIED SITE 08/30/2017 GABRIELLA AMARO Ot E78.2 MIXED HYPERLIPIDEMIA 08/30/2017 GABRIELLA AMARO Ot I10 ESSENTIAL (PRIMARY) HYPERTENSION 08/30/2017 GABRIELLA AMARO Ot I25.10 ATHSCL HEART DISEASE OF [place] CORONARY 08/30/2017 GABRIELLA AMARO Ot E78.2 MIXED HYPERLIPIDEMIA 08/30/2017 GABRIELLA AMARO Ot I10 ESSENTIAL (PRIMARY) HYPERTENSION 08/30/2017 GABRIELLA AMARO Ot I25.10 ATHSCL HEART DISEASE OF [place] CORONARY 08/30/2017 LENNY JEWELL MD Ot I10 ESSENTIAL (PRIMARY) HYPERTENSION 08/30/2017 LENNY JEWELL MD Ot I25.10 ATHSCL HEART DISEASE OF [place] CORONARY 08/30/2017 LENNY JEWELL MD Ot I67.1 CEREBRAL ANEURYSM, NONRUPTURED 08/30/2017 LENNY JEWELL MD Ot J44.9 CHRONIC OBSTRUCTIVE PULMONARY DISEASE, U 08/30/2017 LENNY JEWELL MD Ot Z82.49 FAMILY HX OF I[place]HE[place] HEART DIS AND OTH DI 08/30/2017 BRITTANY CRAVEN MD Ot 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, LYMPH NODES OF MUL 08/30/2017 BRITTANY CRAVEN MD Ot D50.9 IRON DEFICIENCY ANEMIA, UNSPECIFIED 08/30/2017 BRITTANY CRAVEN MD Ot E78.5 HYPERLIPIDEMIA, UNSPECIFIED 08/30/2017 BRITTANY RCAVEN MD Ot I10 ESSENTIAL (PRIMARY) HYPERTENSION 08/30/2017 BRITTANY CRAVEN MD Ot M89.9 DISORDER OF BONE, UNSPECIFIED 08/30/2017 BRITTANY CRAVEN MD Ot Z79.899 OTHER CUSTODIAL (CURRENT) DRUG THERAPY 08/31/2017 BRITTANY CRAVEN MD Ot 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, LYMPH NODES OF MUL 08/31/2017 BRITTANY CRAVEN MD Ot D50.9 IRON DEFICIENCY ANEMIA, UNSPECIFIED 08/31/2017 BRITTANY CRAVEN MD Ot E78.5 HYPERLIPIDEMIA, UNSPECIFIED 08/31/2017 BRITTANY CRAVEN MD Ot I10 ESSENTIAL (PRIMARY) HYPERTENSION 08/31/2017 BRITTANY CRAVEN MD Ot M89.9 DISORDER OF BONE, UNSPECIFIED 08/31/2017 BRITTANY CRAVEN MD Ot Z79.899 OTHER PILLOWCASE CLEANER (CURRENT) DRUG THERAPY 10/05/2017 LENNY JEWELL MD Ot 272.4 HYPERLIPIDEMIA NEC/NOS 10/05/2017 LENNY JEWELL MD Ot 414.01 CORONARY ATHEROSCLEROSIS OF [place] CORON 10/05/2017 Ot 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, LYMPH NODES OF MUL 10/05/2017 Ot 272.4 HYPERLIPIDEMIA NEC/NOS 10/05/2017 Ot 285.9 ANEMIA NOS 10/05/2017 Ot 401.9 HYPERTENSION NOS 10/05/2017 Ot 733.90 BONE CARTILAGE DIS NOS 10/05/2017 Ot V12.71 PERSONAL HISTORY OF PEPTIC ULCER DISEASE 10/05/2017 Ot V58.11 ENCOUNTER FOR ANTINEOPLASTIC CHEMOTHERAP 10/05/2017 Ot V58.69 OTH MED,LT, CURRENT USE 10/05/2017 LENNY JEWELL MD Ot 272.4 HYPERLIPIDEMIA NEC/NOS 10/05/2017 LENNY JEWELL MD Ot 414.01 CORONARY ATHEROSCLEROSIS OF [place] CORON 10/05/2017 GABRIELLA AMARO Ot 401.9 HYPERTENSION NOS 10/05/2017 GABRIELLA AMARO Ot 414.00 CORON ATHEROSCLER NOS TYPE VESSEL, NATIV 10/05/2017 GABRIELLA AMARO Ot 786.09 RESPIRATORY ABNORM NEC 10/05/2017 GABRIELLA AMARO Ot 272.4 HYPERLIPIDEMIA NEC/NOS 10/05/2017 GABRIELLA AMARO Ot 278.00 OBESITY, NOS 10/05/2017 GABRIELLA AMARO Ot 401.9 HYPERTENSION NOS 10/05/2017 GABRIELLA AMARO Ot 414.00 CORON ATHEROSCLER NOS TYPE VESSEL, NATIV 10/05/2017 GABRIELLA AMARO Ot 496 CHR AIRWAY OBSTRUCT NEC 10/05/2017 GABRIELLA AMARO Ot 786.09 RESPIRATORY ABNORM NEC 10/05/2017 GABRIELLA AMARO Ot V85.36 BODY MASS INDEX 36.0-36.9, ADULT 10/05/2017 GEETA HATHAWAY DO Ot 496 CHR AIRWAY OBSTRUCT NEC 10/05/2017 GEETA HATHAWAY DO Ot 786.09 RESPIRATORY ABNORM NEC 10/05/2017 FANTA PISANO, LENNY Cain Ot 272.4 HYPERLIPIDEMIA NEC/NOS 10/05/2017 LENNY JEWELL MD J Ot 401.9 HYPERTENSION NOS 10/05/2017 FANTA PISANO, LENNY J Ot 414.00 CORON ATHEROSCLER NOS TYPE VESSEL, NATIV 10/05/2017 LENNY JEWELL MD Ot 496 CHR AIRWAY OBSTRUCT NEC 10/05/2017 LENNY JEWELL MD J Ot 272.4 HYPERLIPIDEMIA NEC/NOS 10/05/2017 FANTA PISANO, LENNY J Ot 401.9 HYPERTENSION NOS 10/05/2017 FANTA PISANO, LENNY J Ot 414.00 CORON ATHEROSCLER NOS TYPE VESSEL, NATIV 10/05/2017 FANTA PISANO, LENNY Cain Ot 496 CHR AIRWAY OBSTRUCT NEC 10/05/2017 GEETA HATHAWAY DO Ot 278.00 OBESITY, NOS 10/05/2017 GEETA HATHAWAY DO Ot 496 CHR AIRWAY OBSTRUCT NEC 10/05/2017 FANTA PISANO, LENNY J Ot 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, UNSP SITE, EXTRANO 10/05/2017 FANTA PISANO, LENNY J Ot 272.4 HYPERLIPIDEMIA NEC/NOS 10/05/2017 FANTA PISANO, LENNY J Ot 401.9 HYPERTENSION NOS 10/05/2017 FANTA PISANO, LENNY J Ot 414.9 CHR ISCHEMIC HRT DIS NOS 10/05/2017 GABRIELLA AMARO Ot E66.9 OBESITY, UNSPECIFIED 10/05/2017 GABRIELLA AMARO Ot E78.2 MIXED HYPERLIPIDEMIA 10/05/2017 GABRIELLA AMARO Ot I10 ESSENTIAL (PRIMARY) HYPERTENSION 10/05/2017 GABRIELLA AMARO Ot I25.10 ATHSCL HEART DISEASE OF [place] CORONARY 10/05/2017 GABRIELLA AMARO Ot I65.22 OCCLUSION AND STENOSIS OF LEFT CAROTID A 10/05/2017 GABRIELLA AMARO Ot I67.1 CEREBRAL ANEURYSM, NONRUPTURED 10/05/2017 GABRIELLA AMARO Ot E78.5 HYPERLIPIDEMIA, UNSPECIFIED 10/05/2017 GABRIELLA AMARO Ot I10 ESSENTIAL (PRIMARY) HYPERTENSION 10/05/2017 GABRIELLA AMARO Ot I25.10 ATHSCL HEART DISEASE OF [place] CORONARY 10/05/2017 GABRIELLA AMARO Ot E78.2 MIXED HYPERLIPIDEMIA 10/05/2017 FANTA PISANO, LENNY Cain Ot E78.2 MIXED HYPERLIPIDEMIA 10/05/2017 FANTA PISANO, LENNY Cain Ot I10 ESSENTIAL (PRIMARY) HYPERTENSION 10/05/2017 FANTA PISANO, LENNY Cain Ot I25.10 ATHSCL HEART DISEASE OF [place] CORONARY 10/05/2017 FANTA PISANO, LENNY Cain Ot J44.9 CHRONIC OBSTRUCTIVE PULMONARY DISEASE, U 10/05/2017 FANTA PISANO, LENNY Cain Ot R06.00 DYSPNEA, UNSPECIFIED 10/05/2017 FANTA PISANO, LENNY Cain Ot R07.9 CHEST PAIN, UNSPECIFIED 10/05/2017 BROOKE CHRISTINE MANAGER TRANSMISSION Ot R09.02 HYPOXEMIA 10/05/2017 BROOKE CHRISTINE MANAGER TRANSMISSION Ot Z87.891 PERSONAL HISTORY OF NICOTINE DEPENDENCE 10/05/2017 BROOKE CHRISTINE MANAGER TRANSMISSION Ot Z98.890 OTHER SPECIFIED POSTPROCEDURAL STATES 10/05/2017 GABRIELLA AMARO Ot C83.10 MANTLE CELL LYMPHOMA, UNSPECIFIED SITE 10/05/2017 GABRIELLA AMARO Ot E78.2 MIXED HYPERLIPIDEMIA 10/05/2017 GABRIELLA AMARO Ot I10 ESSENTIAL (PRIMARY) HYPERTENSION 10/05/2017 GABRIELLA AMARO Ot I25.10 ATHSCL HEART DISEASE OF [place] CORONARY 10/05/2017 GABRIELLA AMARO Ot C83.10 MANTLE CELL LYMPHOMA, UNSPECIFIED SITE 10/05/2017 GABRIELLA AMARO Ot E78.2 MIXED HYPERLIPIDEMIA 10/05/2017 GABRIELLA AMARO Ot I10 ESSENTIAL (PRIMARY) HYPERTENSION 10/05/2017 GABRIELLA AMARO Ot I25.10 ATHSCL HEART DISEASE OF [place] CORONARY 10/05/2017 GABRIELLA AMARO Ot E78.2 MIXED HYPERLIPIDEMIA 10/05/2017 GABRIELLA AMARO Ot I10 ESSENTIAL (PRIMARY) HYPERTENSION 10/05/2017 GABRIELLA AMARO Ot I25.10 ATHSCL HEART DISEASE OF [place] CORONARY 10/05/2017 LENNY JEWELL MD, Ot I10 ESSENTIAL (PRIMARY) HYPERTENSION 10/05/2017 LENNY JEWELL MD Ot I25.10 ATHSCL HEART DISEASE OF [place] CORONARY 10/05/2017 LENNY JEWELL MD Ot I67.1 CEREBRAL ANEURYSM, NONRUPTURED 10/05/2017 LENNY JEWELL MD Ot J44.9 CHRONIC OBSTRUCTIVE PULMONARY DISEASE, U 10/05/2017 LENNY JEWELL MD Ot Z82.49 FAMILY HX OF ISCHEM HEART DIS AND OTH DI 10/05/2017 BRITTANY CRAVEN MD, Ot 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, LYMPH NODES OF MUL 10/05/2017 BRITTANY CRAVEN MD, Ot D50.9 IRON DEFICIENCY ANEMIA, UNSPECIFIED 10/05/2017 BRITTANY CRAVEN MD, Ot E78.5 HYPERLIPIDEMIA, UNSPECIFIED 10/05/2017 BRITTANY CRAVEN MD, Ot I10 ESSENTIAL (PRIMARY) HYPERTENSION 10/05/2017 BRITTANY CRAVEN MD, Ot M89.9 DISORDER OF BONE, UNSPECIFIED 10/05/2017 BRITTANY CRAVEN MD, Ot Z45.2 ENCOUNTER FOR ADJUSTMENT AND MANAGEMENT 10/05/2017 BRITTANY CRAVEN MD, Ot Z79.899 OTHER CUSTODIAL (CURRENT) DRUG THERAPY 10/05/2017 BRITTANY CRAVEN MD, Ot 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, LYMPH NODES OF MUL 10/05/2017 BRITTANY CRAVEN MD, Ot D50.9 IRON DEFICIENCY ANEMIA, UNSPECIFIED 10/05/2017 BRITTANY CRAVEN MD, Ot E78.5 HYPERLIPIDEMIA, UNSPECIFIED 10/05/2017 BRITTANY CRAVEN MD Ot I10 ESSENTIAL (PRIMARY) HYPERTENSION 10/05/2017 BRITTANY CRAVEN MD Ot M89.9 DISORDER OF BONE, UNSPECIFIED 10/05/2017 BRITTANY CRAVEN MD Ot Z45.2 ENCOUNTER FOR ADJUSTMENT AND MANAGEMENT 10/05/2017 BRITTANY CRAVEN MD Ot Z79.899 OTHER PILLOWCASE CLEANER (CURRENT) DRUG THERAPY 10/05/2017 LENNY JEWELL MD Ot 272.4 HYPERLIPIDEMIA NEC/NOS 10/05/2017 LENNY JEWELL MD Ot 414.01 CORONARY ATHEROSCLEROSIS OF [place] CORON 10/05/2017 Ot 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, LYMPH NODES OF MUL 10/05/2017 Ot 272.4 HYPERLIPIDEMIA NEC/NOS 10/05/2017 Ot 285.9 ANEMIA NOS 10/05/2017 Ot 401.9 HYPERTENSION NOS 10/05/2017 Ot 733.90 BONE CARTILAGE DIS NOS 10/05/2017 Ot V12.71 PERSONAL HISTORY OF PEPTIC ULCER DISEASE 10/05/2017 Ot V58.11 ENCOUNTER FOR ANTINEOPLASTIC CHEMOTHERAP 10/05/2017 Ot V58.69 OTH MED,LT, CURRENT USE 10/05/2017 LENNY JEWELL MD Ot 272.4 HYPERLIPIDEMIA NEC/NOS 10/05/2017 LENNY JEWELL MD Ot 414.01 CORONARY ATHEROSCLEROSIS OF [place] CORON 10/05/2017 GABRIELLA AMARO Ot 401.9 HYPERTENSION NOS 10/05/2017 GABRIELLA AMARO Ot 414.00 CORON ATHEROSCLER NOS TYPE VESSEL, NATIV 10/05/2017 GABRIELLA AMARO Ot 786.09 RESPIRATORY ABNORM NEC 10/05/2017 GABRIELLA AMARO Ot 272.4 HYPERLIPIDEMIA NEC/NOS 10/05/2017 GABRIELLA AMARO Ot 278.00 OBESITY, NOS 10/05/2017 GABRIELLA AMARO Ot 401.9 HYPERTENSION NOS 10/05/2017 GABRIELLA AMARO Ot 414.00 CORON ATHEROSCLER NOS TYPE VESSEL, NATIV 10/05/2017 GABRIELLA AMARO Ot 496 CHR AIRWAY OBSTRUCT NEC 10/05/2017 GABRIELLA AMARO Ot 786.09 RESPIRATORY ABNORM NEC 10/05/2017 GABRIELLA AMARO Ot V85.36 BODY MASS INDEX 36.0-36.9, ADULT 10/05/2017 GEETA HATHAWAY DO Ot 496 CHR AIRWAY OBSTRUCT NEC 10/05/2017 GEETA HATHAWAY DO Ot 786.09 RESPIRATORY ABNORM NEC 10/05/2017 LENNY JEWELL MD Ot 272.4 HYPERLIPIDEMIA NEC/NOS 10/05/2017 LENNY JEWELL MD Ot 401.9 HYPERTENSION NOS 10/05/2017 FANTA PISANO, LENNY Cain Ot 414.00 CORON ATHEROSCLER NOS TYPE VESSEL, NATIV 10/05/2017 FANTA PISANO, LENNY Cain Ot 496 CHR AIRWAY OBSTRUCT NEC 10/05/2017 LENNY JEWELL MD Ot 272.4 HYPERLIPIDEMIA NEC/NOS 10/05/2017 LENNY JEWELL MD Ot 401.9 HYPERTENSION NOS 10/05/2017 FANTA PISANO, LENNY Cain Ot 414.00 CORON ATHEROSCLER NOS TYPE VESSEL, NATIV 10/05/2017 LENNY JEWELL MD Ot 496 CHR AIRWAY OBSTRUCT NEC 10/05/2017 GEETA HATHAWAY DO Ot 278.00 OBESITY, NOS 10/05/2017 GEETA HATHAWAY DO Ot 496 CHR AIRWAY OBSTRUCT NEC 10/05/2017 FANTA PISANO, LENNY Cain Ot 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, UNSP SITE, EXTRANO 10/05/2017 FANTA PISANO, LENNY Cain Ot 272.4 HYPERLIPIDEMIA NEC/NOS 10/05/2017 LENNY JEWELL MD Ot 401.9 HYPERTENSION NOS 10/05/2017 FANTA PISANO, LENNY Cain Ot 414.9 CHR ISCHEMIC HRT DIS NOS 10/05/2017 GABRIELLA AMARO Ot E66.9 OBESITY, UNSPECIFIED 10/05/2017 GABRIELLA AMARO Ot E78.2 MIXED HYPERLIPIDEMIA 10/05/2017 GABRIELLA AMARO Ot I10 ESSENTIAL (PRIMARY) HYPERTENSION 10/05/2017 GABRIELLA AMARO Ot I25.10 ATHSCL HEART DISEASE OF [place] CORONARY 10/05/2017 GABRIELLA AMARO Ot I65.22 OCCLUSION AND STENOSIS OF LEFT CAROTID A 10/05/2017 GABRIELLA AMARO Ot I67.1 CEREBRAL ANEURYSM, NONRUPTURED 10/05/2017 GABRIELLA AMARO Ot E78.5 HYPERLIPIDEMIA, UNSPECIFIED 10/05/2017 GABRIELLA AMRAO Ot I10 ESSENTIAL (PRIMARY) HYPERTENSION 10/05/2017 GABRIELLA AMARO Ot I25.10 ATHSCL HEART DISEASE OF [place] CORONARY 10/05/2017 GABRIELLA AMARO Ot E78.2 MIXED HYPERLIPIDEMIA 10/05/2017 LENNY JEWELL MD Ot E78.2 MIXED HYPERLIPIDEMIA 10/05/2017 FANTA PISANO, LENNY Cain Ot I10 ESSENTIAL (PRIMARY) HYPERTENSION 10/05/2017 FANTA PISANO, LENNY Cain Ot I25.10 ATHSCL HEART DISEASE OF [place] CORONARY 10/05/2017 LENNY JEWELL MD Ot J44.9 CHRONIC OBSTRUCTIVE PULMONARY DISEASE, U 10/05/2017 FANTA PISANO, LENNY Cain Ot R06.00 DYSPNEA, UNSPECIFIED 10/05/2017 LENNY JEWELL MD Ot R07.9 CHEST PAIN, UNSPECIFIED 10/05/2017 BROOKE CHRISTINE MANAGER TRANSMISSION Ot R09.02 HYPOXEMIA 10/05/2017 BROOKE CHRISTINE MANAGER TRANSMISSION Ot Z87.891 PERSONAL HISTORY OF NICOTINE DEPENDENCE 10/05/2017 BROOKE CHRISTINE MANAGER TRANSMISSION Ot Z98.890 OTHER SPECIFIED POSTPROCEDURAL STATES 10/05/2017 GABRIELLA AMARO Ot C83.10 MANTLE CELL LYMPHOMA, UNSPECIFIED SITE 10/05/2017 AGBRIELLA AMARO Ot E78.2 MIXED HYPERLIPIDEMIA 10/05/2017 GABRIELLA AMARO Ot I10 ESSENTIAL (PRIMARY) HYPERTENSION 10/05/2017 GABRIELLA AMARO Ot I25.10 ATHSCL HEART DISEASE OF [place] CORONARY 10/05/2017 GABRIELLA AMARO Ot C83.10 MANTLE CELL LYMPHOMA, UNSPECIFIED SITE 10/05/2017 GABRIELLA AMARO Ot E78.2 MIXED HYPERLIPIDEMIA 10/05/2017 GABRIELLA AMARO Ot I10 ESSENTIAL (PRIMARY) HYPERTENSION 10/05/2017 GABRIELLA AMARO Ot I25.10 ATHSCL HEART DISEASE OF [place] CORONARY 10/05/2017 GABRIELLA AMARO Ot E78.2 MIXED HYPERLIPIDEMIA 10/05/2017 GABRIELLA AMARO Ot I10 ESSENTIAL (PRIMARY) HYPERTENSION 10/05/2017 GABRIELLA AMARO Ot I25.10 ATHSCL HEART DISEASE OF [place] CORONARY 10/05/2017 LENNY JEWELL MD, Ot I10 ESSENTIAL (PRIMARY) HYPERTENSION 10/05/2017 LENNY JEWELL MD, Ot I25.10 ATHSCL HEART DISEASE OF [place] CORONARY 10/05/2017 LENNY JEWELL MD Ot I67.1 CEREBRAL ANEURYSM, NONRUPTURED 10/05/2017 LENNY JEWELL MD Ot J44.9 CHRONIC OBSTRUCTIVE PULMONARY DISEASE, U 10/05/2017 LENNY JEWELL MD, Ot Z82.49 FAMILY HX OF ISCHEM HEART DIS AND OTH DI 10/05/2017 BRITTANY CRAVEN MD, Ot 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, LYMPH NODES OF MUL 10/05/2017 BRITTANY CRAVEN MD Ot D50.9 IRON DEFICIENCY ANEMIA, UNSPECIFIED 10/05/2017 BRITTANY CRAVEN MD Ot E78.5 HYPERLIPIDEMIA, UNSPECIFIED 10/05/2017 BRITTANY CRAVEN MD, Ot I10 ESSENTIAL (PRIMARY) HYPERTENSION 10/05/2017 BRITTANY CRAVEN MD, Ot M89.9 DISORDER OF BONE, UNSPECIFIED 10/05/2017 BRITTANY CRAVEN MD Ot Z45.2 ENCOUNTER FOR ADJUSTMENT AND MANAGEMENT 10/05/2017 BRITTANY CRAVEN MD, Ot Z79.899 OTHER PILLOWCASE CLEANER (CURRENT) DRUG THERAPY 10/09/2017 BRITTANY CRAVEN MD, Ot 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, LYMPH NODES OF MUL 10/09/2017 BRITTANY CRAVEN MD Ot D50.9 IRON DEFICIENCY ANEMIA, UNSPECIFIED 10/09/2017 BRITTANY CRAVEN MD Ot E78.5 HYPERLIPIDEMIA, UNSPECIFIED 10/09/2017 BRITTANY CRAVEN MD, Ot I10 ESSENTIAL (PRIMARY) HYPERTENSION 10/09/2017 BRITTANY CRAVEN MD Ot M89.9 DISORDER OF BONE, UNSPECIFIED 10/09/2017 BRITTANY CRAVEN MD Ot Z45.2 ENCOUNTER FOR ADJUSTMENT AND MANAGEMENT 10/09/2017 BRITTANY CRAVEN MD, Ot Z79.899 OTHER PILLOWCASE CLEANER (CURRENT) DRUG THERAPY 10/11/2017 BRITTANY CRAVEN MD Ot M25.48 EFFUSION, OTHER SITE 10/11/2017 BRITTANY CRAVEN MD, Ot M43.16 SPONDYLOLISTHESIS, LUMBAR REGION 10/11/2017 BRITTANY CRAVEN MD, Ot M47.24 OTHER SPONDYLOSIS WITH RADICULOPATHY, TH 10/11/2017 BRITTANY CRAVEN MD, Ot M47.27 OTHER SPONDYLOSIS WITH RADICULOPATHY, MOE 10/11/2017 BRITTANY CRAVEN MD Ot M48.061 SPINAL STENOSIS, LUMBAR REGION WITHOUT N 10/11/2017 BRITTANY CRAVEN MD, Ot M51.16 INTERVERTEBRAL DISC DISORDERS W RADICULO 10/11/2017 BRITTANY CRAVEN MD, Ot 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, THORACOLUMBAR REGION 10/11/2017 BRITTANY CRAVEN MD, Ot M99.73 CONN TISS AND DISC STENOS OF INTVRT [place] 10/11/2017 BRITTANY CRAVEN MD Ot Z85.72 PERSONAL HISTORY OF NON-HODGKIN LYMPHOMA 11/22/2017 BRITTANY CRAVEN MD Ot 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, LYMPH NODES OF MUL 11/22/2017 BRITTANY CRAVEN MD Ot D50.9 IRON DEFICIENCY ANEMIA, UNSPECIFIED 11/22/2017 BRITTANY CRAVEN MD Ot E78.5 HYPERLIPIDEMIA, UNSPECIFIED 11/22/2017 BRITTANY CRAVEN MD Ot I10 ESSENTIAL (PRIMARY) HYPERTENSION 11/22/2017 BRITTANY CRAVEN MD Ot M89.9 DISORDER OF BONE, UNSPECIFIED 11/22/2017 BRITTANY CRAVEN MD Ot Z45.2 ENCOUNTER FOR ADJUSTMENT AND MANAGEMENT 11/22/2017 BRITTANY CRAVEN MD, Ot Z79.899 OTHER CUSTODIAL (CURRENT) DRUG THERAPY 11/22/2017 LENNY JEWELL MD Ot 272.4 HYPERLIPIDEMIA NEC/NOS 11/22/2017 LENNY JEWELL MD Ot 414.01 CORONARY ATHEROSCLEROSIS OF [place] CORON 11/22/2017 Ot 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, LYMPH NODES OF MUL 11/22/2017 Ot 272.4 HYPERLIPIDEMIA NEC/NOS 11/22/2017 Ot 285.9 ANEMIA NOS 11/22/2017 Ot 401.9 HYPERTENSION NOS 11/22/2017 Ot 733.90 BONE CARTILAGE DIS NOS 11/22/2017 Ot V12.71 PERSONAL HISTORY OF PEPTIC ULCER DISEASE 11/22/2017 Ot V58.11 ENCOUNTER FOR ANTINEOPLASTIC CHEMOTHERAP 11/22/2017 Ot V58.69 OTH MED,LT, CURRENT USE 11/22/2017 FANTA PISANO, LENNY Cain Ot 272.4 HYPERLIPIDEMIA NEC/NOS 11/22/2017 FANTA PISANO, LENNY J Ot 414.01 CORONARY ATHEROSCLEROSIS OF [place] CORON 11/22/2017 GABRIELLA AMARO Ot 401.9 HYPERTENSION NOS 11/22/2017 GABRIELLA AMARO Ot 414.00 CORON ATHEROSCLER NOS TYPE VESSEL, NATIV 11/22/2017 GABRIELLA AMARO Ot 786.09 RESPIRATORY ABNORM NEC 11/22/2017 GABRIELLA AMARO Ot 272.4 HYPERLIPIDEMIA NEC/NOS 11/22/2017 GABRIELLA AMARO Ot 278.00 OBESITY, NOS 11/22/2017 GABRIELLA AMARO Ot 401.9 HYPERTENSION NOS 11/22/2017 GABRIELLA AMARO Ot 414.00 CORON ATHEROSCLER NOS TYPE VESSEL, NATIV 11/22/2017 GABRIELLA AMARO Ot 496 CHR AIRWAY OBSTRUCT NEC 11/22/2017 GABRIELLA AMARO Ot 786.09 RESPIRATORY ABNORM NEC 11/22/2017 GABRIELLA AMARO Ot V85.36 BODY MASS INDEX 36.0-36.9, ADULT 11/22/2017 GEETA HATHAWAY DO Ot 496 CHR AIRWAY OBSTRUCT NEC 11/22/2017 GEETA HATHAWAY DO Ot 786.09 RESPIRATORY ABNORM NEC 11/22/2017 FANTA [place]ISANO, LENNY Cain Ot 272.4 HYPERLIPIDEMIA NEC/NOS 11/22/2017 FANTA PISANO, LENNY Cain Ot 401.9 HYPERTENSION NOS 11/22/2017 FANTA PISANO, LENNY Cain Ot 414.00 CORON ATHEROSCLER NOS TYPE VESSEL, NATIV 11/22/2017 FANTA PISANO, LENNY Cain Ot 496 CHR AIRWAY OBSTRUCT NEC 11/22/2017 FANTA PISANO, LENNY Cain Ot 272.4 HYPERLIPIDEMIA NEC/NOS 11/22/2017 FANTA PISANO, LENNY Cain Ot 401.9 HYPERTENSION NOS 11/22/2017 LENNY JEWELL MD Ot 414.00 CORON ATHEROSCLER NOS TYPE VESSEL, NATIV 11/22/2017 LENNY JEWELL MD Ot 496 CHR AIRWAY OBSTRUCT NEC 11/22/2017 GEETA HATHAWAY DO Ot 278.00 OBESITY, NOS 11/22/2017 GEETA HATHAWAY DO Ot 496 CHR AIRWAY OBSTRUCT NEC 11/22/2017 LENNY JEWELL MD Ot 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, UNSP SITE, EXTRANO 11/22/2017 LENNY JEWELL MD Ot 272.4 HYPERLIPIDEMIA NEC/NOS 11/22/2017 LENNY JEWELL MD Ot 401.9 HYPERTENSION NOS 11/22/2017 LENNY JEWELL MD Ot 414.9 CHR ISCHEMIC HRT DIS NOS 11/22/2017 GABRIELLA AMARO Ot E66.9 OBESITY, UNSPECIFIED 11/22/2017 GABRIELLA AMARO Ot E78.2 MIXED HYPERLIPIDEMIA 11/22/2017 GABRIELLA AMARO Ot I10 ESSENTIAL (PRIMARY) HYPERTENSION 11/22/2017 GABRIELLA AMARO Ot I25.10 ATHSCL HEART DISEASE OF [place] CORONARY 11/22/2017 GABRIELLA AMARO Ot I65.22 OCCLUSION AND STENOSIS OF LEFT CAROTID A 11/22/2017 GABRIELLA AMARO Ot I67.1 CEREBRAL ANEURYSM, NONRUPTURED 11/22/2017 GABRIELLA AMARO Ot E78.5 HYPERLIPIDEMIA, UNSPECIFIED 11/22/2017 GABRIELLA AMARO Ot I10 ESSENTIAL (PRIMARY) HYPERTENSION 11/22/2017 GABRIELLA AMARO Ot I25.10 ATHSCL HEART DISEASE OF [place] CORONARY 11/22/2017 GABRIELLA AMARO Ot E78.2 MIXED HYPERLIPIDEMIA 11/22/2017 LENNY JEWELL MD Ot E78.2 MIXED HYPERLIPIDEMIA 11/22/2017 LENNY JEWELL MD Ot I10 ESSENTIAL (PRIMARY) HYPERTENSION 11/22/2017 LENNY JEWELL MD Ot I25.10 ATHSCL HEART DISEASE OF [place] CORONARY 11/22/2017 LENNY JEWELL MD Ot J44.9 CHRONIC OBSTRUCTIVE PULMONARY DISEASE, U 11/22/2017 LENNY JEWELL MD Ot R06.00 DYSPNEA, UNSPECIFIED 11/22/2017 LENNY JEWELL MD Ot R07.9 CHEST PAIN, UNSPECIFIED 11/22/2017 BROOKE CHRISTINE APRN Ot R09.02 HYPOXEMIA 11/22/2017 BROOKE CHRISTINE MANAGER TRANSMISSION Ot Z87.891 PERSONAL HISTORY OF NICOTINE DEPENDENCE 11/22/2017 BROOKE CHRISTINE MANAGER TRANSMISSION Ot Z98.890 OTHER SPECIFIED POSTPROCEDURAL STATES 11/22/2017 GABRIELLA AMARO Ot C83.10 MANTLE CELL LYMPHOMA, UNSPECIFIED SITE 11/22/2017 GABRIELLA AMARO Ot E78.2 MIXED HYPERLIPIDEMIA 11/22/2017 GABRIELLA AMARO Ot I10 ESSENTIAL (PRIMARY) HYPERTENSION 11/22/2017 GABRIELLA AMARO Ot I25.10 ATHSCL HEART DISEASE OF [place] CORONARY 11/22/2017 GABRIELLA AMARO Ot C83.10 MANTLE CELL LYMPHOMA, UNSPECIFIED SITE 11/22/2017 GABRIELLA AMARO Ot E78.2 MIXED HYPERLIPIDEMIA 11/22/2017 GABRIELLA AMARO Ot I10 ESSENTIAL (PRIMARY) HYPERTENSION 11/22/2017 GABRIELLA AMARO Ot I25.10 ATHSCL HEART DISEASE OF [place] CORONARY 11/22/2017 GABRIELLA AMARO Ot E78.2 MIXED HYPERLIPIDEMIA 11/22/2017 GABRIELLA AMARO Ot I10 ESSENTIAL (PRIMARY) HYPERTENSION 11/22/2017 GABRIELLA AMARO Ot I25.10 ATHSCL HEART DISEASE OF [place] CORONARY 11/22/2017 LENNY JEWELL MD Ot I10 ESSENTIAL (PRIMARY) HYPERTENSION 11/22/2017 LENNY JEWELL MD Ot I25.10 ATHSCL HEART DISEASE OF [place] CORONARY 11/22/2017 LENNY JEWELL MD Ot I67.1 CEREBRAL ANEURYSM, NONRUPTURED 11/22/2017 LENNY JEWELL MD Ot J44.9 CHRONIC OBSTRUCTIVE PULMONARY DISEASE, U 11/22/2017 LENNY JEWELL MD Ot Z82.49 FAMILY HX OF ISCHEM HEART DIS AND OTH DI 11/22/2017 BRITTANY CRAVEN MD, Ot M25.48 EFFUSION, OTHER SITE 11/22/2017 BRITTANY CRAVEN MD, Ot M43.16 SPONDYLOLISTHESIS, LUMBAR REGION 11/22/2017 BRITTANY CRAVEN MD, Ot M47.24 OTHER SPONDYLOSIS WITH RADICULOPATHY, TH 11/22/2017 BRITTANY CRAVEN MD, Ot M47.27 OTHER SPONDYLOSIS WITH RADICULOPATHY, MOE 11/22/2017 BRITTANY CRAVEN MD, Ot M48.061 SPINAL STENOSIS, LUMBAR REGION WITHOUT N 11/22/2017 BRITTANY CRAVEN MD, Ot M51.16 INTERVERTEBRAL DISC DISORDERS W RADICULO 11/22/2017 BRITTANY CRAVEN MD, Ot 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, THORACOLUMBAR REGION 11/22/2017 BRITTANY CRAVEN MD, Ot M99.73 CONN TISS AND DISC STENOS OF INTVRT FORA 11/22/2017 BRITTANY CRAVEN MD, Ot Z85.72 PERSONAL HISTORY OF NON-HODGKIN LYMPHOMA 11/22/2017 BRITTANY CRAVEN MD, Ot 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, LYMPH NODES OF [place] 11/22/2017 BRITTANY CRAVEN MD Ot D50.9 IRON DEFICIENCY ANEMIA, UNSPECIFIED 11/22/2017 BRITTANY CRAVEN MD Ot E78.5 HYPERLIPIDEMIA, UNSPECIFIED 11/22/2017 BRITTANY CRAVEN MD Ot I10 ESSENTIAL (PRIMARY) HYPERTENSION 11/22/2017 BRITTANY CRAVEN MD Ot M89.9 DISORDER OF BONE, UNSPECIFIED 11/22/2017 BRITTANY CRAVEN MD Ot Z45.2 ENCOUNTER FOR ADJUSTMENT AND MANAGEMENT 11/22/2017 BRITTANY CRAVEN MD Ot Z79.899 OTHER CUSTODIAL (CURRENT) DRUG THERAPY 11/22/2017 BRITTANY CRAVEN MD, Ot 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, LYMPH NODES OF MUL 11/22/2017 BRITTANY CRAVEN MD Ot D50.9 IRON DEFICIENCY ANEMIA, UNSPECIFIED 11/22/2017 BRITTANY CRAVEN MD Ot E78.5 HYPERLIPIDEMIA, UNSPECIFIED 11/22/2017 BRITTANY CRAVEN MD Ot I10 ESSENTIAL (PRIMARY) HYPERTENSION 11/22/2017 BRITTANY CRAVEN MD, Ot M89.9 DISORDER OF BONE, UNSPECIFIED 11/22/2017 BRITTANY CRAVEN MD Ot Z45.2 ENCOUNTER FOR ADJUSTMENT AND MANAGEMENT 11/22/2017 BRITTANY CRAVEN MD Ot Z79.899 OTHER CUSTODIAL (CURRENT) DRUG THERAPY 11/22/2017 LENNY JEWELL MD Ot 272.4 HYPERLIPIDEMIA NEC/NOS 11/22/2017 LENNY JEWELL MD Ot 414.01 CORONARY ATHEROSCLEROSIS OF [place] CORON 11/22/2017 Ot 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, LYMPH NODES OF MUL 11/22/2017 Ot 272.4 HYPERLIPIDEMIA NEC/NOS 11/22/2017 Ot 285.9 ANEMIA NOS 11/22/2017 Ot 401.9 HYPERTENSION NOS 11/22/2017 Ot 733.90 BONE CARTILAGE DIS NOS 11/22/2017 Ot V12.71 PERSONAL HISTORY OF PEPTIC ULCER DISEASE 11/22/2017 Ot V58.11 ENCOUNTER FOR ANTINEOPLASTIC CHEMOTHERAP 11/22/2017 Ot V58.69 OTH MED,LT, CURRENT USE 11/22/2017 LENNY JEWELL MD Ot 272.4 HYPERLIPIDEMIA NEC/NOS 11/22/2017 LENNY JEWELL MD Ot 414.01 CORONARY ATHEROSCLEROSIS OF [place] CORON 11/22/2017 GABRIELLA AMARO Ot 401.9 HYPERTENSION NOS 11/22/2017 GABRIELLA AMARO Ot 414.00 CORON ATHEROSCLER NOS TYPE VESSEL, NATIV 11/22/2017 GABRIELLA AMARO Ot 786.09 RESPIRATORY ABNORM NEC 11/22/2017 GABRIELLA AMARO Ot 272.4 HYPERLIPIDEMIA NEC/NOS 11/22/2017 GABRIELLA AMARO Ot 278.00 OBESITY, NOS 11/22/2017 GABRIELLA AMARO Ot 401.9 HYPERTENSION NOS 11/22/2017 GABRIELLA AMARO Ot 414.00 CORON ATHEROSCLER NOS TYPE VESSEL, NATIV 11/22/2017 GABRIELLA AMARO Ot 496 CHR AIRWAY OBSTRUCT NEC 11/22/2017 GABRIELLA AMARO Ot 786.09 RESPIRATORY ABNORM NEC 11/22/2017 GABRIELLA AMARO Ot V85.36 BODY MASS INDEX 36.0-36.9, ADULT 11/22/2017 GEETA HATHAWAY DO Ot 496 CHR AIRWAY OBSTRUCT NEC 11/22/2017 GEETA HATHAWAY DO Ot 786.09 RESPIRATORY ABNORM NEC 11/22/2017 LENNY JEWELL MD Ot 272.4 HYPERLIPIDEMIA NEC/NOS 11/22/2017 LENNY JEWELL MD Ot 401.9 HYPERTENSION NOS 11/22/2017 FANTA PISANO, LENNY Cain Ot 414.00 CORON ATHEROSCLER NOS TYPE VESSEL, NATIV 11/22/2017 LENNY JEWELL MD Ot 496 CH[address] AIRWAY OBSTRUCT NEC 11/22/2017 LENNY JEWELL MD Ot 272.4 HYPERLIPIDEMIA NEC/NOS 11/22/2017 LENNY JEWELL MD Ot 401.9 HYPERTENSION NOS 11/22/2017 LENNY JEWELL MD Ot 414.00 CORON ATHEROSCLER NOS TYPE VESSEL, NATIV 11/22/2017 LENNY JEWELL MD Ot 496 [address] AIRWAY OBSTRUCT NEC 11/22/2017 GEETA HATHAWAY DO Ot 278.00 OBESITY, NOS 11/22/2017 GEETA HATHAWAY DO Ot 496 CH[address] AIRWAY OBSTRUCT NEC 11/22/2017 LENNY JEWELL MD Ot 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, UNSP SITE, EXTRANO 11/22/2017 LENNY JEWELL MD Ot 272.4 HYPERLIPIDEMIA NEC/NOS 11/22/2017 LENNY JEWELL MD Ot 401.9 HYPERTENSION NOS 11/22/2017 LENNY JEWELL MD Ot 414.9 CHR ISCHEMIC HRT DIS NOS 11/22/2017 GABRIELLA AMARO Ot E66.9 OBESITY, UNSPECIFIED 11/22/2017 GABRIELLA AMARO Ot E78.2 MIXED HYPERLIPIDEMIA 11/22/2017 GABRIELLA AMARO Ot I10 ESSENTIAL (PRIMARY) HYPERTENSION 11/22/2017 GABRIELLA AMARO Ot I25.10 ATHSCL HEART DISEASE OF [place] CORONARY 11/22/2017 GABRIELLA AMARO Ot I65.22 OCCLUSION AND STENOSIS OF LEFT CAROTID A 11/22/2017 GABRIELLA AMARO Ot I67.1 CEREBRAL ANEURYSM, NONRUPTURED 11/22/2017 GABRIELLA AMARO Ot E78.5 HYPERLIPIDEMIA, UNSPECIFIED 11/22/2017 GABRIELLA AMARO Ot I10 ESSENTIAL (PRIMARY) HYPERTENSION 11/22/2017 GABRIELLA AMARO Ot I25.10 ATHSCL HEART DISEASE OF [place] CORONARY 11/22/2017 GABRIELLA AMARO Ot E78.2 MIXED HYPERLIPIDEMIA 11/22/2017 LENNY JEWELL MD Ot E78.2 MIXED HYPERLIPIDEMIA 11/22/2017 LENNY JEWELL MD Ot I10 ESSENTIAL (PRIMARY) HYPERTENSION 11/22/2017 LENNY JEWELL MD Ot I25.10 ATHSCL HEART DISEASE OF [place] CORONARY 11/22/2017 LENNY JEWELL MD Ot J44.9 CHRONIC OBSTRUCTIVE PULMONARY DISEASE, U 11/22/2017 LENNY JEWELL MD Ot R06.00 DYSPNEA, UNSPECIFIED 11/22/2017 LENNY JEWELL MD Ot R07.9 CHEST PAIN, UNSPECIFIED 11/22/2017 BROOKE CHRISTINE MANAGER TRANSMISSION Ot R09.02 HYPOXEMIA 11/22/2017 BROOKE CHRISTINE MANAGER TRANSMISSION Ot Z87.891 PERSONAL HISTORY OF NICOTINE DEPENDENCE 11/22/2017 BROOKE CHRISTINE MANAGER TRANSMISSION Ot Z98.890 OTHER SPECIFIED POSTPROCEDURAL STATES 11/22/2017 GABRIELLA AMARO Ot C83.10 MANTLE CELL LYMPHOMA, UNSPECIFIED SITE 11/22/2017 GABRIELLA AMARO Ot E78.2 MIXED HYPERLIPIDEMIA 11/22/2017 GABRIELLA AMARO Ot I10 ESSENTIAL (PRIMARY) HYPERTENSION 11/22/2017 GABRIELLA AMARO Ot I25.10 ATHSCL HEART DISEASE OF [place] CORONARY 11/22/2017 GABRIELLA AMARO Ot C83.10 MANTLE CELL LYMPHOMA, UNSPECIFIED SITE 11/22/2017 GABRIELLA AMARO Ot E78.2 MIXED HYPERLIPIDEMIA 11/22/2017 AGBRIELLA AMARO Ot I10 ESSENTIAL (PRIMARY) HYPERTENSION 11/22/2017 GABRIELLA AMARO Ot I25.10 ATHSCL HEART DISEASE OF [place] CORONARY 11/22/2017 GABRIELLA AMARO Ot E78.2 MIXED HYPERLIPIDEMIA 11/22/2017 GABRIELLA AMARO Ot I10 ESSENTIAL (PRIMARY) HYPERTENSION 11/22/2017 GABRIELLA AMARO Ot I25.10 ATHSCL HEART DISEASE OF [place] CORONARY 11/22/2017 LENNY JEWELL MD, Ot I10 ESSENTIAL (PRIMARY) HYPERTENSION 11/22/2017 LENNY JEWELL MD, Ot I25.10 ATHSCL HEART DISEASE OF [place] CORONARY 11/22/2017 LENNY JEWELL MD, Ot I67.1 CEREBRAL ANEURYSM, NONRUPTURED 11/22/2017 LENNY JEWELL MD, Ot J44.9 CHRONIC OBSTRUCTIVE PULMONARY DISEASE, U 11/22/2017 LENNY JEWELL MD, Ot Z82.49 FAMILY HX OF ISCHEM HEART DIS AND OTH DI 11/22/2017 BRITTANY CRAVEN MD, Ot M25.48 EFFUSION, OTHER SITE 11/22/2017 BRITTANY CRAVEN MD, Ot M43.16 SPONDYLOLISTHESIS, LUMBAR REGION 11/22/2017 BRITTANY CRAVEN MD, Ot M47.24 OTHER SPONDYLOSIS WITH RADICULOPATHY, TH 11/22/2017 BRITTANY CRAVEN MD, Ot M47.27 OTHER SPONDYLOSIS WITH RADICULOPATHY, MOE 11/22/2017 BRITTANY CRAVEN MD, Ot M48.061 SPINAL STENOSIS, LUMBAR REGION WITHOUT N 11/22/2017 BRITTANY CRAVEN MD, Ot M51.16 INTERVERTEBRAL DISC DISORDERS W RADICULO 11/22/2017 BRITTANY CRAVEN MD, Ot 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, THORACOLUMBAR REGION 11/22/2017 BRITTANY CRAVEN MD, Ot M99.73 CONN TISS AND DISC STENOS OF INTVRT FORA 11/22/2017 BRITTANY CRAVEN MD, Ot Z85.72 PERSONAL HISTORY OF NON-HODGKIN LYMPHOMA 11/22/2017 BRITTANY CRAVEN MD, Ot 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, LYMPH NODES OF M[place] 11/22/2017 BRITTANY CRAVEN MD, Ot D50.9 IRON DEFICIENCY ANEMIA, UNSPECIFIED 11/22/2017 BRITTANY CRAVEN MD, Ot E78.5 HYPERLIPIDEMIA, UNSPECIFIED 11/22/2017 BRITTANY CRAVEN MD, Ot I10 ESSENTIAL (PRIMARY) HYPERTENSION 11/22/2017 BRITTANY CRAVEN MD, Ot M89.9 DISORDER OF BONE, UNSPECIFIED 11/22/2017 MERISSA PISANO, BRITTANY Ot Z45.2 ENCOUNTER FOR ADJUSTMENT AND MANAGEMENT 11/22/2017 BRITTANY CRAVEN MD Ot Z79.899 OTHER CUSTODIAL (CURRENT) DRUG THERAPY 01/10/2018 LENNY JEWELL MD Ot 272.4 HYPERLIPIDEMIA NEC/NOS 01/10/2018 LENNY JEWELL MD Ot 414.01 CORONARY ATHEROSCLEROSIS OF [place] CORON 01/10/2018 Ot 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, LYMPH NODES OF [place] 01/10/2018 Ot 272.4 HYPERLIPIDEMIA NEC/NOS 01/10/2018 Ot 285.9 ANEMIA NOS 01/10/2018 Ot 401.9 HYPERTENSION NOS 01/10/2018 Ot 733.90 BONE CARTILAGE DIS NOS 01/10/2018 Ot V12.71 PERSONAL HISTORY OF PEPTIC ULCER DISEASE 01/10/2018 Ot V58.11 ENCOUNTER FOR ANTINEOPLASTIC CHEMOTHERAP 01/10/2018 Ot V58.69 OTH MED,LT, CURRENT USE 01/10/2018 LENNY JEWELL MD Ot 272.4 HYPERLIPIDEMIA NEC/NOS 01/10/2018 LENNY JEWELL MD Ot 414.01 CORONARY ATHEROSCLEROSIS OF [place] CORON 01/10/2018 GABRIELLA AMARO Ot 401.9 HYPERTENSION NOS 01/10/2018 GABRIELLA AMARO Ot 414.00 CORON ATHEROSCLER NOS TYPE VESSEL, NATIV 01/10/2018 GABRIELLA AMARO Ot 786.09 RESPIRATORY ABNORM NEC 01/10/2018 GABRIELLA AMARO Ot 272.4 HYPERLIPIDEMIA NEC/NOS 01/10/2018 GABRIELLA AMARO Ot 278.00 OBESITY, NOS 01/10/2018 GABRIELLA AMARO Ot 401.9 HYPERTENSION NOS 01/10/2018 GABRIELLA AMARO Ot 414.00 CORON ATHEROSCLER NOS TYPE VESSEL, NATIV 01/10/2018 GABRIELLA AMARO Ot 496 [address] AIR[address] OBSTRUCT NEC 01/10/2018 GABRIELLA AMARO Ot 786.09 RESPIRATORY ABNORM NEC 01/10/2018 GABRIELLA AMARO Ot V85.36 BODY MASS INDEX 36.0-36.9, ADULT 01/10/2018 GEETA HATHAWAY DO Ot 496 [address] AIRWAY OBSTRUCT NEC 01/10/2018 GEETA HATHAWAY DO Ot 786.09 RESPIRATORY ABNORM NEC 01/10/2018 LENNY JEWELL MD Ot 272.4 HYPERLIPIDEMIA NEC/NOS 01/10/2018 LENNY JEWELL MD Ot 401.9 HYPERTENSION NOS 01/10/2018 LENNY JEWELL MD Ot 414.00 CORON ATHEROSCLER NOS TYPE VESSEL, NATIV 01/10/2018 LENNY JEWELL MD Ot 496 [address] AIRW[address] OBSTRUCT NEC 01/10/2018 LENNY JEWELL MD Ot 272.4 HYPERLIPIDEMIA NEC/NOS 01/10/2018 LENNY JEWELL MD Ot 401.9 HYPERTENSION NOS 01/10/2018 LENNY JEWELL MD Ot 414.00 CORON ATHEROSCLER NOS TYPE VESSEL, NATIV 01/10/2018 LENNY JEWELL MD Ot 496 [address] AIR[address] OBSTRUCT NEC 01/10/2018 GEETA HATHAWAY DO Ot 278.00 OBESITY, NOS 01/10/2018 GEETA HATHAWAY DO Ot 496 [address] AIRWAY OBSTRUCT NEC 01/10/2018 LENNY JEWELL MD Ot 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, UNSP SITE, EXTRANO 01/10/2018 LENNY JEWELL MD Ot 272.4 HYPERLIPIDEMIA NEC/NOS 01/10/2018 LENNY JEWELL MD Ot 401.9 HYPERTENSION NOS 01/10/2018 LENNY JEWELL MD Ot 414.9 CHR ISCHEMIC HRT DIS NOS 01/10/2018 GABRIELLA AMARO Ot E66.9 OBESITY, UNSPECIFIED 01/10/2018 GABRIELLA AMARO Ot E78.2 MIXED HYPERLIPIDEMIA 01/10/2018 GABRIELLA AMARO Ot I10 ESSENTIAL (PRIMARY) HYPERTENSION 01/10/2018 GABRIELLA AMARO Ot I25.10 ATHSCL HEART DISEASE OF [place] CORONARY 01/10/2018 GABRIELLA AMARO Ot I65.22 OCCLUSION AND STENOSIS OF LEFT CAROTID A 01/10/2018 GABRIELLA AMARO Ot I67.1 CEREBRAL ANEURYSM, NONRUPTURED 01/10/2018 GABRIELLA AMARO Ot E78.5 HYPERLIPIDEMIA, UNSPECIFIED 01/10/2018 GABRIELLA AMARO Ot I10 ESSENTIAL (PRIMARY) HYPERTENSION 01/10/2018 GABRIELLA AMARO Ot I25.10 ATHSCL HEART DISEASE OF [place] CORONARY 01/10/2018 GABRIELLA AMARO Ot E78.2 MIXED HYPERLIPIDEMIA 01/10/2018 FANTA PISANO, LENNY Cain Ot E78.2 MIXED HYPERLIPIDEMIA 01/10/2018 LENNY JEWELL MD Ot I10 ESSENTIAL (PRIMARY) HYPERTENSION 01/10/2018 FANTA PISANO, LENNY Cain Ot I25.10 ATHSCL HEART DISEASE OF [place] CORONARY 01/10/2018 FANTA PISANO, LENNY Cain Ot J44.9 CHRONIC OBSTRUCTIVE PULMONARY DISEASE, U 01/10/2018 FANTA PISANO, LENNY Cain Ot R06.00 DYSPNEA, UNSPECIFIED 01/10/2018 FANTA PISANO, LENNY Cain Ot R07.9 CHEST PAIN, UNSPECIFIED 01/10/2018 BROOKE CHRISTINE APRN Ot R09.02 HYPOXEMIA 01/10/2018 BROOKE CHRISTINE MANAGER TRANSMISSION Ot Z87.891 PERSONAL HISTORY OF NICOTINE DEPENDENCE 01/10/2018 BROOKE CHRISTINE MANAGER TRANSMISSION Ot Z98.890 OTHER SPECIFIED POSTPROCEDURAL STATES 01/10/2018 GABRIELLA AMARO Ot C83.10 MANTLE CELL LYMPHOMA, UNSPECIFIED SITE 01/10/2018 GABRIELLA AMARO Ot E78.2 MIXED HYPERLIPIDEMIA 01/10/2018 GABRIELLA AMARO Ot I10 ESSENTIAL (PRIMARY) HYPERTENSION 01/10/2018 GABRIELLA AMARO Ot I25.10 ATHSCL HEART DISEASE OF [place] CORONARY 01/10/2018 GABRIELLA AMARO Ot C83.10 MANTLE CELL LYMPHOMA, UNSPECIFIED SITE 01/10/2018 GABRIELLA AMARO Ot E78.2 MIXED HYPERLIPIDEMIA 01/10/2018 GABRIELLA AMARO Ot I10 ESSENTIAL (PRIMARY) HYPERTENSION 01/10/2018 GABRIELLA AMARO Ot I25.10 ATHSCL HEART DISEASE OF [place] CORONARY 01/10/2018 GABRIELLA AMAOR Ot E78.2 MIXED HYPERLIPIDEMIA 01/10/2018 GABRIELLA AMARO Ot I10 ESSENTIAL (PRIMARY) HYPERTENSION 01/10/2018 GABRIELLA AMARO Ot I25.10 ATHSCL HEART DISEASE OF [place] CORONARY 01/10/2018 LENNY JEWELL MD, Ot I10 ESSENTIAL (PRIMARY) HYPERTENSION 01/10/2018 LENNY JEWELL MD, Ot I25.10 ATHSCL HEART DISEASE OF [place] CORONARY 01/10/2018 LENNY JEWELL MD, Ot I67.1 CEREBRAL ANEURYSM, NONRUPTURED 01/10/2018 LENNY JEWELL MD, Ot J44.9 CHRONIC OBSTRUCTIVE PULMONARY DISEASE, U 01/10/2018 LENNY JEWELL MD, Ot Z82.49 FAMILY HX OF ISCHEM HEART DIS AND OTH DI 01/10/2018 BRITTANY CRAVEN MD, Ot M25.48 EFFUSION, OTHER SITE 01/10/2018 BRITTANY CRAVEN MD, Ot M43.16 SPONDYLOLISTHESIS, LUMBAR REGION 01/10/2018 BRITTANY CRAVEN MD, Ot M47.24 OTHER SPONDYLOSIS WITH RADICULOPATHY, TH 01/10/2018 BRITTANY CRAVEN MD, Ot M47.27 OTHER SPONDYLOSIS WITH RADICULOPATHY, MOE 01/10/2018 BRITTANY CRAVEN MD, Ot M48.061 SPINAL STENOSIS, LUMBAR REGION WITHOUT N 01/10/2018 BRITTANY CRAVEN MD, Ot M51.16 INTERVERTEBRAL DISC DISORDERS W RADICULO 01/10/2018 BRITTANY CRAVEN MD, Ot 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, THORACOLUMBAR REGION 01/10/2018 BRITTANY CRAVEN MD, Ot M99.73 CONN TISS AND DISC STENOS OF INTVRT FORA 01/10/2018 BRITTANY CRAVEN MD, Ot Z85.72 PERSONAL HISTORY OF NON-HODGKIN LYMPHOMA 01/10/2018 BRITTANY CRAVEN MD, Ot D50.9 IRON DEFICIENCY ANEMIA, UNSPECIFIED 01/10/2018 BRITTANY CRAVEN MD, Ot E78.5 HYPERLIPIDEMIA, UNSPECIFIED 01/10/2018 BRITTANY CRAVEN MD, Ot I10 ESSENTIAL (PRIMARY) HYPERTENSION 01/10/2018 BRITTANY CRAVEN MD, Ot M89.9 DISORDER OF BONE, UNSPECIFIED 01/10/2018 BRITTANY CRAVEN MD, Ot Z79.899 OTHER CUSTODIAL (CURRENT) DRUG THERAPY 01/17/2018 LENNY JEWELL MD Ot 272.4 HYPERLIPIDEMIA NEC/NOS 01/17/2018 LENNY JEWELL MD Ot 414.01 CORONARY ATHEROSCLEROSIS OF [place] CORON 01/17/2018 Ot 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, LYMPH NODES OF MUL 01/17/2018 Ot 272.4 HYPERLIPIDEMIA NEC/NOS 01/17/2018 Ot 285.9 ANEMIA NOS 01/17/2018 Ot 401.9 HYPERTENSION NOS 01/17/2018 Ot 733.90 BONE CARTILAGE DIS NOS 01/17/2018 Ot V12.71 PERSONAL HISTORY OF PEPTIC ULCER DISEASE 01/17/2018 Ot V58.11 ENCOUNTER FOR ANTINEOPLASTIC CHEMOTHERAP 01/17/2018 Ot V58.69 OTH MED,LT, CURRENT USE 01/17/2018 LENNY JEWELL MD Ot 272.4 HYPERLIPIDEMIA NEC/NOS 01/17/2018 LENNY JEWELL MD Ot 414.01 CORONARY ATHEROSCLEROSIS OF [place] CORON 01/17/2018 GABRIELLA AMARO Ot 401.9 HYPERTENSION NOS 01/17/2018 GABRIELLA AMARO Ot 414.00 CORON ATHEROSCLER NOS TYPE VESSEL, NATIV 01/17/2018 GABRIELLA AMARO Ot 786.09 RESPIRATORY ABNORM NEC 01/17/2018 GABRIELLA AMARO Ot 272.4 HYPERLIPIDEMIA NEC/NOS 01/17/2018 GABRIELLA AMARO Ot 278.00 OBESITY, NOS 01/17/2018 GABRIELLA AMARO Ot 401.9 HYPERTENSION NOS 01/17/2018 GABRIELLA AMARO Ot 414.00 CORON ATHEROSCLER NOS TYPE VESSEL, NATIV 01/17/2018 GABRIELLA AMARO Ot 496 CH[address] AIRWAY OBSTRUCT NEC 01/17/2018 GABRIELLA AMARO Ot 786.09 RESPIRATORY ABNORM NEC 01/17/2018 GABRIELLA AMARO Ot V85.36 BODY MASS INDEX 36.0-36.9, ADULT 01/17/2018 GEETA HATHAWAY DO Ot 496 CH[address] AIRWAY OBSTRUCT NEC 01/17/2018 GEETA HATHAWAY DO Ot 786.09 RESPIRATORY ABNORM NEC 01/17/2018 FANTA MD, BASHAR J Ot 272.4 HYPERLIPIDEMIA NEC/NOS 01/17/2018 FANTA PISANO, LENNY Cain Ot 401.9 HYPERTENSION NOS 01/17/2018 FANTA PISANO, LENNY Cain Ot 414.00 CORON ATHEROSCLER NOS TYPE VESSEL, NATIV 01/17/2018 LENNY JEWELL MD Ot 496 [address] AIRWAY OBSTRUCT NEC 01/17/2018 LENNY JEWELL MD Ot 272.4 HYPERLIPIDEMIA NEC/NOS 01/17/2018 LENNY JEWELL MD Ot 401.9 HYPERTENSION NOS 01/17/2018 FANTA PISANO, LENNY J Ot 414.00 CORON ATHEROSCLER NOS TYPE VESSEL, NATIV 01/17/2018 LENNY JEWELL MD Ot 496 CH[address] AIRWAY OBSTRUCT NEC 01/17/2018 GEETA HATHAWAY DO Ot 278.00 OBESITY, NOS 01/17/2018 GEETA HATHAWAY DO Ot 496 [address] AIRWAY OBSTRUCT NEC 01/17/2018 FANTA PISANO, LENNY Cain Ot 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, UNSP SITE, EXTRANO 01/17/2018 LENNY JEWELL MD Ot 272.4 HYPERLIPIDEMIA NEC/NOS 01/17/2018 FANTA PISANO, LENNY J Ot 401.9 HYPERTENSION NOS 01/17/2018 FANTA PISANO, LENNY J Ot 414.9 CHR ISCHEMIC HRT DIS NOS 01/17/2018 GABRIELLA AMARO Ot E66.9 OBESITY, UNSPECIFIED 01/17/2018 GABRIELLA AMARO Ot E78.2 MIXED HYPERLIPIDEMIA 01/17/2018 GABRIELLA AMARO Ot I10 ESSENTIAL (PRIMARY) HYPERTENSION 01/17/2018 GABRIELLA AMARO Ot I25.10 ATHSCL HEART DISEASE OF [place] CORONARY 01/17/2018 GABRIELLA AMARO Ot I65.22 OCCLUSION AND STENOSIS OF LEFT CAROTID A 01/17/2018 GABRIELLA AMARO Ot I67.1 CEREBRAL ANEURYSM, NONRUPTURED 01/17/2018 GABRIELLA AMARO Ot E78.5 HYPERLIPIDEMIA, UNSPECIFIED 01/17/2018 GABRIELLA AMARO Ot I10 ESSENTIAL (PRIMARY) HYPERTENSION 01/17/2018 GABRIELLA AMARO Ot I25.10 ATHSCL HEART DISEASE OF [place] CORONARY 01/17/2018 GABRIELLA AMARO Ot E78.2 MIXED HYPERLIPIDEMIA 01/17/2018 LENNY JEWELL MD Ot E78.2 MIXED HYPERLIPIDEMIA 01/17/2018 LENNY JEWELL MD Ot I10 ESSENTIAL (PRIMARY) HYPERTENSION 01/17/2018 LENNY JEWELL MD Ot I25.10 ATHSCL HEART DISEASE OF [place] CORONARY 01/17/2018 LENNY JEWELL MD Ot J44.9 CHRONIC OBSTRUCTIVE PULMONARY DISEASE, U 01/17/2018 LENNY JEWELL MD Ot R06.00 DYSPNEA, UNSPECIFIED 01/17/2018 LENNY JEWELL MD Ot R07.9 CHEST PAIN, UNSPECIFIED 01/17/2018 BROOKE CHRISTINE MANAGER TRANSMISSION Ot R09.02 HYPOXEMIA 01/17/2018 BROOKE CHRISTINE MANAGER TRANSMISSION Ot Z87.891 PERSONAL HISTORY OF NICOTINE DEPENDENCE 01/17/2018 BROOKE CHRISTINE MANAGER TRANSMISSION Ot Z98.890 OTHER SPECIFIED POSTPROCEDURAL STATES 01/17/2018 GABRIELLA AMARO Ot C83.10 MANTLE CELL LYMPHOMA, UNSPECIFIED SITE 01/17/2018 GABRIELLA AMARO Ot E78.2 MIXED HYPERLIPIDEMIA 01/17/2018 GABRIELLA AMARO Ot I10 ESSENTIAL (PRIMARY) HYPERTENSION 01/17/2018 GABRIELLA AMARO Ot I25.10 ATHSCL HEART DISEASE OF [place] CORONARY 01/17/2018 GABRIELLA AMARO Ot C83.10 MANTLE CELL LYMPHOMA, UNSPECIFIED SITE 01/17/2018 GABRIELLA AMARO Ot E78.2 MIXED HYPERLIPIDEMIA 01/17/2018 GABRIELLA AMARO Ot I10 ESSENTIAL (PRIMARY) HYPERTENSION 01/17/2018 GABRIELLA AMARO Ot I25.10 ATHSCL HEART DISEASE OF [place] CORONARY 01/17/2018 GABRIELLA AMARO Ot E78.2 MIXED HYPERLIPIDEMIA 01/17/2018 GABRIELLA AMARO Ot I10 ESSENTIAL (PRIMARY) HYPERTENSION 01/17/2018 GABRIELLA AMARO Ot I25.10 ATHSCL HEART DISEASE OF [place] CORONARY 01/17/2018 LENNY JEWELL MD, Ot I10 ESSENTIAL (PRIMARY) HYPERTENSION 01/17/2018 LENNY JEWELL MD, Ot I25.10 ATHSCL HEART DISEASE OF [place] CORONARY 01/17/2018 LENNY JEWELL MD, Ot I67.1 CEREBRAL ANEURYSM, NONRUPTURED 01/17/2018 LENNY JEWELL MD, Ot J44.9 CHRONIC OBSTRUCTIVE PULMONARY DISEASE, U 01/17/2018 LENNY JEWELL MD, Ot Z82.49 FAMILY HX OF ISCHEM HEART DIS AND OTH DI 01/17/2018 BRITTANY CRAVEN MD, Ot M25.48 EFFUSION, OTHER SITE 01/17/2018 BRITTANY CRAVEN MD, Ot M43.16 SPONDYLOLISTHESIS, LUMBAR REGION 01/17/2018 BRITTANY CRAVEN MD, Ot M47.24 OTHER SPONDYLOSIS WITH RADICULOPATHY, TH 01/17/2018 BRITTANY CRAVEN MD, Ot M47.27 OTHER SPONDYLOSIS WITH RADICULOPATHY, MOE 01/17/2018 BRITTANY CRAVEN MD, Ot M48.061 SPINAL STENOSIS, LUMBAR REGION WITHOUT N 01/17/2018 BRITTANY CRAVEN MD, Ot M51.16 INTERVERTEBRAL DISC DISORDERS W RADICULO 01/17/2018 BRITTANY CRAVEN MD, Ot 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, THORACOLUMBAR REGION 01/17/2018 BRITTANY CRAVEN MD, Ot M99.73 CONN TISS AND DISC STENOS OF INTVRT [place] 01/17/2018 BRITTANY CRAVEN MD Ot Z85.72 PERSONAL HISTORY OF NON-HODGKIN LYMPHOMA 01/17/2018 BRITTANY CRAVEN MD, Ot D50.9 IRON DEFICIENCY ANEMIA, UNSPECIFIED 01/17/2018 BRITTANY CRAVEN MD, Ot E78.5 HYPERLIPIDEMIA, UNSPECIFIED 01/17/2018 BRITTANY CRAVEN MD Ot I10 ESSENTIAL (PRIMARY) HYPERTENSION 01/17/2018 BRITTANY CRAVEN MD, Ot M89.9 DISORDER OF BONE, UNSPECIFIED 01/17/2018 BRITTANY CRAVEN MD, Ot Z79.899 OTHER CUSTODIAL (CURRENT) DRUG THERAPY 02/14/2018 BRITTANY CRAVEN MD, Ot D50.9 IRON DEFICIENCY ANEMIA, UNSPECIFIED 02/14/2018 BRITTANY CRAVEN MD, Ot E78.5 HYPERLIPIDEMIA, UNSPECIFIED 02/14/2018 BRITTANY CRAVEN MD Ot I10 ESSENTIAL (PRIMARY) HYPERTENSION 02/14/2018 BRITTANY CRAVEN MD Ot M89.9 DISORDER OF BONE, UNSPECIFIED 02/14/2018 BRITTANY CRAVEN MD Ot Z79.899 OTHER PILLOWCASE CLEANER (CURRENT) DRUG THERAPY 02/18/2018 LENNY JEWELL MD Ot E78.5 HYPERLIPIDEMIA, UNSPECIFIED 02/18/2018 LENNY JEWELL MD, Ot I10 ESSENTIAL (PRIMARY) HYPERTENSION 02/18/2018 LENNY JEWELL MD Ot I25.10 ATHSCL HEART DISEASE OF [place] CORONARY 02/18/2018 LENNY JEWELL MD Ot J44.9 CHRONIC OBSTRUCTIVE PULMONARY DISEASE, U 02/18/2018 LENNY JEWELL MD Ot K27.9 PEPTIC ULC, SITE UNSP, UNSP AC OR CHR 02/18/2018 LENNY JEWELL MD Ot R06.00 DYSPNEA, UNSPECIFIED 02/18/2018 LENNY JEWELL MD Ot R07.9 CHEST PAIN, UNSPECIFIED 02/20/2018 BRITTANY CRAVEN MD Ot D50.9 IRON DEFICIENCY ANEMIA, UNSPECIFIED 02/20/2018 BRITTANY CRAVEN MD Ot E78.5 HYPERLIPIDEMIA, UNSPECIFIED 02/20/2018 BRITTANY CRAVEN MD Ot I10 ESSENTIAL (PRIMARY) HYPERTENSION 02/20/2018 BRITTANY CRAVEN MD Ot M89.9 DISORDER OF BONE, UNSPECIFIED 02/20/2018 BRITTANY CRAVEN MD Ot Z79.899 OTHER CUSTODIAL (CURRENT) DRUG THERAPY 02/21/2018 BRITTANY CRAVEN MD Ot D50.9 IRON DEFICIENCY ANEMIA, UNSPECIFIED 02/21/2018 BRITTANY CRAVEN MD Ot E78.5 HYPERLIPIDEMIA, UNSPECIFIED 02/21/2018 BRITTANY CRAVEN MD Ot I10 ESSENTIAL (PRIMARY) HYPERTENSION 02/21/2018 BRITTANY CRAVEN MD Ot M89.9 DISORDER OF BONE, UNSPECIFIED 02/21/2018 BRITTANY CRAVEN MD Ot Z79.899 OTHER PILLOWCASE CLEANER (CURRENT) DRUG THERAPY 04/01/2018 BROOKE CHRISTINE APRN Ot Z87.891 PERSONAL HISTORY OF NICOTINE DEPENDENCE 04/01/2018 BROOKE CHRISTINE APRN Ot Z87.891 PERSONAL HISTORY OF NICOTINE DEPENDENCE 04/08/2018 BROOKE CHRISTINE APRN Ot Z87.891 PERSONAL HISTORY OF NICOTINE DEPENDENCE 04/11/2018 Ot 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, LYMPH NODES OF MUL 04/11/2018 Ot 272.4 HYPERLIPIDEMIA NEC/NOS 04/11/2018 Ot 285.9 ANEMIA NOS 04/11/2018 Ot 401.9 HYPERTENSION NOS 04/11/2018 Ot 733.90 BONE CARTILAGE DIS NOS 04/11/2018 Ot V12.71 PERSONAL HISTORY OF PEPTIC ULCER DISEASE 04/11/2018 Ot V58.11 ENCOUNTER FOR ANTINEOPLASTIC CHEMOTHERAP 04/11/2018 Ot V58.69 OTH MED,LT, CURRENT USE 04/11/2018 FANT[place]ISANO, LENNY Cain Ot 272.4 HYPERLIPIDEMIA NEC/NOS 04/11/2018 LENNY JEWELL MD Ot 414.01 CORONARY ATHEROSCLEROSIS OF [place] CORON 04/11/2018 GABRIELLA AMARO Ot 401.9 HYPERTENSION NOS 04/11/2018 GABRIELLA AMARO Ot 414.00 CORON ATHEROSCLER NOS TYPE VESSEL, NATIV 04/11/2018 GABRIELLA AMARO Ot 786.09 RESPIRATORY ABNORM NEC 04/11/2018 GABRIELLA AMARO Ot 272.4 HYPERLIPIDEMIA NEC/NOS 04/11/2018 GABRIELLA AMARO Ot 278.00 OBESITY, NOS 04/11/2018 GABRIELLA AMARO Ot 401.9 HYPERTENSION NOS 04/11/2018 GABRIELLA AMARO Ot 414.00 CORON ATHEROSCLER NOS TYPE VESSEL, NATIV 04/11/2018 GABRIELLA AMARO Ot 496 CHR AIRWAY OBSTRUCT NEC 04/11/2018 GABRIELLA AMARO Ot 786.09 RESPIRATORY ABNORM NEC 04/11/2018 GABRIELLA AMARO Ot V85.36 BODY MASS INDEX 36.0-36.9, ADULT 04/11/2018 GEETA HATHAWAY DO Ot 496 CHR AIRWAY OBSTRUCT NEC 04/11/2018 GEETA HATHAWAY DO Ot 786.09 RESPIRATORY ABNORM NEC 04/11/2018 LENNY JEWELL MD Ot 272.4 HYPERLIPIDEMIA NEC/NOS 04/11/2018 LENNY JEWELL MD Ot 401.9 HYPERTENSION NOS 04/11/2018 FANTA PISANO, LENNY Cain Ot 414.00 CORON ATHEROSCLER NOS TYPE VESSEL, NATIV 04/11/2018 LENNY JEWELL MD Ot 496 CHR AIRWAY OBSTRUCT NEC 04/11/2018 LENNY JEWELL MD Ot 272.4 HYPERLIPIDEMIA NEC/NOS 04/11/2018 LENNY JEWELL MD Ot 401.9 HYPERTENSION NOS 04/11/2018 LENNY JEWELL MD Ot 414.00 CORON ATHEROSCLER NOS TYPE VESSEL, NATIV 04/11/2018 LENNY JEWELL MD Ot 496 CHR AIRWAY OBSTRUCT NEC 04/11/2018 GEETA HATHAWAY DO Ot 278.00 OBESITY, NOS 04/11/2018 GEETA HATHAWAY DO Ot 496 CHR AIRWAY OBSTRUCT NEC 04/11/2018 LENNY JEWELL MD Ot 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, UNSP SITE, EXTRANO 04/11/2018 LENNY JEWELL MD Ot 272.4 HYPERLIPIDEMIA NEC/NOS 04/11/2018 LENNY JEWELL MD Ot 401.9 HYPERTENSION NOS 04/11/2018 FANTA PISANO, LENNY Cain Ot 414.9 CHR ISCHEMIC HRT DIS NOS 04/11/2018 GABRIELLA AMARO Ot E66.9 OBESITY, UNSPECIFIED 04/11/2018 GABRIELLA AMARO Ot E78.2 MIXED HYPERLIPIDEMIA 04/11/2018 GABRIELLA AMARO Ot I10 ESSENTIAL (PRIMARY) HYPERTENSION 04/11/2018 GABRIELLA AMARO Ot I25.10 ATHSCL HEART DISEASE OF [place] CORONARY 04/11/2018 GABRIELLA AMARO Ot I65.22 OCCLUSION AND STENOSIS OF LEFT CAROTID A 04/11/2018 GABRIELLA AMARO Ot I67.1 CEREBRAL ANEURYSM, NONRUPTURED 04/11/2018 GABRIELLA AMARO Ot E78.5 HYPERLIPIDEMIA, UNSPECIFIED 04/11/2018 GABRIELLA AMARO Ot I10 ESSENTIAL (PRIMARY) HYPERTENSION 04/11/2018 GABRIELLA AMARO Ot I25.10 ATHSCL HEART DISEASE OF [place] CORONARY 04/11/2018 GABRIELLA AMARO Ot E78.2 MIXED HYPERLIPIDEMIA 04/11/2018 LENNY JEWELL MD Ot E78.2 MIXED HYPERLIPIDEMIA 04/11/2018 LENNY JEWELL MD Ot I10 ESSENTIAL (PRIMARY) HYPERTENSION 04/11/2018 LENNY JEWELL MD Ot I25.10 ATHSCL HEART DISEASE OF [place] CORONARY 04/11/2018 LENNY JEWELL MD Ot J44.9 CHRONIC OBSTRUCTIVE PULMONARY DISEASE, U 04/11/2018 LENNY JEWELL MD Ot R06.00 DYSPNEA, UNSPECIFIED 04/11/2018 LENNY JEWELL MD Ot R07.9 CHEST PAIN, UNSPECIFIED 04/11/2018 BROOKE CHRISTINE MANAGER TRANSMISSION Ot R09.02 HYPOXEMIA 04/11/2018 BROOKE CHRISTINE MANAGER TRANSMISSION Ot Z87.891 PERSONAL HISTORY OF NICOTINE DEPENDENCE 04/11/2018 BROOKE CHRISTINE MANAGER TRANSMISSION Ot Z98.890 OTHER SPECIFIED POSTPROCEDURAL STATES 04/11/2018 GABRIELLA AMARO Ot C83.10 MANTLE CELL LYMPHOMA, UNSPECIFIED SITE 04/11/2018 GABRIELLA AMARO Ot E78.2 MIXED HYPERLIPIDEMIA 04/11/2018 GABRIELLA AMARO Ot I10 ESSENTIAL (PRIMARY) HYPERTENSION 04/11/2018 GABRIELLA AMARO Ot I25.10 ATHSCL HEART DISEASE OF [place] CORONARY 04/11/2018 GABRIELLA AMARO Ot C83.10 MANTLE CELL LYMPHOMA, UNSPECIFIED SITE 04/11/2018 GABRIELLA AMARO Ot E78.2 MIXED HYPERLIPIDEMIA 04/11/2018 GABRIELLA AMARO Ot I10 ESSENTIAL (PRIMARY) HYPERTENSION 04/11/2018 GABRIELLA AMARO Ot I25.10 ATHSCL HEART DISEASE OF [place] CORONARY 04/11/2018 GABRIELLA AMARO Ot E78.2 MIXED HYPERLIPIDEMIA 04/11/2018 GABRIELLA AMARO Ot I10 ESSENTIAL (PRIMARY) HYPERTENSION 04/11/2018 GABRIELLA AMARO Ot I25.10 ATHSCL HEART DISEASE OF [place] CORONARY 04/11/2018 LENNY JEWELL MD Ot I10 ESSENTIAL (PRIMARY) HYPERTENSION 04/11/2018 LENNY JEWELL MD, Ot I25.10 ATHSCL HEART DISEASE OF [place] CORONARY 04/11/2018 LENNY JEWELL MD Ot I67.1 CEREBRAL ANEURYSM, NONRUPTURED 04/11/2018 LENNY JEWELL MD, Ot J44.9 CHRONIC OBSTRUCTIVE PULMONARY DISEASE, U 04/11/2018 LENNY JEWELL MD Ot Z82.49 FAMILY HX OF ISCHEM HEART DIS AND OTH DI 04/11/2018 BRITTANY CRAVEN MD Ot M25.48 EFFUSION, OTHER SITE 04/11/2018 BRITTANY CRAVEN MD, Ot M43.16 SPONDYLOLISTHESIS, LUMBAR REGION 04/11/2018 BRITTANY CRAVEN MD Ot M47.24 OTHER SPONDYLOSIS WITH RADICULOPATHY, TH 04/11/2018 BRITTANY CRAVEN MD Ot M47.27 OTHER SPONDYLOSIS WITH RADICULOPATHY, MOE 04/11/2018 BRITTANY CRAVEN MD Ot M48.061 SPINAL STENOSIS, LUMBAR REGION WITHOUT N 04/11/2018 BRITTANY CRAVEN MD Ot M51.16 INTERVERTEBRAL DISC DISORDERS W RADICULO 04/11/2018 BRITTANY CRAVEN MD Ot 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, THORACOLUMBAR REGION 04/11/2018 BRITTANY CRAVEN MD Ot M99.73 CONN TISS AND DISC STENOS OF INTVRT FORA 04/11/2018 BRITTANY CRAVEN MD Ot Z85.72 PERSONAL HISTORY OF NON-HODGKIN LYMPHOMA 04/11/2018 LENNY JEWELL MD Ot E78.5 HYPERLIPIDEMIA, UNSPECIFIED 04/11/2018 LENNY JEWELL MD Ot I10 ESSENTIAL (PRIMARY) HYPERTENSION 04/11/2018 LENNY JEWELL MD, Ot I25.10 ATHSCL HEART DISEASE OF [place] CORONARY 04/11/2018 LENNY JEWELL MD, Ot J44.9 CHRONIC OBSTRUCTIVE PULMONARY DISEASE, U 04/11/2018 LENNY JEWELL MD Ot K27.9 PEPTIC ULC, SITE UNSP, UNSP AC OR CHR 04/11/2018 LENNY JEWELL MD Ot R06.00 DYSPNEA, UNSPECIFIED 04/11/2018 LENNY JEWELL MD Ot R07.9 CHEST PAIN, UNSPECIFIED 04/11/2018 BRITTANY CRAVEN MD Ot D50.9 IRON DEFICIENCY ANEMIA, UNSPECIFIED 04/11/2018 BRITTANY CRAVEN MD Ot E78.5 HYPERLIPIDEMIA, UNSPECIFIED 04/11/2018 BRITTANY CRAVEN MD Ot I10 ESSENTIAL (PRIMARY) HYPERTENSION 04/11/2018 BRITTANY CRAVEN MD Ot M89.9 DISORDER OF BONE, UNSPECIFIED 04/11/2018 BRITTANY CRAVEN MD Ot Z79.899 OTHER CUSTODIAL (CURRENT) DRUG THERAPY 04/12/2018 BROOKE CHRISTINE APRN Ot Z87.891 PERSONAL HISTORY OF NICOTINE DEPENDENCE 04/20/2018 BROOKE CHRISTINE APRN Ot J43.2 CENTRILOBULAR EMPHYSEMA 04/20/2018 BROOKE CHRISTINE APRN Ot R91.1 SOLITARY PULMONARY NODULE 04/20/2018 BROOKE CHRISTINE APRN Ot Z12.2 ENCNTR SCREEN FOR MALIGNANT NEOPLASM OF 04/20/2018 BROOKE CHRISTINE APRN Ot Z87.891 PERSONAL HISTORY OF NICOTINE DEPENDENCE 04/26/2018 BRITTANY CRAVEN MD Ot D50.9 IRON DEFICIENCY ANEMIA, UNSPECIFIED 04/26/2018 BRITTANY CRAVEN MD Ot E78.5 HYPERLIPIDEMIA, UNSPECIFIED 04/26/2018 BRITTANY CRAVEN MD Ot I10 ESSENTIAL (PRIMARY) HYPERTENSION 04/26/2018 BRITTANY CRAVEN MD Ot M89.9 DISORDER OF BONE, UNSPECIFIED 04/26/2018 BRITTANY CRAVEN MD Ot Z79.899 OTHER CUSTODIAL (CURRENT) DRUG THERAPY 05/01/2018 BROOKE CHRISTINE APRN Ot J43.2 CENTRILOBULAR EMPHYSEMA 05/01/2018 BROOKE CHRISTINE APRN Ot R91.1 SOLITARY PULMONARY NODULE 05/01/2018 BROOKE CHRISTINE APRN Ot Z12.2 ENCNTR SCREEN FOR MALIGNANT NEOPLASM OF 05/01/2018 BROOKE CHRISTINE APRN Ot Z87.891 PERSONAL HISTORY OF NICOTINE DEPENDENCE Procedures Code Description [place] [address] X-RAY EXAM, KNEE, 4 OR MORE 06/14/2013 84895 EMERGENCY DEPT VISIT 06/14/2013 L1830 Ko immobilizer canvas longit 06/14/2013 07043 MRI JNT OF LWR EXTRE W/O DYE 06/17/2013 57723 X-RAY EXAM OF WRIST 08/16/2015 Results Test Result Range [id number] - 05/29/16 10:27 Serum or plasma urea nitrogen measurement (mass/volume) 21 mg/dL 7 Serum or plasma creatinine measurement (mass/volume) 1.03 mg/dL 0.60-1.30 Serum or plasma urea nitrogen/creatinine mass ratio 20 NRG Serum or plasma creatinine measurement with calculation of estimated glomerular filtration rate 53 NRG Bacterial urine culture - 08/31/16 11:40 Bacterial urine culture [id number] NRG COLONY COUNT <10,000 NRG FTX;REPORTABLE SENSITIVITY REPORTED 09/02/16 11:40 NRG Bacterial susceptibility panel - 08/31/16 11:40 Gentamicin susceptibility test by minimum inhibitory concentration < = NRG Trimethoprim/sulfamethoxazole susceptibility test by minimum inhibitoryconcentration <= NRG Ampicillin susceptibility test by minimum inhibitory concentration < = NRG Tobramycin susceptibility test by minimum inhibitory concentration < = NRG Cefazolin susceptibility test by minimum inhibitory concentration < = NRG Ceftriaxone susceptibility test by minimum inhibitory concentration <= NRG Ampicillin/sulbactam susceptibility test by minimum inhibitory concentration <= NRG Piperacillin/tazobactam susceptibility test by minimum inhibitory concentration <= NRG Ciprofloxacin susceptibility test by minimum inhibitory concentration <= NRG Meropenem susceptibility test by minimum inhibitory concentration < = NRG Nitrofurantoin susceptibility test by minimum inhibitory concentration <= NRG Aztreonam susceptibility test by minimum inhibitory concentration < = NRG Extended spectrum beta lactamase (ESBL) producing bacteria susceptibility test by minimum inhibitory concentration - NRG Complete urinalysis with reflex to culture - 11/22/16 07:19 Urine color determination YELLOW NRG Urine clarity determination SLIGHTLY CLOUDY NRG Urine pH measurement by test strip 7 5-9 Specific gravity of urine by test strip 1.005 1.016- 1.022 Urine protein assay by test strip, semi-quantitative NEGATIVE NEGATIVE Urine glucose detection by automated test strip NEGATIVE NEGATIVE Erythrocytes detection in urine sediment by light microscopy NEGATIVE NEGATIVE Urine ketones detection by automated test strip NEGATIVE NEGATIVE Urine nitrite detection by test strip NEGATIVE NEGATIVE Urine total bilirubin detection by test strip NEGATIVE NEGATIVE Urine urobilinogen measurement by automated test strip (mass/volume) NORMAL NORMAL Urine leukocyte esterase detection by dipstick 1+ NEGATIVE Automated urine sediment erythrocyte count by microscopy (number/high power field) NONE NRG Automated urine sediment leukocyte count by microscopy (number/high power field ) [HPF] NRG Bacteria detection in urine sediment by light microscopy NEGATIVE NRG Squamous epithelial cells detection in urine sediment by light microscopy 5-10 NRG Crystals detection in urine sediment by light microscopy NONE NRG Casts detection in urine sediment by light microscopy NONE NRG Mucus detection in urine sediment by light microscopy NEGATIVE NRG Complete urinalysis with reflex to culture NO NRG PT panel in platelet poor plasma by coagulation assay - 11/22/16 07:35 Prothrombin time (PT) in platelet poor plasma by coagulation assay 12.9 s 12.2-14.7 INR in platelet poor plasma or blood by coagulation assay 1.0 0.8-1.4 Activated partial thromboplastin time (aPTT) in platelet poor plasma bycoagulation assay - 11/22/16 07:35 Activated partial thromboplastin time (aPTT) in platelet poor plasma bycoagulation assay 26 s 24-35 Comprehensive metabolic panel - 11/22/16 07:35 Serum or plasma sodium measurement (moles/volume) 139 mmol/L 135-145 Serum or plasma potassium measurement (moles/volume) 4.0 mmol/L 3.6-5.0 Serum or plasma chloride measurement (moles/volume) 102 mmol/L 98-107 Carbon dioxide 28 mmol/L 21-32 Serum or plasma anion gap determination (moles/volume) 9 mmol/L 5-14 Serum or plasma urea nitrogen measurement (mass/volume) 17 mg/dL 7-18 Serum or plasma creatinine measurement (mass/volume) 0.79 mg/dL 0.60-1.30 Serum or plasma urea nitrogen/creatinine mass ratio 22 NRG Serum or plasma creatinine measurement with calculation of estimated glomerular filtration rate > NRG Serum or plasma glucose measurement (mass/volume) 106 mg/dL 70-105 Serum or plasma calcium measurement (mass/volume) 9.0 mg/dL 8.5-10.1 Serum or plasma total bilirubin measurement (mass/volume) 0.5 mg/dL 0.1-1.0 Serum or plasma alkaline phosphatase measurement (enzymatic activity/volume) 88 U/L 40-136 Serum or plasma aspartate aminotransferase measurement (enzymatic activity/ volume) 17 U/L 5-34 Serum or plasma alanine aminotransferase measurement (enzymatic activity/volume ) 24 U/L 0-55 Serum or plasma protein measurement (mass/volume) 5.9 g/dL 6.4-8.2 Serum or plasma albumin measurement (mass/volume) 3.6 g/dL 3.2-4.5 Automated blood complete blood count (hemogram) panel - 11/22/16 07:35 Blood leukocytes automated count (number/volume) 10.7 10*3/uL 4.3-11.0 Blood erythrocytes automated count (number/volume) 3.36 10*6/uL 4.35-5.85 Venous blood hemoglobin measurement (mass/volume) 10.5 g/dL 11.5-16.0 Blood hematocrit (volume fraction) 34 % 35-52 Automated erythrocyte mean corpuscular volume 101 [foz_us] 80-99 Automated erythrocyte mean corpuscular hemoglobin (mass per erythrocyte) 31 pg 25-34 Automated erythrocyte mean corpuscular hemoglobin concentration measurement ( mass/volume) 31 g/dL 32-36 Automated erythrocyte distribution width ratio 14.7 % 10.0-14.5 Automated blood platelet count (count/volume) 340 10*3/uL 130-400 Automated blood platelet mean volume measurement 10.5 [foz_us] 7.4-10.4 Methicillin resistant Staphylococcus aureus (MRSA) screening culture - 07:35 Methicillin resistant Staphylococcus aureus (MRSA) screening culture NEG [facility] Comprehensive metabolic panel - 02/14/18 13:45 Serum or plasma sodium measurement (moles/volume) 137 mmol/L 135-145 Serum or plasma potassium measurement (moles/volume) 4.1 mmol/L 3.6-5.0 Serum or plasma chloride measurement (moles/volume) 99 mmol/L 98-107 Carbon dioxide 29 mmol/L 21-32 Serum or plasma anion gap determination (moles/volume) 9 mmol/L 5-14 Serum or plasma urea nitrogen measurement (mass/volume) 15 mg/dL 7-18 Serum or plasma creatinine measurement (mass/volume) 0.93 mg/dL 0.60-1.30 Serum or plasma urea nitrogen/creatinine mass ratio 16 NRG Serum or plasma creatinine measurement with calculation of estimated glomerular filtration rate 59 NRG Serum or plasma glucose measurement (mass/volume) 102 mg/dL 70-105 Serum or plasma calcium measurement (mass/volume) 9.2 mg/dL 8.5-10.1 Serum or plasma total bilirubin measurement (mass/volume) 0.4 mg/dL 0.1-1.0 Serum or plasma alkaline phosphatase measurement (enzymatic activity/volume) 79 U/L 40-136 Serum or plasma aspartate aminotransferase measurement (enzymatic activity/ volume) 20 U/L 5-34 Serum or plasma alanine aminotransferase measurement (enzymatic activity/volume ) 23 U/L 0-55 Serum or plasma protein measurement (mass/volume) 6.1 g/dL 6.4-8.2 Serum or plasma albumin measurement (mass/volume) 3.8 g/dL 3.2-4.5 CALCIUM CORRECTED 9.4 mg/dL 8.5-10.1 Lipid 1996 panel - 02/14/18 13:45 Serum or plasma triglyceride measurement (mass/volume) 139 mg/dL <150 Serum or plasma cholesterol measurement (mass/volume) 115 mg/dL < 200 Serum or plasma cholesterol in HDL measurement (mass/volume) 41 mg/ dL 40-60 Cholesterol in LDL [mass/volume] in serum or plasma by direct assay 50 mg/dL 1-129 Serum or plasma cholesterol in VLDL measurement (mass/volume) 28 mg/ dL 5-40 Encounters ACCT No. Visit Date/Time Discharge Status Pt. Type Provider Facility Loc./Unit Complaint [id number] 08/16/2015 09:28:00 08/16/2015 09:28:00 DIS Outpatient EDIE DOUGLAS [facility] [id number] 12/11/2014 14:33:00 12/11/2014 14:33:00 DIS Outpatient EDIE DOUGLAS [facility] RAD [id number] 06/17/2013 07:20:00 06/17/2013 07:20:00 DIS Outpatient ZAINA COCHRAN [facility] RAD [id number] 06/14/2013 15:40:00 06/14/2013 18:10:00 DIS Emergency DONAL NESBITT [facility] EMR [id number] 06/14/2013 13:17:00 06/14/2013 13:23:00 DIS Outpatient DONAL NESBITT [facility] [id number] 04/30/2018 12:05:00 04/30/2018 23:59:59 CLS Emergency [facility] CHARLI ED er visit [id number] 04/30/2018 10:21:58 04/30/2018 23:59:59 DIS Outpatient EDIE DOUGLAS [facility] [id number] 04/23/2018 10:19:16 04/23/2018 23:59:59 DIS Outpatient EDIE DOUGLAS [facility] RAD [id number] 04/23/2018 09:23:53 04/23/2018 23:59:59 DIS Outpatient EDIE DOUGLAS [facility] [id number] 04/17/2018 11:40:00 04/17/2018 23:59:59 DIS Outpatient ORXY GARCIA [facility] [id number] 04/17/2018 12:49:00 04/17/2018 16:24:00 DIS Emergency FORTUNATOCHARANJIT [facility] ED ed visit [id number] 02/20/2018 09:50:43 02/20/2018 23:59:59 DIS Outpatient EDIE DOUGLAS [facility] [id number] 11/19/2017 09:55:28 11/19/2017 23:59:59 DIS Outpatient EDIE DOUGLAS [facility] [id number] 11/05/2017 08:54:52 11/05/2017 23:59:59 DIS Outpatient EDIE DOUGLAS [facility] [id number] 10/17/2017 13:28:10 10/17/2017 23:59:59 DIS Outpatient EDIE DOUGLAS [facility] [id number] 08/31/2017 13:33:47 08/31/2017 23:59:59 DIS Outpatient EDIE DOUGLAS [facility] RAD post menopausal [id number] 08/27/2017 14:19:39 08/27/2017 23:59:59 DIS Outpatient EDIE DOUGLAS [facility] [id number] 04/19/2017 11:58:47 04/19/2017 23:59:59 DIS Outpatient EDIE DOUGLAS [facility] [id number] 04/19/2017 11:13:36 04/19/2017 23:59:59 DIS Outpatient Norma Mejia [facility] [id number] 02/26/2017 10:01:56 02/26/2017 23:59:59 DIS Outpatient EDIE DOUGLAS [facility] [id number] 12/11/2016 11:45:30 12/11/2016 23:59:59 DIS Outpatient EDIE DOUGLAS [facility] RAD screening [id number] 10/23/2016 14:56:10 10/23/2016 23:59:59 DIS Outpatient EDIE DOUGLAS [facility] [id number] 11/25/2017 02:00:17 Document Registration [id number] 10/17/2017 14:25:12 Document Registration [id number] 08/19/2017 02:00:31 Document Registration [id number] 02/03/2017 02:00:23 Document Registration [id number] 07/30/2016 02:04:35 Document Registration [id number] 05/07/2016 02:01:06 Document Registration [id number] 01/21/2016 02:00:46 Document Registration [id number] 01/19/2016 14:57:37 Document Registration [id number] 01/18/2016 02:00:38 Document Registration [id number] 01/19/2018 15:31:32 Document Registration [id number] 01/19/2018 15:17:08 Document Registration [id number] 05/13/2018 07:28:00 05/13/2018 11:00:00 DIS Outpatient GEETA HATHAWAY DO [facility] PREOP BRONCHOSCOPY [id number] 05/09/2018 13:55:00 05/09/2018 23:59:59 CLS Outpatient BRITTANY CRAVEN MD [facility] ONC [id number] 05/07/2018 08:50:00 05/07/2018 23:59:59 CLS Outpatient BROOKE CHRISTINE APRN [facility] RAD LUNG NODULE, DYSPNEA [id number] 05/02/2018 17:08:00 05/02/2018 23:59:59 CLS Preadmit BROOKE CHRISTINE APRN [facility] RT COPD, DYSPNEA [id number] 04/16/2018 12:16:00 04/16/2018 23:59:59 CLS Outpatient BROOKE CHRISTINE APRN [facility] RAD COPD,SMOKING HISTORY [id number] 02/14/2018 13:32:00 02/20/2018 00:01:00 DIS Outpatient BRITTANY CRAVEN MD [facility] ONC [id number] 02/14/2018 14:11:00 02/14/2018 23:59:59 CLS Outpatient LENNY JEWELL MD [facility] LAB [id number] 10/15/2017 12:11:00 11/22/2017 07:47:00 DIS Outpatient BRITTANY CRAVEN MD [facility] ONC [id number] 10/10/2017 10:36:00 10/10/2017 23:59:59 CLS Outpatient BRITTANY CRAVEN MD [facility] RAD LOW BACK PAIN,HX OF LYMPHOMA [id number] 08/10/2017 12:54:00 08/30/2017 12:35:00 DIS Outpatient BRITTANY CRAVEN MD [facility] ONC [id number] 08/03/2017 10:24:00 08/03/2017 23:59:59 CLS Outpatient LENNY JEWELL MD [facility] RAD CAD,COPD,CHEST PAIN, DYSPNEA,HTN [id number] 05/10/2017 12:14:00 05/16/2017 00:01:00 DIS Outpatient BRITTANY CRAVEN MD [facility] ONC [id number] 01/15/2017 11:51:00 02/15/2017 10:05:00 DIS Outpatient BRITTANY CRAVEN MD [facility] ONC [id number] 12/27/2016 10:32:00 12/27/2016 23:59:59 CLS Outpatient GABRIELLA AMARO [facility] RAD I25.10 CAD [id number] 11/22/2016 06:50:00 11/22/2016 13:50:00 DIS Outpatient LENNY JEWELL MD [facility] CATH ABN STESS TEST [id number] 11/08/2016 07:50:00 11/08/2016 23:59:59 CLS Outpatient GABRIELLA AMARO [facility] CARD I25.10 CAD [id number] 10/26/2016 11:10:00 11/04/2016 00:01:00 DIS Outpatient BRITTANY CRAVEN MD [facility] ONC [id number] 09/28/2016 10:27:00 10/17/2016 15:12:00 DIS Outpatient BRITTANY CRAVEN MD [facility] PAR [id number] 10/10/2016 08:45:00 10/10/2016 23:59:59 CLS Outpatient GABRIELLA AMARO [facility] CARD I25.10 CAD [id number] 08/24/2016 11:59:00 08/30/2016 00:01:00 DIS Outpatient BRITTANY CRAVEN MD [facility] PAR [id number] 08/09/2016 11:18:00 08/09/2016 23:59:59 CLS Outpatient BROOKE CHRISTINE APRN [facility] RAD COPD J44.9,HX OF NICOTINE DEPENDENCE [id number] 05/29/2016 10:10:00 05/29/2016 23:59:59 CLS Outpatient LENNY JEWELL MD [facility] RAD I25.10,J44.9,R07.9, R06.00 [id number] 05/11/2016 13:28:00 05/17/2016 00:01:00 DIS Outpatient BRITTANY CRAVEN MD [facility] PAR LABS/TX/OV [id number] 01/20/2016 15:14:00 02/09/2016 00:01:00 DIS Outpatient BRITTANY CRAVEN MD [facility] PAR LABS/TX/OV [id number] 01/20/2016 14:17:00 01/20/2016 23:59:59 CLS Outpatient GABRIELLA AMARO [facility] LAB [id number] 10/28/2015 11:10:00 11/09/2015 10:22:00 DIS Outpatient BRITTANY CRAEVN MD [facility] PAR LABS/TX/OV [id number] 10/28/2015 11:38:00 10/28/2015 23:59:59 CLS Outpatient GABRIELLA AMARO [facility] LAB [id number] 08/26/2015 16:55:00 09/08/2015 00:01:00 DIS Outpatient BRITTANY CRAVEN MD [facility] PAR LABS/TX/OV [id number] 05/13/2015 09:25:00 05/19/2015 00:01:00 DIS Outpatient BRITTANY CRAVEN MD [facility] PAR LABS/TX/OV [id number] 05/17/2015 08:37:00 05/17/2015 23:59:59 CLS Outpatient GABRIELLA AMARO [facility] RAD CAROTID ARTERY STENOSIS,HTN,HLP,OBESITY [id number] 01/21/2015 14:55:00 02/17/2015 00:01:00 DIS Outpatient BRITTANY CRAVEN MD [facility] PAR LABS/TX/OV [id number] 10/29/2014 10:57:00 11/04/2014 00:01:00 DIS Outpatient BRITTANY CRAVEN MD [facility] PAR LABS/TX/OV [id number] 10/22/2014 11:48:00 10/22/2014 23:59:59 CLS Outpatient LENNY JEWELL MD [facility] LAB [id number] 08/25/2014 08:00:00 08/25/2014 23:59:59 CLS Preadmit GEETA HATHAWAY DO [facility] PULM COPD,DSYPNEA [id number] 08/13/2014 13:00:00 08/24/2014 00:01:00 DIS Outpatient GEETA HATHAWAY DO [facility] PULM COPD,DSYPNEA [id number] 08/06/2014 09:43:00 08/12/2014 00:01:00 DIS Outpatient BRITTANY CRAVEN MD [facility] PAR LABS/TX/OV [id number] 07/08/2014 17:30:00 07/10/2014 11:00:00 DIS Outpatient LENNY JEWELL MD [facility] CATH CHEST PAIN [id number] 05/12/2014 13:00:00 05/13/2014 00:01:00 DIS Outpatient BRITTANY CRAVEN MD [facility] PAR LABS/TX/OV [id number] 05/05/2014 13:00:00 05/11/2014 00:01:00 DIS Outpatient GEETA HATHAWAY DO [facility] PULM COPD DSYPNEA [id number] 02/12/2014 10:41:00 02/12/2014 23:59:59 CLS Outpatient LENNY JEWELL MD [facility] LAB OUTSIDE LABS [id number] 12/25/2013 09:46:00 01/25/2014 00:01:00 DIS Outpatient BRITTANY CRAVEN MD [facility] PAR LABS/TX/OV [id number] 01/02/2014 19:40:00 01/03/2014 07:15:00 DIS Outpatient GEETA HATHAWAY DO [facility] SLEEP EXCESSIVE DAYTIME SLEEPINESS,HTN [id number] 12/08/2013 13:45:00 12/08/2013 23:59:59 CLS Outpatient GEETA HATHAWAY DO [facility] RT COPD,DYSPNEA [id number] 11/17/2013 15:09:00 11/17/2013 23:59:59 CLS Outpatient LENNY JEWELL MD [facility] LAB OUTSIDE LABS [id number] 09/04/2013 09:39:00 10/05/2013 00:01:00 DIS Outpatient BRITTANY CRAVEN MD [facility] PAR LABS/TX/OV [id number] 10/01/2013 06:39:00 10/01/2013 15:00:00 DIS Outpatient LENNY JEWELL MD [facility] CATH ABNORMAL STRESS, CAD,HTN ,SOB [id number] 09/24/2013 07:53:00 09/24/2013 23:59:59 CLS Outpatient GABRIELLA AMARO [facility] CARD CAD,COPD, DYSPNEA,HLP,HTN [id number] 09/18/2013 10:00:00 09/18/2013 23:59:59 CLS Outpatient GABRIELLA AMARO [facility] CARD CAD,COPD, DYSPNEA,HLP,HTN [id number] 05/12/2013 14:34:00 06/15/2013 00:01:00 DIS Outpatient BRITTANY CRAVEN MD [facility] PAR LABS/TX/OV [id number] 03/20/2013 09:52:00 03/20/2013 23:59:59 CLS Outpatient LENNY JEWELL MD [facility] LAB OUTSIDE LABS [id number] 01/23/2013 09:54:00 02/19/2013 00:01:00 DIS Outpatient BRITTANY CRAVEN MD [facility] PAR LABS/TX/OV [id number] 11/14/2012 10:19:00 02/12/2013 00:01:00 DIS Outpatient BRITTANY CRAVEN MD [facility] ONC [id number] 09/19/2012 09:37:00 10/20/2012 00:01:00 DIS Outpatient BRITTANY CRAVEN MD [facility] PAR LABS/TX/OV [id number] 09/19/2012 09:44:00 09/19/2012 23:59:59 CLS Outpatient LENNY JEWELL MD [facility] LAB OUTSIDE LABS [id number] 05/30/2012 10:30:00 07/21/2012 00:01:00 DIS Outpatient BRITTANY CRAVEN MD [facility] PAR LABS/[place]/OV [id number] 05/15/2018 06:49:00 ACT Outpatient GEETA HATHAWAY DO [facility] ENDO HYPOXEMIA/DYPSNEA/COPD [id number] 12/22/2013 15:26:00 Document Registration [id number] 12/22/2013 15:26:00 Document Registration [id number] 12/22/2013 15:25:00 Document Registration [id number] 02/13/2013 00:00:00 Document Registration [id number] 04/04/2012 09:56:00 Document Registration [id number] 03/19/2012 09:37:00 Document Registration [id number] 03/14/2012 10:07:00 Document Registration [id number] 12/21/2011 09:28:00 Document Registration [id number] 11/28/2011 10:53:00 Document Registration [id number] 11/20/2011 08:11:00 Document Registration [id number] 11/20/2011 06:54:00 Document Registration [id number] 10/31/2011 09:27:00 Document Registration [id number] 09/28/2011 12:48:00 Document Registration [id number] 08/31/2011 09:57:00 Document Registration [id number] 05/11/2011 09:27:00 Document Registration [id number] 04/13/2011 10:18:00 Document Registration [id number] 02/01/2011 08:27:00 Document Registration [id number] 01/26/2011 09:47:00 Document Registration [id number] 01/24/2011 08:07:00 Document Registration [id number] 01/23/2011 08:14:00 Document Registration [id number] 01/10/2011 10:53:00 Document Registration [id number] 11/07/2010 13:14:00 Document Registration [id number] 07/28/2010 08:52:00 Document Registration [id number] 06/14/2010 09:06:00 Document Registration [id number] 03/24/2010 09:22:00 Document Registration [id number] 01/25/2010 10:45:00 Document Registration [id number] 12/20/2009 13:23:00 Document Registration [id number] 09/09/2009 11:25:00 Document Registration [id number] 09/09/2009 11:02:00 Document Registration [id number] 12/16/2008 09:50:00 Document Registration [id number] 11/30/2008 10:47:00 Document Registration [id number] 11/09/2008 12:53:00 Document Registration [id number] 09/16/2008 08:22:00 Document Registration [id number] 09/11/2008 10:24:00 Document Registration [id number] 09/02/2008 12:55:00 Document Registration
[2018-05-15] MEDS ORDERED: proPOfol 200 MG/20 ML (DIPRIVAN) VIAL IV ONE (07:07)
[2018-05-15] MEDS ORDERED: DEXAMETHASONE 10 MG/ML (DECADRON) 1 ML VIAL ONE (07:28)
[2018-05-15] MEDS ORDERED: ONDANSETRON 4 MG/2 ML (SDV) Z0FRAN ONE (07:28)
[2018-05-15] MEDS ORDERED: LIDOCAINE PF 2% 5 ML (XYLOCAINE) VIAL ONE (07:28)
[2018-05-15] MEDS ORDERED: fentaNYL INJECTION 100 MCG/2 ML AMP ONE (07:34)
[2018-05-15] MEDS ORDERED: SEVOFLURANE (ULTANE) 15 ML INHAL SOLN ONE (08:09)
--- NOTE | 2018-05-15 08:15 | Pulmonary Procedures ---
Pulmonary Procedures Date of Procedure Date of Service: May 15, 2018 Bronch Bronchoscopy with Fluoroscopy RLL bronchoalveolar lavage (BAL), bilateral washes, RLL transbronchial brushes x 2 and brush of eloisa x 2 Preop DX lung mass Postop DX: same - No endobronchial mass Complications: none After informed consent obtained and formal time out pt was sedated using Fentanyl and Versed. Bronchoscope was advanced through the nare and vocal cords. 1% lidocaine was used to anesthetize vocal cords, epiglottis, eloisa, and left/right main stem bronchus. An anatomical tour was undertaken down to the segmental bronchi bilaterally. No endobronchial lesions noted. Bronchoscopy with Fluoroscopy RLL bronchoalveolar lavage (BAL), bilateral washes, RLL transbronchial brushes x 2 and brush of eloisa x 2 were obtained. Pt tolerated procedure well. No complications noted. Stat CXR is pending. GEETA HATHAWAY DO May 15, 2018 08:15
[2018-05-15] MEDS ORDERED: NS IV 500 ML 500 ML IV PRN (08:24)
[2018-05-15 08:30] VITALS: BP 181/71
[2018-05-15 08:35] VITALS: BP 154/68
[2018-05-15 09:07] VITALS: BP 163/83
--- NOTE | 2018-05-15 09:34 | Diagnostic Imaging Report ---
EXAMINATION: Portable supine AP chest at 829h. INDICATION: Post bronchoscopy Allowing for the patient's supine position the heart size is within normal limits and stable when compared to 11/22/2006. The chronic elevation of the lateral aspect of the left hemidiaphragm seen previously is again visualized and no different. The postsurgical changes involving the bony thorax seen on the prior study are also stable. The lungs are generally clear. There is no sign of failure, pneumonia or of a significant pleural effusion. Reportedly the patient recently underwent bronchoscopy. There is no pneumothorax identified. However small pneumothorax could be present yet undetected on a supine film such as this. The mediastinum is not widened. The osseous structures are intact. Right-sided Port-A-Cath seen previously is again evident. The tip continues to overlie the midportion of the superior vena cava. IMPRESSION: There is chronic pulmonary disease but there is no acute abnormality identified. Dictated by: Dictated on workstation # [id number]
[2018-05-15 09:55] VITALS: BP 163/83
--- NOTE | 2018-05-15 10:04 | Diagnostic Imaging Report ---
EXAMINATION: Fluoroscopy. INDICATION: Bronchoscopy. FINDINGS: Fluoroscopic assistance was provided for Dr. Corona during his bronchoscopy procedure. Two spot films of the thorax were obtained. The films are not marked right or left. FLUOROSCOPY TIME: 38.8 seconds of fluoroscopy time was utilized. IMPRESSION: Fluoroscopic assistance was provided for Dr. Corona. Dictated by: Dictated on workstation # [id number]
--- NOTE | 2018-05-15 14:27 | Anesthesia-General Post-Op ---
General Patient Condition Mental Status/LOC: Same as Preop Cardiovascular: Satisfactory Nausea/Vomiting: Absent Respiratory: Satisfactory Pain: Controlled Complications: Absent Post Op Complications Complications None Follow Up Care/Instructions Patient Instructions None needed. Anesthesia/Patient Condition Patient Condition Patient is doing well, no complaints, stable vital signs, no apparent adverse anesthesia problems. No complications reported per nursing. SILVIA GARCIA CRNA May 15, 2018 14:27
== END 2018-05-15 09:55 | disposition home or self-care (01) ==
LOC: ENDO 06:49
PROVIDERS: ATTEND Internal Medicine Critical Care Medicine
DX: R91.8 Other nonspecific abnormal finding of lung field (principal); R09.02 Hypoxemia; I10 Essential (primary) hypertension; I25.10 Atherosclerotic heart disease of native coronary artery without angina pectoris; J43.9 Emphysema, unspecified; M19.91 Primary osteoarthritis, unspecified site; Z99.81 Dependence on supplemental oxygen; Z87.891 Personal history of nicotine dependence; Z79.899 Other long term (current) drug therapy; Z85.79 Personal history of other malignant neoplasms of lymphoid, hematopoietic and related tissues; Z87.01 Personal history of pneumonia (recurrent); Z95.5 Presence of coronary angioplasty implant and graft; Z79.01 Long term (current) use of anticoagulants
CPT/HCPCS: 71045; 87070; 87101; 87205; 94640

== ENCOUNTER 2018-06-06 13:33 | Outpatient (RCR) | payer MEDICARE, OTHER ==
[2018-06-06 14:08] LABS: BASOPHILS # (AUTO) 0.1 10^3/uL (0.0-0.1); BASOPHILS % (AUTO) 0 % (0-10); EOSINOPHILS # (AUTO) 0.3 10^3/uL (0.0-0.3); EOSINOPHILS % (AUTO) 2 % (0-10); HEMATOCRIT 34 % (35-52); HEMOGLOBIN 10.6 G/DL (11.5-16.0); LYMPHOCYTES # (AUTO) 2.3 X 10^3 (1.0-4.0); LYMPHOCYTES % (AUTO) 19 % (12-44); MEAN CORPUSCULAR HEMOGLOBIN 32 PG (25-34); MEAN CORPUSCULAR HGB CONC 32 G/DL (32-36); MEAN CORPUSCULAR VOLUME 102 FL (80-99); MEAN PLATELET VOLUME 10.6 FL (7.4-10.4); MONOCYTES # (AUTO) 1.6 X 10^3 (0.0-1.0); MONOCYTES % (AUTO) 13 % (0-12); NEUTROPHILS # (AUTO) 7.8 X 10^3 (1.8-7.8); NEUTROPHILS % (AUTO) 64 % (42-75); PLATELET COUNT 366 10^3/uL (130-400); RED CELL DISTRIBUTION WIDTH 15.5 % (10.0-14.5); WHITE BLOOD COUNT 12.1 10^3/uL (4.3-11.0)
[2018-06-06 14:26] LABS: ALANINE AMINOTRANSFERASE 23 U/L (0-55); ALBUMIN 3.7 GM/DL (3.2-4.5); ALKALINE PHOSPHATASE 64 U/L (40-136); BILIRUBIN,TOTAL 0.2 MG/DL (0.1-1.0); BUN/CREATININE RATIO 14; CALCIUM 9.8 MG/DL (8.5-10.1); CARBON DIOXIDE 30 MMOL/L (21-32); CHLORIDE 101 MMOL/L (98-107); CREATININE SERUM 0.83 MG/DL (0.60-1.30); GFR ESTIMATED > 60; GLUCOSE 95 MG/DL (70-105); POTASSIUM 3.8 MMOL/L (3.6-5.0); SODIUM 142 MMOL/L (135-145); TOTAL PROTEIN 6.1 GM/DL (6.4-8.2)
== END 2018-06-19 | disposition home or self-care (01) ==
LOC: ONC 13:33
PROVIDERS: ATTEND Internal Medicine Hematology & Oncology
DX: D50.9 Iron deficiency anemia, unspecified (principal); I10 Essential (primary) hypertension; E78.5 Hyperlipidemia, unspecified; M89.9 Disorder of bone, unspecified; Z79.899 Other long term (current) drug therapy
CPT/HCPCS: 36591; 80053; 82728; 83540; 84443; 85025; 99213

== ENCOUNTER → 2018-06-21 | Outpatient (CLI) | payer MEDICARE, OTHER ==
[~2018-06-21] MED LIST changes: +RT-ALBUTEROL SULF 2.5 MG/3 ML PRE-MIX VIAL INH ONE
== END ==
LOC: RT 08:49
PROVIDERS: ATTEND Nurse Practitioner Family
DX: J44.9 Chronic obstructive pulmonary disease, unspecified (principal); R06.00 Dyspnea, unspecified; R09.02 Hypoxemia; R91.1 Solitary pulmonary nodule; Z87.891 Personal history of nicotine dependence
CPT/HCPCS: 94060; 94726; 94729

== ENCOUNTER → 2018-08-02 | Outpatient (CLI) | payer MEDICARE, OTHER ==
[~2018-08-02] MED LIST changes: -EZET10TA27 PO; +EZET10TA49 PO; +HOLD METFORMIN - RECEIVED CONTRAST 20 ML VIAL IV SCH; +IOHEXOL 350 MG/ML 100 ML (OMNIPAQUE 350) VIAL IV ONE; +NS 100 ML (IVPB) BAG IV ONE; -RT-ALBUTEROL SULF 2.5 MG/3 ML PRE-MIX VIAL INH ONE
[2018-08-02 09:29] LABS: CREATININE SERUM 1.06 MG/DL (0.60-1.30)
--- NOTE | 2018-08-02 10:15 | Diagnostic Imaging Report ---
PROCEDURE: CT chest with contrast only. TECHNIQUE: Multiple contiguous axial images were obtained through the chest after administration of intravenous contrast. Auto Exposure Controls were utilized during the CT exam to meet ALARA standards for radiation dose reduction. INDICATION: Followup pneumonia, pulmonary nodule. COMPARISON: CT chest of 04/16/2018. FINDINGS: Lungs and airway: Severe centrilobular emphysema is unchanged. No pulmonary mass or consolidation. The groundglass opacity within the superior segment of the right lower lobe has completely resolved. There are scattered areas of subsegmental atelectasis/scar in the lung bases. No new pulmonary nodule. Pleura: No pleural effusion or pneumothorax. Heart and mediastinum: Visualized thyroid is normal. No supravesicular or axillary lymphadenopathy. No mediastinal, hilar or juxtaphrenic lymphadenopathy. Heart is enlarged without pericardial effusion, unchanged since prior examination. Extensive coronary artery calcifications are also stable. Normal caliber thoracic aorta. Upper abdomen: Atherosclerotic aorta. Presumed small hemangioma within the left hepatic lobe. Musculoskeletal: No concerning focal osseous lesions. Old nonhealed posterior left rib fractures along with partial resection of the left ninth rib. IMPRESSION: 1. Resolution of ground glass nodule in the superior segment of the right lower lobe that was secondary to infection/inflammation. 2. No change to indicate clinically active lung cancer. 3. Severe emphysema. 4. Consider having patient return to annual lung cancer screening CT with low-dose CT in 12 months. Dictated by: Dictated on workstation # [id number]
== END ==
LOC: RAD 08:58
PROVIDERS: ATTEND Nurse Practitioner Family
DX: J18.9 Pneumonia, unspecified organism (principal); J43.2 Centrilobular emphysema; Z87.891 Personal history of nicotine dependence; Z87.81 Personal history of (healed) traumatic fracture
CPT/HCPCS: 36415; 71260; 82565; 84520

== ENCOUNTER → 2018-08-16 | Outpatient (CLI) | payer MEDICARE, OTHER ==
--- NOTE | 2018-08-16 11:50 | Diagnostic Imaging Report ---
PROCEDURE: CT angiography of the head and CT angiography of the neck with and without contrast. TECHNIQUE: Contiguous noncontrast images were obtained from the skull base through the vertex. After intravenous contrast administration, helical CT angiography of the neck was performed. Source data was reformatted into multiple MIP projections. Delayed post contrast acquisition was also obtained. Auto Exposure Controls were utilized during the CT exam to meet ALARA standards for radiation dose reduction. INDICATION: Intracranial aneurysm. Study is performed for followup. COMPARISON: Correlation is made with CT angiogram of the head and neck from 08/03/2017. FINDINGS: Preliminary radiograph of the brain demonstrates some hyperdensity in the posterior left thalamus, similar to prior study. There is moderate periventricular hypodensity consistent with chronic microvascular ischemia. Delayed postcontrast imaging is without abnormal enhancement. CT angiogram portion of the study through the head and neck demonstrates three-vessel branching pattern to the aortic arch. There is moderate calcified plaque at the origins of the great vessels but no high-grade stenosis is seen. Common carotid arteries are patent. There is heavy calcified plaque at the left carotid bifurcation with mild to moderate plaque at the right carotid bifurcation. There appears to be a fairly significant stenosis of the proximal left ICA. Right internal carotid artery is without significant stenosis. Both internal carotid arteries are widely patent. Significant calcified plaque at the carotid siphons bilaterally is again seen. Previously noted saccular aneurysm at the right middle cerebral artery bifurcation projecting slightly inferior is again noted and again measures approximately 4 mm x 5 mm in size. Both middle cerebral arteries remain widely patent. Paired anterior cerebral arteries are patent. Anterior communicating artery is unremarkable. The basilar is widely patent. Bilateral posterior cerebral arteries are patent. The basilar tip is unremarkable. Vertebral arteries are patent. Left vertebral artery is dominant. IMPRESSION: Continued stable CT angiogram of the head and neck when compared with examination from one year earlier. 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 Dictated by: Dictated on workstation # [id number]
== END ==
LOC: CARD 07:26
PROVIDERS: ATTEND Physician Assistant
DX: I34.0 Nonrheumatic mitral (valve) insufficiency (principal); I67.1 Cerebral aneurysm, nonruptured; I25.10 Atherosclerotic heart disease of native coronary artery without angina pectoris; E78.5 Hyperlipidemia, unspecified; I11.9 Hypertensive heart disease without heart failure; C83.11 Mantle cell lymphoma, lymph nodes of head, face, and neck
CPT/HCPCS: 70496; 70498; 93306

== ENCOUNTER 2018-11-13 14:50 | Outpatient (RCR) | payer MEDICARE, OTHER ==
[2018-08-22 13:59] LABS: BASOPHILS % (AUTO) 0 % (0-10); EOSINOPHILS # (AUTO) 0.4 10^3/uL (0.0-0.3); EOSINOPHILS % (AUTO) 3 % (0-10); HEMATOCRIT 37 % (35-52); HEMOGLOBIN 11.5 G/DL (11.5-16.0); LYMPHOCYTES % (AUTO) 16 % (12-44); MEAN CORPUSCULAR HEMOGLOBIN 31 PG (25-34); MEAN CORPUSCULAR HGB CONC 31 G/DL (32-36); MEAN CORPUSCULAR VOLUME 100 FL (80-99); MEAN PLATELET VOLUME 11.1 FL (7.4-10.4); MONOCYTES # (AUTO) 1.2 X 10^3 (0.0-1.0); MONOCYTES % (AUTO) 9 % (0-12); NEUTROPHILS % (AUTO) 72 % (42-75); PLATELET COUNT 387 10^3/uL (130-400); RED CELL DISTRIBUTION WIDTH 13.9 % (10.0-14.5); WHITE BLOOD COUNT 12.7 10^3/uL (4.3-11.0)
[2018-08-22 14:09] LABS: ALBUMIN 3.7 GM/DL (3.2-4.5); BILIRUBIN,TOTAL 0.2 MG/DL (0.1-1.0); CALCIUM 9.9 MG/DL (8.5-10.1); CREATININE SERUM 1.14 MG/DL (0.60-1.30); POTASSIUM 3.8 MMOL/L (3.6-5.0); TOTAL PROTEIN 6.2 GM/DL (6.4-8.2)
[~2018-11-13 14:50] MED LIST changes: -HOLD METFORMIN - RECEIVED CONTRAST 20 ML VIAL IV SCH; -IOHEXOL 350 MG/ML 100 ML (OMNIPAQUE 350) VIAL IV ONE; -NS 100 ML (IVPB) BAG IV ONE
== END 2018-11-20 | disposition home or self-care (01) ==
LOC: ONC 14:50
PROVIDERS: ATTEND Internal Medicine Hematology & Oncology
DX: C83.18 Mantle cell lymphoma, lymph nodes of multiple sites (principal); D50.9 Iron deficiency anemia, unspecified; I10 Essential (primary) hypertension; E78.5 Hyperlipidemia, unspecified; E03.9 Hypothyroidism, unspecified; I25.10 Atherosclerotic heart disease of native coronary artery without angina pectoris; J44.9 Chronic obstructive pulmonary disease, unspecified; D80.1 Nonfamilial hypogammaglobulinemia; Z95.5 Presence of coronary angioplasty implant and graft; Z87.11 Personal history of peptic ulcer disease; Z79.899 Other long term (current) drug therapy
CPT/HCPCS: 36591; 80053; 82728; 83540; 85025; 96523

== ENCOUNTER 2019-02-13 13:09 | Outpatient (RCR) | payer MEDICARE, OTHER ==
[~2019-02-13 13:09] MED LIST changes: -METO-370 PO; +METO50TA7 PO
[2019-02-13 13:45] LABS: BASOPHILS % (AUTO) 0 % (0-10); EOSINOPHILS # (AUTO) 0.5 10^3/uL (0.0-0.3); EOSINOPHILS % (AUTO) 4 % (0-10); HEMATOCRIT 34 % (35-52); HEMOGLOBIN 10.4 G/DL (11.5-16.0); LYMPHOCYTES # (AUTO) 2.1 X 10^3 (1.0-4.0); LYMPHOCYTES % (AUTO) 16 % (12-44); MEAN CORPUSCULAR HEMOGLOBIN 32 PG (25-34); MEAN CORPUSCULAR HGB CONC 31 G/DL (32-36); MEAN CORPUSCULAR VOLUME 103 FL (80-99); MEAN PLATELET VOLUME 10.4 FL (7.4-10.4); MONOCYTES # (AUTO) 1.2 X 10^3 (0.0-1.0); MONOCYTES % (AUTO) 9 % (0-12); NEUTROPHILS # (AUTO) 9.2 X 10^3 (1.8-7.8); NEUTROPHILS % (AUTO) 70 % (42-75); PLATELET COUNT 331 10^3/uL (130-400); RED CELL DISTRIBUTION WIDTH 13.8 % (10.0-14.5); WHITE BLOOD COUNT 13.1 10^3/uL (4.3-11.0)
[2019-02-13 14:05] LABS: ALANINE AMINOTRANSFERASE 24 U/L (0-55); ALBUMIN 3.8 GM/DL (3.2-4.5); ALKALINE PHOSPHATASE 88 U/L (40-136); BILIRUBIN,TOTAL 0.2 MG/DL (0.1-1.0); BUN/CREATININE RATIO 15; CALCIUM 8.9 MG/DL (8.5-10.1); CARBON DIOXIDE 27 MMOL/L (21-32); CHLORIDE 100 MMOL/L (98-107); GFR ESTIMATED > 60; GLUCOSE 93 MG/DL (70-105); POTASSIUM 3.9 MMOL/L (3.6-5.0); SODIUM 138 MMOL/L (135-145); TOTAL PROTEIN 6.2 GM/DL (6.4-8.2)
[2019-02-26] MEDS ORDERED: FLUT1BLS3 IH (14:59)
== END 2019-03-26 | disposition home or self-care (01) ==
LOC: ONC 13:09
PROVIDERS: ATTEND Internal Medicine Hematology & Oncology
DX: C83.18 Mantle cell lymphoma, lymph nodes of multiple sites (principal); D50.9 Iron deficiency anemia, unspecified; I10 Essential (primary) hypertension; E78.5 Hyperlipidemia, unspecified; E03.9 Hypothyroidism, unspecified; I25.10 Atherosclerotic heart disease of native coronary artery without angina pectoris; J44.9 Chronic obstructive pulmonary disease, unspecified; D80.1 Nonfamilial hypogammaglobulinemia; Z95.5 Presence of coronary angioplasty implant and graft; Z87.11 Personal history of peptic ulcer disease; Z79.899 Other long term (current) drug therapy; Z45.2 Encounter for adjustment and management of vascular access device
CPT/HCPCS: 36591; 80053; 83615; 85025; 96523

== ENCOUNTER 2019-02-26 05:55 | Outpatient (CLI) | payer MEDICARE, OTHER ==
[~2019-02-26] VITALS: Ht 162.6 cm; Wt 101.8 kg
[2019-02-26] MEDS ORDERED: FLUT1BLS3 IH (14:59)
== END 2019-02-26 15:00 | disposition home or self-care (01) ==
LOC: PREOP 05:55
PROVIDERS: ATTEND Surgery
DX: Z01.818 Encounter for other preprocedural examination (principal)

== ENCOUNTER → 2019-08-04 | Outpatient (CLI) | payer MEDICARE, OTHER ==
[~2019-08-04] MED LIST changes: +FLUT1BLS3 IH; -MONT10TA24 PO; +MONT10TA26 PO; +MULT-567 PO; -MULT1TAB69 PO
--- NOTE | 2019-08-04 14:41 | Diagnostic Imaging Report ---
CT Lung Screening INDICATION:50 pack-year history of smoking TECHNIQUE: Noncontrast, low-dose CT imaging performed according to the lung cancer screening protocol. Auto Exposure Controls were utilize during the CT exam to meet ALARA standards for radiation dose reduction. COMPARISON:08/02/2018 FINDINGS:Evaluation of the lung ordoñez again demonstrates multiple left upper lobe pulmonary micronodules. Reference micronodule is seen within the posterior lateral margins of the left upper lobe and measures 4-5 mm in diameter (image 30, series 2). This is stable compared to 04/16/2018. No new suspicious pulmonary nodules or masses are seen. There is no new focal consolidation, large effusion, nor pneumothorax. Background moderate emphysematous changes are again noted. Cardiomediastinal structures show normal heart size. There is no large pericardial effusion. There is advanced calcified aortic and coronary atherosclerosis. Indwelling coronary stents are suspected. No pathologically enlarged or morphologically abnormal adenopathy is seen within the mediastinum, lidia, nor axilla on this noncontrast exam. Osseous structures show age-related degenerative changes. No lytic or blastic bony lesions are seen. Included portions the upper abdomen are unremarkable.. IMPRESSION: 1. Stable left upper lobe pulmonary micronodules. 2. No new suspicious pulmonary nodule or mass. 3. Redemonstration background moderate emphysematous disease. 4. Advanced calcified aortic and coronary atherosclerosis. LUNG-RADS CATEGORY:2-S MODIFIER:As above OTHER SIGNIFICANT FINDINGS:As above Dictated by: Dictated on workstation # [id number]
== END ==
LOC: RAD 10:37
PROVIDERS: ATTEND Nurse Practitioner Family
DX: Z12.2 Encounter for screening for malignant neoplasm of respiratory organs (principal); J44.9 Chronic obstructive pulmonary disease, unspecified; I70.0 Atherosclerosis of aorta; I25.10 Atherosclerotic heart disease of native coronary artery without angina pectoris; R91.8 Other nonspecific abnormal finding of lung field; Z87.891 Personal history of nicotine dependence

== ENCOUNTER → 2019-08-13 | Outpatient (CLI) | payer MEDICARE, OTHER ==
[~2019-08-13] MED LIST changes: +HOLD METFORMIN - RECEIVED CONTRAST 20 ML VIAL IV SCH; +IOHEXOL 350 MG/ML 100 ML (OMNIPAQUE 350) VIAL IV ONE
[2019-08-13 10:05] LABS: CREATININE SERUM 1.12 MG/DL (0.60-1.30)
--- NOTE | 2019-08-13 13:03 | Diagnostic Imaging Report ---
PROCEDURE: CT angiography of the head and CT angiography of the neck with and without contrast. TECHNIQUE: Contiguous noncontrast images were obtained from the skull base through the vertex. After intravenous contrast administration, helical CT angiography of the neck was performed. Source data was reformatted into 3D MIP projections. Delayed post contrast acquisition was also obtained. Auto Exposure Controls were utilized during the CT exam to meet ALARA standards for radiation dose reduction. INDICATION: Coronary artery disease, COPD, dyspnea, and hypertension. The patient has a known intracranial aneurysm at the right MCA bifurcation. The study is performed for followup. COMPARISON: Correlation is made with the prior CT angiogram of the head and neck performed on 08/16/2018. FINDINGS: The precontrast head CT again demonstrates an area of hyperdensity in the posterior left thalamus, stable. The ventricular size and sulcal pattern appear stable. There is no midline shift or acute hemorrhage. The periventricular hypodensity is unchanged. Delayed post contrast images are unremarkable. The CT angiographic portion of the study again demonstrates a three-vessel branching pattern of the aortic arch. There is moderate calcified plaque within the great vessels. The common carotid arteries are patent. There is heavy calcified plaque at the left carotid bifurcation with a fairly significant stenosis of the proximal left ICA, similar to the prior exam. There is fairly significant calcified plaque at the carotid siphons bilaterally as well. The internal carotid arteries are otherwise unremarkable. The previously noted saccular aneurysm at the right middle cerebral artery bifurcation remains stable at approximately 4 mm x 5 mm. No additional aneurysm is detected. The anterior cerebral, posterior cerebral, and basilar arteries are unremarkable. The vertebral arteries are patent. IMPRESSION: Stable right MCA bifurcation aneurysm when compared with the examination of one year earlier. Dictated by: Dictated on workstation # [id number]
== END ==
LOC: RAD 09:16
PROVIDERS: ATTEND Physician Assistant
DX: I67.1 Cerebral aneurysm, nonruptured (principal); I25.10 Atherosclerotic heart disease of native coronary artery without angina pectoris; I10 Essential (primary) hypertension; J44.9 Chronic obstructive pulmonary disease, unspecified
CPT/HCPCS: 36415; 70496; 70498; 82565; 84520

== ENCOUNTER 2019-10-01 10:15 | Outpatient (RCR) | payer MEDICARE, OTHER ==
[2019-07-17 14:23] LABS: BASOPHILS % (AUTO) 0 % (0-10); EOSINOPHILS # (AUTO) 0.5 10^3/uL (0.0-0.3); EOSINOPHILS % (AUTO) 3 % (0-10); HEMATOCRIT 34 % (35-52); HEMOGLOBIN 10.7 G/DL (11.5-16.0); LYMPHOCYTES # (AUTO) 1.9 X 10^3 (1.0-4.0); LYMPHOCYTES % (AUTO) 13 % (12-44); MEAN CORPUSCULAR HEMOGLOBIN 32 PG (25-34); MEAN CORPUSCULAR HGB CONC 32 G/DL (32-36); MEAN CORPUSCULAR VOLUME 99 FL (80-99); MONOCYTES # (AUTO) 1.3 X 10^3 (0.0-1.0); MONOCYTES % (AUTO) 8 % (0-12); NEUTROPHILS # (AUTO) 11.3 X 10^3 (1.8-7.8); NEUTROPHILS % (AUTO) 75 % (42-75); PLATELET COUNT 314 10^3/uL (130-400)
[2019-07-17 14:41] LABS: ALBUMIN 3.8 GM/DL (3.2-4.5); BILIRUBIN,TOTAL 0.3 MG/DL (0.1-1.0); CREATININE SERUM 1.05 MG/DL (0.60-1.30); POTASSIUM 3.6 MMOL/L (3.6-5.0); TOTAL PROTEIN 6.3 GM/DL (6.4-8.2)
[2019-08-18 09:52] LABS: BASOPHILS % (AUTO) 0 % (0-10); EOSINOPHILS # (AUTO) 0.6 10^3/uL (0.0-0.3); EOSINOPHILS % (AUTO) 5 % (0-10); HEMATOCRIT 35 % (35-52); HEMOGLOBIN 11.3 G/DL (11.5-16.0); LYMPHOCYTES % (AUTO) 15 % (12-44); MEAN CORPUSCULAR HEMOGLOBIN 32 PG (25-34); MEAN CORPUSCULAR HGB CONC 32 G/DL (32-36); MEAN CORPUSCULAR VOLUME 99 FL (80-99); MEAN PLATELET VOLUME 10.6 FL (7.4-10.4); MONOCYTES # (AUTO) 1.1 X 10^3 (0.0-1.0); MONOCYTES % (AUTO) 9 % (0-12); NEUTROPHILS # (AUTO) 9.4 X 10^3 (1.8-7.8); NEUTROPHILS % (AUTO) 71 % (42-75); PLATELET COUNT 351 10^3/uL (130-400); WHITE BLOOD COUNT 13.2 10^3/uL (4.3-11.0)
[2019-08-18 10:20] LABS: BILIRUBIN,TOTAL 0.3 MG/DL (0.1-1.0); CALCIUM 9.5 MG/DL (8.5-10.1); CREATININE SERUM 0.94 MG/DL (0.60-1.30); TOTAL PROTEIN 6.6 GM/DL (6.4-8.2)
[~2019-10-01 10:15] MED LIST changes: -HOLD METFORMIN - RECEIVED CONTRAST 20 ML VIAL IV SCH; -IOHEXOL 350 MG/ML 100 ML (OMNIPAQUE 350) VIAL IV ONE
== END 2019-10-15 | disposition home or self-care (01) ==
LOC: ONC 10:15
PROVIDERS: ATTEND Internal Medicine Hematology & Oncology
DX: C83.18 Mantle cell lymphoma, lymph nodes of multiple sites (principal); D50.9 Iron deficiency anemia, unspecified; I10 Essential (primary) hypertension; E78.5 Hyperlipidemia, unspecified; E03.9 Hypothyroidism, unspecified; I25.10 Atherosclerotic heart disease of native coronary artery without angina pectoris; J44.9 Chronic obstructive pulmonary disease, unspecified; D80.1 Nonfamilial hypogammaglobulinemia; K44.9 Diaphragmatic hernia without obstruction or gangrene; K29.70 Gastritis, unspecified, without bleeding; M54.5 Low back pain; Z95.5 Presence of coronary angioplasty implant and graft; Z87.11 Personal history of peptic ulcer disease; Z79.899 Other long term (current) drug therapy; Z45.2 Encounter for adjustment and management of vascular access device
CPT/HCPCS: 80053; 85025; G0463; 36591; 96523; 99213

== ENCOUNTER 2019-12-22 15:59 | Outpatient (RCR) | payer MEDICARE, OTHER ==
[~2019-12-22 15:59] MED LIST changes: +AMLO-250 PO; -AMLO5TAB9 PO; -MONT10TA26 PO; +MONT10TA97 PO; -PANT40TA3 PO; +PANT40TA52 PO
== END 2020-02-08 | disposition home or self-care (01) ==
LOC: ONC 15:59
PROVIDERS: ATTEND Internal Medicine Hematology & Oncology
DX: Z45.2 Encounter for adjustment and management of vascular access device (principal); C83.18 Mantle cell lymphoma, lymph nodes of multiple sites; D50.9 Iron deficiency anemia, unspecified; I10 Essential (primary) hypertension; E78.5 Hyperlipidemia, unspecified; E03.9 Hypothyroidism, unspecified; I25.10 Atherosclerotic heart disease of native coronary artery without angina pectoris; J44.9 Chronic obstructive pulmonary disease, unspecified; D80.1 Nonfamilial hypogammaglobulinemia; K44.9 Diaphragmatic hernia without obstruction or gangrene; K29.70 Gastritis, unspecified, without bleeding; M54.5 Low back pain; Z95.5 Presence of coronary angioplasty implant and graft; Z87.11 Personal history of peptic ulcer disease; Z79.899 Other long term (current) drug therapy
CPT/HCPCS: 36591; 96523

== ENCOUNTER → 2020-08-11 | Outpatient (CLI) | payer MEDICARE, OTHER ==
[~2020-08-11] MED LIST changes: +LISI40TA9 PO; +MONT10TA32 PO; -MONT10TA97 PO
--- NOTE | 2020-08-11 16:06 | Diagnostic Imaging Report ---
EXAMINATION: CT chest without contrast (lung screening). TECHNIQUE: Multiple contiguous axial images were obtained through the chest without the use of intravenous contrast according to lung cancer screening protocol. All CT scans use one or more of the following dose optimizing techniques: automated exposure control, MA and/or KvP adjustment based on patient size and exam type or iterative reconstruction. HISTORY: 73 pack year history of smoking. COMPARISON: 08/04/2019 FINDINGS: There is no edema or pneumonia. No pleural effusion. No pneumothorax. No suspicious nodules. There is a 4 mm left upper lobe pulmonary nodule. There is moderate emphysema. There is a left rib deformity presumably reflecting resection of the left ninth rib with trans-intercostal herniation of the lung at this level. There is no axillary or supraclavicular lymphadenopathy. There is no mediastinal lymphadenopathy. Right-sided port catheter is present. Heart size is normal. There are severe coronary artery calcifications. No pericardial effusion. Aorta is normal in caliber. Limited views of the upper abdomen are unremarkable. There are no suspicious osseous lesions. IMPRESSION: 1. No suspicious pulmonary nodules. LUNG-RADS CATEGORY: 2 MODIFIER: None. Dictated by: Dictated on workstation # [id number]
== END ==
LOC: RAD 14:15
PROVIDERS: ATTEND Nurse Practitioner Family
DX: Z12.2 Encounter for screening for malignant neoplasm of respiratory organs (principal); Z87.891 Personal history of nicotine dependence
CPT/HCPCS: 71271

== ENCOUNTER → 2020-12-14 | Outpatient (CLI) | payer MEDICARE, OTHER | LOC: CARD 10:42 | PROVIDERS: ATTEND Internal Medicine Cardiovascular Disease | DX: I34.0 Nonrheumatic mitral (valve) insufficiency (principal); I11.9 Hypertensive heart disease without heart failure | CPT/HCPCS: 93306 ==